=== PATIENT | female | born 1965 | race Caucasian/White ===

== ENCOUNTER 2020-07-12 09:49 | Outpatient (RCR) | payer MEDICARE, MEDICAID, SELFPAY ==
--- NOTE | 2020-07-14 15:01 | MHC.PT.DC ---
[facility] [place] Office [place] Office [place] Office [address] Sadie Peter [address] [phone] F: [phone] F: [phone] F: [phone] F: [phone] Physical Therapy Discharge Report Diagnosis: SIJ dysfunction Date of Surgery: Date of Evaluation: 05/04/20 Date of Discharge: 07/14/20 Treatments to Date: 10 Cancellations to Date: 1 No Shows to Date: 0 Discharge Status: Achieved Goals Improved Function Independent with HEP Discharge Summary: In general patient is doing much better, she no longer has leg symptoms, demos an improvement in gait pattern and decreased low back pain. She will be going for an injection for lingering symptoms but has an HEP to continue at home on own. DC to HEP at this time. Electronically signed by: Heidi Saez Please sign and return to therapist. Thank you for your referral.
== END 2020-07-14 15:02 | disposition home or self-care (01) ==
LOC: HO.PTCHIC 09:49
PROVIDERS: PCP Physician Assistant; Visit Provider Physician Assistant
DX: M53.3 Sacrococcygeal disorders, not elsewhere classified (principal)
CPT/HCPCS: 97014; 97110; 97140

== ENCOUNTER 2020-10-20 08:51 | Outpatient (REF) | payer MEDICARE, MEDICAID, SELFPAY ==
[2020-10-20 11:23] LABS: Hematocrit 41.8 % (37-47); Hemoglobin 13.6 g/dl (12.0-16.0); Mean Corpuscular HGB Conc 32.5 g/dl (31.0-35.0); Mean Corpuscular Hemoglobin 30.1 pg (27.0-33.0); Mean Corpuscular Volume 92.5 fL (80-98); Mean Platelet Volume 10.8 fL (9.4-12.3); Platelet Count 154 X10*3/uL (160-400); Red Blood Count 4.52 X10*6/uL (4.20-5.50); Red Cell Distribution Width 14.6 % (11.0-16.0); White Blood Count 4.2 X10*3/uL (4.8-10.8)
[2020-10-20 11:31] LABS: Estimated Average Glucose 154 mg/dL
[2020-10-20 11:56] LABS: Alanine Aminotransferase 32 U/L (0-31); Albumin Level 4.9 g/dL (3.5-5.0); Alkaline Phosphatase 81 U/L (39-117); Anion Gap 14 (12-20); Aspartate Amino Transferase 27 U/L (5-31); Bilirubin Total 0.5 mg/dL (0.0-1.0); Blood Urea Nitrogen 15 mg/dL (9-16); Carbon Dioxide 25 mmol/L (22-29); Chloride 106 mmol/L (96-108); Cholesterol 165 mg/dL; Estimated Glomerular Filt Rate > 60; Glucose Fasting 159 mg/dL (60-99); HDL Cholesterol 45 mg/dL; LDL Cholesterol Calculated 57 mg/dl; Potassium 4.4 mmol/l (3.3-5.1); Sodium 141 mmol/L (135-145); Total Protein 6.9 g/dL (6.5-8.0); Triglycerides 319 mg/dL
[2020-10-20 12:23] LABS: TSH reflex Free T4 2.96 mIU/mL (0.32-4.0)
[2020-10-20 12:27] LABS: Creatinine Urine 65.11 mg/dL; Microalbumin Urine < 5.0 mg/L
== END 2020-10-20 08:52 | disposition home or self-care (01) ==
LOC: HO.HMGCLDS 08:51
PROVIDERS: PCP Physician Assistant; Visit Provider Physician Assistant
DX: I10 Essential (primary) hypertension (principal); E78.2 Mixed hyperlipidemia; E11.65 Type 2 diabetes mellitus with hyperglycemia
CPT/HCPCS: 36415; 80053; 80061; 82043; 83036; 84443; 85027

== ENCOUNTER 2021-03-21 13:30 | Outpatient (REF) | payer MEDICARE, MEDICAID, SELFPAY ==
[2021-03-21 16:20] LABS: MANUAL DIFF FLAG NO
[2021-03-21 16:24] LABS: Basophils Percent Auto 0.6 % (0-2); Eosinophils Absolute Auto 0.1 X10*3/uL (0.0-0.4); Eosinophils Percent Auto 1.8 % (0-4); Hematocrit 40.2 % (37-47); Hemoglobin 13.2 g/dl (12.0-16.0); Imm Gran Abs Auto 0.01 X10*3/uL (0.00-0.03); Imm Gran Pct Auto 0.2 % (0.0-0.4); Lymphocytes Absolute Auto 1.4 X10*3/uL (1.2-4.9); Lymphocytes Percent Auto 27.2 % (20-40); Mean Corpuscular HGB Conc 32.8 g/dl (31.0-35.0); Mean Corpuscular Hemoglobin 30.2 pg (27.0-33.0); Mean Platelet Volume 12.1 fL (9.4-12.3); Monocytes Absolute Auto 0.4 X10*3/uL (0.1-1.2); Monocytes Percent Auto 7.8 % (2-11); Neutrophils Absolute Auto 3.1 X10*3/uL (2.0-8.3); Neutrophils Percent Auto 62.4 % (45-73); Platelet Count 115 X10*3/uL (160-400); Red Blood Count 4.37 X10*6/uL (4.20-5.50); Red Cell Distribution Width 14.3 % (11.0-16.0)
== END 2021-03-21 13:31 | disposition home or self-care (01) ==
LOC: HO.HMGCLDS 13:30
PROVIDERS: PCP Physician Assistant; Visit Provider Physician Assistant
DX: D69.6 Thrombocytopenia, unspecified (principal)
CPT/HCPCS: 36415; 85025

== ENCOUNTER 2021-05-18 09:26 | Outpatient (REF) | payer MEDICARE, MEDICAID, SELFPAY ==
[2021-05-18 11:25] LABS: MANUAL DIFF FLAG NO
[2021-05-18 11:42] LABS: Basophils Percent Auto 0.5 % (0-2); Eosinophils Absolute Auto 0.1 X10*3/uL (0.0-0.4); Imm Gran Abs Auto 0.02 X10*3/uL (0.00-0.03); Imm Gran Pct Auto 0.5 % (0.0-0.4); Lymphocytes Percent Auto 25.2 % (20-40); Mean Corpuscular HGB Conc 32.5 g/dl (31.0-35.0); Mean Corpuscular Hemoglobin 29.6 pg (27.0-33.0); Mean Corpuscular Volume 91.1 fL (80-98); Mean Platelet Volume 11.4 fL (9.4-12.3); Monocytes Absolute Auto 0.3 X10*3/uL (0.1-1.2); Monocytes Percent Auto 7.1 % (2-11); Neutrophils Absolute Auto 2.7 X10*3/uL (2.0-8.3); Neutrophils Percent Auto 64.7 % (45-73); Platelet Count 134 X10*3/uL (160-400); Red Blood Count 4.39 X10*6/uL (4.20-5.50); Red Cell Distribution Width 14.1 % (11.0-16.0); White Blood Count 4.1 X10*3/uL (4.8-10.8)
[2021-05-18 11:47] LABS: Estimated Average Glucose 163 mg/dL; Hemoglobin A1c % 7.3 %
[2021-05-18 11:57] LABS: Alanine Aminotransferase 59 U/L (0-31); Albumin Level 4.7 g/dL (3.5-5.0); Alkaline Phosphatase 99 U/L (39-117); Anion Gap 15 (12-20); Aspartate Amino Transferase 44 U/L (5-31); Bilirubin Total 0.4 mg/dL (0.0-1.0); Blood Urea Nitrogen 14 mg/dL (9-16); Calcium 9.8 mg/dL (8.4-10.2); Carbon Dioxide 24 mmol/L (22-29); Chloride 104 mmol/L (96-108); Cholesterol 249 mg/dL; Estimated Glomerular Filt Rate > 60; Glucose Fasting 174 mg/dL (60-99); HDL Cholesterol 55 mg/dL; Potassium 4.2 mmol/L (3.3-5.1); Sodium 139 mmol/L (135-145); Total Protein 7.5 g/dL (6.5-8.0); Triglycerides 546 mg/dL
[2021-05-18 12:20] LABS: TSH reflex Free T4 3.87 uIU/mL (0.32-4.0)
== END 2021-05-18 09:27 | disposition home or self-care (01) ==
LOC: HO.HMGCLDS 09:26
PROVIDERS: PCP Physician Assistant; Visit Provider Physician Assistant
DX: D69.6 Thrombocytopenia, unspecified (principal); E78.2 Mixed hyperlipidemia; E11.65 Type 2 diabetes mellitus with hyperglycemia; E03.9 Hypothyroidism, unspecified
CPT/HCPCS: 36415; 80053; 80061; 83036; 84443; 85025

== ENCOUNTER 2021-05-30 12:48 | Outpatient (REF) | payer MEDICARE, MEDICAID, SELFPAY | END 2021-05-30 12:49 | disposition home or self-care (01) | LOC: HO.LNP 12:48 | PROVIDERS: Visit Provider Nurse Practitioner Family | DX: R35.0 Frequency of micturition (principal) | CPT/HCPCS: 87086 ==

== ENCOUNTER 2021-07-10 12:16 | Outpatient (REF) | payer OTHER, SELFPAY ==
[2021-07-10 13:03] LABS: Hematocrit 39.6 % (37-47); Hemoglobin 13.4 g/dl (12.0-16.0); Mean Corpuscular HGB Conc 33.8 g/dl (31.0-35.0); Mean Corpuscular Hemoglobin 30.3 pg (27.0-33.0); Mean Corpuscular Volume 89.6 fL (80-98); Mean Platelet Volume 10.4 fL (9.4-12.3); Platelet Count 132 X10*3/uL (160-400); Red Blood Count 4.42 X10*6/uL (4.20-5.50); Red Cell Distribution Width 13.8 % (11.0-16.0); White Blood Count 4.1 X10*3/uL (4.8-10.8)
[2021-07-10 13:11] LABS: Platelet Count (Citrate) 129 X10*3/uL (150-310)
[2021-07-10 13:19] LABS: Anion Gap 14 (12-20); Blood Urea Nitrogen 12 mg/dL (9-16); Calcium 9.6 mg/dL (8.4-10.2); Carbon Dioxide 24 mmol/L (22-29); Chloride 107 mmol/L (96-108); Estimated Glomerular Filt Rate > 60; Glucose Random 100 mg/dL (60-115); Magnesium 2.1 mg/dL (1.6-2.6); Sodium 141 mmol/L (135-145)
[2021-07-10 13:56] LABS: Folate 16.9 ng/mL (> or = 4.0); Vitamin B12 397 pg/mL (200-900)
[2021-07-13 02:17] LABS: Zinc 95 mcg/dL (60-130)
== END 2021-07-10 12:17 | disposition home or self-care (01) ==
LOC: HO.LAB 12:16
PROVIDERS: PCP Physician Assistant; Visit Provider Physician Assistant
DX: M79.10 Myalgia, unspecified site (principal); D69.6 Thrombocytopenia, unspecified; I10 Essential (primary) hypertension; E78.2 Mixed hyperlipidemia
CPT/HCPCS: 36415; 80048; 82607; 82746; 83735; 84630; 85027

== ENCOUNTER 2021-10-05 10:04 | Outpatient (REF) | payer OTHER, SELFPAY ==
[2021-10-05 11:32] LABS: Hematocrit 39.4 % (37.0-47.0); Hemoglobin 13.4 g/dl (12.0-16.0); Mean Corpuscular Hemoglobin 30.3 pg (27.0-33.0); Mean Corpuscular Volume 89.1 fL (80.0-98.0); Platelet Count 147 X10*3/uL (160-400); Red Blood Count 4.42 X10*6/uL (4.20-5.50); Red Cell Distribution Width 13.5 % (11.0-16.0); White Blood Count 4.7 X10*3/uL (4.8-10.8)
[2021-10-05 12:13] LABS: Platelet Count (Citrate) 101 X10*3/uL (150-310)
[2021-10-05 12:15] LABS: Alanine Aminotransferase 49 U/L (0-31); Albumin Level 4.7 g/dL (3.5-5.0); Alkaline Phosphatase 96 U/L (39-117); Anion Gap 16 (12-20); Aspartate Amino Transferase 45 U/L (5-31); Bilirubin Total 0.4 mg/dL (0.0-1.0); Blood Urea Nitrogen 15 mg/dL (9-16); Carbon Dioxide 22 mmol/L (22-29); Chloride 105 mmol/L (96-108); Cholesterol 267 mg/dL; Estimated Glomerular Filt Rate > 60; Glucose Fasting 177 mg/dL (60-99); HDL Cholesterol 53 mg/dL; Potassium 4.1 mmol/L (3.3-5.1); Sodium 139 mmol/L (135-145); Total Protein 7.8 g/dL (6.5-8.0); Triglycerides 495 mg/dL
[2021-10-05 12:25] LABS: Creatinine Urine 63.35 mg/dL; Microalbum/Creatinine Ratio Ur 14.2 ug/mg cr
== END 2021-10-05 10:05 | disposition home or self-care (01) ==
LOC: HO.HMGCLDS 10:04
PROVIDERS: PCP Physician Assistant; Visit Provider Physician Assistant
DX: E03.9 Hypothyroidism, unspecified (principal); E11.65 Type 2 diabetes mellitus with hyperglycemia; E78.2 Mixed hyperlipidemia; D69.6 Thrombocytopenia, unspecified
CPT/HCPCS: 36415; 80053; 80061; 82043; 84443; 85027

== ENCOUNTER 2021-11-20 11:06 | Outpatient (REF) | payer OTHER, SELFPAY ==
[2021-11-20 14:03] LABS: Hematocrit 42.2 % (37.0-47.0); Hemoglobin 13.9 g/dl (12.0-16.0); Mean Corpuscular HGB Conc 32.9 g/dl (31.0-35.0); Mean Corpuscular Hemoglobin 29.6 pg (27.0-33.0); Mean Platelet Volume 11.3 fL (9.4-12.3); Platelet Count 127 X10*3/uL (160-400); Red Blood Count 4.69 X10*6/uL (4.20-5.50); Red Cell Distribution Width 14.2 % (11.0-16.0); White Blood Count 4.6 X10*3/uL (4.8-10.8)
[2021-11-20 15:10] LABS: Platelet Count (Citrate) 96 X10*3/uL (150-310)
== END 2021-11-20 11:07 | disposition home or self-care (01) ==
LOC: HO.HMGCLDS 11:06
PROVIDERS: Visit Provider Physician Assistant
DX: D69.6 Thrombocytopenia, unspecified (principal)
CPT/HCPCS: 36415; 85027

== ENCOUNTER 2021-12-15 12:17 | Day surgery (SDC) | payer OTHER, SELFPAY ==
--- NOTE | 2021-12-13 14:29 | HO.ANESPROP2 ---
Documented by User: Belen Danielle NP 12/13/21 14:32 HPI - Anesthesia Eval Consult details Narrative: 56yo F for Bone Marrow Biopsy PMFSH Active Problems Active Problems: All Active Problems (Updated 12/11/21 @ 14:27 by Tere Jj, VIVEK) ISAURA (generalized anxiety disorder) (Acute) DMII (diabetes mellitus, type 2) (Acute) HLD (hyperlipidemia) (Acute) Migraines (Acute) Hypothyroidism (Acute) Allergic rhinitis (Acute) Thrombocytopenia (Chronic) Urinary frequency (Acute) Adult general medical exam (Acute) Myalgia (Acute) GERD (gastroesophageal reflux disease) (Acute) Hypertriglyceridemia (Acute) Obese (Acute) HTN (hypertension) (Acute) SI (sacroiliac) joint dysfunction (Acute) Chronic inflammatory demyelinating neuropathy (Acute) Past Medical History Medical History Anxiety Chronic inflammatory demyelinating neuropathy Diabetes GERD (gastroesophageal reflux disease) Herpes simplex HTN (hypertension) Hypothyroid Sciatica Seasonal allergies Family History Family History Father Leukemia Lung cancer PVD (peripheral vascular disease) Mother Diabetes Heart disease Asthma Substance use disorder Brother Thyroid disease Son Kelley's disease Sister Lymphoma Surgical History Surgical History History of ankle surgery History of bladder surgery History of colonoscopy History of elbow surgery History of hand surgery History of hip surgery History of hysterectomy History of inguinal hernia repair History of rectal surgery History of right knee surgery History of shoulder surgery History of surgery History of thumb surgery History of tonsillectomy and adenoidectomy Social History Social History Housing: House Alcohol intake: current Alcohol intake frequency: a few times a month Patient Tobacco Use Status: Former Tobacco user Quit Date: 1991 Tobacco use type: Cigarette e-Cigarette/Vaping Use: Never Used Are you DNR?: No Advance Directives: No Advance Directives Information Provided: Yes Advance Directives on File: No service: No Current occupational status: disabled Meds Allergies Allergy/AdvReac Type Severity Reaction Status Date / Time RACHELLE Inhibitors Allergy Severe Anaphylaxis Verified 12/15/21 12:36 azithromycin Allergy Severe HIVES TO Verified 12/15/21 12:36 ZPACK, anaphylaxis Fffxpaf-OMT-LlV Reductase Allergy Severe Anaphylaxis Verified 12/15/21 12:36 Inhibitor [Nnzodtg-Tdz-Hgx Reductase Inhibitor] IVIG Allergy Unknown told to Uncoded 12/11/21 14:31 avoid Home Medications Medication Instructions Recorded Confirmed Last Taken Type butalbital 50 mg-acetaminophen 300 1 cap PO DAILY PRN 10/13/20 12/11/21 Unknown History mg-caffeine 40 mg-codeine 30 mg cap diclofenac sodium 75 mg 75 mg PO DAILY PRN 10/13/20 12/11/21 Unknown History tablet,delayed release empagliflozin 25 mg tablet 25 mg PO DAILY 10/13/20 12/11/21 Unknown History (Jardiance) glimepiride 2 mg tablet 2 mg PO DAILY 10/13/20 12/11/21 Unknown History levothyroxine 200 mcg tablet 200 mcg PO DAILY 10/13/20 12/11/21 Unknown History liraglutide 0.6 mg/0.1 mL (18 mg/3 1.2 mg SUBCUT DAILY 10/13/20 12/11/21 Unknown History mL) subcutaneous pen injector metformin 500 mg tablet,extended 1,000 mg PO BID 10/13/20 12/11/21 Unknown History release 24 hr pramipexole 0.25 mg tablet 0.25 mg PO BEDTIME PRN 10/13/20 12/11/21 Unknown History sucralfate 1 gram tablet 1 g PO .4 TIMES A DAY PRN tab 10/13/20 12/11/21 Unknown History imiquimod 5 % topical cream packet 0 appl TOPICAL 3XW 05/30/21 12/11/21 Unknown History omeprazole 40 mg capsule,delayed 40 mg PO BID 12/01/21 12/11/21 Unknown History release mercaptopurine 50 mg tablet 1 tab PO DAILY 12/11/21 12/11/21 Unknown History valacyclovir 1 gram tablet 500 mg PO DAILY 12/11/21 12/11/21 Unknown History Fish Oil PO 12/15/21 Unknown History Exam Exam Date and Time: December 13, 2021 1429 Height,Weight and Vital Signs: Height 5 ft 7 in Weight 87.09 kg Pertinent Lab Results Pertinent Lab Results: Laboratory Tests 10/05/21 11/20/21 10:07 11:11 WBC 4.6 L Hgb 13.9 Hct 42.2 Plt Count 127 L Sodium 139 Potassium 4.1 Chloride 105 Carbon Dioxide 22 BUN 15 Creatinine 0.79 Assessment and Plan Assessment Anesthesia Assessment: Chart Reviewed Documented by User: Arlet Alejandra MD 12/15/21 12:49 PMF Past Medical History Medical History Anxiety Chronic inflammatory demyelinating neuropathy Diabetes GERD (gastroesophageal reflux disease) Herpes simplex HTN (hypertension) Hypothyroid Sciatica Seasonal allergies Functional capacity: independent ambulation Patient : No Family History Family History Father Leukemia Lung cancer PVD (peripheral vascular disease) Mother Diabetes Heart disease Asthma Substance use disorder Brother Thyroid disease Son Kelley's disease Sister Lymphoma Family history of problems with anesthesia: No Surgical History Surgical History History of ankle surgery History of bladder surgery History of colonoscopy History of elbow surgery History of hand surgery History of hip surgery History of hysterectomy History of inguinal hernia repair History of rectal surgery History of right knee surgery History of shoulder surgery History of surgery History of thumb surgery History of tonsillectomy and adenoidectomy History of Problems with Anesthesia: No Social History Social History Housing: House Alcohol intake: current Alcohol intake frequency: a few times a month Patient Tobacco Use Status: Former Tobacco user Quit Date: 1991 Tobacco use type: Cigarette e-Cigarette/Vaping Use: Never Used Are you DNR?: No Advance Directives: No Advance Directives Information Provided: Yes Advance Directives on File: No service: No Current occupational status: disabled Meds Allergies Allergy/AdvReac Type Severity Reaction Status Date / Time RACHELLE Inhibitors Allergy Severe Anaphylaxis Verified 12/15/21 12:36 azithromycin Allergy Severe HIVES TO Verified 12/15/21 12:36 ZPACK, anaphylaxis Twniozm-FUS-RlM Reductase Allergy Severe Anaphylaxis Verified 12/15/21 12:36 Inhibitor [Tyqqdhn-Khc-Ohn Reductase Inhibitor] IVIG Allergy Unknown told to Uncoded 12/11/21 14:31 avoid Home Medications Medication Instructions Recorded Confirmed Last Taken Type butalbital 50 mg-acetaminophen 300 1 cap PO DAILY PRN 10/13/20 12/11/21 Unknown History mg-caffeine 40 mg-codeine 30 mg cap diclofenac sodium 75 mg 75 mg PO DAILY PRN 10/13/20 12/11/21 Unknown History tablet,delayed release empagliflozin 25 mg tablet 25 mg PO DAILY 10/13/20 12/11/21 Unknown History (Jardiance) glimepiride 2 mg tablet 2 mg PO DAILY 10/13/20 12/11/21 Unknown History levothyroxine 200 mcg tablet 200 mcg PO DAILY 10/13/20 12/11/21 Unknown History liraglutide 0.6 mg/0.1 mL (18 mg/3 1.2 mg SUBCUT DAILY 10/13/20 12/11/21 Unknown History mL) subcutaneous pen injector metformin 500 mg tablet,extended 1,000 mg PO BID 10/13/20 12/11/21 Unknown History release 24 hr pramipexole 0.25 mg tablet 0.25 mg PO BEDTIME PRN 10/13/20 12/11/21 Unknown History sucralfate 1 gram tablet 1 g PO .4 TIMES A DAY PRN tab 10/13/20 12/11/21 Unknown History imiquimod 5 % topical cream packet 0 appl TOPICAL 3XW 05/30/21 12/11/21 Unknown History omeprazole 40 mg capsule,delayed 40 mg PO BID 12/01/21 12/11/21 Unknown History release mercaptopurine 50 mg tablet 1 tab PO DAILY 12/11/21 12/11/21 Unknown History valacyclovir 1 gram tablet 500 mg PO DAILY 12/11/21 12/11/21 Unknown History Fish Oil PO 12/15/21 Unknown History Exam Airway Mallampati Class: II TM Dist: >3cm Neck ROM: Full Heart: RRR Lungs: CTA Assessment and Plan Final Anesthetic Review Family History of Problems with Anesthesia: No History of Problems with Anesthesia: No ASA Class: III Final Preanesthetic Review: No Changes in Pt Med Stat, Meds/Allgs Chart Reviewed, Consent Obtained/Reviewed and Anes Risks/Benef Reviewed Patient Risk: Low Procedure Risk: Low Anesthetic Plan Anesthetic Plan: MAC: Disposition: Standard PACU
[2021-12-15 12:37] VITALS: BP 119/73; PULSE 86; RESP 16; TEMP 36.9; O2SAT 97
[2021-12-15 12:39] LABS: Glucose, Whole Blood 131 mg/dL (60-115)
[2021-12-15] MEDS: Lactated Ringers 1,000 ML 100 ML IVCONT (12:50)
[2021-12-15 14:24] LABS: Hematocrit 38.6 % (37.0-47.0); Mean Corpuscular HGB Conc 33.7 g/dl (31.0-35.0); Mean Corpuscular Hemoglobin 29.7 pg (27.0-33.0); Mean Corpuscular Volume 88.3 fL (80.0-98.0); Mean Platelet Volume 9.9 fL (9.4-12.3); Platelet Count 133 X10*3/uL (160-400); Red Blood Count 4.37 X10*6/uL (4.20-5.50); Red Cell Distribution Width 14.3 % (11.0-16.0); White Blood Count 4.5 X10*3/uL (4.8-10.8)
--- NOTE | 2021-12-15 14:47 | PM.HEMONCBM ---
Bone Marrow Aspiration - Bone Marrow Aspiration Procedure:: *Service Date: [12/15/21] Pre Op Diagnosis:: Thrombocytopenia, probable ITP Post Op Diagnosis:: Same as above Surgeon:: Lorin Tam MD Anesthesia:: Monitored anesthesia and local anesthesia Consent:: Informed consent obtained from the patient for the procedure. Pros and cons of biopsy explained. The patient was willing to proceed with the procedure under monitored anesthesia. Procedure in Detail:: The patient was positioned in the left lateral decubitus and the right posterior superior iliac spine prepped and draped. Under aseptic precautions, 10 ml of 1% lidocaine used for local anesthesia. With the Jamshidi needle, 8 ml of aspirate and 1 cm core biopsy obtained without any complications. The patient tolerated the procedure well. Bandage was applied and patient was positioned on back for 10 to 15 minutes after the procedure. The patient was advised to call us if she develops any pain or swelling at the surgical site. Follow up in 2 weeks.
[2021-12-15 14:49] VITALS: BP 111/74; PULSE 86; RESP 16; TEMP 36.7; O2SAT 96
[2021-12-15 15:04] VITALS: BP 112/73; PULSE 83; RESP 18; O2SAT 97
[2021-12-15 15:10] LABS: Bone Marrow SEE SEPARATE REPORT
== END 2021-12-15 15:30 | disposition home or self-care (01) ==
PROVIDERS: PCP Physician Assistant; Visit Provider Internal Medicine
PROC: (CPT 38221; principal; 2021-12-15 14:00)
DX: D69.6 Thrombocytopenia, unspecified (principal); G61.81 Chronic inflammatory demyelinating polyneuritis; Z80.6 Family history of leukemia; Z80.7 Family history of other malignant neoplasms of lymphoid, hematopoietic and related tissues; I10 Essential (primary) hypertension; E11.9 Type 2 diabetes mellitus without complications; E06.3 Autoimmune thyroiditis; M06.9 Rheumatoid arthritis, unspecified; K21.9 Gastro-esophageal reflux disease without esophagitis; B00.9 Herpesviral infection, unspecified; Z79.84 Long term (current) use of oral hypoglycemic drugs; Z88.1 Allergy status to other antibiotic agents; Z88.8 Allergy status to other drugs, medicaments and biological substances; Z87.891 Personal history of nicotine dependence; Z79.899 Other long term (current) drug therapy
CPT/HCPCS: 38222; 36415; 82947; 85027; 85097; 88184; 88185; 88237; 88264; 88305; 88311; 88313; 88342; J1642; J2250; J2405; J3010

== ENCOUNTER 2021-12-20 08:16 | Outpatient (REF) | payer OTHER, SELFPAY ==
--- NOTE | ~2021-12-20 | US_ITS ---
EXAMINATION: US ABDOMEN COMPLETE CLINICAL INFORMATION: Thrombocytopenia, unspecified. COMPARISON: None. TECHNIQUE: Real-time imaging of the abdominal viscera. FINDINGS: PANCREAS: The pancreas is obscured by gas. ABDOMINAL AORTA: The proximal, mid, and distal segments are normal in caliber. INFERIOR VENA CAVA: Visualized portions are normal. LIVER: The liver is normal in size. The liver contour is normal. The liver is diffusely echogenic. No focal lesion seen. No focal hepatic lesion. There is no intrahepatic biliary duct dilatation seen. GALLBLADDER: Surgically absent. COMMON BILE DUCT: Normal in caliber measuring 0.8 cm in diameter. RIGHT KIDNEY: There is an anechoic cyst in the midpole measuring 0.70 x 0.70 x 0.82 cm. There is mild fullness. No hydronephrosis or renal calculi. The kidney measures 10.3 cm in maximum dimension. LEFT KIDNEY: Normal. No hydronephrosis. No renal calculi or focal parenchymal lesions. The kidney measures 11.0 cm in maximum dimension. SPLEEN: The spleen is borderline enlarged. The spleen measures 13.4 cm in maximum dimension. FREE FLUID: None. US/US abdomen complete IMPRESSION: Hepatic steatosis without focal lesion. Anechoic cyst midpole right kidney with mild kidney fullness. Borderline splenic enlargement without focal lesion.
== END 2021-12-20 08:17 | disposition home or self-care (01) ==
LOC: HO.HMGCX 08:16
PROVIDERS: Visit Provider Physician Assistant
DX: D69.6 Thrombocytopenia, unspecified (principal)
CPT/HCPCS: 76700

== ENCOUNTER 2021-12-29 08:32 | Outpatient (REF) | payer OTHER, SELFPAY ==
[2021-12-29 13:10] LABS: Monotest Negative (Negative)
[2022-01-02 16:57] LABS: EBV DNA PCR Not Detected (Not Detected); EBV Source Whole Blood
== END 2021-12-29 08:33 | disposition home or self-care (01) ==
LOC: HO.HMGCLDS 08:32
PROVIDERS: PCP Physician Assistant; Visit Provider Physician Assistant
DX: R16.1 Splenomegaly, not elsewhere classified (principal); D69.6 Thrombocytopenia, unspecified
CPT/HCPCS: 36415; 86308; 87798

== ENCOUNTER 2022-02-16 11:21 | Outpatient (REF) | payer OTHER, SELFPAY ==
--- NOTE | ~2022-02-16 | XR_ITS ---
EXAMINATION: XR LUMBOSACRAL SPINE WITH OBLIQUES CLINICAL INFORMATION: M47.816 spondylosis, lumbar region. Recent Upper GI exam 02/12/2022. COMPARISON: Radiographs sacroiliac joints 04/07/2020, CT left hip 04/15/2020 TECHNIQUE: Lumbar spine is imaged in 5 views: FINDINGS: Normal lumbar segmentation with 5 nonrib-bearing lumbar vertebrae of normal height and normal lumbar lordosis. No lumbar vertebral compression, disc narrowing, destructive process, or spondylolisthesis. No spondylolysis. There is mild lumbar vertebral spurring anteriorly L5. No erosive changes. The SI joints and visualized sacrum are unremarkable. Bowel gas is normal. There is scattered barium in colonic diverticula and barium in the appendix from recent upper GI series. There are metallic tacks overlying the upper and mid abdomen likely from prior abdominal wall mesh. Chain urszula are seen overlying pelvis just left of midline. XR/XR lumbar spine 4V min IMPRESSION: -No lumbar vertebral compression, spondylolisthesis, or disc narrowing.
== END 2022-02-16 11:22 | disposition home or self-care (01) ==
LOC: HO.HMGCX 11:21
PROVIDERS: PCP Physician Assistant; Visit Provider Nurse Practitioner Women's Health
DX: M47.816 Spondylosis without myelopathy or radiculopathy, lumbar region (principal)
CPT/HCPCS: 72110

== ENCOUNTER 2022-06-06 10:55 | Outpatient (REF) | payer OTHER, SELFPAY ==
--- NOTE | ~2022-06-06 | XR_ITS ---
EXAMINATION: XR THORACIC SPINE CLINICAL INFORMATION: Pain COMPARISON: None TECHNIQUE: 3 views of the thoracic spine were obtained. FINDINGS: There is no fracture or bone destruction seen and the vertebral alignment is normal. There is no disc space narrowing. There is no abnormality of the paraspinal soft tissues. Partially visualized anterior abdominal wall hernia repair with mesh in place. XR/XR thoracic spine 3V IMPRESSION: Unremarkable dorsal spine exam.
== END 2022-06-06 10:56 | disposition home or self-care (01) ==
LOC: HO.HMGCX 10:55
PROVIDERS: PCP Physician Assistant; Visit Provider Nurse Practitioner Women's Health
DX: M54.6 Pain in thoracic spine (principal)
CPT/HCPCS: 72072

== ENCOUNTER 2022-07-11 10:20 | Outpatient (REF) | payer OTHER, SELFPAY ==
[2022-07-11 11:27] LABS: MANUAL DIFF FLAG NO
[2022-07-11 11:38] LABS: Basophils Percent Auto 0.6 % (0-2); Eosinophils Absolute Auto 0.1 X10*3/uL (0.0-0.4); Eosinophils Percent Auto 1.5 % (0-4); Hemoglobin 13.5 g/dl (12.0-16.0); Imm Gran Abs Auto 0.02 X10*3/uL (0.00-0.03); Imm Gran Pct Auto 0.4 % (0.0-0.4); Lymphocytes Absolute Auto 1.2 X10*3/uL (1.2-4.9); Mean Corpuscular HGB Conc 33.8 g/dl (31.0-35.0); Mean Corpuscular Hemoglobin 29.6 pg (27.0-33.0); Mean Corpuscular Volume 87.7 fL (80.0-98.0); Mean Platelet Volume 10.2 fL (9.4-12.3); Monocytes Absolute Auto 0.4 X10*3/uL (0.1-1.2); Monocytes Percent Auto 6.5 % (2-11); Neutrophils Absolute Auto 3.8 x10*3/uL (2.0-8.3); Platelet Count 167 X10*3/uL (160-400); Red Blood Count 4.56 X10*6/uL (4.20-5.50); Red Cell Distribution Width 14.2 % (11.0-16.0); White Blood Count 5.4 X10*3/uL (4.8-10.8)
[2022-07-11 11:47] LABS: Estimated Average Glucose 154 mg/dL
[2022-07-11 12:42] LABS: Alanine Aminotransferase 60 U/L (0-31); Alkaline Phosphatase 82 U/L (39-117); Anion Gap 19 (12-20); Aspartate Amino Transferase 44 U/L (5-31); Bilirubin Total 0.5 mg/dL (0.0-1.0); Blood Urea Nitrogen 11 mg/dL (9-16); Calcium 10.3 mg/dL (8.4-10.2); Carbon Dioxide 24 mmol/L (22-29); Chloride 101 mmol/L (96-108); Cholesterol 214 mg/dL; Estimated Glomerular Filt Rate > 60; Glucose Fasting 153 mg/dL (60-99); HDL Cholesterol 56 mg/dL; LDL Cholesterol Calculated 101 mg/dl; Potassium 4.1 mmol/L (3.3-5.1); Sodium 140 mmol/L (135-145); Total Protein 7.7 g/dL (6.5-8.0); Triglycerides 286 mg/dL
[2022-07-11 12:48] LABS: Vitamin D 25-OH Total 30.7 ng/mL (>30)
== END 2022-07-11 10:21 | disposition home or self-care (01) ==
LOC: HO.HMGCLDS 10:20
PROVIDERS: PCP Physician Assistant; Visit Provider Physician Assistant
DX: E11.65 Type 2 diabetes mellitus with hyperglycemia (principal); D69.6 Thrombocytopenia, unspecified; I10 Essential (primary) hypertension
CPT/HCPCS: 36415; 80053; 80061; 82306; 83036; 84443; 85025

== ENCOUNTER 2023-04-08 07:55 | Outpatient (REF) | payer OTHER, SELFPAY ==
[2023-04-08 12:08] LABS: Hematocrit 40.8 % (37.0-47.0); Hemoglobin 13.5 g/dl (12.0-16.0); Mean Corpuscular HGB Conc 33.1 g/dl (31.0-35.0); Mean Corpuscular Hemoglobin 29.6 pg (27.0-33.0); Mean Corpuscular Volume 89.5 fL (80.0-98.0); Mean Platelet Volume 11.6 fL (9.4-12.3); Platelet Count 128 X10*3/uL (160-400); Red Blood Count 4.56 X10*6/uL (4.20-5.50); Red Cell Distribution Width 14.3 % (11.0-16.0)
[2023-04-08 12:56] LABS: Alanine Aminotransferase 48 U/L (0-31); Albumin Level 4.7 g/dL (3.5-5.0); Alkaline Phosphatase 81 U/L (39-117); Anion Gap 16 (12-20); Aspartate Amino Transferase 40 U/L (5-31); Bilirubin Total 0.5 mg/dL (0.0-1.0); Blood Urea Nitrogen 14 mg/dL (9-16); Calcium 10.3 mg/dL (8.4-10.2); Carbon Dioxide 24 mmol/L (22-29); Chloride 105 mmol/L (96-108); Cholesterol 211 mg/dL; Estimated Glomerular Filt Rate > 60; Glucose Fasting 167 mg/dL (60-99); HDL Cholesterol 61 mg/dL; LDL Cholesterol Calculated 108 mg/dl; Sodium 141 mmol/L (135-145); Total Protein 7.4 g/dL (6.5-8.0); Triglycerides 212 mg/dL
[2023-04-08 13:37] LABS: Creatinine Urine 51.86 mg/dL; Microalbum/Creatinine Ratio Ur 15.4 ug/mg cr
== END 2023-04-08 07:56 | disposition home or self-care (01) ==
LOC: HO.HMGCLDS 07:55
PROVIDERS: Absent Provider Internal Medicine; PCP Physician Assistant; Visit Provider Physician Assistant
DX: E11.65 Type 2 diabetes mellitus with hyperglycemia (principal); E78.2 Mixed hyperlipidemia; E03.9 Hypothyroidism, unspecified; I10 Essential (primary) hypertension
CPT/HCPCS: 36415; 80053; 80061; 82043; 84443; 85027

== ENCOUNTER 2023-05-07 13:40 | Outpatient (REF) | payer OTHER, SELFPAY ==
--- NOTE | ~2023-05-07 | XR_ITS ---
EXAMINATION: XR HIP, LEFT CLINICAL INFORMATION: Pain COMPARISON: None available. TECHNIQUE: Two views of the left hip. FINDINGS: Visualized portion of proximal left femur demonstrate no fracture. Femoral head is well-seated within the acetabulum. Left femoral acetabular joint space is well-maintained. No significant degenerative changes of the left hip. Surgical clips project over the pubic symphysis. XR/XR hip LT min 2V IMPRESSION: Unremarkable radiographs of the left hip.
== END 2023-05-07 13:41 | disposition home or self-care (01) ==
LOC: HO.HMGCX 13:40
PROVIDERS: Visit Provider Nurse Practitioner Women's Health
DX: M25.552 Pain in left hip (principal)
CPT/HCPCS: 73502

== ENCOUNTER 2023-05-30 11:12 | Outpatient (AMB) | payer OTHER, SELFPAY ==
[2023-05-30 11:20] VITALS: BP 112/70; PULSE 87; O2SAT 97; BMI 29.3
--- NOTE | 2023-05-30 11:20 | MHC.PC.OV ---
Vital Signs 05/30/23 11:20 Height 5 ft 7 in Weight 187 lb 6 oz BMI 29.3 BP 112/70 Blood Pressure Location Lt brachial Position Sitting Pulse 87 Pulse Source Pulse Oximeter Pulse Oximetry (%) 97 Oxygen Delivery Method Room Air Intake Visit Reasons: PE/DM Intake Note: Patient is here today for a physical and DMII. Pound Attendant Required: No Accompanied by: Self / Same As Patient Allergies RACHELLE Inhibitors Allergy (Severe, Verified 05/30/23 11:27) Anaphylaxis azithromycin Allergy (Severe, Verified 05/30/23 11:27) HIVES TO ZPACK, anaphylaxis Skaynvb-RGH-VjI Reductase Inhibitor [Qvcuiry-Zvq-Mdv Reductase Inhibitor] Allergy (Severe, Verified 05/30/23 11:27) Anaphylaxis amitriptyline Adverse Reaction (Intermediate, Verified 05/30/23 11:27) Headache hydrochlorothiazide Adverse Reaction (Intermediate, Verified 05/30/23 11:27) leg cramps IVIG Allergy (Unknown, Uncoded 05/30/23 11:27) told to avoid Tobacco use date assessed: 03/04/23 Dental Screening Dental Screen Date: 05/30/23 Did you have a dental visit in the last 12 months?: Yes Did you have a dental problem in the last 6 months where you did not have access to dental care?: No Was dental information given to patient?: Patient has dentist HPI PE/DM HPI Details Patient is a 58 year female here today for a routine annual physical. Patient has a past medical history type 2 diabetes, hypothyroidism, chronic inflammatory demyelinating polyneuritis. . Concerned--> reports having left hip pain over her lateral aspect of her hip and in her upper buttocks region. Has gotten x-ray without any notable abnormality. Has been working with physical therapy on her SI joint which has been helpful. She has follow-up with orthopedics and will be getting MRI of left hip. She also does report suffering with lot more anxiety as of late. She reports her son will be getting pretty soon which is causing lot her anxiety. ... ? .. ? DMII:? Patient followed by endocrinology, Does check blood sugars at home, report 120- 160s.? She did recently increase her her diabetic medication.? Most recent A1c is 7.0 .. HLD:? Most recent lipid panel much improved triglycerides and total cholesterol.? Patient has been using fish oil which seems to be working well for her.. ? Unable to take statin therapy due to side effect.? Have been locked into start fibrates due to elevations in liver enzymes. .. Thrombocytopenia:? Most recent platelet count at 107.? Has follow-up up with Hematology and has gotten bone pair mildly see which was normal.? Does have a small amount of bruising over her her extremities. Otherwise no epistaxis or bowel or bladder bleeding. .. HTN:? Blood pressures have been much better proved with amlodipine 2.5 mg.? Will continue on his dose of amlodipine. Otherwise denies any chest pain, palpitations, shortness of breath or headaches.? .. ? CIDP: Followed by neurologist at [facility], she does go for plasmapheresis therapies every 5 weeks. Has been having right-sided lower extremity weakness and facial weakness related to her neurological disease. 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 Also did have MRI of brain did show benign appearing cyst at is undergoing surveillance at this time. ?Also having migraines and reports she has gotten botox injection over he scalp which has helped.? Now only taking Fiorinal on a very limited p.r.n. basis.? .. ? Hypothyroidism: Patient continues to take levothyroxine to 100 mcg 6 days a week Colon cancer screening:UTD with Colonoscopy Vaccines: Up-to-date with COVID vaccine FOR[facility]LY [facility] Medical History Splenomegaly HTN (hypertension) Hypothyroid GERD (gastroesophageal reflux disease) Diabetes Anxiety Sciatica Obese Allergic rhinitis Herpes simplex Chronic inflammatory demyelinating neuropathy Surgical History History of colonoscopy History of surgery History of rectal surgery History of bladder surgery History of inguinal hernia repair History of hysterectomy History of tonsillectomy and adenoidectomy History of ankle surgery History of right knee surgery History of elbow surgery History of hand surgery History of thumb surgery History of shoulder surgery History of hip surgery Family History (Updated 05/30/23 @ 11:50 by Adam Cadena PA-C) Father Leukemia Lung cancer PVD (peripheral vascular disease) Mother Diabetes Heart disease Asthma Substance use disorder Brother Thyroid disease CIDP (chronic inflammatory demyelinating polyneuropathy) Son Kelley's disease Sister Lymphoma Social History (Updated 05/30/23 @ 11:50 by Adam Cadena PA-C) Housing: House Alcohol intake: current Alcohol intake frequency: a few times a month Patient Tobacco Use Status: Former Tobacco user Quit Date: 1991 Tobacco use type: Cigarette e-Cigarette/Vaping Use: Never Used Second Hand Smoke Exposure: Yes service: No Current occupational status: disabled Cognitive needs: No Hearing needs: No Vision needs: Yes (GLASSES) Questionnaire Thrive Questionnaire Date Thrive assessed: 03/04/23 ISAURA-7 AMB Questionnaire ISAURA-7 Date ISAURA - 7 assessed: 03/04/23 Source: Developed by Drs. Delfino Schwab, Christine Albrecht, Cesar Anthony and colleagues, with an educational margaret from [employer]. Review of Systems Const Denies body aches, Denies chills, Denies excessive sweating, Denies fatigue, Denies fever(s) and Denies headache(s) Eyes Denies blurry vision ENT Denies dysphagia, Denies vertigo, Denies dizziness, Denies headache(s), Denies hearing loss and Denies tinnitus Card Denies chest pain, Denies chest pain with activity, Denies syncope, Denies irregular heart rhythm and Denies dyspnea Resp Denies chest congestion, Denies cough, Denies hemoptysis, Denies dyspnea and Denies wheezing GI Denies abdominal pain, Denies melena, Denies hematochezia, Denies coffee ground emesis, Denies dysphagia, Denies diarrhea, Denies nausea and Denies vomiting Denies urinary frequency, Denies dysuria, Denies urinary hesitancy and Denies urinary urgency Musc Denies arthralgias, Denies limited range of motion, Denies muscle cramps and Denies muscle weakness Skin/Breast Denies rash and Denies skin ulcer Neuro Denies Abnormal speech present, Denies confusion, Denies vertigo, Denies dizziness, Denies syncope, Denies headache(s), Denies memory loss and Denies seizure-like activity Psych Denies anxiety, Denies confusion, Denies depression, Denies memory loss, Denies panic attacks and Denies paranoia Endo Denies excessive sweating, Denies fatigue, Denies flushing, Denies polydipsia and Denies polyuria Aller/Immun Denies wheezing Physical exam (Primary Care) Vital Signs: Last Vital Signs Pulse 87 05/30/23 11:20 BP 112/70 05/30/23 11:20 Pulse Ox 97 05/30/23 11:20 Oxygen Delivery Method Room Air 05/30/23 11:20 BMI result Body Mass Index 29.3 Tobacco/Smoking Status: Tobacco use Status Tobacco use date assessed 03/04/23 05/30/23 11:27 Patient Tobacco Use Status Former Tobacco user 05/30/23 11:50 Tobacco use type Cigarette 05/30/23 11:50 e-Cigarette/Vaping Use Never Used 05/30/23 11:50 Thrive Assessment: Date of Thrive Assessment Date Thrive assessed 03/04/23 05/30/23 11:27 Const General: cooperative, comfortable, no acute distress, alert and awake; No confusion Orientation/consciousness: oriented to person, oriented to place, patient oriented x3 and No confusion HENMT Head: Yes normocephalic Ears: external ears normal and TM's normal bilaterally Face and sinus: No sinus tenderness Mouth: Normal oral and palatal mucosa present and tongue normal Teeth and gingiva: dentition normal and gingiva normal Throat: Yes posterior oropharynx normal, Yes tonsils normal and Yes uvula midline Eyes Conjunctivae: conjunctivae normal Sclerae: sclerae normal Pupils: Equal, round and reactive pupils present EOM: EOMs intact bilaterally Direct Ophthalmoscopy: No no photophobia Neck Neck: Yes no lymphadenopathy, No tender and Yes no JVD Thyroid: Thyroid normal Carotids: no bruits Chest Chest palpation & inspection: no tenderness Resp Effort & Inspection: normal respiratory effort, no audible wheezes, not labored and no stridor Auscultation: no crackles, no rales, no rhonchi and no wheezes Cardio Jugular venous distension: no JVD Rate: regular rate, not bradycardic and not tachycardic Rhythm: regular rhythm Bruits: no carotid bruits Peripheral pulses: Peripheral pulses 2+ throughout GI Inspection: Yes normal to inspection, No abdominal wall ecchymosis and No visible herniation Palpation (GI): Soft to palpation, nontender, no guarding, not rigid and No hepatosplenomegaly present Auscultation: normoactive bowel sounds General: Yes no CVA tenderness Back/Spine/Pelvis Back: no CVA tenderness and No back tenderness Cervical Spine: cervical ROM normal Thoracic/Lumbar Spine: thoracic and lumbar spine normal to inspection, straight leg raise negative bilaterally, No thoraco-lumbar ROM limited and No lumbar spinal tenderness Skin Lesions: no lesions Rashes: no rashes Wounds: no wounds Neuro General: oriented to person, oriented to place, patient oriented x3, CN's II-XI intact bilaterally and No confusion Cranial nerves: Yes Equal, round and reactive pupils present and Yes Normal accommodation reflex present Cognition (Neuro): normal cognition Speech: No Abnormal speech present Gait exam (Neuro): Normal gait present Motor exam (neuro): 5/5 motor strength present throughout Extrem Right upper extremity: full ROM; no cyanosis Left upper extremity: full ROM; no cyanosis Right lower extremity: no edema Left lower extremity: no edema Psych Appearance: grossly normal Mental Status: mental status grossly normal Affect: normal affect Attitude: cooperative Thought process: Normal thought process present Assessment and Plan Assessment & Plan (1) Adult general medical exam: Code(s): Z00.00 - Encounter for general adult medical examination without abnormal findings (2) ISAURA (generalized anxiety disorder): Code(s): F41.1 - Generalized anxiety disorder Plan: As per HPI patient having more anxiety as of late. Not interested in starting new medication at this time. She does speak with a mental health therapist whom she likes. (3) DMII (diabetes mellitus, type 2): Code(s): E11.9 - Type 2 diabetes mellitus without complications Qualifiers: Diabetes mellitus complication status: with hyperglycemia Diabetes mellitus longterm insulin use: without longterm use Qualified Code(s): E11.65 - Type 2 diabetes mellitus with hyperglycemia Plan: Patient's type 2 diabetes well controlled with current doses of anti-hyperglycemic medication. Goal A1c is to remain below 7.0 (4) HLD (hyperlipidemia): Code(s): E78.5 - Hyperlipidemia, unspecified Qualifiers: Hyperlipidemia type: mixed hyperlipidemia Qualified Code(s): E78.2 - Mixed hyperlipidemia Plan: Patient's most recent lipid panel showing borderline high LDL. Patient has not been able to tolerate statin and has started fish oil which has helped her triglycerides.. Goal LDL to be below 100 (5) Thrombocytopenia: Code(s): D69.6 - Thrombocytopenia, unspecified Plan: Continues to follow hematology. Most recent platelet count at 107. She denies any severe bleeding though does report some bruising on her legs. (6) Left hip pain: Code(s): M25.552 - Pain in left hip Plan: As per HPI patient has been experiencing left hip pain worse with flexing and abducting her hips. Has upcoming MRI to evaluate. Orders: Orders Microalbumin, Random (w Creat) Today E11.65 - Type 2 diabetes mellitus with hyperglycemia TSH reflex Free T4 Today E03.9 - Hypothyroidism, unspecified Lipid Panel Today E78.2 - Mixed hyperlipidemia Hemoglobin A1c Today E11.65 - Type 2 diabetes mellitus with hyperglycemia Comprehensive Thomson. Panel Fast Today E11.65 - Type 2 diabetes mellitus with hyperglycemia Coding Level of Care Code Est Pt Prev Care 40-64y([id number]) Diagnoses Adult general medical exam Z00.00 ISAURA (generalized anxiety disorder) F41.1 Type 2 diabetes mellitus with hyperglycemia, without long-term current use of insulin E11.65 Diabetes mellitus complication status: with hyperglycemia Diabetes mellitus longterm insulin use: without longterm use Mixed hyperlipidemia E78.2 Hyperlipidemia type: mixed hyperlipidemia Thrombocytopenia D69.6 Left hip pain M25.552
== END 2023-05-30 12:05 | disposition home or self-care (01) ==
PROVIDERS: Visit Provider Physician Assistant
DX: Z00.00 Encounter for general adult medical examination without abnormal findings (principal); E11.65 Type 2 diabetes mellitus with hyperglycemia; D69.6 Thrombocytopenia, unspecified; F41.1 Generalized anxiety disorder; E78.2 Mixed hyperlipidemia; M25.552 Pain in left hip
CPT/HCPCS: 99396

== ENCOUNTER 2023-06-25 10:26 | Outpatient (REF) | payer OTHER, SELFPAY ==
--- NOTE | ~2023-06-25 | XR_ITS ---
EXAMINATION: XR FOOT, RIGHT CLINICAL INFORMATION: Right foot pain after injury COMPARISON: None available. TECHNIQUE: AP, lateral, and oblique views of the right foot. FINDINGS: Oblique fracture identified at the base of the third proximal phalanx extending close to the articular surface. Minor calcaneal spurring. XR/XR foot RT min 3V IMPRESSION: Fractured third proximal phalanx, intra-articular extension questioned.
== END 2023-06-25 10:27 | disposition home or self-care (01) ==
LOC: HO.HMGCX 10:26
PROVIDERS: PCP Physician Assistant; Visit Provider Nurse Practitioner Women's Health
DX: S93.514A Sprain of interphalangeal joint of right lesser toe(s), initial encounter (principal); X58.XXXA Exposure to other specified factors, initial encounter; Y93.9 Activity, unspecified; Y92.9 Unspecified place or not applicable; Y99.9 Unspecified external cause status
CPT/HCPCS: 73630

== ENCOUNTER 2023-08-08 14:26 | Outpatient (REF) | payer OTHER, SELFPAY ==
--- NOTE | ~2023-08-08 | XR_ITS ---
EXAMINATION: XR CHEST CLINICAL INFORMATION: Bronchitis COMPARISON: None available. TECHNIQUE: 2 views of the chest were obtained. FINDINGS: Lungs clear. No pleural effusions. Heart and pulmonary vessels are normal. XR/XR chest 2V IMPRESSION: No active disease.
== END 2023-08-08 14:27 | disposition home or self-care (01) ==
LOC: HO.HMGCX 14:26
PROVIDERS: PCP Physician Assistant; Visit Provider Physician Assistant
DX: J40 Bronchitis, not specified as acute or chronic (principal)
CPT/HCPCS: 71046

== ENCOUNTER 2023-09-10 08:23 | Outpatient (REF) | payer OTHER, SELFPAY ==
[2023-09-10 11:39] LABS: Appearance Urine Turbid; Color Urine Yellow; Glucose Urine UA >=1000 mg/dL (Negative); Leukocyte Esterase Urine Moderate (2+) (Negative); Nitrite Urine Positive (Negative); PH 5.5 (5.0-9.0); Specific Gravity - Urine >= 1.030 (1.005-1.025); UMIC TRIGGER UACC YES; Urine Blood Moderate (2+) (Negative); Urine Ketones Negative (Negative); Urine Protein Trace mg/dL (Neg-Trace)
[2023-09-10 11:53] LABS: Bacteria Urine 4+ (None Seen); Hyaline Casts Urine 0-2 /LPF (0-2); Squamous Epithelial Cell Urine 0-2 /HPF (0-2); UACC Culture Trigger YES; WBC Urine >50 /HPF (0-5)
== END 2023-09-10 08:24 | disposition home or self-care (01) ==
LOC: HO.HMGCLDS 08:23
PROVIDERS: PCP Physician Assistant; Visit Provider Nurse Practitioner Women's Health
DX: N39.0 Urinary tract infection, site not specified (principal)
CPT/HCPCS: 81001; 87086; 87088; 87186

== ENCOUNTER 2023-09-25 10:26 | Outpatient (REF) | payer OTHER, SELFPAY | END 2023-09-25 10:27 | disposition home or self-care (01) | LOC: HO.HMGCLDS 10:26 | PROVIDERS: PCP Physician Assistant; Visit Provider Physician Assistant | DX: R30.0 Dysuria (principal); R35.0 Frequency of micturition | CPT/HCPCS: 81001; 87086; 87088; 87186 ==

== ENCOUNTER 2023-10-01 08:01 | Outpatient (REF) | payer OTHER, SELFPAY ==
[2023-10-01 11:14] LABS: Appearance Urine Clear; Color Urine Yellow; Glucose Urine UA >=1000 mg/dL (Negative); Leukocyte Esterase Urine Negative (Negative); Nitrite Urine Negative (Negative); PH 5.5 (5.0-9.0); Specific Gravity - Urine >= 1.030 (1.005-1.025); UMIC TRIGGER UACC YES; Urine Blood Negative (Negative); Urine Ketones Negative (Negative); Urine Protein Negative (Neg-Trace)
[2023-10-01 11:28] LABS: Bacteria Urine None Seen (None Seen); Hyaline Casts Urine 0-2 /LPF (0-2); RBC Urine 0-2 /HPF (0-2); Squamous Epithelial Cell Urine 0-2 /HPF (0-2); WBC Urine 0-5 /HPF (0-5)
[2023-10-01 11:31] LABS: Estimated Average Glucose 154 mg/dL
[2023-10-01 12:15] LABS: Creatinine Urine 50.38 mg/dL; Microalbumin Urine < 5.0 mg/L
[2023-10-01 12:30] LABS: Alanine Aminotransferase 38 U/L (0-31); Albumin Level 4.7 g/dL (3.5-5.0); Alkaline Phosphatase 45 U/L (39-117); Anion Gap 12 (12-20); Aspartate Amino Transferase 21 U/L (5-31); Bilirubin Total 0.4 mg/dL (0.0-1.0); Blood Urea Nitrogen 14 mg/dL (9-16); Calcium 9.2 mg/dL (8.4-10.2); Carbon Dioxide 25 mmol/L (22-29); Chloride 109 mmol/L (96-108); Cholesterol 130 mg/dL (<200); Estimated Glomerular Filt Rate > 60; Glucose Fasting 222 mg/dL (60-99); HDL Cholesterol 33 mg/dL (>40); LDL Cholesterol Calculated 47 mg/dL (<100); Potassium 3.6 mmol/L (3.3-5.1); Sodium 142 mmol/L (135-145); Total Protein 6.6 g/dL (6.5-8.0); Triglycerides 254 mg/dL (<150)
[2023-10-01 12:47] LABS: TSH reflex Free T4 0.66 uIU/mL (0.32-4.0)
== END 2023-10-01 08:02 | disposition home or self-care (01) ==
LOC: HO.HMGCLDS 08:01
PROVIDERS: PCP Physician Assistant; Visit Provider Physician Assistant
DX: E11.65 Type 2 diabetes mellitus with hyperglycemia (principal); E03.9 Hypothyroidism, unspecified; E78.2 Mixed hyperlipidemia
CPT/HCPCS: 36415; 80053; 80061; 81001; 82043; 82570; 83036; 84443

== ENCOUNTER 2023-10-02 10:42 | Outpatient (AMB) | payer OTHER, SELFPAY ==
[2023-10-02 10:44] VITALS: BP 118/68; PULSE 80; O2SAT 97; BMI 29.1
--- NOTE | 2023-10-02 10:44 | MHC.PC.OV ---
Vital Signs 10/02/23 10:44 Height 5 ft 7 in Weight 186 lb BMI 29.1 BP 118/68 Blood Pressure Location Lt brachial Position Sitting Pulse 80 Pulse Source Pulse Oximeter Pulse Oximetry (%) 97 Oxygen Delivery Method Room Air Intake Visit Reasons: f/u DMII/ ISAURA Oven Tender Required: No Allergies RACHELLE Inhibitors Allergy (Severe, Verified 10/02/23 10:52) Anaphylaxis azithromycin Allergy (Severe, Verified 10/02/23 10:52) HIVES TO ZPACK, anaphylaxis Mgsnnkx-BPH-ItP Reductase Inhibitor [Xyawsop-Rtr-Orf Reductase Inhibitor] Allergy (Severe, Verified 10/02/23 10:52) Anaphylaxis amitriptyline Adverse Reaction (Intermediate, Verified 10/02/23 10:52) Headache hydrochlorothiazide Adverse Reaction (Intermediate, Verified 10/02/23 10:52) leg cramps IVIG Allergy (Unknown, Uncoded 10/02/23 10:44) told to avoid Medication List - Last Reconciled 10/02/23 by Adam Cadena PA-C amlodipine 2.5 mg PO DAILY amlzkktkxl-gynbaopgyu-kej-cod [id number] mg 1 cap PO DAILY PRN cetirizine 10 mg PO DAILY PRN 90 days cholecalciferol (vitamin D3) (Vitamin D3) 25 mcg PO DAILY ciprofloxacin HCl 250 mg PO BID 4 days diclofenac sodium 75 mg PO DAILY PRN doxycycline monohydrate 100 mg PO BID 7 days empagliflozin (Jardiance) 25 mg PO DAILY [Fish Oil PO] fluticasone propionate 50 mcg/actuation 2 sprays intranasal DAILY 30 days galcanezumab-gnlm (Emgality Pen) mg subcut glimepiride 2 mg PO DAILY levothyroxine 200 mcg PO DAILY liraglutide 1.2 mg subcut DAILY lorazepam 1 mg PO DAILY PRN 30 days mercaptopurine 1 tab PO DAILY metformin ER 1,000 mg PO BID omeprazole 40 mg PO BID pramipexole 0.25 mg PO BEDTIME PRN prucalopride (Motegrity) 2 mg PO DAILY valacyclovir 1,000 mg PO DAILY Tobacco use date assessed: 10/02/23 HPI f/u DMII/ ISAURA HPI Details Patient is a 58 year female here today for a follow-up visit Patient has a past medical history type 2 diabetes, hypothyroidism, chronic inflammatory demyelinating polyneuritis. Recently had a UTI that need to be treated with antibiotics x 3 rounds. She feels her bladder spasms. . Right hip pain/ tear: has been going see an orthopedic, has recieved injection and plasma injection. Has done PT ISAURA: She is interested in establishing care with a mental health therapist to help further treat her anxiety. Does use lorazepam on an daily/p.r.n. basis. ... ? .. ? DMII:? Patient followed by endocrinology, Does check blood sugars at home, report 120- 160s.? She did recently increase her her diabetic medication.? Most recent A1c is 7.0 .. HLD:? Most recent lipid panel much improved triglycerides and total cholesterol.? Patient has been using fish oil which seems to be working well for her.. ? Unable to take statin therapy due to side effect.? Have been locked into start fibrates due to elevations in liver enzymes. .. Thrombocytopenia:? Most recent platelet count at 144.? Has follow-up up with Hematology and has gotten bone pair mildly see which was normal.? Otherwise no epistaxis or bowel or bladder bleeding. .. HTN:? Blood pressures have been much better proved with amlodipine 2.5 mg.? Will continue on his dose of amlodipine. Otherwise denies any chest pain, palpitations, shortness of breath or headaches.? .. ? CIDP: Followed by neurologist at [facility] [place], she does go for plasmapheresis therapies every 5 weeks. Has been having right-sided lower extremity weakness and facial weakness related to her neurological disease. 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 Also did have MRI of brain did show benign appearing cyst at is undergoing surveillance at this time. ?Also having migraines and reports she has gotten botox injection over he scalp which has helped.? Now only taking Fiorinal on a very limited p.r.n. basis.? .. ? Hypothyroidism: Patient continues to take levothyroxine to 100 mcg 6 days a week Microbiology 09/25/23 Unknown Urine clean catch - Urine ramsay top Urine Culture - Final Escherichia coli Laboratory Tests 03/04/23 04/08/23 04/08/23 11:24 08:00 08:00 Hgb 13.5 Fasting Glucose Hgb A1c (Clinic) 7.0 H Hemoglobin A1c % Triglycerides Cholesterol LDL Cholesterol, C alc 108 Ur Leukocyte Maria Fernanda ase 09/25/23 10/01/23 10/01/23 10:35 08:18 08:18 Hgb Fasting Glucose 222 H Hgb A1c (Clinic) Hemoglobin A1c % 7.0 H Triglycerides 254 H Cholesterol 130 LDL Cholesterol, C alc 47 Ur Leukocyte Maria Fernanda ase Small (1+) H 10/01/23 08:25 Hgb Fasting Glucose Hgb A1c (Clinic) Hemoglobin A1c % Triglycerides Cholesterol LDL Cholesterol, C alc Ur Leukocyte Maria Fernanda ase Negative [facility] Medical History Splenomegaly HTN (hypertension) Hypothyroid GERD (gastroesophageal reflux disease) Diabetes Anxiety Sciatica Obese Allergic rhinitis Herpes simplex Chronic inflammatory demyelinating neuropathy Surgical History History of colonoscopy History of surgery History of rectal surgery History of bladder surgery History of inguinal hernia repair History of hysterectomy History of tonsillectomy and adenoidectomy History of ankle surgery History of right knee surgery History of elbow surgery History of hand surgery History of thumb surgery History of shoulder surgery History of hip surgery Family History Father Leukemia Lung cancer PVD (peripheral vascular disease) Mother Diabetes Heart disease Asthma Substance use disorder Brother Thyroid disease CIDP (chronic inflammatory demyelinating polyneuropathy) Son Kelley's disease Sister Lymphoma Social History Housing: House Alcohol intake: current Alcohol intake frequency: a few times a month Patient Tobacco Use Status: Former Tobacco user Quit Date: 1991 Tobacco use type: Cigarette e-Cigarette/Vaping Use: Never Used Second Hand Smoke Exposure: Yes service: No Current occupational status: disabled Cognitive needs: No Hearing needs: No Vision needs: Yes (GLASSES) Questionnaire PHQ-9 Over the last 2 weeks, how often have you been bothered by any of the following problems? 1. Little interest or pleasure in doing things: not at all 2. Feeling down, depressed, or hopeless: not at all 3. Trouble falling or staying asleep, or sleeping too much: not at all 4. Feeling tired or having little energy: not at all 5. Poor appetite or overeating: not at all 6. Feeling bad about yourself - or that you are a failure or have let yourself or your family down: not at all 7. Trouble concentrating on things, such as reading the newspaper or watching television: not at all 8. Moving or speaking so slowly that other people could have noticed. Or the opposite - being so fidgety or restless that you have been moving around a lot more than usual: not at all 9. Thoughts that you would be better off or of hurting yourself in some way: not at all Total score: 0 Depression Screening Interpretation: Negative Depression Screening Done: Yes 56359 - PHQ-9 Billing: Yes Source: Developed by Drs. Delfino Schwab, Christine Albrecth, Cesar Anthony and colleagues, with an educational margaret from [employer]. Thrive Questionnaire Date Thrive assessed: 10/02/23 I am a: Patient What is your living situation today?: I have a steady place to live Within the past 12 months, did the food you bought not last and you didn't have the money to get more?: Never true Within the past 12 months, did you worry whether your food would run out before you got money to buy more?: Never true Do you have trouble paying for medicines?: No Do you have trouble getting transportation to medical appointments?: No Do you have trouble paying your heating and electricity bill?: No Do you have trouble taking care of your child, family member or friend?: No Do you have trouble with day-to-day activities such as bathing, preparing meals, shopping, managing finances, etc.?: No Are you currently unemployed and looking for a job?: No Are you interested in more education?: No AUDIT C Alcohol Use Questionnaire (AUDIT-C) 1. How often do you have a drink containing alcohol?: Monthly or less 2. How many drinks containing alcohol do you have on a typical day when you are drinking?: 1 or 2 Total Score: 1 ISAURA-7 AMB Questionnaire ISUARA-7 Date ISAURA - 7 assessed: 10/02/23 Feeling nervous, anxious, or on edge: 0 = Not at all Not being able to stop or control worryin = Not at all Worrying too much about different things: 0 = Not at all Trouble relaxin = Not at all Being so restless that it is hard to sit still: 0 = Not at all Becoming easily annoyed or irritable: 0 = Not at all Feeling afraid as if something awful might happen: 0 = Not at all Total ISAURA-7 score (0-4 normal; 5-9 mild; 10-14 moderate; 15-21 severe): 0 Source: Developed by Drs. Delfino Schwab, Christine Albrecht, Cesar Anthony and colleagues, with an educational margaret from [employer]. ISAURA-7 Assessment Billing ISAURA-7 Assessment Tool: ISAURA-7 Assessment 99626 Review of Systems Const Denies headache(s) Eyes Denies loss of vision ENT Denies vertigo, Denies dizziness, Denies headache(s) and Denies sore throat Card Denies chest pain, Denies leg edema and Denies lightheadedness Resp Denies cough, Denies hemoptysis and Denies wheezing GI Denies abdominal pain, Denies melena, Denies constipation, Denies diarrhea and Denies vomiting Denies urinary frequency, Denies dysuria and Denies urinary urgency Musc Denies arthralgias, Denies joint swelling, Denies numbness and Denies tingling Neuro Denies Abnormal speech present, Denies behavioral changes, Denies vertigo, Denies dizziness, Denies headache(s), Denies loss of vision, Denies memory loss, Denies numbness and Denies tingling Psych Denies anxiety, Denies behavioral changes, Denies depression, Denies memory loss and Denies panic attacks Madi/Lymph Denies easy bleeding and Denies easy bruising Aller/Immun Denies wheezing Physical exam (Primary Care) Vital Signs: Last Vital Signs Pulse 80 10/02/23 10:44 BP 118/68 10/02/23 10:44 Pulse Ox 97 10/02/23 10:44 Oxygen Delivery Method Room Air 10/02/23 10:44 BMI result Body Mass Index 29.1 Tobacco/Smoking Status: Tobacco use Status Tobacco use date assessed 10/02/23 10/02/23 10:45 Patient Tobacco Use Status Former Tobacco user 10/02/23 10:45 Tobacco use type Cigarette 10/02/23 10:45 e-Cigarette/Vaping Use Never Used 10/02/23 10:45 PHQ-9: PHQ-9 Score PHQ-9: Total score 0 10/02/23 10:49 Depression Screening Interpretation: Negative Thrive Assessment: Date of Thrive Assessment Date Thrive assessed 10/02/23 10/02/23 10:45 Const General: healthy appearing, no acute distress, alert and awake Nutritional Appearance: well nourished Orientation/consciousness: oriented to person, oriented to place and oriented to time HENMT Ears: TM's normal bilaterally General nose exam: Normal nasal mucous membranes and turbinates present Eyes Conjunctivae: conjunctivae normal Sclerae: sclerae normal Pupils: Equal, round and reactive pupils present Neck Neck: Yes no lymphadenopathy and Yes no JVD Thyroid: Thyroid normal Carotids: no bruits Resp Effort & Inspection: normal respiratory effort and not tachypneic Auscultation: no crackles, no rales, no rhonchi and no wheezes Cardio Rate: regular rate Rhythm: regular rhythm Heart sounds: no murmurs and normal S1 and S2 GI Palpation (GI): Soft to palpation, nontender, no hepatomegaly and no splenomegaly Auscultation: normal bowel sounds Skin General skin exam: no rashes or lesions noted and dry skin Neuro General: oriented to person, oriented to place and oriented to time Cranial nerves: Yes Equal, round and reactive pupils present Speech: No Abnormal speech present Gait exam (Neuro): Normal gait present Motor exam (neuro): no tremor noted Extrem Right upper extremity: full ROM Left upper extremity: full ROM Right lower extremity: full ROM; no edema Left lower extremity: full ROM; no edema Psych Mental Status: mental status grossly normal Speech and movement: Normal speech and movement present Affect: normal affect Attitude: cooperative Thought process: Normal thought process present Assessment and Plan Assessment & Plan (1) DMII (diabetes mellitus, type 2): Code(s): E11.9 - Type 2 diabetes mellitus without complications Qualifiers: Diabetes mellitus counsellors insulin use: without residential use Diabetes mellitus complication status: with hyperglycemia Qualified Code(s): E11.65 - Type 2 diabetes mellitus with hyperglycemia Plan: Patient's type 2 diabetes well controlled with current anti-hyperglycemic medication. Is followed by oyster shucker Dr. Duarte. She is interested in new G LP 1 to help with weight loss and will ask her oyster shucker about this. Goal A1c is to remain below 7.0 (2) HLD (hyperlipidemia): Code(s): E78.5 - Hyperlipidemia, unspecified Qualifiers: Hyperlipidemia type: mixed hyperlipidemia Qualified Code(s): E78.2 - Mixed hyperlipidemia Plan: Most recent lipid panel showing appropriate total cholesterol and LDL. Has not been able to tolerate statin. Continues to use fish oil which has been helpful. Goal LDL to remain below 100. (3) ISAURA (generalized anxiety disorder): Code(s): F41.1 - Generalized anxiety disorder Plan: She is interested in establishing care with another mental health therapist. She is not interested in additional medication at this time. Does use lorazepam (4) Thrombocytopenia: Code(s): D69.6 - Thrombocytopenia, unspecified Plan: Continues to follow hematology. Most recent platelet count at 144 She denies any severe bleeding though does report some bruising on her legs. (5) Left hip pain: Code(s): M25.552 - Pain in left hip Plan: Now followed by Orthopedics. Was found to have a tear and a muscle in her left hip. Has been getting cortisone injections and plasma injections which have been helpful. She will be restarting physical therapy. (6) Chronic inflammatory demyelinating neuropathy: Comment: Dx in 1998 Code(s): G61.81 - Chronic inflammatory demyelinating polyneuritis Plan: Patient is followed by Neurology. Does get electrophoresis quite regularly that helps to reduce her neurological symptoms. Orders: Orders Complete Blood Count no Diff Today D69.6 - Thrombocytopenia, unspecified Lipid Panel Today E78.2 - Mixed hyperlipidemia Comprehensive [place]. Panel Fast Today E11.65 - Type 2 diabetes mellitus with hyperglycemia TSH reflex Free T4 Today E03.9 - Hypothyroidism, unspecified Referrals Counseling Referral F41.1 - Generalized anxiety disorder Medications: Discontinued doxycycline monohydrate Discontinued Reason: Doctor's Order 100 mg PO BID 7 days 14 caps 0RF J40 - Bronchitis, not specified as acute or chronic ciprofloxacin HCl Discontinued Reason: Doctor's Order 250 mg PO BID 4 days 8 tabs 0RF N39.0 - Urinary tract infection, site not specified, R35.0 - Frequency of micturition Coding Level of Care Code Est Pt Level 4 (44689) Diagnoses Type 2 diabetes mellitus with hyperglycemia, without long-term current use of insulin E11.65 Diabetes mellitus residential insulin use: without residential use Diabetes mellitus complication status: with hyperglycemia Mixed hyperlipidemia E78.2 Hyperlipidemia type: mixed hyperlipidemia ISAURA (generalized anxiety disorder) F41.1 Thrombocytopenia D69.6 Left hip pain M25.552 Chronic inflammatory demyelinating neuropathy G61.81 Additional Codes ISAURA-7 Assessment Billing - ISAURA-7 Assessment Tool: ISAURA-7 Assessment [id number] ([id number])
== END 2023-10-02 11:24 | disposition home or self-care (01) ==
PROVIDERS: PCP Physician Assistant; Visit Provider Physician Assistant
DX: E11.65 Type 2 diabetes mellitus with hyperglycemia (principal); D69.6 Thrombocytopenia, unspecified; G61.81 Chronic inflammatory demyelinating polyneuritis; E78.2 Mixed hyperlipidemia; F41.1 Generalized anxiety disorder; M25.552 Pain in left hip
CPT/HCPCS: 99214

== ENCOUNTER 2023-10-04 13:04 | Outpatient (AMB) | payer OTHER, SELFPAY ==
[2023-10-04 14:05] VITALS: BP 112/68; PULSE 88; TEMP 36.3; O2SAT 97; BMI 29.6
--- NOTE | 2023-10-04 14:05 | AM.OFFWIN_ITS ---
Intake Vital Signs 10/04/23 14:05 Height 5 ft 7 in Weight 189 lb BMI 29.6 BP 112/68 Blood Pressure Location Lt brachial Position Sitting Pulse 88 Pulse Source Pulse Oximeter Temp 97.4 F Temp Source Temporal Artery Scan Pulse Oximetry (%) 97 Oxygen Delivery Method Room Air Intake Visit Reasons: EP UTI blood in Urine/finished 3rd round of meds Intake Note: pt is here today for UTI blood in urine finished 3rd round of meds started Patient Tobacco Use Status: Former Tobacco user Quit Date: 1991 Allergies RACHELLE Inhibitors Allergy (Severe, Verified 10/04/23 14:07) Anaphylaxis azithromycin Allergy (Severe, Verified 10/04/23 14:07) HIVES TO ZPACK, anaphylaxis Tvoruxg-ARA-NjI Reductase Inhibitor [Vkggech-Kgv-Mzu Reductase Inhibitor] Allergy (Severe, Verified 10/04/23 14:07) Anaphylaxis amitriptyline Adverse Reaction (Intermediate, Verified 10/04/23 14:07) Headache hydrochlorothiazide Adverse Reaction (Intermediate, Verified 10/04/23 14:07) leg cramps IVIG Allergy (Unknown, Uncoded 10/02/23 10:44) told to avoid Do you need a note to return to daycare/school/sports/work: Yes PFSH Medical History Splenomegaly HTN (hypertension) Hypothyroid GERD (gastroesophageal reflux disease) Diabetes Anxiety Sciatica Obese Allergic rhinitis Herpes simplex Chronic inflammatory demyelinating neuropathy Surgical History History of colonoscopy History of surgery History of rectal surgery History of bladder surgery History of inguinal hernia repair History of hysterectomy History of tonsillectomy and adenoidectomy History of ankle surgery History of right knee surgery History of elbow surgery History of hand surgery History of thumb surgery History of shoulder surgery History of hip surgery Family History Father Leukemia Lung cancer PVD (peripheral vascular disease) Mother Diabetes Heart disease Asthma Substance use disorder Brother Thyroid disease CIDP (chronic inflammatory demyelinating polyneuropathy) Son Kelley's disease Sister Lymphoma Social History Housing: House Alcohol intake: current Alcohol intake frequency: a few times a month Patient Tobacco Use Status: Former Tobacco user Quit Date: 1991 Tobacco use type: Cigarette e-Cigarette/Vaping Use: Never Used Second Hand Smoke Exposure: Yes service: No Current occupational status: disabled Cognitive needs: No Hearing needs: No Vision needs: Yes (GLASSES) Physical Exam Vital Signs: Last Vital Signs Temp 97.4 F 10/04/23 14:05 Pulse 88 10/04/23 14:05 BP 112/68 10/04/23 14:05 Pulse Ox 97 10/04/23 14:05 Oxygen Delivery Method Room Air 10/04/23 14:05 BMI result Body Mass Index 29.6 Results AMB Urinalysis, Automated UA Leukoctes 15 Nona/uL Last Edit by Jean Carlos Christianson CMA on 10/04/23 14:32 UA Nitrite Negative Last Edit by Jean Carlos Christianson CMA on 10/04/23 14:32 UA Urobilinogen 0.2 mg/dL Last Edit by Jean Carlos Christianson CMA on 10/04/23 14 :32 UA Protein 100 mg/dL Last Edit by Jean Carlos Christianson CMA on 10/04/23 14:32 UA pH 6.0 Last Edit by Jean Carlos Christianson CMA on 10/04/23 14:32 UA Blood 200 Blake/uL Last Edit by Jean Carlos Christianson CMA on 10/04/23 14:32 UA Specific [place] 1.020 Last Edit by Jean Carlos Christianson CMA on 10/04/23 14:32 UA Ketone Negative Last Edit by Jean Carlos Christianson CMA on 10/04/23 14:32 UA Bilirubin 0 mg/dL Last Edit by Jean Carlos Christianson CMA on 10/04/23 14:32 UA Glucose 1000 mg/dL Last Edit by Jean Carlos Christianson CMA on 10/04/23 14:32 Results Reviewed Results Reviewed: Laboratory Last Values Urine pH (Auto) 6.0 10/04/23 14:31 Specific [place] (Auto) 1.020 10/04/23 14:31 Urine Protein (Auto) 100 mg/dL 10/04/23 14:31 Glucose (UA)(Auto) 1000 mg/dL 10/04/23 14:31 Urine Ketones (Auto) Negative 10/04/23 14:31 Urine Blood (Auto) 200 Blake/uL 10/04/23 14:31 Urine Nitrite (Auto) Negative 10/04/23 14:31 Urine Bilirubin (Auto) 0 mg/dL 10/04/23 14:31 Urine Urobilinogen (Auto) 0.2 mg/dL 10/04/23 14:31 Leukocyte Esterase (Auto) 15 Nona/uL 10/04/23 14:31 Assessment & Plan Assessment & Plan Orders: Orders AMB Urinalysis Automated Today Z13.9 - Encounter for screening, unspecified Urine Culture Today N39.0 - Urinary tract infection, site not specified Medications: New sulfamethoxazole-trimethoprim 800-160 mg 1 tab PO BID 10 tabs 0RF Coding
--- NOTE | 2023-10-04 14:10 | AM.OFFWIN_ITS ---
Intake Vital Signs 10/04/23 14:05 Height 5 ft 7 in Weight 189 lb BMI 29.6 BP 112/68 Blood Pressure Location Lt brachial Position Sitting Pulse 88 Pulse Source Pulse Oximeter Temp 97.4 F Temp Source Temporal Artery Scan Pulse Oximetry (%) 97 Oxygen Delivery Method Room Air Intake Visit Reasons: EP UTI blood in Urine/finished 3rd round of meds Patient Tobacco Use Status: Former Tobacco user Quit Date: 1991 Allergies RACHELLE Inhibitors Allergy (Severe, Verified 10/04/23 14:07) Anaphylaxis azithromycin Allergy (Severe, Verified 10/04/23 14:07) HIVES TO ZPACK, anaphylaxis Vlcddgb-RCN-RsN Reductase Inhibitor [Apujpjg-Meg-Ntq Reductase Inhibitor] Allergy (Severe, Verified 10/04/23 14:07) Anaphylaxis amitriptyline Adverse Reaction (Intermediate, Verified 10/04/23 14:07) Headache hydrochlorothiazide Adverse Reaction (Intermediate, Verified 10/04/23 14:07) leg cramps IVIG Allergy (Unknown, Uncoded 10/02/23 10:44) told to avoid HPI HPI Comments History of Present Illness Details This is a 58-year-old female presenting to the office complaining of recurrent urinary symptoms including dysuria, increased urinary frequency/urgency, and lower abdominal cramping/spasms. Patient has been treated for urinary tract infection with 3 rounds of antibiotics. She states she was treated with oral nitrofurantoin twice and she was most recently treated with oral ciprofloxacin, which she completed 2 days ago. She states that her symptoms completely resolved with ciprofloxacin. She followed up with her PCP on 10/02/2023 and had a negative urine at that time. She started to develop urinary symptoms again last night. She also reports hematuria, which is new for her. She reports some mild low back cramping but denies any flank pain. She denies any fevers or chills. She denies any nausea or vomiting. [facility] Medical History Splenomegaly HTN (hypertension) Hypothyroid GERD (gastroesophageal reflux disease) Diabetes Anxiety Sciatica Obese Allergic rhinitis Herpes simplex Chronic inflammatory demyelinating neuropathy Surgical History History of colonoscopy History of surgery History of rectal surgery History of bladder surgery History of inguinal hernia repair History of hysterectomy History of tonsillectomy and adenoidectomy History of ankle surgery History of right knee surgery History of elbow surgery History of hand surgery History of thumb surgery History of shoulder surgery History of hip surgery Family History Father Leukemia Lung cancer PVD (peripheral vascular disease) Mother Diabetes Heart disease Asthma Substance use disorder Brother Thyroid disease CIDP (chronic inflammatory demyelinating polyneuropathy) Son Kelley's disease Sister Lymphoma Social History Housing: House Alcohol intake: current Alcohol intake frequency: a few times a month Patient Tobacco Use Status: Former Tobacco user Quit Date: 1991 Tobacco use type: Cigarette e-Cigarette/Vaping Use: Never Used Second Hand Smoke Exposure: Yes service: No Current occupational status: disabled Cognitive needs: No Hearing needs: No Vision needs: Yes (GLASSES) Review of Systems Const All systems reviewed & are unremarkable except as noted in HPI and below Reports no additional complaints Eyes Reports no additional complaints ENT Reports no additional complaints Card Reports no additional complaints Resp Reports no additional complaints GI Reports no additional complaints Reports no additional complaints Musc Reports no additional complaints Skin/Breast Reports system reviewed and no additional complaints, except as documented Neuro Reports no additional complaints Psych Reports no additional complaints Endo Reports no additional complaints Madi/Lymph Reports no additional complaints Aller/Immun Reports no additional complaints Physical Exam Vital Signs: Last Vital Signs Temp 97.4 F 10/04/23 14:05 Pulse 88 10/04/23 14:05 BP 112/68 10/04/23 14:05 Pulse Ox 97 10/04/23 14:05 Oxygen Delivery Method Room Air 10/04/23 14:05 BMI result Body Mass Index 29.6 Const Other: Vital signs reviewed. Constitutional: Non-toxic appearing. No acute distress. Well-developed and well-nourished. HEENT: Normocephalic and atraumatic. Skin: Warm and dry. No rashes or lesions noted. Neck: Full and painless range of motion. No cervical lymphadenopathy. Cardio: Regular rate and rhythm. No murmurs, gallops, or rubs. No lower extremity edema. No JVD. Pulmonary: No respiratory distress. No accessory muscle usage. Gastrointestinal: Soft, nontender, and nondistended in all 4 quadrants. Normoactive bowel sounds in all 4 quadrants. Genitourinary: No CVA tenderness. Musculoskeletal: Normal range of motion in joints throughout the body. No deformity or other signs of injury. Neuro: Alert and oriented x4. Cranial nerves 2-12 grossly intact. No focal deficits appreciated. Psych: Normal mood and affect. Results AMB Urinalysis, Automated UA Leukoctes 15 Nona/uL Last Edit by Jean Carlos Christianson CMA on 10/04/23 14:32 UA Nitrite Negative Last Edit by Jean Carlos Christianson CMA on 10/04/23 14:32 UA Urobilinogen 0.2 mg/dL Last Edit by Jean Carlos Christianson CMA on 10/04/23 14 :32 UA Protein 100 mg/dL Last Edit by Jean Carlos Christianson CMA on 10/04/23 14:32 UA pH 6.0 Last Edit by Jean Carlos Christianson CMA on 10/04/23 14:32 UA Blood 200 Blake/uL Last Edit by Jean Carlos Christianson CMA on 10/04/23 14:32 UA Specific [place] 1.020 Last Edit by Jean Carlos Christianson CMA on 10/04/23 14:32 UA Ketone Negative Last Edit by Jean Carlos Christianson CMA on 10/04/23 14:32 UA Bilirubin 0 mg/dL Last Edit by Jean Carlos Christianson CMA on 10/04/23 14:32 UA Glucose 1000 mg/dL Last Edit by Jean Carlos Christianson CMA on 10/04/23 14:32 Results Reviewed Results Reviewed: Laboratory Last Values Urine pH (Auto) 6.0 10/04/23 14: Specific [place] (Auto) 1.020 10/04/23 14:31 Urine Protein (Auto) 100 mg/dL 10/04/23 14:31 Glucose (UA)(Auto) 1000 mg/dL 10/04/23 14: Urine Ketones (Auto) Negative 10/04/23 14:31 Urine Blood (Auto) 200 Blake/uL 10/04/23 14:31 Urine Nitrite (Auto) Negative 10/04/23 14:31 Urine Bilirubin (Auto) 0 mg/dL 10/04/23 14: Urine Urobilinogen (Auto) 0.2 mg/dL 10/04/23 14:31 Leukocyte Esterase (Auto) 15 Nona/uL 10/04/23 14:31 Assessment & Plan Assessment & Plan (1) Acute cystitis with hematuria: Code(s): N30.01 - Acute cystitis with hematuria Plan: This is a 58-year-old female presenting to the office complaining of recurrent urinary tract infection symptoms including dysuria/hematuria and increased urinary frequency/urgency. Patient was found to have a positive urinalysis with positive leukocyte esterase and blood. Patient has been treated with 2 rounds of nitrofurantoin as well as 1 round of ciprofloxacin. Her most recent urine culture was reviewed and showed E coli resistant to nitrofurantoin and sensitive to ampicillin, ceftriaxone, levofloxacin, and trimethoprim/sulfamethoxazole. I offered to prescribe ciprofloxacin since this antibiotic helped with her symptoms; however, the patient would like to try a different antibiotic as the ciprofloxacin interacted with her diabetes medications. Patient was sent home on p.o. trimethoprim sulfamethoxazole twice daily x5 days for treatment of ur inary tract infection. She was strongly encouraged to follow-up with her primary care physician especially if her hematuria does not resolve for possible urology follow-up given recurrent UTIs. The patient was advised to proceed directly to the emergency room if she were to develop fever/chills, flank/back pain, or nausea/vomiting. At this time, the patient's vital signs are stable, her physical exam is benign, and she is overall nontoxic appearing. She has no CVA tenderness or systemic symptoms to suggest acute pyelonephritis at this time. Orders: Orders AMB Urinalysis Automated Today Z13.9 - Encounter for screening, unspecified Urine Culture Today N39.0 - Urinary tract infection, site not specified Medications: New sulfamethoxazole-trimethoprim 800-160 mg 1 tab PO BID 10 tabs 0RF Coding Level of Care Code Est Pt Level 3 (89049) Diagnoses Acute cystitis with hematuria N30.01
== END 2023-10-04 15:08 | disposition home or self-care (01) ==
PROVIDERS: PCP Physician Assistant; Visit Provider Physician Assistant Medical
DX: R30.0 Dysuria (principal); N30.01 Acute cystitis with hematuria
CPT/HCPCS: 81003; 99213

== ENCOUNTER 2023-10-04 14:34 | Outpatient (REF) | payer OTHER, SELFPAY | END 2023-10-04 14:35 | disposition home or self-care (01) | LOC: HO.LAB 14:34 | PROVIDERS: Visit Provider Physician Assistant Medical | DX: N39.0 Urinary tract infection, site not specified (principal) | CPT/HCPCS: 87086; 87088; 87186 ==

== ENCOUNTER 2023-10-23 15:18 | Outpatient (REF) | payer OTHER, SELFPAY ==
--- NOTE | ~2023-10-23 | US_ITS ---
EXAMINATION: US PELVIS LIMITED (BLADDER) CLINICAL INFORMATION: Recurrent urinary tract infection. COMPARISON: None available. TECHNIQUE: Real-time imaging of the bladder. FINDINGS: BLADDER: Well distended and normal. Bilateral ureteral jets are demonstrated. Prevoid bladder volume is 175 mL. Postvoid bladder volume is 24 mL. US/US bladder IMPRESSION: Normal bladder ultrasound.
== END 2023-10-23 15:19 | disposition home or self-care (01) ==
LOC: HO.HMGCX 15:18
PROVIDERS: PCP Physician Assistant; Visit Provider Physician Assistant
DX: N39.0 Urinary tract infection, site not specified (principal)
CPT/HCPCS: 76857

== ENCOUNTER 2023-11-28 14:42 | Outpatient (AMB) | payer OTHER, SELFPAY ==
--- NOTE | 2023-11-28 14:55 | MHC.OFFVIS ---
Intake Intake Visit Reasons: Recurrent urinary tract infection Intake Note: New Patient presents for initial visit for recurrent uti Urology Medications: nitrofurantoin Blood Thinner: none PVR: 62ml's Aluminizer Required: No Accompanied by: Self / Same As Patient Allergies RACHELLE Inhibitors Allergy (Severe, Verified 11/28/23 16:01) Anaphylaxis azithromycin Allergy (Severe, Verified 11/28/23 16:01) HIVES TO ZPACK, anaphylaxis Jhepows-QKM-XnK Reductase Inhibitor [Ydtfkea-Ymk-Kld Reductase Inhibitor] Allergy (Severe, Verified 11/28/23 16:01) Anaphylaxis amitriptyline Adverse Reaction (Intermediate, Verified 11/28/23 16:01) Headache hydrochlorothiazide Adverse Reaction (Intermediate, Verified 11/28/23 16:01) leg cramps IVIG Allergy (Unknown, Uncoded 11/28/23 16:01) told to avoid Medication List - Last Reconciled 11/28/23 by CARLOS Bojorquez- amlodipine 2.5 mg PO DAILY cetirizine 10 mg PO DAILY PRN 90 days cholecalciferol (vitamin D3) (Vitamin D3) 25 mcg PO DAILY diclofenac sodium 75 mg PO DAILY PRN empagliflozin (Jardiance) 25 mg PO DAILY estradiol 0.01%(0.1mg/gram) (Estrace) 1 g vaginal 3XW [Fish Oil PO] fluticasone propionate 50 mcg/actuation 2 sprays intranasal DAILY 30 days galcanezumab-gnlm (Emgality Pen) mg subcut glimepiride 2 mg PO DAILY levothyroxine 200 mcg PO DAILY liraglutide 1.2 mg subcut DAILY lorazepam 1 mg PO DAILY PRN 30 days mercaptopurine 1 tab PO DAILY metformin ER 1,000 mg PO BID nitrofurantoin macrocrystal 50 mg PO BEDTIME 30 days omeprazole 40 mg PO BID pramipexole 0.25 mg PO BEDTIME PRN prucalopride (Motegrity) 2 mg PO DAILY valacyclovir 1,000 mg PO DAILY HPI HPI Comments History of Present Illness Details Romy is a very pleasant 58-year-old female patient of Dr. Cadena. She has a past medical history of hypertension, hyperthyroidism, GERD, diabetes, anxiety, allergic rhinitis, herpes simplex, chronic inflammatory demyelinating neuropathy, sciatica, and recurrent urinary tract infections. In discussion with the patient today she reports since August she has been treated for 6 urinary tract infections with her PCP, gynecology, as well as Urogynecology. She reports a previous history of bladder suspension with Dr. Trevino in 1998 and a rectocele repair with urogynecology as well as a total hysterectomy many years ago. She reports PCP has put her on low-dose antibiotic therapy of 50 mg of Macrobid daily and believes this to be helping as she has not had a urinary tract infection in approximately 1 month. In review of patient's chart it appears a bladder ultrasound was ordered and these results were reviewed with the patient today. Normal bladder ultrasound. In office urinalysis results reviewed with the patient today. PVR 62 mL. Discussed at length potential causes of recurrent urinary tract infections. Discussed importance of management of diabetes for improvement in lower urinary tract symptoms as well as overall health and well-being. She currently denies urinary urgency, urinary frequency, incontinence, hematuria, dysuria, foul smelling urine, changes to urinary stream, flank pain, fever, and or chills. She is happy with her current voiding parameters. She does report episodes of nocturia up to 3 times per night however does not find this bothersome at this time. PVR 62 mL. When asked he denies any issues with constipation. She otherwise offers no other issues or concerns at this time. [facility], [facility] Medical History Splenomegaly HTN (hypertension) Hypothyroid GERD (gastroesophageal reflux disease) Diabetes Anxiety Sciatica Obese Allergic rhinitis Herpes simplex Chronic inflammatory demyelinating neuropathy Surgical History History of colonoscopy History of surgery History of rectal surgery History of bladder surgery History of inguinal hernia repair History of hysterectomy History of tonsillectomy and adenoidectomy History of ankle surgery History of right knee surgery History of elbow surgery History of hand surgery History of thumb surgery History of shoulder surgery History of hip surgery Family History Father Leukemia Lung cancer PVD (peripheral vascular disease) Mother Diabetes Heart disease Asthma Substance use disorder Brother Thyroid disease CIDP (chronic inflammatory demyelinating polyneuropathy) Son Kelley's disease Sister Lymphoma Social History Housing: House Alcohol intake: current Alcohol intake frequency: a few times a month Patient Tobacco Use Status: Former Tobacco user Quit Date: 1991 Tobacco use type: Cigarette e-Cigarette/Vaping Use: Never Used Second Hand Smoke Exposure: Yes service: No Current occupational status: disabled Cognitive needs: No Hearing needs: No Vision needs: Yes (GLASSES) Review of Systems Const Reports no additional complaints Eyes Reports no additional complaints ENT Reports no additional complaints Card Reports as per HPI Resp Reports no additional complaints GI Reports no additional complaints Reports as per HPI Musc Reports as per HPI Neuro Reports no additional complaints Psych Reports no additional complaints Endo Reports as per HPI Physical Exam Const General: cooperative, healthy appearing, comfortable, no acute distress, well developed, alert and awake Orientation/consciousness: patient oriented x3 Limitations: no limitations HEENT Head: Yes normal to inspection, Yes normocephalic and Yes atraumatic Ears: hearing grossly normal bilaterally Eyes General: appearance normal, both eyes and all related structures Neck Neck: Yes normal visual inspection and Yes trachea midline Chest Chest palpation & inspection: normal inspection of the chest Resp Effort & Inspection: normal respiratory effort and able to speak in complete sentences Cardio Rate: regular rate GI Inspection: Yes normal to inspection General: Yes no CVA tenderness Back/Spine/Pelvis Back: no CVA tenderness Skin General skin exam: no rashes or lesions noted Neuro General: patient oriented x3 Extrem General: Yes normal to inspection Psych Appearance: grossly normal and well kempt Mental Status: mental status grossly normal Speech and movement: Normal speech and movement present and Clear speech present Affect: normal affect Attitude: cooperative Thought process: Normal thought process present Thought content: Normal thought content present Insight: Fair insight present (Psych) Judgement: Fair judgement present (Psych) Office Procedures Post Void Residual Post Residual Void Post Void Residual (PVR): [id number] Void Residual by ultrasound Results AMB Urinalysis, Automated UA Leukoctes 0 Nona/uL Last Edit by Jourdan Trivedi on 11/28/23 15:18 UA Nitrite Negative Last Edit by Jourdan Trivedi on 11/28/23 15:18 UA Urobilinogen 0.2 mg/dL Last Edit by Jourdan Trivedi on 11/28/23 15:18 UA Protein 0 mg/dL Last Edit by Jourdan Trivedi on 11/28/23 15:18 UA pH 5.5 Last Edit by Jourdan Webstereloise on 11/28/23 15:18 UA Blood 0 Blake/uL Last Edit by Sunnynuviazahida Webstereloise on 11/28/23 15:18 UA Specific [place] 1.010 Last Edit by Jourdan Webstereloise on 11/28/23 15:18 UA Ketone Negative Last Edit by Sunnymariluz Eleanoreloise on 11/28/23 15:18 UA Bilirubin 0 mg/dL Last Edit by Markozahida Eleanoreloise on 11/28/23 15:18 UA Glucose 1000 mg/dL Last Edit by Markozahida Eleanoreloise on 11/28/23 15:18 Results Reviewed Results Reviewed: Laboratory Last Values Urine pH (Auto) 5.5 11/28/23 15:00 Specific [place] (Auto) 1.010 11/28/23 15:00 Urine Protein (Auto) 0 mg/dL 11/28/23 15:00 Glucose (UA)(Auto) 1000 mg/dL 11/28/23 15:00 Urine Ketones (Auto) Negative 11/28/23 15:00 Urine Blood (Auto) 0 Blake/uL 11/28/23 15:00 Urine Nitrite (Auto) Negative 11/28/23 15:00 Urine Bilirubin (Auto) 0 mg/dL 11/28/23 15:00 Urine Urobilinogen (Auto) 0.2 mg/dL 11/28/23 15:00 Leukocyte Esterase (Auto) 0 Nona/uL 11/28/23 15:00 Date of Service: 10/23/23 EXAMINATION: US PELVIS LIMITED (BLADDER) FINDINGS: BLADDER: Well distended and normal. Bilateral ureteral jets are demonstrated. Prevoid bladder volume is 175 mL. Postvoid bladder volume is 24 mL. IMPRESSION: Normal bladder ultrasound. Assessment & Plan Assessment & Plan (1) Recurrent UTI: Code(s): N39.0 - Urinary tract infection, site not specified Plan In office urinalysis results reviewed with the patient today; as noted above. PVR 62ml's. Continue low-dose prophylactic antibiotic therapy 50 mg of Macrobid daily as discussed. Start Estrace cream as prescribed by kid club attendant as discussed. Recent bladder ultrasound results reviewed with the patient today; as noted above. Discussed at length potential causes of recurrent urinary tract infections. Discussed UTI prevention with D mannose supplement, vitamin-C, increasing fluid intake, behavioral therapy with timed voiding, perineal hygiene and postcoital voiding, and management of constipation with stool softeners and increased fiber intake. Discussed possible near future in office cystoscopy if symptoms arise Follow-up in 3 months with PVR; or sooner with any issues, concerns, and or questions. Orders: Orders AMB Post Void Residual by ultrasound Today R35.0 - Frequency of micturition AMB Urinalysis Automated Today Z13.9 - Encounter for screening, unspecified Patient Instructions: The patient had an opportunity to ask questions regarding the treatment plan. All questions were answered. Physical exam, labs, and imaging were discussed and reviewed in detail. As well as risks, benefits, and discussion of treatment choices. No major barriers to understanding were identified. The patient expressed understanding and agreement with the above treatment plan. The patient was made aware they should contact our office by phone for worsening of their current condition, the appearance of new symptoms, or with any questions or concerns. Compliance is encouraged with any medications and follow up testing that is ordered. It is a privilege to be allowed the opportunity to participate in? your urological care.? Again, if you have any questions or concerns If you have any questions or concerns please do not hesitate to contact me. The office is [phone]. This note is constructed using voice recognition software. While every effort has been made to ensure accuracy child and family counselor errors may have been included. Yours sincerely, PATTI Bojorquez Coding Level of Care Code New Pt Level 4 (64748) Diagnoses Recurrent UTI N39.0 CPT Codes Post Residual Void - PVR CPT Code: 24455-Bbyj Void Residual by ultrasound ([id number]) Time Spent (min) 35
== END 2023-11-28 16:00 | disposition home or self-care (01) ==
PROVIDERS: PCP Physician Assistant; Visit Provider Nurse Practitioner Family
DX: N39.0 Urinary tract infection, site not specified (principal)
CPT/HCPCS: 99204

== ENCOUNTER → 2023-11-28 14:42 | Outpatient (BNVA) | payer OTHER, SELFPAY | PROVIDERS: PCP Physician Assistant; Visit Provider Nurse Practitioner Family | DX: N39.0 Urinary tract infection, site not specified (principal) | CPT/HCPCS: 51798; 81003; 99202 ==

== ENCOUNTER 2023-12-10 10:16 | Outpatient (AMB) | payer OTHER, SELFPAY ==
[2023-12-10 10:39] VITALS: BP 106/62; PULSE 82; O2SAT 97; BMI 29.0
--- NOTE | 2023-12-10 10:39 | A.OFFPC_ITS ---
Vital Signs 12/10/23 10:39 Height 5 ft 7 in Weight 185 lb BMI 29.0 BP 106/62 Blood Pressure Location Lt brachial Position Sitting Pulse 82 Pulse Source Pulse Oximeter Pulse Oximetry (%) 97 Oxygen Delivery Method Room Air Intake Visit Reasons: Cataract surgery R-eye 42 &left eye on 12/31/23. Intake Note: Patient is here for a Pre-op for Cataract surgery of the right eye on 12/24/23 and the left eye is scheduled on 12/31/[address] Brewster. . 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: No Accompanied by: Self / Same As Patient Allergies RACHELLE Inhibitors Allergy (Severe, Verified 12/10/23 10:49) Anaphylaxis azithromycin Allergy (Severe, Verified 12/10/23 10:49) HIVES TO ZPACK, anaphylaxis Vycvydu-YCG-RxE Reductase Inhibitor [Sslkwno-Ghv-Dxc Reductase Inhibitor] Allergy (Severe, Verified 12/10/23 10:49) Anaphylaxis amitriptyline Adverse Reaction (Intermediate, Verified 12/10/23 10:49) Headache hydrochlorothiazide Adverse Reaction (Intermediate, Verified 12/10/23 10:49) leg cramps IVIG Allergy (Unknown, Uncoded 12/10/23 10:41) told to avoid Tobacco use date assessed: 10/02/23 HPI Cataract surgery R-eye 12/23 &left eye on 12/31/23. HPI Details Patient is a 58 year female here today for preop visit. She is due for cataract removal of both eyes in early December 2023.. Patient has a past medical history type 2 diabetes, hypothyroidism, chronic inflammatory demyelinating polyneuritis. She has no past medical history significant for [place], Congestive heart failure for CVA. Patient is not on any anticoagulation or anti-platelet therapy at this time. . CHRONIC MEDICAL CONDITIONS--> ISAURA: She is interested in establishing care with a mental health therapist to help further treat her anxiety. Does use lorazepam on an daily/p.r.n. basis. ... ? .. ? DMII:? Patient followed by endocrinology, Does check blood sugars at home, report 120- 160s.? Has recently been started on new GLP 1, has noted some weight loss..? Most recent A1c is 7.0 .. HLD:? Most recent lipid panel much improved triglycerides and total cholesterol.? Patient has been using fish oil which seems to be working well for her.. ? Unable to take statin therapy due to side effect.? Have been locked into start fibrates due to elevations in liver enzymes. .. Thrombocytopenia:? Most recent platelet count at 144.? Has follow-up up with Hematology and has gotten bone pair mildly see which was normal.? Otherwise no epistaxis or bowel or bladder bleeding. .. HTN:? Blood pressures have been much better with amlodipine 2.5 mg.? Will continue on his dose of amlodipine. Otherwise denies any chest pain, palpitations, shortness of breath or headaches.? .. ? CIDP: Followed by neurologist at [facility], she does go for plasmapheresis therapies every 5 weeks. Has been having right-sided lower extremity weakness and facial weakness related to her neurological disease. 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 Also did have MRI of brain did show benign appearing cyst at is undergoing surveillance at this time. ?Also having migraines and reports she has gotten botox injection over he scalp which has helped.? Now only taking Fiorinal on a very limited p.r.n. basis.? .. ? Hypothyroidism: Patient continues to take levothyroxine to 100 mcg 6 days a week [facility] Medical History Splenomegaly HTN (hypertension) Hypothyroid GERD (gastroesophageal reflux disease) Diabetes Anxiety Sciatica Obese Allergic rhinitis Herpes simplex Chronic inflammatory demyelinating neuropathy Surgical History History of colonoscopy History of surgery History of rectal surgery History of bladder surgery History of inguinal hernia repair History of hysterectomy History of tonsillectomy and adenoidectomy History of ankle surgery History of right knee surgery History of elbow surgery History of hand surgery History of thumb surgery History of shoulder surgery History of hip surgery Family History Father Leukemia Lung cancer PVD (peripheral vascular disease) Mother Diabetes Heart disease Asthma Substance use disorder Brother Thyroid disease CIDP (chronic inflammatory demyelinating polyneuropathy) Son Kelley's disease Sister Lymphoma Social History Housing: House Alcohol intake: current Alcohol intake frequency: a few times a month Patient Tobacco Use Status: Former Tobacco user Quit Date: 1991 Tobacco use type: Cigarette e-Cigarette/Vaping Use: Never Used Second Hand Smoke Exposure: Yes service: No Current occupational status: disabled Cognitive needs: No Hearing needs: No Vision needs: Yes (GLASSES) Questionnaire Thrive Questionnaire Date Thrive assessed: 10/02/23 ISAURA-7 AMB Questionnaire ISAURA-7 Date ISAURA - 7 assessed: 10/02/23 Source: Developed by Drs. Delfino Schwab, Christine Albrecht, Cesar Anthony and colleagues, with an educational margaret from [employer]. Review of Systems Const Denies headache(s) Eyes Denies loss of vision ENT Denies vertigo, Denies dizziness, Denies headache(s) and Denies sore throat Card Denies chest pain, Denies leg edema and Denies lightheadedness Resp Denies cough, Denies hemoptysis and Denies wheezing GI Denies abdominal pain, Denies melena, Denies constipation, Denies diarrhea and Denies vomiting Denies urinary frequency, Denies dysuria and Denies urinary urgency Musc Denies arthralgias, Denies joint swelling, Denies numbness and Denies tingling Neuro Denies Abnormal speech present, Denies behavioral changes, Denies vertigo, Denies dizziness, Denies headache(s), Denies loss of vision, Denies memory loss, Denies numbness and Denies tingling Psych Denies anxiety, Denies behavioral changes, Denies depression, Denies memory loss and Denies panic attacks Madi/Lymph Denies easy bleeding and Denies easy bruising Aller/Immun Denies wheezing Physical exam (Primary Care) Vital Signs: Last Vital Signs Pulse 82 12/10/23 10:39 BP 106/62 12/10/23 10:39 Pulse Ox 97 12/10/23 10:39 Oxygen Delivery Method Room Air 12/10/23 10:39 BMI result Body Mass Index 29.0 Tobacco/Smoking Status: Tobacco use Status Tobacco use date assessed 10/02/23 12/10/23 10:43 Patient Tobacco Use Status Former Tobacco user 12/10/23 10:43 Tobacco use type Cigarette 12/10/23 10:43 e-Cigarette/Vaping Use Never Used 12/10/23 10:43 Thrive Assessment: Date of Thrive Assessment Date Thrive assessed 10/02/23 12/10/23 10:43 Const General: healthy appearing, no acute distress, alert and awake Nutritional Appearance: well nourished Orientation/consciousness: oriented to person, oriented to place and oriented to time HENMT Ears: TM's normal bilaterally General nose exam: Normal nasal mucous membranes and turbinates present Eyes Conjunctivae: conjunctivae normal Sclerae: sclerae normal Pupils: Equal, round and reactive pupils present Neck Neck: Yes no lymphadenopathy and Yes no JVD Thyroid: Thyroid normal Carotids: no bruits Resp Effort & Inspection: normal respiratory effort and not tachypneic Auscultation: no crackles, no rales, no rhonchi and no wheezes Cardio Rate: regular rate Rhythm: regular rhythm Heart sounds: no murmurs and normal S1 and S2 GI Palpation (GI): Soft to palpation, nontender, no hepatomegaly and no splenomegal y Auscultation: normal bowel sounds Skin General skin exam: no rashes or lesions noted and dry skin Neuro General: oriented to person, oriented to place and oriented to time Cranial nerves: Yes Equal, round and reactive pupils present Speech: No Abnormal speech present Gait exam (Neuro): Normal gait present Motor exam (neuro): no tremor noted Extrem Right upper extremity: full ROM Left upper extremity: full ROM Right lower extremity: full ROM; no edema Left lower extremity: full ROM; no edema Psych Mental Status: mental status grossly normal Speech and movement: Normal speech and movement present Affect: normal affect Attitude: cooperative Thought process: Normal thought process present Assessment and Plan Assessment & Plan (1) Pre-op evaluation: Code(s): Z01.818 - Encounter for other preprocedural examination Plan: Patient's most recent labs and vitals today stable. Patient is medically clear for needed cataract removal (2) DMII (diabetes mellitus, type 2): Code(s): E11.9 - Type 2 diabetes mellitus without complications Qualifiers: Diabetes mellitus remote computer terminal operator insulin use: without remote computer terminal operator use Diabetes mellitus complication status: with hyperglycemia Qualified Code(s): E11.65 - Type 2 diabetes mellitus with hyperglycemia Plan: Patient's type 2 diabetes well controlled with current anti-hyperglycemic medication. Is followed by actuarial science professor Dr. Duarte. Has been started on new GLP 1 and has noted some slight weight loss. Goal A1c is to remain below 7.0 (3) HLD (hyperlipidemia): Code(s): E78.5 - Hyperlipidemia, unspecified Qualifiers: Hyperlipidemia type: mixed hyperlipidemia Qualified Code(s): E78.2 - Mixed hyperlipidemia Plan: Most recent lipid panel showing appropriate total cholesterol and LDL. Has not been able to tolerate statin. Continues to use fish oil which has been helpful. Goal LDL to remain below 100. (4) Thrombocytopenia: Code(s): D69.6 - Thrombocytopenia, unspecified Plan: Continues to follow hematology. Most recent platelet count at 144 She denies any severe bleeding though does report some bruising on her legs. (5) Chronic inflammatory demyelinating neuropathy: Comment: Dx in 1998 Code(s): G61.81 - Chronic inflammatory demyelinating polyneuritis Plan: Patient is followed by Neurology. Does get electrophoresis quite regularly that helps to reduce her neurological symptoms. Orders: Orders Lipase Today R14.0 - Abdominal distension (gaseous) Coding Level of Care Code Est Pt Level 4 (28766) Diagnoses Pre-op evaluation Z01.818 Type 2 diabetes mellitus with hyperglycemia, without long-term current use of insulin E11.65 Diabetes mellitus remote computer terminal operator insulin use: without alf use Diabetes mellitus complication status: with hyperglycemia Mixed hyperlipidemia E78.2 Hyperlipidemia type: mixed hyperlipidemia Thrombocytopenia D69.6 Chronic inflammatory demyelinating neuropathy G61.81
== END 2023-12-10 11:27 | disposition home or self-care (01) ==
PROVIDERS: PCP Physician Assistant; Visit Provider Physician Assistant
DX: E11.65 Type 2 diabetes mellitus with hyperglycemia (principal); D69.6 Thrombocytopenia, unspecified; G61.81 Chronic inflammatory demyelinating polyneuritis; Z01.818 Encounter for other preprocedural examination; E78.2 Mixed hyperlipidemia
CPT/HCPCS: 99214

== ENCOUNTER 2024-02-13 15:06 | Outpatient (AMB) | payer OTHER, SELFPAY ==
[2024-02-13 15:18] VITALS: BP 112/66; PULSE 98; O2SAT 98; BMI 28.7
--- NOTE | 2024-02-13 15:18 | A.OFFPC_ITS ---
Vital Signs 02/13/24 15:18 Height 5 ft 7 in Weight 183 lb BMI 28.7 BP 112/66 Blood Pressure Location Lt brachial Position Sitting Pulse 98 Pulse Source Pulse Oximeter Pulse Oximetry (%) 98 Oxygen Delivery Method Room Air Intake Visit Reasons: [facility]/ pancreas mass/MRI request Regional Recruiter Required: No Accompanied by: Significant Other Allergies RACHELLE Inhibitors Allergy (Severe, Verified 02/13/24 15:39) Anaphylaxis azithromycin Allergy (Severe, Verified 02/13/24 15:39) HIVES TO ZPACK, anaphylaxis Jtxgshh-RRH-QdB Reductase Inhibitor [Cyltvrs-Chg-Dfe Reductase Inhibitor] Allergy (Severe, Verified 02/13/24 15:39) Anaphylaxis amitriptyline Adverse Reaction (Intermediate, Verified 02/13/24 15:39) Headache hydrochlorothiazide Adverse Reaction (Intermediate, Verified 02/13/24 15:39) leg cramps tirzepatide [From [employer]] Adverse Reaction (Intermediate, Verified 02/13/24 16:01) GI upset IVIG Allergy (Unknown, Uncoded 02/13/24 15:39) told to avoid Tobacco use date assessed: 10/02/23 Dental Screening Dental Screen Date: 02/13/24 Did you have a dental visit in the last 12 months?: Yes Did you have a dental problem in the last 6 months where you did not have access to dental care?: No Was dental information given to patient?: Patient has dentist HPI [facility]/ pancreas mass/MRI request HPI Details Patient is a 59-year-old female here today for hospital discharge follow-up. Patient recently seen at [facility] for acute right-sided flank pain and tenderness. Her CT of abdomen and pelvis with IV contrast showed small proximal right ureteral cookie with right hydronephrosis, stone measuring around 4-5 mm, also did have pancreatic duct dilation which was new finding. Recommend a nonemergent MR imaging of the abdomen, Urology was consulted and in placed urinary stent. She will be following up with Urology in getting a lithotripsy and another stent placed and removed at a later date. Currently feeling better and having less pain. She reports she is urinating fine. Still does have some right flank pain to palpation. COUNTS INCLUDE 234 BEDS AT THE [facility] Medical History Splenomegaly HTN (hypertension) Hypothyroid GERD (gastroesophageal reflux disease) Diabetes Anxiety Sciatica Obese Allergic rhinitis Herpes simplex Chronic inflammatory demyelinating neuropathy Surgical History History of colonoscopy History of surgery History of rectal surgery History of bladder surgery History of inguinal hernia repair History of hysterectomy History of tonsillectomy and adenoidectomy History of ankle surgery History of right knee surgery History of elbow surgery History of hand surgery History of thumb surgery History of shoulder surgery History of hip surgery Family History Father Leukemia Lung cancer PVD (peripheral vascular disease) Mother Diabetes Heart disease Asthma Substance use disorder Brother Thyroid disease CIDP (chronic inflammatory demyelinating polyneuropathy) Son Kelley's disease Sister Lymphoma Social History Housing: House Alcohol intake: current Alcohol intake frequency: a few times a month Patient Tobacco Use Status: Former Tobacco user Quit Date: 1991 Tobacco use type: Cigarette e-Cigarette/Vaping Use: Never Used Second Hand Smoke Exposure: Yes service: No Current occupational status: disabled Cognitive needs: No Hearing needs: No Vision needs: Yes (GLASSES) Questionnaire Thrive Questionnaire Date Thrive assessed: 10/02/23 ISAURA-7 AMB Questionnaire ISAURA-7 Date ISAURA - 7 assessed: 10/02/23 Source: Developed by Drs. Delfino Schwab, Christine Albrecht, Cesar Anthony and colleagues, with an educational margaret from [employer]. Review of Systems Const Denies headache(s) Eyes Denies loss of vision ENT Denies vertigo, Denies dizziness, Denies headache(s) and Denies sore throat Card Denies chest pain, Denies leg edema and Denies lightheadedness Resp Denies cough, Denies hemoptysis and Denies wheezing GI Denies abdominal pain, Denies melena, Denies constipation, Denies diarrhea and Denies vomiting Denies urinary frequency, Denies dysuria and Denies urinary urgency Musc Denies arthralgias, Denies joint swelling, Denies numbness and Denies tingling Neuro Denies Abnormal speech present, Denies behavioral changes, Denies vertigo, Denies dizziness, Denies headache(s), Denies loss of vision, Denies memory loss, Denies numbness and Denies tingling Psych Denies anxiety, Denies behavioral changes, Denies depression, Denies memory loss and Denies panic attacks Madi/Lymph Denies easy bleeding and Denies easy bruising Aller/Immun Denies wheezing Physical exam (Primary Care) Vital Signs: Last Vital Signs Pulse 98 02/13/24 15:18 BP 112/66 02/13/24 15:18 Pulse Ox 98 02/13/24 15:18 Oxygen Delivery Method Room Air 02/13/24 15:18 BMI result Body Mass Index 28.7 Tobacco/Smoking Status: Tobacco use Status Tobacco use date assessed 10/02/23 02/13/24 15:18 Patient Tobacco Use Status Former Tobacco user 02/13/24 15:18 Tobacco use type Cigarette 02/13/24 15:18 e-Cigarette/Vaping Use Never Used 02/13/24 15:18 Thrive Assessment: Date of Thrive Assessment Date Thrive assessed 10/02/23 02/13/24 15:18 Const General: healthy appearing, no acute distress, alert and awake Nutritional Appearance: well nourished Orientation/consciousness: oriented to person, oriented to place and oriented to time HENMT Ears: TM's normal bilaterally General nose exam: Normal nasal mucous membranes and turbinates present Eyes Conjunctivae: conjunctivae normal Sclerae: sclerae normal Pupils: Equal, round and reactive pupils present Neck Neck: Yes no lymphadenopathy and Yes no JVD Thyroid: Thyroid normal Carotids: no bruits Resp Effort & Inspection: normal respiratory effort and not tachypneic Auscultation: no crackles, no rales, no rhonchi and no wheezes Cardio Rate: regular rate Rhythm: regular rhythm Heart sounds: no murmurs and normal S1 and S2 GI Palpation (GI): Soft to palpation, nontender, no hepatomegaly and no splenomegaly Auscultation: normal bowel sounds General: Yes CVA tenderness Back/Spine/Pelvis Other: RIGHT-SIDED CVA TENDERNESS NOTED Back: CVA tenderness Skin General skin exam: no rashes or lesions noted and dry skin Neuro General: oriented to person, oriented to place and oriented to time Cranial nerves: Yes Equal, round and reactive pupils present Speech: No Abnormal speech present Gait exam (Neuro): Normal gait present Motor exam (neuro): no tremor noted Extrem Right upper extremity: full ROM Left upper extremity: full ROM Right lower extremity: full ROM; no edema Left lower extremity: full ROM; no edema Psych Mental Status: mental status grossly normal Speech and movement: Normal speech and movement present Affect: normal affect Attitude: cooperative Thought process: Normal thought process present Results AMB Hemoglobin A1c AMB Hemoglobin A1c 7.6 % Last Edit by OSWALDO Lucia on 02/13/24 15:38 Results Reviewed Results Reviewed: Laboratory Last Values Hgb A1c (Clinic) 7.6 % (4.0-6.0) H 02/13/24 15:37 Assessment and Plan Assessment & Plan (1) Hospital discharge follow-up: Code(s): Z09 - Encounter for follow-up examination after completed treatment for conditions other than malignant neoplasm (2) Obstructive uropathy: Code(s): N13.9 - Obstructive and reflux uropathy, unspecified Plan: As per HPI, patient did have obstructive uropathy due to a large stone and pyelonephritis. Has been treated with antibiotics and urinary stent. Will be following up with Urology for lithotripsy. (3) Pancreatic duct dilated: Code(s): K86.89 - Other specified diseases of pancreas Plan: As per HPI found to have a pancreatic duct dilation. MRCP advised as outpatient. She would like this done at [facility] as she does have a gastro and other specialists there. Also does have recent CT abdomen pelvis done there as well. (4) UTI (urinary tract infection): Code(s): N39.0 - Urinary tract infection, site not specified Qualifiers: Urinary tract infection type: acute pyelonephritis Qualified Code(s): N10 - Acute pyelonephritis Plan: As per HPI Had acute pyelonephritis and hydronephrosis. Required a ureteral stent placed, will be followed up with Neurology for lithotripsy and stent removal. Orders: Orders AMB Hemoglobin A1c Today E11.65 - Type 2 diabetes mellitus with hyperglycemia MR MRCP Today K86.89 - Other specified diseases of pancreas Coding Level of Care Code Est Pt Level 4 (08831) Diagnoses Hospital discharge follow-up Z09 Obstructive uropathy N13.9 Pancreatic duct dilated K86.89 Acute pyelonephritis N10 Urinary tract infection type: acute pyelonephritis
== END 2024-02-13 16:08 | disposition home or self-care (01) ==
PROVIDERS: PCP Physician Assistant; Visit Provider Physician Assistant
DX: Z09 Encounter for follow-up examination after completed treatment for conditions other than malignant neoplasm (principal); N13.9 Obstructive and reflux uropathy, unspecified; K86.89 Other specified diseases of pancreas; N10 Acute pyelonephritis; E11.65 Type 2 diabetes mellitus with hyperglycemia
CPT/HCPCS: 83036; 99214

== ENCOUNTER 2024-07-16 08:36 | Outpatient (REF) | payer OTHER, SELFPAY ==
[2024-07-16 10:17] LABS: Hematocrit 35.2 % (37.0-47.0); Hemoglobin 12.1 g/dl (12.0-16.0); Mean Corpuscular HGB Conc 34.4 g/dl (31.0-35.0); Mean Corpuscular Hemoglobin 30.9 pg (27.0-33.0); Mean Corpuscular Volume 89.8 fL (80.0-98.0); Mean Platelet Volume 10.5 fL (9.4-12.3); Platelet Count 122 X10*3/uL (160-400); Red Blood Count 3.92 X10*6/uL (4.20-5.50); Red Cell Distribution Width 13.9 % (11.0-16.0); White Blood Count 3.2 X10*3/uL (4.8-10.8)
[2024-07-16 10:52] LABS: Appearance Urine Clear; Color Urine Yellow; Glucose Urine UA Negative (Negative); Leukocyte Esterase Urine Moderate (2+) (Negative); Nitrite Urine Negative (Negative); UMIC TRIGGER UACC YES; Urine Blood Negative (Negative); Urine Ketones Negative (Negative); Urine Protein Negative (Neg-Trace)
[2024-07-16 10:55] LABS: Alanine Aminotransferase 52 U/L (0-31); Albumin Level 4.3 g/dL (3.5-5.0); Alkaline Phosphatase 65 U/L (39-117); Anion Gap 11 (12-20); Aspartate Amino Transferase 32 U/L (5-31); Bilirubin Total 0.4 mg/dL (0.0-1.0); Blood Urea Nitrogen 10 mg/dL (9-16); Calcium 9.3 mg/dL (8.4-10.2); Carbon Dioxide 27 mmol/L (22-29); Chloride 106 mmol/L (96-108); Cholesterol 162 mg/dL (<200); Estimated Glomerular Filt Rate > 60; Glucose Fasting 155 mg/dL (60-99); HDL Cholesterol 51 mg/dL (>40); LDL Cholesterol Calculated 64 mg/dL (<100); Lipase 57 U/L (8-78); Potassium 4.1 mmol/L (3.3-5.1); Sodium 140 mmol/L (135-145); Total Protein 6.6 g/dL (6.5-8.0); Triglycerides 236 mg/dL (<150)
[2024-07-16 10:59] LABS: TSH reflex Free T4 0.08 uIU/mL (0.32-4.0)
[2024-07-16 11:13] LABS: Bacteria Urine None Seen (None Seen); Hyaline Casts Urine 0-2 /LPF (0-2); RBC Urine 0-2 /HPF (0-2); Squamous Epithelial Cell Urine 0-2 /HPF (0-2); WBC Urine 0-5 /HPF (0-5)
[2024-07-16 12:00] LABS: Free T4 (Free Thyroxine) 1.36 ng/dL (0.71-1.85)
== END 2024-07-16 08:37 | disposition home or self-care (01) ==
LOC: HO.HMGCLDS 08:36
PROVIDERS: PCP Physician Assistant; Visit Provider Physician Assistant
DX: E11.65 Type 2 diabetes mellitus with hyperglycemia (principal); D69.6 Thrombocytopenia, unspecified; E78.2 Mixed hyperlipidemia; R14.0 Abdominal distension (gaseous); E03.9 Hypothyroidism, unspecified; R30.0 Dysuria; R35.0 Frequency of micturition
CPT/HCPCS: 36415; 80053; 80061; 81001; 83690; 84439; 84443; 85027; 87086; 87147

== ENCOUNTER 2024-08-05 15:29 | Outpatient (AMB) | payer OTHER, SELFPAY ==
[2024-08-05 15:47] VITALS: BP 118/76; PULSE 75; O2SAT 97; BMI 29.8
--- NOTE | 2024-08-05 15:47 | MHC.PC.OV ---
Vital Signs 08/05/24 15:47 Height 5 ft 7 in Weight 190 lb 6 oz BMI 29.8 BP 118/76 Blood Pressure Location Lt brachial Position Sitting Pulse 75 Pulse Source Pulse Oximeter Pulse Oximetry (%) 97 Oxygen Delivery Method Room Air Intake Visit Reasons: 3 month Follow Up Component Technician Required: No Accompanied by: Self / Same As Patient Allergies RACHELLE Inhibitors Allergy (Severe, Verified 08/05/24 15:57) Anaphylaxis azithromycin Allergy (Severe, Verified 08/05/24 15:57) HIVES TO ZPACK, anaphylaxis Ivsldzv-LCO-VwB Reductase Inhibitor [Atlvvya-Chc-Cjr Reductase Inhibitor] Allergy (Severe, Verified 08/05/24 15:57) Anaphylaxis amitriptyline Adverse Reaction (Intermediate, Verified 08/05/24 15:57) Headache hydrochlorothiazide Adverse Reaction (Intermediate, Verified 08/05/24 15:57) leg cramps tirzepatide [From Mounjaro] Adverse Reaction (Intermediate, Verified 08/05/24 15:57) GI upset IVIG Allergy (Unknown, Uncoded 08/05/24 15:57) told to avoid Medication List - Last Reconciled 08/05/24 by Adam Cadena PA-C amlodipine 2.5 mg PO DAILY cefpodoxime 200 mg PO Q12H cetirizine 10 mg PO DAILY PRN 90 days cholecalciferol (vitamin D3) (Vitamin D3) 50 mcg PO DAILY diclofenac sodium 75 mg PO DAILY PRN empagliflozin (Jardiance) 25 mg PO DAILY estradiol 0.01%(0.1mg/gram) (Estrace) 1 g vaginal 3XW [Fish Oil PO] fluticasone propionate 50 mcg/actuation 2 sprays intranasal DAILY 30 days insulin degludec (Tresiba FlexTouch U-100 insulin) units subcut insulin degludec (Tresiba FlexTouch U-100 insulin) 26 units subcut DAILY levothyroxine 200 mcg PO DAILY liraglutide 1.2 mg subcut DAILY lorazepam 1 mg PO DAILY PRN 30 days mercaptopurine 1 tab PO DAILY metformin ER 1,000 mg PO BID omeprazole 40 mg PO BID oxybutynin chloride 5 mg PO BID-TID PRN oxycodone 5 mg PO Q6H PRN phenazopyridine 100 mg PO ONCE prucalopride (Motegrity) 2 mg PO DAILY tirzepatide (Mounjaro) 7.5 mg subcut QWEEK valacyclovir 1,000 mg PO DAILY Tobacco use date assessed: 10/02/23 Dental Screening Dental Screen Date: 02/13/24 HPI 3 month Follow Up HPI Details Patient is a 59 year female here today for follow-up visit. She is due for cataract removal of both eyes in early December 2023.. Patient has a past medical history type 2 diabetes, hypothyroidism, chronic inflammatory demyelinating polyneuritis. Patient recently had left knee injury resulting in a tibial plateau fracture. She is now followed by Orthopedics in his nonweightbearing on her left lower extremity for 4 months. She also was recently found to hepatosplenomegaly from unclear etiology. Her diabetic medications have been adjusted. . CHRONIC MEDICAL CONDITIONS--> ISAURA: She is interested in establishing care with a mental health therapist to help further treat her anxiety. Does use lorazepam on an daily/p.r.n. basis. ... ? .. ? DMII:? Patient followed by endocrinology, Does check blood sugars at home, report 120- 160s.? Recently had adjustment to her diabetic medication. Today's A1c of 5.8. She is very happy about this .. HLD:? Most recent lipid panel much improved triglycerides and total cholesterol.? Patient has been using fish oil which seems to be working well for her.. ? Unable to take statin therapy due to side effect.? Have been locked into start fibrates due to elevations in liver enzymes. .. Thrombocytopenia:? Most recent platelet count at 144.? Has follow-up up with Hematology and has gotten bone pair mildly see which was normal.? Otherwise no epistaxis or bowel or bladder bleeding. .. HTN:? Blood pressures have been much better with amlodipine 2.5 mg.? Will continue on his dose of amlodipine. Otherwise denies any chest pain, palpitations, shortness of breath or headaches.? .. ? 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 Has been having right-sided lower extremity weakness and facial weakness related to her neurological disease. 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 Also did have MRI of brain did show benign appearing cyst at is undergoing surveillance at this time. ?Also having migraines and reports she has gotten botox injection over he scalp which has helped.? Now only taking Fiorinal on a very limited p.r.n. basis.? .. ? Hypothyroidism: Patient continues to take levothyroxine to 100 mcg 6 days a week [facility] Medical History Splenomegaly HTN (hypertension) Hypothyroid GERD (gastroesophageal reflux disease) Diabetes Anxiety Sciatica Obese Allergic rhinitis Herpes simplex Chronic inflammatory demyelinating neuropathy Surgical History History of colonoscopy History of surgery History of rectal surgery History of bladder surgery History of inguinal hernia repair History of hysterectomy History of tonsillectomy and adenoidectomy History of ankle surgery History of right knee surgery History of elbow surgery History of hand surgery History of thumb surgery History of shoulder surgery History of hip surgery Family History Father Leukemia Lung cancer PVD (peripheral vascular disease) Mother Diabetes Heart disease Asthma Substance use disorder Brother Thyroid disease CIDP (chronic inflammatory demyelinating polyneuropathy) Son Kelley's disease Sister Lymphoma Social History Housing: House Alcohol intake: current Alcohol intake frequency: a few times a month Patient Tobacco Use Status: Former Tobacco user Tobacco use type: Cigarette e-Cigarette/Vaping Use: Never Used Second Hand Smoke Exposure: Yes service: No Current occupational status: disabled Cognitive needs: No Hearing needs: No Vision needs: Yes (GLASSES) Questionnaire Thrive Questionnaire Date Thrive assessed: 10/02/23 ISAURA-7 AMB Questionnaire ISAURA-7 Date ISAURA - 7 assessed: 10/02/23 Source: Developed by Drs. Delfino Schwab, Christine Albrecht, Cesar Anthony and colleagues, with an educational margaret from [employer]. Review of Systems Const Denies headache(s) Eyes Denies loss of vision ENT Denies vertigo, Denies dizziness, Denies headache(s) and Denies sore throat Card Denies chest pain, Denies leg edema and Denies lightheadedness Resp Denies cough, Denies hemoptysis and Denies wheezing GI Denies abdominal pain, Denies melena, Denies constipation, Denies diarrhea and Denies vomiting Denies urinary frequency, Denies dysuria and Denies urinary urgency Musc Denies arthralgias, Denies joint swelling, Denies numbness and Denies tingling Neuro Denies Abnormal speech present, Denies behavioral changes, Denies vertigo, Denies dizziness, Denies headache(s), Denies loss of vision, Denies memory loss, Denies numbness and Denies tingling Psych Denies anxiety, Denies behavioral changes, Denies depression, Denies memory loss and Denies panic attacks Madi/Lymph Denies easy bleeding and Denies easy bruising Aller/Immun Denies wheezing Physical exam (Primary Care) Vital Signs: Last Vital Signs Pulse 75 08/05/24 15:47 BP 118/76 08/05/24 15:47 Pulse Ox 97 08/05/24 15:47 Oxygen Delivery Method Room Air 08/05/24 15:47 BMI result Body Mass Index 29.8 Tobacco/Smoking Status: Tobacco use Status Tobacco use date assessed 10/02/23 08/05/24 15:49 Patient Tobacco Use Status Former Tobacco user 08/05/24 15:49 Tobacco use type Cigarette 08/05/24 15:49 e-Cigarette/Vaping Use Never Used 08/05/24 15:49 Thrive Assessment: Date of Thrive Assessment Date Thrive assessed 10/02/23 08/05/24 15:49 Const General: healthy appearing, no acute distress, alert and awake Nutritional Appearance: well nourished Orientation/consciousness: oriented to person, oriented to place and oriented to time HENMN Ears: TM's normal bilaterally General nose exam: Normal nasal mucous membranes and turbinates present Eyes Conjunctivae: conjunctivae normal Sclerae: sclerae normal Pupils: Equal, round and reactive pupils present Neck Neck: Yes no lymphadenopathy and Yes no JVD Thyroid: Thyroid normal Carotids: no bruits Resp Effort & Inspection: normal respiratory effort and not tachypneic Auscultation: no crackles, no rales, no rhonchi and no wheezes Cardio Rate: regular rate Rhythm: regular rhythm Heart sounds: no murmurs and normal S1 and S2 GI Palpation (GI): Soft to palpation, nontender, no hepatomegaly and no splenomegaly Auscultation: normal bowel sounds Skin General skin exam: no rashes or lesions noted and dry skin Neuro General: oriented to person, oriented to place and oriented to time Cranial nerves: Yes Equal, round and reactive pupils present Speech: No Abnormal speech present Gait exam (Neuro): Normal gait present Motor exam (neuro): no tremor noted Extrem Right upper extremity: full ROM Left upper extremity: full ROM Right lower extremity: full ROM; no edema Left lower extremity: full ROM; no edema Psych Mental Status: mental status grossly normal Speech and movement: Normal speech and movement present Affect: normal affect Attitude: cooperative Thought process: Normal thought process present Office Procedures Flu Questionnaire Does the patient have a severe egg allergy?: No Results AMB Hemoglobin A1c AMB Hemoglobin A1c 5.8 % Last Edit by OSWALDO Lucia on 08/05/24 16:05 Immunizations Fluarix Triv [id number] (PF) 45 mcg (15 mcg x 3)/0.5 mL IM syringe Performing Provider: Adam Cadena PA-C [facility] Documented (not given) by: OSWALDO Lucia on 08/05/24 15:50 Reason Not Given: Patient Refused Results Reviewed Results Reviewed: Laboratory Last Values Hgb A1c (Clinic) 5.8 % (4.0-6.0) 08/05/24 15:51 Coding Level of Care Code Est Pt Level 4 (16386) Diagnoses Type 2 diabetes mellitus with hyperglycemia, without long-term current use of insulin E11.65 Diabetes mellitus complication status: with hyperglycemia Diabetes mellitus custodial insulin use: without termite helper use Mixed hyperlipidemia E78.2 Hyperlipidemia type: mixed hyperlipidemia ISAURA (generalized anxiety disorder) F41.1 Hypothyroidism, unspecified type E03.9 Hypothyroidism type: unspecified Left sided sciatica M54.32 [facility] (current) use of systemic steroids Z79.52 Assessment & Plan Assessment & Plan (1) DMII (diabetes mellitus, type 2): Code(s): E11.9 - Type 2 diabetes mellitus without complications Category: Medical Qualifiers: Diabetes mellitus complication status: with hyperglycemia Diabetes mellitus custodial insulin use: without termite helper use Qualified Code(s): E11.65 - Type 2 diabetes mellitus with hyperglycemia Plan: Patient's type 2 diabetes now well controlled with current medication regime. Goal A1c is to remain below 7.0 (2) HLD (hyperlipidemia): Code(s): E78.5 - Hyperlipidemia, unspecified Category: Medical Qualifiers: Hyperlipidemia type: mixed hyperlipidemia Qualified Code(s): E78.2 - Mixed hyperlipidemia Plan: Patient's most recent lipid panel showing slightly elevated total cholesterol, triglycerides and LDL. Has not been able to tolerate statin therapy. She will continue on lifestyle and dietary modifications. Goal LDL is to be below 100 (3) ISAURA (generalized anxiety disorder): Code(s): F41.1 - Generalized anxiety disorder Category: Medical Plan: Patient continues with p.r.n. use of lorazepam for anxiety. She has a lot of medical issues that cause her a lot of anxiety. (4) Hypothyroidism: Code(s): E03.9 - Hypothyroidism, unspecified Category: Medical Qualifiers: Hypothyroidism type: unspecified Qualified Code(s): E03.9 - Hypothyroidism, unspecified Plan: Patient continues to follow Endocrinology [facility]. She does use levothyroxine 6 days a week. (5) Left sided sciatica: Code(s): M54.32 - Sciatica, left side Category: Medical Plan: Patient reports having left-sided lower pelvic pain that radiates to the lateral aspect of her left thigh. She is interested in seeing pain management for pain reduction modality (6) medical terminologist (current) use of systemic steroids: Code(s): Z79.52 - [facility] (current) use of systemic steroids Category: Medical Plan: Due to patient's long-term systemic steroid use will try for bone density to evaluate for osteoporosis. Did have a bone density at [facility] in 2021 showing no willing density Orders: Orders AMB Hemoglobin A1c 08/05/24 E11.65 - Type 2 diabetes mellitus with hyperglycemia XR DEXA axial skeleton 08/05/24 Z78.0 - Asymptomatic menopausal state, Z79.52 - [facility] (current) use of systemic steroids TSH reflex Free T4 08/05/24 E03.9 - Hypothyroidism, unspecified Complete Blood Count no Diff 08/05/24.65 - Type 2 diabetes mellitus with hyperglycemia Influenza [id number] Immunization 08/05/24 Z23 - Encounter for immunization Microalbumin, Random (w Creat) 08/05/24 I10 - Essential (primary) hypertension Lipid Panel 08/05/24 E78.1 - Pure hyperglyceridemia Comprehensive [place]. Panel Fast 08/05/24 E11.65 - Type 2 diabetes mellitus with hyperglycemia Referrals Pain Management Referral M54.32 - Sciatica, left side Medications: Changed From cholecalciferol (vitamin D3) (Vitamin D3) 25 mcg PO DAILY 90 tabs 2RF To cholecalciferol (vitamin D3) (Vitamin D3) 50 mcg PO DAILY Refilled lorazepam 1 mg PO DAILY PRN 30 tabs 3RF anxiety 30 days F41.1 - Generalized anxiety disorder
== END 2024-08-05 16:21 | disposition home or self-care (01) ==
PROVIDERS: PCP Physician Assistant; Visit Provider Physician Assistant
DX: E11.65 Type 2 diabetes mellitus with hyperglycemia (principal); E78.2 Mixed hyperlipidemia; F41.1 Generalized anxiety disorder; E03.9 Hypothyroidism, unspecified; M54.32 Sciatica, left side; Z79.52 Long term (current) use of systemic steroids

== ENCOUNTER → 2024-08-05 15:29 | Outpatient (BNVA) | payer OTHER, SELFPAY | PROVIDERS: PCP Physician Assistant; Visit Provider Physician Assistant | DX: E11.65 Type 2 diabetes mellitus with hyperglycemia (principal); E78.2 Mixed hyperlipidemia; F41.1 Generalized anxiety disorder; E03.9 Hypothyroidism, unspecified; M54.32 Sciatica, left side; Z79.52 Long term (current) use of systemic steroids | CPT/HCPCS: 83036; 90471; 99212 ==

== ENCOUNTER 2024-09-09 09:29 | Outpatient (AMB) | payer OTHER, SELFPAY ==
--- OUTSIDE RECORDS SUMMARY | 2024-09-09 09:32 | XMS_ITS ---
Author Organization [facility] jennifer [facility] Address [address] [facility] [place] [address] Care Team Providers Care Internet Cafe Manager Name Role Phone Adam Cadena Primary Care Provider Unavailab Adrienne Banks Unavailable [phone] Allergies Allergen (clinical drug ingredient) Drug/Non Drug Allergy documented on EMR Reaction Allergy Type Onset Date Status azithromycin Azithromycin extreme hives Drug Allergy Active Flu Virus Vaccine Unknown Drug Allergy Active Medications Medication SIG (Take, Route, Frequency, Duration) Notes Start Date End Date Status Estradiol 0.025 MG/24HR 1 patch to skin Transdermal Two times a Week for 30 day(s) Not-Taking Ammonium Lactate 12 % APPLY TWICE A DAY FOR 30 DAYS for 30 Active Antibiotic For tooth Not-Takin g Reglan Not-Taking Keflex 500 MG 1 capsule Orally every 12 hrs for 10 day(s) 05/19/2020 Not-Taking Jardiance 25 MG 1 tablet Orally Once a day for 30 day(s) Active Victoza 1.2ml Active Night Splint AFO - L1930 1 wear when at rest for 30 days Active zzzCompression Stockings 20-30mm Hg . . . for . Active Extra Depth Orthopedic Shoes (1 Pair) with [...] Active Encounters Encounter Location Date Provider Diagnosis [facility] [place] [address] [place] [address] 07/20/2024 Adrienne Post Plan Of Treatment No Information Progress Notes * Romy TOPETEDOB: 4 (59 yo F)Acc No.[id number]:07/20/2024 Progress Notes Patient:?Romy TOPETE Provider:?Adrienne Post DPM :1965???Age:59 Y???Sex:Female D ate:07/20/2024 Address:[address] [place] [id number] Pcp:Adam Cadena Subjective: * Chief Complaints: * ??? * Medical History:?Transfusion s, Chicken pox, Broken bones, Warts(flat), Thyroid disorder, Reflux(gerd), Neuropathy(numbnes), nerve disease(RSD/CRPS), Lupus, Headaches/migraines, Glaucoma, Gall bladder problems, Diverticulitis, Diabetic, Crohns disease, Cholesterol(CAD), Back, hip, knee pain, Arthritis, Rheumatoid arthritis, Thrombocytopenia. * Medications:?Taking Insulin , Taking Imiquimod 5 % Cream 1 application at bedtime, leave on for 8 hours then wash off Externally Three times a Week , Taking Zinc , Taking Extra-Depth Diabetic Shoes with 3 Pair Custom [...] Antibiotic , Notes to Pharmacist: For tooth, Not-Taking/PRN Keflex 500 MG Capsule 1 capsule Orally every 12 hrs , Not-Taking/PRN Reglan , Not-Taking/PRN Estradiol 0.025 MG/24HR Patch Biweekly 1 patch to skin Transdermal Two times a Week * Allergies:?Flu Virus Vaccine , Azithromycin: extreme hives. Objective: * Vitals:? Assessment: Plan: * Treatment: * Images: * The named appointment provid er may or may not be the originator of this progress note, and it is not deemed complete until electronically signed by the appointment provider. Sign off status: Pending * Provider:?Adrienne Post DPM Date:?2023 Generated for Felisha heck/Syl/Nate on:?09/09/2024 09:31 AM EST
--- OUTSIDE RECORDS SUMMARY | 2024-09-09 09:32 | XMS_ITS ---
Author Organization [facility] Address [address] [facility] [place] [address] Care Team Providers Care Retail Support Manager Name Role Phone Adam Cadena Primary Care Provider Unavailab mark Post, Adrienne Unavailable [phone] REASON FOR VISIT SD Reschedule/Cancel Encounters Encounter Location Date Provider Diagnosis [facility] [address] [place] [address] 07/20/2024 Adrienne Black Plan Of Treatment No Information Progress Notes * Romy CISNEROSDOB: 4 (59 yo F)Acc No.[id number]:07/20/2024 Patient:?Romy Cisneros :1965???Age:59 Y???Sex:Female Address:[address] [place] [address] [place], [address] * true * Date:? Generated for Printi umang/Fateresag/eTransmitting on:?09/09/2024 09:31 AM EST
--- OUTSIDE RECORDS SUMMARY | 2024-09-09 09:32 | XMS_ITS ---
Author Organization [facility] jennifer Prim Address [address] [place] [address] Care Team Providers Care Cloth Doffer Name Role Phone Adam Cadena Primary Care Provider Unavailab Adrienne Banks [phone] Encounters Encounter Location Date Provider Diagnosis [facility] [address] [facility] [place] [address] 06/01/2024 Adrienne Post Plan Of Treatment No Information Progress Notes * Romy TOPETEDOB: 4 (59 yo F)Acc No.[id number]:06/01/2024 Progress Note Patient:Romy OWENS Provider:?Adrienne Post DPM :1965???Age:59 Y???Sex:Female D ate:06/01/2024 Address:[address] [place] [address] [id number] Pcp:Adam Cadena Subjective: * Chief Complaints: * ??? * Medical History:? Objective: * Vitals:? Assessment: Plan: * Treatment: * Images: * The named appointment provid er may or may not be the originator of this progress note, and it is not deemed complete until electronically signed by the appointment provider. Sign off status: Pending * Provider:Ji Post DPM Date:?2023 Generated for Ehsani umang/Syl/eTransmitting on:?09/09/2024 09:32 AM EST
--- OUTSIDE RECORDS SUMMARY | 2024-09-09 09:32 | XMS_ITS | Patient Health Record ---
Author Organization [facility] [place] Address [address] [address] Care Team Providers Care Education Rn Name Role Phone Adam Cadena Primary Care Provider Unavailab mark PostAdrienne Unavailable [phone] Allergies Allergen (clinical drug ingredient) Drug/Non Drug Allergy documented on EMR Reaction Allergy Type Onset Date Status azithromycin Azithromycin extreme hives Drug Allergy Active Flu Virus Vaccine Unknown Drug Allergy Active Results Component Value Reference Range Notes HEMOGLOBIN A1C (GLYCOHEMOGLO BIN) Reviewed date:10/24/2023 07:54:32 AM Interpretation: Performing Lab: Notes/Report: HEMOGLOBIN A1C % (HH) 7.0 HEMOGLOBIN A1C (GLYCOHEMOGLO BIN) Reviewed date:04/09/2024 11:25:40 AM Interpretation: Performing Lab: Notes/Report: HEMOGLOBIN A1C % (HH) 7.6 X ray : Foot, right 3V Reviewed date:10/24/2023 12:36:03 PM Interpretation:See Examination above Performing Lab: Notes/Report: See Examination above HEMOGLOBIN A1C (GLYCOHEMOGLO BIN) Reviewed date:01/23/2024 12:07:22 PM Interpretation: Performing Lab: Notes/Report: HEMOGLOBIN A1C % (HH) 7.0 Reason For Referral No Information Medications Medication SIG (Take, Route, Frequency, Duration) Notes Start Date End Date Status Jardiance 25 MG 1 tablet Orally Once a day for 30 day(s) Active Victoza 1.2ml Active Glimepiride Active Valtrex Active Estradiol 0.025 MG/24HR 1 patch to skin Transdermal Two times a Week for 30 day(s) Not-Taking Ammonium Lactate 12 % APPLY TWICE A DAY FOR 30 DAYS for 30 Active Night Splint AFO - L1930 1 wear when at rest for 30 days Active zzzCompression Stockings 20-30mm Hg . . . for . Active Extra Depth Orthopedic Shoes (1 Pair) with Customized Heat Molded Multidensity Innersoles (3 Pair) as directed Dx: NIDDM/Polyneuropathy (E11.42), Hammertoe Foot Deformity (M20.41,M20.42), Preulcerative Skin Lesion(s) (L85.1 11/08/2020 Active Fiorinal/Codeine #3 Active Extra-Depth Diabetic Shoes with 3 Pair Custom heat-molded multi-density innersoles Active Zinc Active Imiquimod 5 % 1 application at bedtime, leave on for 8 hours then wash off Externally Three times a Week Active Synthroid Active Reglan Not-Taking Purinethol Active Keflex 500 MG 1 capsule Orally every 12 hrs for 10 day(s) 05/19/2020 Not-Taking Metformin & Diet Manage Prod Active LORazepam Active Insulin Active Antibiotic For tooth Not-Takin g Immunizations Vaccine Route Administration Date Status Comme nts COVID-19 Pfizer BioNTech Vaccine Unknown 07/23/2021 Administered First Dose: 10/23/2020 Second Dose: 12/21/2020 Influenza Unknown 11/19/2016 Refused Influenza Unknown 08/21/2018 Refused Influenza Unknown 02/12/2019 Refused Influenza Unknown 05/18/2024 Refused Social History Tobacco Use: Social History Observation Description Date Details (start date - stop date) Former Smoker NA - NA Tobacco Use/Smoking Question Answer Notes Are you a: former smoker Additional Findings: Tobacco Non-User Current no n-smoker Alcohol Screen Question Answer Notes Did you have a drink contain ing alcohol in the past year? Yes How often did you have a dri nk containing alcohol in the past year? Monthly or less (1 point) Points 1 Interpretation Negative Tobacco use other than smoking: Question Answer Notes Are you an other tobacco user? No Problems Problem Type SNOMED Code ICD Code Onset Dates Problem Status W/U Status Risk Notes Problem Acquired hammer toe of right foot (2037040516813658) Other hammer toe(s) (acquired), right foot (M20.41) Active confirmed Problem Acquired hammer toe of left foot (2144842640545497) Other hammer toe(s) (acquired), left foot (M20.42) Active confirmed Problem Plantar wart (43144122) Plantar wart (B07.0) Active confirmed Problem Acquired hammer toe of right foot (8006161286680762) Other hammer toe(s) (acquired), right foot (M20.41) Active confirmed Problem Polyneuropathy due to type 2 diabetes mellitus (736800423) Type 2 diabetes mellitus with diabetic polyneuropathy (E11.42) Active confirmed Problem 975676879954565 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 (M19.071) Active confirmed Problem 05150964 Osteoarthritis o f left ankle and foot (M19.072) Active confirmed Problem 330749441 Skin ulcer of left ankle, limited to breakdown of skin (L97.321) Active confirmed Problem 552708111 Rheumatoid arthritis flare (M06.9) Active confirmed Problem 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) Active confirmed Vital Signs Blood pressure diastolic 78 mm Hg 05/18/2024 Height 5ft6in in 05/18/2024 Blood pressure systolic 128 mm Hg 05/18/2024 Weight 188 lbs 05/18/2024 BMI 30.34 kg/m2 05/18/2024 Procedures Procedure Date Ordered Date Performed Result Body Sit e 78691-Fcpt Destruction, 10-0601/23/2024 N/A 23211,A5744-RTZ TENDON SHEATH/LIGAMENT 01/23/2024 N/A 73821-Assl Destruction, 10-0604/09/2024 N/A 98755, A1776-FSCHJ/INJECT, JOINT/BURSA 04/09/2024 N/A 63586,Q8013-YNN TENDON SHEATH/LIGAMENT 05/18/2024 N/A Encounters Encounter Location Date Provider Diagnosis [facility] [place] [address] [place] [address] 10/24/2023 Adrienne Black Fracture of proximal phalanx of toe of right foot S92.911A ; Achilles tendinitis of right lower extremity M76.61 ; Pain in right toe(s) M79.674 ; Other hammer toe(s) (acquired), right foot M20.41 ; Right foot pain M79.671 ; Pain of right heel M79.671 ; Short Achilles tendon (acquired), right ankle M67.01 and Xerosis of skin L85.[address] [address] 01/23/2024 Adrienne Black Right foot pain M79.671 ; Achilles tendinitis of right lower extremity M76.61 ; Pain of right heel M79.671 ; Short Achilles tendon (acquired), right ankle M67.01 ; Xerosis of skin L85.3 ; Type 2 diabetes mellitus with diabetic polyneuropathy E11.42 ; Peroneal tendinitis, right M76.71 and Verruca B07.[address] [address] 04/09/2024 Adrienne Black Right foot pain M79.671 ; Pain of right heel M79.671 ; Type 2 diabetes mellitus with diabetic polyneuropathy E11.42 ; Peroneal tendinitis, right M76.71 ; Verruca B07.9 and Arthralgia of right foot M25.[address] [address] 05/18/2024 Adrienne Black Right foot pain M79.671 ; Pain of right heel M79.671 ; Type 2 diabetes mellitus with diabetic polyneuropathy E11.42 and Plantar fasciitis M72.[address] [address] 04/07/[address] [address] 05/11/[address] [address] 05/15/[address] [address] 07/20/2024 Adrienne Black Assessments Encounter Date Diagnosis (ICD Code) Assessment Notes Treatment Notes Treatment Clinical Notes Section Notes 10/24/2023 Achilles tendinitis of right lower extremity (ICD-10 - M76.61) Patient Educated with: HEEL CORD STRETCHES.pdf (HEEL CORD STRETCHES.pdf ) Patient Educated with: RICE THERAPY.pdf (RICE THERAPY.pdf) 10/24/2023 Fracture of proximal phalanx of toe of right foot (ICD-10 - S92.911A) Response to treatment - Improvement 01/23/2024 Right foot pain (ICD-10 - M79.671) 04/09/2024 Pain of right heel (ICD-10 - M79.671) 04/09/2024 Right foot pain (ICD-10 - M79.671) 05/18/2024 Pain of right heel (ICD-10 - M79.671) 05/18/2024 Right foot pain (ICD-10 - M79.671) 05/18/2024 Type 2 diabetes mellitus with diabetic polyneuropathy (ICD-10 - E11.42) 04/09/2024 Type 2 diabetes mellitus with diabetic polyneuropathy (ICD-10 - E11.42) 01/23/2024 Pain of right heel (ICD-10 - M79.671) 01/23/2024 Achilles tendinitis of right lower extremity (ICD-10 - M76.61) 10/24/2023 Pain in right toe(s) (ICD-10 - M79.674) 10/24/2023 Other hammer toe(s) (acquired), right foot (ICD-10 - M20.41) 01/23/2024 Short Achilles tendon (acquired), right ankle (ICD-10 - M67.01) 04/09/2024 Peroneal tendinitis, right (ICD-10 - M76.71) 05/18/2024 Plantar fasciitis (ICD-10 - M72.2) 04/09/2024 Verruca (ICD-10 - B07.9) 01/23/2024 Xerosis of skin (ICD-10 - L85.3) Response to treatment - Improvement 10/24/2023 Right foot pain (ICD-10 - M79.671) 10/24/2023 Pain of right heel (ICD-10 - M79.671) 01/23/2024 Type 2 diabetes mellitus with diabetic polyneuropathy (ICD-10 - E11.42) 04/09/2024 Arthralgia of right foot (ICD-10 - M25.571) 01/23/2024 Peroneal tendinitis, right (ICD-10 - M76.71) Patient Educated with: TIFFANY ARIAS.pdf (INJECTIONTHE SOFIA.pdf) 10/24/2023 Short Achilles tendon (acquired), right ankle (ICD-10 - M67.01) 01/23/2024 Verruca (ICD-10 - B07.9) 10/24/2023 Xerosis of skin (ICD-10 - L85.3) Plan Of Treatment Pending Test Test Name Order Date MRI : Ankle, right 02/22/2021 MRI : Foot, right 02/22/2021 X ray : Ankle, left 3V 10/18/2021 X ray : Foot, left 2V 05/01/2012 X ray : Foot, left 3V 02/12/2019 X ray : Foot, left 3V 11/08/2020 X ray : Foot, right 3V 02/22/2021 X ray : Foot, right 3V 02/12/2019 X ray : Foot, right 3V 10/02/2022 19919-TEJZAVF NAIL, 6 OR MORE 05/23/2016 08662-PRGOLAJ NAIL, 6 OR MORE 11/19/2016 93909-TWDWVMI NAIL, 1-5 02/12/2019 58658-Kkkv Destruction, 1-14 02/12/2019 59736-Fghc Destruction, 1-14 08/21/2018 12725-Omfn Destruction, 1-14 01/13/2018 19809-Rhpz Destruction, 1-14 11/19/2016 64714-Rdfk Destruction, 1-14 05/30/2017 31027-Ytfd Destruction, 1-14 01/23/2024 75128-Esel Destruction, 1-14 04/09/2024 06548-Vgic Destruction, 1-14 10/08/2019 54381-Tkss Destruction, -14 06/16/2020 36106-Laef Destruction, -14 02/11/2020 89000- Debride <25 sq cm 05/15/2012 72527-GWBKEGS SKIN/TISSUE 05/23/2016 90214-JJTBRVY SKIN/TISSUE 11/19/2016 78255-WPXC SKIN LESIONS, OVER 4 11/19/19 17 27227-AAAN SKIN LESIONS, OVER 4 05/30/20 17 28905-DFLV SKIN LESIONS, OVER 4 01/14/20 18 23371-SOBR SKIN LESIONS, OVER 4 08/21/20 18 04814-SKBE SKIN LESIONS, OVER 4 05/23/20 16 63445-BYMZ SKIN LESIONS, OVER 4 04/04/20 15 31448-BDSF SKIN LESIONS, OVER 4 10/03/19 16 58640-HSGS SKIN LESIONS, OVER 4 03/19/20 13 72150-AFRY SKIN LESIONS, OVER 4 09/28/19 14 46112-UULQ SKIN LESIONS, OVER 4 03/29/20 14 44475-CZMX SKIN LESIONS, OVER 4 09/29/19 15 60979-UUOX SKIN LESIONS, OVER 4 10/29/19 13 78759-QTWJ SKIN LESIONS, OVER 4 04/21/20 12 68048-ZOYN SKIN LESIONS, OVER 4 02/11/20 20 42546-QSLG SKIN LESIONS, OVER 4 10/08/19 20 77703-GXPL SKIN LESIONS, OVER 4 02/13/20 19 48763-RNSH SKIN LESIONS, OVER 4 06/16/20 20 35450-SAYA SKIN LESIONS, OVER 4 08/05/20 23 89685, T0082-QFSVR/INJECT, JOINT/BURSA 0 04/09/2024 30385, T2138-HWIIY/INJECT, JOINT/BURSA 0 02/12/2019 69479-ZRLE NAIL(S) 10/08/2019 92650-NPIP NAIL(S) 02/11/2020 77958-SOVT NAIL(S) 06/16/2020 47929-QFLB NAIL(S) 09/28/2013 11511-BOIW NAIL(S) 01/13/2018 72229-SHOB NAIL(S) 08/21/2018 09778-GOTV NAIL(S) 02/12/2019 86207-FZME NAIL(S) 05/30/2017 G4839-ZZKWUUKW DYSTROPHIC NAILS ANY # L9539-SHSPWWOM DYSTROPHIC NAILS ANY # O5460-HWSFHYCZ DYSTROPHIC NAILS ANY # 26754- Removal of Foreign Body, Subcut 0 05/15/2012 85134- Removal of Foreign Body, Subcut 0 05/01/201273673,F3047-DTH TENDON SHEATH/LIGAMENT 0 06/11/201153151,N7149-XQG TENDON SHEATH/LIGAMENT 0 01/23/2024 07315,V9390-TUR TENDON SHEATH/LIGAMENT 0 05/18/2024 40678 - Shave Biopsy of Skin Lesion 04/24 74485 - Shave Biopsy of Skin Lesion 05/24 Insurance Providers Payer Name Payer Address Payer Phone Subscriber Number Group Number Insured Name Patient Relationship to Insured Coverage Start Date Coverage End Date [facility] [employer] Claims [address] [place] [phone] [facility] [id number] Jeronimo morrellRomy Self - patient is the insured Medical (General) History Medical History History ICD Code transfusions chicken pox broken bones warts(flat) thyroid disorder reflux(gerd) neuropathy(numbnes) nerve disease(RSD/CRPS) lupus headaches/migraines glaucoma gall bladder problems diverticulitis diabetic crohns disease Cholesterol(CAD) back, hip, knee pain Arthritis rheumatoid arthritis Thrombocytopenia Surgical History Surgery Date(Month/Year) ankle surgery cholecystectomy 1982 hand/wrist 2000 hernia hysterectomy 1998 knee surgery, right right hip 03/2013 surgery right thumb 05/2014 wrist surgery 06/28/2015 hernia repair 06/2017 left shoulder 08/2017 Tooth extraction 10/11/2021
--- NOTE | 2024-09-09 09:44 | MHC.OFFVIS ---
Vital Signs 09/09/24 09:58 Height 5 ft 7 in Weight 183 lb BMI 28.7 BP 127/67 Blood Pressure Location Lt brachial Position Sitting Respiration 15 Pulse 93 Pulse Source Pulse Oximeter Pulse Oximetry (%) 97 Oxygen Delivery Method Room Air Intake Visit Reasons: Sciatica, left side Allergies RACHELLE Inhibitors Allergy (Severe, Verified 09/09/24 09:59) Anaphylaxis azithromycin Allergy (Severe, Verified 09/09/24 09:59) HIVES TO ZPACK, anaphylaxis Cizvqos-AJJ-SaQ Reductase Inhibitor [Jeoasnf-Len-Duo Reductase Inhibitor] Allergy (Severe, Verified 09/09/24 09:59) Anaphylaxis amitriptyline Adverse Reaction (Intermediate, Verified 09/09/24 09:59) Headache hydrochlorothiazide Adverse Reaction (Intermediate, Verified 09/09/24 09:59) leg cramps IVIG Allergy (Unknown, Uncoded 09/09/24 09:59) told to avoid Medication List - Last Reconciled 09/09/24 by Ursula Talamantes LPN amlodipine 2.5 mg PO DAILY carvedilol 3.125 mg PO BID cholecalciferol (vitamin D3) 50 mcg PO DAILY 90 days estradiol 0.01%(0.1mg/gram) (Estrace) 1 g vaginal 3XW insulin degludec (Tresiba FlexTouch U-100 insulin) units subcut levothyroxine 200 mcg PO DAILY lorazepam 1 mg PO DAILY PRN 30 days mercaptopurine 1 tab PO DAILY metformin ER 1,000 mg PO BID omeprazole 40 mg PO BID prucalopride (Motegrity) 2 mg PO DAILY tirzepatide (Mounjaro) 7.5 mg subcut QWEEK HPI HPI Sciatica, left side: Details: 59-year-old female who presents to the office today for evaluation of left-sided sciatica. This is a 59-year-old female presenting with several year history of left sided hip pain that starts in the lower back and radiates towards her left buttock and into her thigh. It is described as an aching sensation associated with burning. At times it is worse with walking when it is rated as 8/10. Intensity is less intense when she is sitting and movements make it worse. The pain is worse during the day and the afternoon when she is active and it is relatively better at night, when she is not as active. She has been out of work since 1998. She is unable to do her daily activities and has been on permanent disability. She had a left hip bursa removal surgery in 2011. She has been previously evaluated by an ortho for chronic left hip pain. She had an MRI last year, which was notable for a tear of the gluteus medius minimus tendon and mild osteoarthritis of the hip but no fracture of osteonecrosis. She had received injections with [facility] and reports she is still getting relief following the injections. She has had back injections in the past with minimal improvement. She reports pain in the back while walking. She is not on any NSAIDs or steroids. She reports having some knee pain for which she is going to start PT for the knee in 2 weeks. She has a history of rheumatoid arthritis, and was diagnosed 20 years ago by a neurologist. She reports she I get plasmapheresis every 5 weeks. She states she is paralyzed in the leg area. She has weakness and numbness in the feet which radiates all the way up to the side of the face. She has hearing issue in one ear and her eyelid gets stuck. REPLACED BY [facility] Medical History Splenomegaly HTN (hypertension) Hypothyroid GERD (gastroesophageal reflux disease) Diabetes Anxiety Sciatica Obese Allergic rhinitis Herpes simplex Chronic inflammatory demyelinating neuropathy Surgical History History of colonoscopy History of surgery History of rectal surgery History of bladder surgery History of inguinal hernia repair History of hysterectomy History of tonsillectomy and adenoidectomy History of ankle surgery History of right knee surgery History of elbow surgery History of hand surgery History of thumb surgery History of shoulder surgery History of hip surgery Family History Father Leukemia Lung cancer PVD (peripheral vascular disease) Mother Diabetes Heart disease Asthma Substance use disorder Brother Thyroid disease CIDP (chronic inflammatory demyelinating polyneuropathy) Son Kelley's disease Sister Lymphoma Social History Housing: House Alcohol intake: current Alcohol intake frequency: a few times a month Patient Tobacco Use Status: Former Tobacco user Tobacco use type: Cigarette e-Cigarette/Vaping Use: Never Used Second Hand Smoke Exposure: Yes service: No Current occupational status: disabled Cognitive needs: No Hearing needs: No Vision needs: Yes (GLASSES) Review of Systems Const All systems reviewed & are unremarkable except as noted in HPI and below Physical Exam Vital Signs: Last Vital Signs Pulse 93 09/09/24 09:58 Resp 15 09/09/24 09:58 BP 127/67 09/09/24 09:58 Pulse Ox 97 09/09/24 09:58 Oxygen Delivery Method Room Air 09/09/24 09:58 BMI result Body Mass Index 28.7 General: Appears afebrile. Alert and oriented. Mood and affect appropriate. Follows and participates in conversation appropriately. Respiratory effort is unlabored. Able to transition from sit to stand unassisted. Ambulates with bilaterally normal heel strike and toe off. Results Reviewed Results Reviewed: Reviewed lumbar MRI results that was done last year, which showed no nerve compression. Exam: MR Hip Unilat (C-) CPT 66916 - Left Room Description: [facility] Esp[facility] 1.5 CLINICAL HISTORY: Left hip pain with flexion and abduction and internal rotation on exam, in the setting of prior bursal excision and changes to the iliotibial band from surgery in 2012. The patient reports mild daily left hip pain for 2 years with worsening symptoms in the last 3 months. TECHNIQUE: MR of the left hip was performed without intravenous contrast. COMPARISON: There are no prior studies available for comparison. FINDINGS: Bone: Foci susceptibility artifact are seen in the superior symphyseal region of both pubic bones. There is no evidence of osteonecrosis or fracture. Acetabular labrum: There is no displaced labral tear. Articular cartilage: Mild chondral thinning is seen of the anterosuperior aspect of the acetabulum. No discrete chondral defects. No significant hip joint effusion. Muscle and tendons: There is tendinopathy of the proximal hamstrings. There is peritendinous edema around the gluteus minimus, which demonstrates mild contour irregularity near its distal attachment, compatible with partial tear. The gluteus medius tendon appears intact. The iliopsoas tendon is intact. Intrapelvic structures appear unremarkable for the technique. IMPRESSION: 1. No evidence of fracture or osteonecrosis. 2. Partial tearing of the gluteus medius minimus tendon with surrounding peritendinous edema. 3. Proximal hamstrings tendinopathy. 4. Mild degenerative change in the left hip. 05/07/23: XR HIP, LEFT FINDINGS: Visualized portion of proximal left femur demonstrate no fracture. Femoral head is well-seated within the acetabulum. Left femoral acetabular joint space is well-maintained. No significant degenerative changes of the left hip. Surgical clips project over the pubic symphysis. IMPRESSION: Unremarkable radiographs of the left hip. Assessment & Plan Assessment & Plan (1) Greater trochanteric pain syndrome: Code(s): M25.559 - Pain in unspecified hip Category: Medical Plan Reviewed MRI results with the patient in detail. Her lumbar spine MRI has no evidence of any neural compression. Her left greater trochanteric pain is likely secondary to postoperative scarring following the bursectomy. There is also evidence of fraying of the distal gluteus minimus tendon that might be contributing to her symptoms. Discussed PRP injection as a possible treatment option. Discussed the risks and benefits of the procedure with the patient in detail. All questions were answered. The patient is on board with the plan. We will proceed with a PRP injection of the distal gluteus minimus tendon and left greater trochanter under ultrasound guidance. If the PRP injection is not helpful, we can consider either peripheral nerve stimulation or corticosteroid injections. Patient expressed understanding and is in agreement. Scribed for Dr. Rodriguez by [facility] specialist, on 09/09/2024. I, Dr. Rodriguez, have personally reviewed and agree with the information entered by the scribe. Coding Level of Care Code New Pt Level 4 (69742) Diagnoses Greater trochanteric pain syndrome M25.559
[2024-09-09 09:58] VITALS: BP 127/67; PULSE 93; RESP 15; O2SAT 97; BMI 28.7
== END 2024-09-09 10:38 | disposition home or self-care (01) ==
PROVIDERS: PCP Physician Assistant; Visit Provider Internal Medicine
DX: M25.559 Pain in unspecified hip (principal)
CPT/HCPCS: 99204

== ENCOUNTER → 2024-09-09 09:29 | Outpatient (BNVA) | payer OTHER, SELFPAY | PROVIDERS: PCP Physician Assistant; Visit Provider Internal Medicine | DX: M54.32 Sciatica, left side (principal); M25.552 Pain in left hip; Z73.6 Limitation of activities due to disability | CPT/HCPCS: 99202 ==

== ENCOUNTER 2024-09-17 06:28 | Outpatient (REF) | payer OTHER, SELFPAY | END 2024-09-17 06:29 | disposition home or self-care (01) | LOC: CF 06:28 | PROVIDERS: Visit Provider Internal Medicine | DX: Z13.89 Encounter for screening for other disorder (principal) ==

== ENCOUNTER 2024-09-17 09:39 | Outpatient (AMB) | payer SELFPAY ==
--- OUTSIDE RECORDS SUMMARY | 2024-09-17 09:43 | XMS_ITS ---
Author Organization [facility] Address [address] [place] [address] Care Team Providers Care Scleroscope Tester Name Role Phone Adam Cadena Primary Care Provider Unavailab mark Post Adrienne Browne [phone] Encounters Encounter Location Date Provider Diagnosis [facility] [address] [place] [address] 06/01/2024 Adrienne Post Plan Of Treatment Next Appt Details Provider Name:Adrienne Post , 10/29/2024 09:00:00 AM, [address] [place], [address], Progress Notes * Romy TOPETEDOB: 4 (59 yo F)Acc No.[id number]:06/01/2024 Progress Note Patient:?Romy TOPETE Provider:?Adrienne Post DPM :1965???Age:59 Y???Sex:Female D ate:06/01/2024 Address:[address] [place] [address] [id number] Pcp:Adam Cadena Subjective: * Chief Complaints: * ??? * Medical History:? Objective: * Vitals:? Assessment: Plan: * Treatment: * Images: * The named appointment provid er may or may not be the originator of this progress note, and it is not deemed complete until electronically signed by the appointment provider. Sign off status: Pending * Provider:?Adrienne Post DPM Date:?2023 Generated for Felisha heck/Syl/Nate on:?09/17/2024 09:43 AM EST
--- OUTSIDE RECORDS SUMMARY | 2024-09-17 09:43 | XMS_ITS ---
Author Organization [facility] jennifer [place] Address [address] [facility] [place] [address] Care Team Providers Care Art Historian Name Role Phone Adam Cadena Primary Care Provider Unavailab Adrienne Banks Unavailable [phone] Allergies Allergen (clinical drug ingredient) Drug/Non Drug [...] Active Encounters Encounter Location Date Provider Diagnosis [facility] [address] [address] 07/20/2024 Adrienne Post Plan Of Treatment Next Appt Details Provider Name:Adrienne Post , 10/29/2024 09:00:00 AM, [address] [place], [address], Progress Notes * Romy TOPETEDOB: 4 (59 yo F)Acc No.[id number]:07/20/2024 Progress Notes Patient:?Romy TOPETE Provider:?Adrienne Post DPM :1965???Age:59 Y???Sex:Female D ate:07/20/2024 Address:[address] [place] [id number] Pcp:Adam Cadena Subjective: * Chief Complaints: * [...]
--- OUTSIDE RECORDS SUMMARY | 2024-09-17 09:43 | XMS_ITS | Patient Health Record ---
Author Organization [facility] jennifer AugustineDuquesne Address [address] [facility] [place] [address] Care Team Providers Care Radiation Protection Engineer Name Role Phone Adam Cadena Primary Care Provider Unavailab mark Adrienne Post Unavailable [phone] Allergies Allergen (clinical drug ingredient) Drug/Non Drug Allergy documented on EMR Reaction Allergy Type Onset Date Status azithromycin Azithromycin extreme hives Drug Allergy Active Flu Virus Vaccine Unknown Drug Allergy Active Results Component Value Reference Range Notes X ray : Foot, right 3V Reviewed date:10/24/2023 12:36:03 PM Interpretation:See Examination above Performing Lab: Notes/Report: See Examination above HEMOGLOBIN A1C (GLYCOHEMOGLO BIN) Reviewed date:10/24/2023 07:54:32 AM Interpretation: Performing Lab: Notes/Report: HEMOGLOBIN A1C % (HH) 7.0 HEMOGLOBIN A1C (GLYCOHEMOGLO BIN) Reviewed date:04/09/2024 11:25:40 AM Interpretation: Performing Lab: Notes/Report: HEMOGLOBIN A1C % (HH) 7.6 HEMOGLOBIN A1C (GLYCOHEMOGLO BIN) Reviewed date:01/23/2024 12:07:22 [...] Problem Acquired hammer toe of right foot (8688311690484767) Other hammer toe(s) (acquired), right foot (M20.41) Active confirmed Problem Acquired hammer toe of left foot (3988844103778172) Other hammer toe(s) (acquired), left foot (M20.42) Active confirmed Problem Plantar wart (09782539) Plantar wart (B07.0) Active confirmed Problem Acquired hammer toe of right foot (7366881362889380) Other hammer toe(s) (acquired), right foot (M20.41) Active confirmed Problem Polyneuropathy due to type 2 diabetes mellitus (640586058) Type 2 diabetes mellitus with diabetic polyneuropathy (E11.42) Active confirmed Problem 062995832402141 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 (M19.071) Active confirmed Problem 05799045 Osteoarthritis o f left ankle and foot (M19.072) Active confirmed Problem 991653739 Skin ulcer of left ankle, limited to breakdown of skin (L97.321) Active confirmed Problem 470736801 Rheumatoid arthritis flare (M06.9) Active confirmed Problem Juvenile osteochondrosis of the foot (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) Active confirmed Vital Signs Blood pressure diastolic 78 mm Hg 05/18/2024 Height 5ft6in in 05/18/2024 Blood pressure systolic 128 mm Hg 05/18/2024 Weight 188 lbs 05/18/2024 BMI 30.34 kg/m2 05/18/2024 Procedures Procedure Date Ordered Date Performed Result Body Sit e 40315-Byfb Destruction, 10-0601/23/2024 N/A 45683,M8323-PEE TENDON SHEATH/LIGAMENT 01/23/2024 N/A 85591-Jxet Destruction, 10-0604/09/2024 N/A 58299, F0678-RVKZB/INJECT, JOINT/BURSA 04/09/2024 N/A 18381,F3228-QOK TENDON SHEATH/LIGAMENT 05/18/2024 N/A Encounters Encounter Location Date Provider Diagnosis [facility] [address] [place] [address] 10/24/2023 Adrienne Black Fracture of proximal phalanx of toe of right foot S92.911A ; Achilles tendinitis of right lower extremity M76.61 ; Pain in right toe(s) M79.674 ; Other hammer toe(s) (acquired), right foot M20.41 ; Right foot pain M79.671 ; Pain of right heel M79.671 ; Short Achilles tendon (acquired), right ankle M67.01 and Xerosis of skin L85.[address] [address] 01/23/2024 Adrienne Black Right foot pain M79.671 ; Achilles tendinitis of right lower extremity M76.61 ; Pain of right heel M79.671 ; Short Achilles tendon (acquired), right ankle M67.01 ; Xerosis of skin L85.3 ; Type 2 diabetes mellitus with diabetic polyneuropathy E11.42 ; Peroneal tendinitis, right M76.71 and Verruca B07.[address] [address] 04/09/2024 Adrienne Black Right foot pain M79.671 ; Pain of right heel M79.671 ; Type 2 diabetes mellitus with diabetic polyneuropathy E11.42 ; Peroneal tendinitis, right M76.71 ; Verruca B07.9 and Arthralgia of right foot M25.[address] [address] 05/18/2024 Adrienne Black Right foot pain M79.671 ; Pain of right heel M79.671 ; Type 2 diabetes mellitus with diabetic polyneuropathy E11.42 and Plantar fasciitis M72.[address] [address] 04/07/[address] [address] 05/11/[address] [address] 05/15/[address] [address] 07/20/2024 Adrienne Black Assessments Encounter Date Diagnosis [...] X ray : Foot, right 3V 10/02/2022 96542-WUGKRLU NAIL, 6 OR MORE 05/23/2016 73732-MFHNXPQ NAIL, 6 OR MORE 11/19/2016 26619-OLQTACU NAIL, 1-5 02/12/2019 80538-Rnjm Destruction, 1-14 02/12/2019 78848-Ietv Destruction, 1-14 08/21/2018 86204-Vtbo Destruction, 1-14 01/13/2018 37984-Aylr Destruction, 1-14 11/19/2016 17765-Jcih Destruction, 1-14 05/30/2017 26481-Kyfl Destruction, 1-14 01/23/2024 50041-Tseu Destruction, 1-14 04/09/2024 13629-Tnuv Destruction, 1-14 10/08/2019 33897-Bvpk Destruction, -14 06/16/2020 88243-Iifp Destruction, -14 02/11/2020 75200- Debride <25 sq cm 05/15/2012 14687-TPKRZZL SKIN/TISSUE 05/23/2016 88907-RSVQRXY SKIN/TISSUE 11/19/2016 68546-RKUZ SKIN LESIONS, OVER 4 11/19/19 17 58511-STYE SKIN LESIONS, OVER 4 05/30/20 17 24622-FORS SKIN LESIONS, OVER 4 01/14/20 18 14536-GAPS SKIN LESIONS, OVER 4 08/21/20 18 96673-IOMA SKIN LESIONS, OVER 4 05/23/20 16 19662-TAJB SKIN LESIONS, OVER 4 04/04/20 15 34129-VYVF SKIN LESIONS, OVER 4 10/03/19 16 18630-VJUD SKIN LESIONS, OVER 4 03/19/20 13 14096-MGGV SKIN LESIONS, OVER 4 09/28/19 14 67348-FGQF SKIN LESIONS, OVER 4 03/29/20 14 37465-BLZX SKIN LESIONS, OVER 4 09/29/19 15 73312-QWPV SKIN LESIONS, OVER 4 10/29/19 13 47447-YGAF SKIN LESIONS, OVER 4 04/21/20 12 65683-IWPO SKIN LESIONS, OVER 4 02/11/20 20 93606-OVXA SKIN LESIONS, OVER 4 10/08/19 20 73355-TCWJ SKIN LESIONS, OVER 4 02/13/20 19 26399-ADCL SKIN LESIONS, OVER 4 06/16/20 20 17619-DDKE SKIN LESIONS, OVER 4 08/05/20 23 63968, Z1261-VUGZS/INJECT, JOINT/BURSA 0 04/09/2024 17105, S4253-BSCCT/INJECT, JOINT/BURSA 0 02/12/2019 52083-VZNB NAIL(S) 10/08/2019 67519-YXVA NAIL(S) 02/11/2020 05946-VDWJ NAIL(S) 06/16/2020 58513-BJLF NAIL(S) 09/28/2013 79985-HEFW NAIL(S) 01/13/2018 59538-GHLG NAIL(S) 08/21/2018 29431-LFOM NAIL(S) 02/12/2019 41583-QLLF NAIL(S) 05/30/2017 J2244-LZMIKFDZ DYSTROPHIC NAILS ANY # Q7625-VDMJBBAE DYSTROPHIC NAILS ANY # G4063-COCFOPSM DYSTROPHIC NAILS ANY # 38854- Removal of Foreign Body, Subcut 0 05/15/2012 61508- Removal of Foreign Body, Subcut 0 05/01/201214257,K0749-IDQ TENDON SHEATH/LIGAMENT 0 06/11/201165959,H6802-ZBV TENDON SHEATH/LIGAMENT 0 01/23/2024 20451,F4786-ZXO TENDON SHEATH/LIGAMENT 0 05/18/2024 10874 - Shave Biopsy of Skin Lesion 04/24 70273 - Shave Biopsy of Skin Lesion 05/24 Next Appt Details Provider Name:Adrienne Post , 10/29/2024 09:00:00 AM, [address] [place], [address], Insurance Providers Payer Name Payer Address Payer Phone Subscriber Number Group Number Insured Name Patient Relationship to Insured Coverage Start Date Coverage End Date [facility] CCA SCO Claims [address] [place] [address] [phone] [id number] Romy Decker i Self - patient is the insured Medical [...]
--- OUTSIDE RECORDS SUMMARY | 2024-09-17 09:43 | XMS_ITS ---
Author Organization [facility] Address [address] [facility] [address] Care Team Providers Care Tone Cabinet Assembler Name Role Phone Adam Cadena Primary Care Provider Unavailab mark Adrienne Post Unavailable [phone] REASON FOR VISIT SD Reschedule/Cancel Encounters Encounter Location Date Provider Diagnosis [address] [address] 07/20/2024 Adrienen Post Plan Of Treatment Next Appt Details Provider Name:Adrienne Post , 10/29/2024 09:00:00 AM, [address] [place], [address], Progress Notes * Romy TOPETEDOB: 4 (59 yo F)Acc No.[id number]:07/20/2024 Patient:?Romy Topete :1965???Age:59 Y???Sex:Female Address:[address] [place] [address] [place], [address] * true * Date:? Generated for Printi umang/Fateresag/eTransmitting on:?09/17/2024 09:43 AM EST
[2024-09-17 09:45] VITALS: BP 106/60; PULSE 82; O2SAT 99
--- NOTE | 2024-09-17 09:45 | A.OFFVIS_ITS ---
Vital Signs 09/17/24 09:45 09/17/24 10:36 BP 106/60 110/60 Blood Pressure Location Lt brachial Lt brachial Position Sitting Sitting Pulse 82 89 Pulse Source Pulse Oximeter Pulse Oximeter Pulse Oximetry (%) 99 98 Oxygen Delivery Method Room Air Room Air Intake Visit Reasons: Left GT PRP Allergies RACHELLE Inhibitors Allergy (Severe, Verified 09/09/24 09:59) Anaphylaxis azithromycin Allergy (Severe, Verified 09/09/24 09:59) HIVES TO ZPACK, anaphylaxis Ldzhtjo-MTS-RrT Reductase Inhibitor [Uzryauy-Ych-Rsm Reductase Inhibitor] Allergy (Severe, Verified 09/09/24 09:59) Anaphylaxis amitriptyline Adverse Reaction (Intermediate, Verified 09/09/24 09:59) Headache hydrochlorothiazide Adverse Reaction (Intermediate, Verified 09/09/24 09:59) leg cramps IVIG Allergy (Unknown, Uncoded 09/09/24 09:59) told to avoid HPI HPI Left GT PRP: Details: Patient presents for scheduled procedure. Denies any recent cough, cold, infection, fever or other significant changes in medical history since last office visit. [facility] Medical History Splenomegaly HTN (hypertension) Hypothyroid GERD (gastroesophageal reflux disease) Diabetes Anxiety Sciatica Obese Allergic rhinitis Herpes simplex Chronic inflammatory demyelinating neuropathy Surgical History History of colonoscopy History of surgery History of rectal surgery History of bladder surgery History of inguinal hernia repair History of hysterectomy History of tonsillectomy and adenoidectomy History of ankle surgery History of right knee surgery History of elbow surgery History of hand surgery History of thumb surgery History of shoulder surgery History of hip surgery Family History Father Leukemia Lung cancer PVD (peripheral vascular disease) Mother Diabetes Heart disease Asthma Substance use disorder Brother Thyroid disease CIDP (chronic inflammatory demyelinating polyneuropathy) Son Kelley's disease Sister Lymphoma Social History Housing: House Alcohol intake: current Alcohol intake frequency: a few times a month Patient Tobacco Use Status: Former Tobacco user Tobacco use type: Cigarette e-Cigarette/Vaping Use: Never Used Second Hand Smoke Exposure: Yes service: No Current occupational status: disabled Cognitive needs: No Hearing needs: No Vision needs: Yes (GLASSES) Physical Exam Vital Signs: Last Vital Signs Pulse 89 09/17/24 10:36 BP 110/60 09/17/24 10:36 Pulse Ox 98 09/17/24 10:36 Oxygen Delivery Method Room Air 09/17/24 10:36 Office Procedures Platelet Rich Plasma Injection PRP Joint Injection After informed written consent was obtained, pre-procedure oxygen saturation, heart rate, and blood pressure were recorded. An 18 gauge butterfly needle was used to obtain 50 mL of whole blood from the right antecubital fossa into a syringe prefilled with with 9 mL anticoagulant citrate dextrose solution. The 60 mL mixture was counter balanced to within 1 g and spun at 3500 rpm for 11 minutes. Platelet poor plasma was then drawn using a bench top press model. 6 mL of slightly leukocyte rich PRP was isolated in a 10 cc syringe. Primary Site: other (Vastus lateralis proximal tendon, left, 4 mL PRP) Secondary Site: other ( gluteus medius distal tendon, left, 2 mL PRP) Prep: site was prepped using sterile technique Approach Used: other (lateral ultrasound-guided) Procedure: The patient tolerated the procedure well XCELL Platelet Plasma - 0232T 60 mL All charges added?: Procedure code (CPT) selection complete Assessment & Plan Assessment & Plan (1) Greater trochanteric pain syndrome: Code(s): M25.559 - Pain in unspecified hip Category: Medical Plan Patient is status post left vastus lateralis and gluteus medius tendon injection with PRP. Patient tolerated procedure well and was discharged home in stable condition with discharge instructions. All questions were answered. We will follow-up via telephone or in clinic to assess response to therapy. A follow-up appointment was made during today's visit. Orders: Orders US guide needle placement Today M54.32 - Sciatica, left side AMB Platelet Rich Plasma (PRP) Injection Today M54.32 - Sciatica, left side Coding Level of Care Code Procedure Only Diagnoses Greater trochanteric pain syndrome M25.559 CPT Codes XCELL Kit 60mL ([id number])
[2024-09-17 10:36] VITALS: BP 110/60; PULSE 89; O2SAT 98
== END 2024-09-17 10:44 | disposition home or self-care (01) ==
PROVIDERS: PCP Physician Assistant; Visit Provider Internal Medicine
DX: M25.559 Pain in unspecified hip (principal)
CPT/HCPCS: 0232T

== ENCOUNTER 2024-09-24 14:01 | Outpatient (REF) | payer OTHER, SELFPAY ==
--- NOTE | ~2024-09-24 | MM_ITS ---
EXAMINATION: Dual-Energy X-ray Absorptiometry - Bone Density Study HISTORY: Estrogen deficiency TECHNIQUE: Gde[employer]on Dual energy absorptiometry (DEXA) of the lumbar spine, total left hip, and femoral neck was performed. COMPARISON: There are no prior studies for comparison. FINDINGS: The bone mineral density of the lumbar spine is 1.148 with a T-score of -0.3, and a Z-score of 0.3. The bone mineral density of the left total hip is 0.959 with a T-score of -0.4, and a Z-score of 0.1. The bone mineral density of the left femoral neck is 0.862 with a T-score of -1.3, and a Z-score of -0.4. FRACTURE RISK: The FRAX index suggests a risk of major osteoporotic fracture of 16.2%, and of hip fracture 1.3%. MM/XR DEXA axial skeleton IMPRESSION: Based on bone mineral density, the diagnosis is consistent with osteopenia. All bone density values are in grams per centimeter squared. At this facility, the least significant change in BMD with 95% confidence is 0.022 at the lumbar spine, 0.027 at the hip, and 0.023 at the distal 1/3 radius. Electronically signed by: Delfino Elaine MD 09/29/2024 10:14 [facility]
--- OUTSIDE RECORDS SUMMARY | 2024-09-24 15:28 | XMS_ITS ---
Author Organization [facility] jennifer Mccall Address [address] [facility] [place] [address] Care Team Providers Care Supervisor Lead Burning Name Role Phone Adam Cadena Primary Care Provider Unavailab Adrienne Banks Unavailable [phone] Allergies Allergen (clinical drug ingredient) Drug/Non Drug [...] Active Encounters Encounter Location Date Provider Diagnosis [facility] [address] [address] 07/20/2024 Adrienne Post Plan Of Treatment Next Appt Details Provider Name:Adrienne Post , 10/29/2024 09:00:00 AM, [address] [place], [address], Progress Notes * Romy TOPETEDOB: 4 (59 yo F)Acc No.[id number]:07/20/2024 Progress Notes Patient:?Romy TOPETE Provider:?Adrienne Post DPM :1965???Age:59 Y???Sex:Female D ate:07/20/2024 Address:[address] [place] [id number] Pcp:Adam Cadena Subjective: * Chief Complaints: * [...] Post DPM Date:?2023 Generated for Felisha heck/Syl/Nate on:?09/24/2024 03:28 PM EST
--- OUTSIDE RECORDS SUMMARY | 2024-09-24 15:29 | XMS_ITS | Patient Health Record ---
Author Organization [facility] jennifer AugustineFitzgerald Address [address] [facility] [place] [address] Care Team Providers Care Career Development Coordinator/Teacher Name Role Phone Adam Cadena Primary Care Provider Unavailab mark Adrienne Post Unavailable [phone] Allergies Allergen (clinical drug ingredient) Drug/Non Drug [...] Lab: Notes/Report: HEMOGLOBIN A1C % (HH) 7.6 Reason For Referral No Information Medications Medication [...] Problem Acquired hammer toe of right foot (4633349543749281) Other hammer toe(s) (acquired), right foot (M20.41) Active confirmed Problem Acquired hammer toe of left foot (4945141215233000) Other hammer toe(s) (acquired), left foot (M20.42) Active confirmed Problem Plantar wart (90097193) Plantar wart (B07.0) Active confirmed Problem Acquired hammer toe of right foot (7809758126550321) Other hammer toe(s) (acquired), right foot (M20.41) Active confirmed Problem Polyneuropathy due to type 2 diabetes mellitus (323770838) Type 2 diabetes mellitus with diabetic polyneuropathy (E11.42) Active confirmed Problem 391595864115498 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 (M19.071) Active confirmed Problem 23578425 Osteoarthritis o f left ankle and foot (M19.072) Active confirmed Problem 304731846 Skin ulcer of left ankle, limited to breakdown of skin (L97.321) Active confirmed Problem 477216919 Rheumatoid arthritis flare (M06.9) Active confirmed Problem Juvenile osteochondrosis of the foot (779531706) 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) Active confirmed Vital Signs Blood pressure diastolic 78 mm Hg 05/18/2024 Height 5ft6in in 05/18/2024 Blood pressure systolic 128 mm Hg 05/18/2024 Weight 188 lbs 05/18/2024 BMI 30.34 kg/m2 05/18/2024 Procedures Procedure Date Ordered Date Performed Result Body Sit e 13230-Reby Destruction, 10-0601/23/2024 N/A 71930,A4194-HMU TENDON SHEATH/LIGAMENT 01/23/2024 N/A 69978-Iigz Destruction, 10-0604/09/2024 N/A 90094, W6577-BYKQX/INJECT, JOINT/BURSA 04/09/2024 N/A 27746,U0080-ANB TENDON SHEATH/LIGAMENT 05/18/2024 N/A Encounters Encounter Location Date [facility] [address] [place] [address] 10/24/2023 Adrienne Black Fracture of proximal phalanx of toe of right foot S92.911A ; Achilles tendinitis of right lower extremity M76.61 ; Pain in right toe(s) M79.674 ; Other hammer toe(s) (acquired), right foot M20.41 ; Right foot pain M79.671 ; Pain of right heel M79.671 ; Short Achilles tendon (acquired), right ankle M67.01 and Xerosis of skin L85.3 [facility] [address] [address] 01/23/2024 Adrienne Black Right foot pain M79.671 ; Achilles tendinitis of right lower extremity M76.61 ; Pain of right heel M79.671 ; Short Achilles tendon (acquired), right ankle M67.01 ; Xerosis of skin L85.3 ; Type 2 diabetes mellitus with diabetic polyneuropathy E11.42 ; Peroneal tendinitis, right M76.71 and Verruca B07.[address] [address] 04/09/2024 Adrienne Black Right foot pain M79.671 ; Pain of right heel M79.671 ; Type 2 diabetes mellitus with diabetic polyneuropathy E11.42 ; Peroneal tendinitis, right M76.71 ; Verruca B07.9 and Arthralgia of right foot M25.[address] [address] 05/18/2024 Adrienne Black Right foot pain M79.671 ; Pain of right heel M79.671 ; Type 2 diabetes mellitus with diabetic polyneuropathy E11.42 and Plantar fasciitis M72.[address] [address] 04/07/[address] [address] 05/11/[address] [address] 05/15/[address] [address] 07/20/2024 Adrienne Black Assessments Encounter Date Diagnosis [...] right (ICD-10 - M76.71) Patient Educated with: INJECTIONTHER HUGO.pdf (INJECTIONTHE RAPY.pdf) 10/24/2023 Short Achilles tendon (acquired), right ankle [...] X ray : Foot, right 3V 10/02/2022 42210-PLUZTUY NAIL, 6 OR MORE 05/23/2016 26895-BEIZHPR NAIL, 6 OR MORE 11/19/2016 23851-OIRLPMO NAIL, 1-5 02/12/2019 89124-Qhdz Destruction, 1-14 02/12/2019 86548-Kcfk Destruction, 1-14 08/21/2018 24446-Mtlz Destruction, 1-14 01/13/2018 17609-Qmzx Destruction, 1-14 11/19/2016 06756-Ixal Destruction, 1-14 05/30/2017 08614-Qyjk Destruction, 1-14 01/23/2024 72299-Dvcw Destruction, 1-14 04/09/2024 57448-Kvrn Destruction, 1-14 10/08/2019 18220-Xdnx Destruction, 1-14 06/16/2020 54506-Iceu Destruction, 1-14 02/11/2020 14524- Debride <25 sq cm 05/15/2012 32853-FEBHSID SKIN/TISSUE 05/23/2016 78229-HKFKJLY SKIN/TISSUE 11/19/2016 42555-OZHB SKIN LESIONS, OVER 4 11/19/19 17 44171-HMWJ SKIN LESIONS, OVER 4 05/30/20 17 86420-EXOJ SKIN LESIONS, OVER 4 01/14/20 18 06147-ACAX SKIN LESIONS, OVER 4 08/21/20 18 89104-GAPI SKIN LESIONS, OVER 4 05/23/20 16 03181-RMTW SKIN LESIONS, OVER 4 04/04/20 15 63804-NAPR SKIN LESIONS, OVER 4 10/03/19 16 15144-JHGH SKIN LESIONS, OVER 4 03/19/20 13 41533-ALPT SKIN LESIONS, OVER 4 09/28/19 14 90416-PJPM SKIN LESIONS, OVER 4 03/29/20 14 12192-TTVA SKIN LESIONS, OVER 4 09/29/19 15 74382-FSKH SKIN LESIONS, OVER 4 10/29/19 13 90913-GHGQ SKIN LESIONS, OVER 4 04/21/20 12 83045-MCHT SKIN LESIONS, OVER 4 02/11/20 20 32831-EHGM SKIN LESIONS, OVER 4 10/08/19 20 43220-GNWK SKIN LESIONS, OVER 4 02/13/20 19 78056-MRPO SKIN LESIONS, OVER 4 06/16/20 20 01537-KPGB SKIN LESIONS, OVER 4 08/05/20 23 30589, E2325-AZUWY/INJECT, JOINT/BURSA 0 04/09/2024 86916, R9043-KUTZW/INJECT, JOINT/BURSA 0 02/12/2019 91661-HCFC NAIL(S) 10/08/2019 53298-PEBG NAIL(S) 02/11/2020 42508-GMBS NAIL(S) 06/16/2020 14147-LIXX NAIL(S) 09/28/2013 20089-JSFQ NAIL(S) 01/13/2018 08012-FNZX NAIL(S) 08/21/2018 18488-HSEV NAIL(S) 02/12/2019 43895-OPTU NAIL(S) 05/30/2017 B7603-VGIQRBEO DYSTROPHIC NAILS ANY # H2889-SINTJBXX DYSTROPHIC NAILS ANY # V7848-MLTWPCWO DYSTROPHIC NAILS ANY # 09904- Removal of Foreign Body, Subcut 0 05/15/2012 55902- Removal of Foreign Body, Subcut 0 05/01/2012 28360,Z8240-FXV TENDON SHEATH/LIGAMENT 0 06/11/2011 73637,B6398-RBZ TENDON SHEATH/LIGAMENT 0 01/23/2024 52625,G4147-BMO TENDON SHEATH/LIGAMENT 0 05/18/2024 30074 - Shave Biopsy of Skin Lesion 04/24 96558 - Shave Biopsy of Skin Lesion 09/1 Next Appt Details Provider Name:Adrienne Post , 10/29/2024 09:00:00 AM, [address] [place], [address], Insurance Providers Payer Name Payer Address Payer Phone Subscriber Number Group Number Insured Name Patient Relationship to Insured Coverage Start Date Coverage End Date [facility] CCA SCO Claims [address] [place] [address] [phone] [facility] [id number] Romy Decker i Self - patient is [...]
--- OUTSIDE RECORDS SUMMARY | 2024-09-24 15:29 | XMS_ITS ---
Author Organization [facility] Address [address] [place] [address] Care Team Providers Care Family Day Care Provider Name Role Phone Adam Cadena Primary Care Provider Unavailab mark Adrienne Post Unavailable [phone] REASON FOR VISIT SD Reschedule/Cancel Encounters Encounter Location Date Provider Diagnosis [address] [address] 07/20/2024 Adrienne Post Plan Of Treatment Next Appt Details Provider Name:Adrienne Jos Sincere , 10/29/2024 09:00:00 AM, [address] [place], [address], Progress Notes * Romy TOPETEDOB: 4 (59 yo F)Acc No.[id number]:07/20/2024 Patient:?Romy Topete :1965???Age:59 Y???Sex:Female Address:[address] [place] [address] [place], [address] * true * Date:? Generated for Ehsani umang/Syl/eTransmitting on:?09/24/2024 03:28 PM EST
--- OUTSIDE RECORDS SUMMARY | 2024-09-24 15:29 | XMS_ITS ---
Author Organization [facility] Address [address] [place] [address] Care Team Providers Care Flower Cheniller Name Role Phone Adam Cadena Primary Care Provider Unavailab mark Post Adrienne Browne [phone] Encounters Encounter Location Date Provider Diagnosis [facility] [address] [place] [address] 06/01/2024 Adrienne Post Plan Of Treatment Next Appt Details Provider Name:Adrienne Post , 10/29/2024 09:00:00 AM, [address] [place], [address], Progress Notes * Romy TOPETEDOB: 4 (59 yo F)Acc No.[id number]:06/01/2024 Progress Note Patient:?Romy TOPETE Provider:?Adrienne Post DPM :1965???Age:59 Y???Sex:Female D ate:06/01/2024 Address:[address] [place] [address] [id number] Pcp:Adam Cadena Subjective: * Chief Complaints: * [...]
== END 2024-09-24 14:02 | disposition home or self-care (01) ==
LOC: HO.MAMMO 14:01
PROVIDERS: PCP Physician Assistant; Visit Provider Physician Assistant
DX: Z78.0 Asymptomatic menopausal state (principal); Z79.52 Long term (current) use of systemic steroids
CPT/HCPCS: 77080

== ENCOUNTER → 2024-09-24 14:30 | Outpatient (BNV) | payer OTHER, SELFPAY | PROVIDERS: PCP Physician Assistant; Visit Provider Radiology Diagnostic Radiology | DX: Z78.0 Asymptomatic menopausal state (principal); Z79.52 Long term (current) use of systemic steroids | CPT/HCPCS: 77080 ==

== ENCOUNTER 2024-11-13 12:15 | Outpatient (AMB) | payer OTHER, SELFPAY ==
--- NOTE | 2024-11-13 12:20 | A.OFFVIS_ITS ---
Vital Signs 11/13/24 12:21 BP 122/65 Blood Pressure Location Lt brachial Position Sitting Respiration 16 Pulse 72 Pulse Source Pulse Oximeter Pulse Oximetry (%) 98 Oxygen Delivery Method Room Air Intake Visit Reasons: s/p GT PRP Dental Instrument Maker Required: No Allergies RACHELLE Inhibitors Allergy (Severe, Verified 11/13/24 12:21) Anaphylaxis azithromycin Allergy (Severe, Verified 11/13/24 12:21) HIVES TO ZPACK, anaphylaxis Pzdmslt-QBM-JwU Reductase Inhibitor [Xtfyqlg-Zcb-Lzt Reductase Inhibitor] Allergy (Severe, Verified 11/13/24 12:21) Anaphylaxis amitriptyline Adverse Reaction (Intermediate, Verified 11/13/24 12:21) Headache hydrochlorothiazide Adverse Reaction (Intermediate, Verified 11/13/24 12:21) leg cramps IVIG Allergy (Unknown, Uncoded 11/13/24 12:21) told to avoid Medication List - Last Reconciled 11/13/24 by Ursula Talamantes LPN amlodipine 2.5 mg PO DAILY carvedilol 3.125 mg PO BID cholecalciferol (vitamin D3) 50 mcg PO DAILY 90 days estradiol 0.01%(0.1mg/gram) (Estrace) 1 g vaginal 3XW insulin degludec (Tresiba FlexTouch U-100 insulin) units subcut levothyroxine 200 mcg PO DAILY lorazepam 1 mg PO DAILY PRN 30 days mercaptopurine 1 tab PO DAILY metformin ER 1,000 mg PO BID omeprazole 40 mg PO BID prucalopride (Motegrity) 2 mg PO DAILY tirzepatide (Mounjaro) 7.5 mg subcut QWEEK HPI HPI s/p GT PRP: Details: History of Present Illness The patient is a 59-year-old female presenting for a follow-up after a Platelet- Rich Plasma (PRP) injection in the left hip region. Six weeks ago, she received this intervention targeting the vastus lateralis and the gluteus medius tendons to address her trochanteric pain syndrome, which led to an approximate 75% improvement in her symptoms. Despite this relief, she continues to experience discomfort attributed to Iliotibial Band Syndrome, characterized by localized pain not extending to the knee. Further complicating her condition is a history of surgical intervention involving IT band incision. She has significant comorbidity with Rheumatoid Arthritis, contributing to persistent sacroiliac joint pain, for which previous PRP therapy targeting a gluteus minimus tear proved effective. Her current therapeutic challenge lies in managing the residual pain post-PRP therapy while optimizing her pain management strategy, avoiding additional corticosteroid injections, a component of her RA management, to enhance the efficacy of regenerative treatments. Pain Description - Onset: Chronic - Quality: Surface-level pain, localized, not radiating - Primary Location: Left hip and IT band area - Aggravating Factors: Extended walking; perceived movement of tissue - Alleviating Factors: Cortisone shots, temporary relief noted - Impact: Compromised walking due to localized, persistent pain Physical Exam Results - Past MRI indicating gluteus minimus tear Pain Management - Affect: Pain impacts patient's mobility and possibly mood due to ongoing discomfort - Analgesia: Previous corticosteroid shots provided temporary relief; current pain management focuses post-PRP - Adverse Effects: No adverse effects reported from cortisone shots specifically; ongoing monitoring required due to RA - Activities of Daily Living: Difficulty with walking, especially over long distances, affecting mobility - Aberrant Drug Related Behaviors: No aberrant behaviors reported; appropriate use of prescribed treatments PFSH Medical History Splenomegaly HTN (hypertension) Hypothyroid GERD (gastroesophageal reflux disease) Diabetes Anxiety Sciatica Obese Allergic rhinitis Herpes simplex Chronic inflammatory demyelinating neuropathy Surgical History History of colonoscopy History of surgery History of rectal surgery History of bladder surgery History of inguinal hernia repair History of hysterectomy History of tonsillectomy and adenoidectomy History of ankle surgery History of right knee surgery History of elbow surgery History of hand surgery History of thumb surgery History of shoulder surgery History of hip surgery Family History Father Leukemia Lung cancer PVD (peripheral vascular disease) Mother Diabetes Heart disease Asthma Substance use disorder Brother Thyroid disease CIDP (chronic inflammatory demyelinating polyneuropathy) Son Kelley's disease Sister Lymphoma Social History Housing: House Alcohol intake: current Alcohol intake frequency: a few times a month Patient Tobacco Use Status: Former Tobacco user Tobacco use type: Cigarette e-Cigarette/Vaping Use: Never Used Second Hand Smoke Exposure: Yes service: No Current occupational status: disabled Cognitive needs: No Hearing needs: No Vision needs: Yes (GLASSES) Physical Exam Vital Signs: Last Vital Signs Pulse 72 11/13/24 12:21 Resp 16 11/13/24 12:21 BP 122/65 11/13/24 12:21 Pulse Ox 98 11/13/24 12:21 Oxygen Delivery Method Room Air 11/13/24 12:21 Assessment & Plan Assessment & Plan (1) Greater trochanteric pain syndrome: Code(s): M25.559 - Pain in unspecified hip Category: Medical (2) IT band syndrome: Code(s): M76.30 - Iliotibial band syndrome, unspecified leg Category: Medical Plan Plan Patient was informed and verbally consented to the use of an ambient scribe for clinic note documentation during this visit. 1. Sacroiliac Joint Dysfunction Continued management of SI joint pain within the scope of RA treatment. Rou holden assess effectiveness of current strategies, and consult as needed. 2. Iliotibial Band Syndrome Existing IT band pain to be addressed through alternative non-steroidal interventions such as shockwave therapy. Referral to chiro for further management. 3. Rheumatoid Arthritis Continue monitoring and managing RA with joint-specific interventions, avoiding further corticosteroid injections immediately after PRP therapy unless absolutely necessary. 4. Trochanteric Pain Syndrome Further non-invasive treatments to be considered after PRP therapy has shown significant improvement. Regular follow-up for symptom management is required. Discussion Notes During the consultation, I discussed with the patient the progression and impact of her current symptoms, focusing on pain management post-PRP injection. We addressed the possibility of shockwave therapy as an alternative to further corticosteroid injections, discussing the variable efficacy and psj-ux-xcflli expense considerations. I informed the patient of the strategies to optimize her treatment regimen, aiming to reduce dependency on corticosteroid injections given their transient relief and potential cumulative drawbacks. The patient was advised to consider alternative therapeutic routes, and we reviewed the limitations and expectations of regenerative treatment, scheduling a follow-up to assess her response and potentially repeat PRP injection if necessary. Patient Instructions - Follow the plan for scheduled follow-ups to monitor symptom progression. - Consider shockwave therapy and consult the provided referral for further details. - Monitor any changes in pain patterns or new symptoms, reporting significant changes. - Avoid unnecessary strain on the affected leg and prioritize gentle cardio vascular activities. - Contact the clinic directly for any concerns about symptom exacerbation or query regarding prescribed therapies. Orders: Referrals Chiropractic Referral M76.30 - Iliotibial band syndrome, unspecified leg Coding Level of Care Code Est Pt Level 4 (18978) Diagnoses Greater trochanteric pain syndrome M25.559 IT band syndrome M76.30
[2024-11-13 12:21] VITALS: BP 122/65; PULSE 72; RESP 16; O2SAT 98
--- OUTSIDE RECORDS SUMMARY | 2024-11-13 12:59 | XMS_ITS | Encounter Summary ---
Author Organization [facility] Address [address] [place] [address] Care Team Providers Care Raymond Mill Operator Name Role Phone Adam Cadena Primary Care Provider [phone] Reason for Referral * Imaging (Routine) - Closed Specialty Diagnoses / Procedures Referred By Contac t Referred To Contact Radiology Diagnoses Other cirrhosis of liver (CMS/HCC) Procedures US Abdomen Limited Libra Finney MD [address] [address] Phone: tel: fax: [facility] Referral ID Status Reason Start Date Expiration Date Visits Re quested Visits Authorized [id number] Closed 10/16/2024 10/16/2025 1 1 Reason for Visit * Imaging (Routine) - Closed Specialty Diagnoses / Procedures Referred By Contac t Referred To Contact Radiology Diagnoses Other cirrhosis of liver (CMS/HCC) Procedures US Abdomen Limited Libra Finney MD [address] [address] Phone: tel: fax: [facility] Referral ID Status Reason Start Date Expiration Date Visits Re quested Visits Authorized [id number] Closed 10/16/2024 10/16/2025 1 1 Encounter Details Date Type Department Care Team (Latest Contact Info) Description 11/04/2024 9:10 AM EST - 11/04/2024 11:59 PM EST Hospital Encounter [facility] Ultrasound [address] [place] [id number] Other cirrhosis of liver (CMS/HCC) Discharge Disposition: Home or Self Care Social History Tobacco Use Types Packs/Day Years Used Date Smoking Tobacco: Former Cigarettes Q uit: 09/23/1990 Smokeless Tobacco: Never Alcohol Use Standard Drinks/Week Comments Not Currently 0 (1 standard drink = 0.6 oz pur e alcohol) rare Interpersonal Safety Answer Date Record ed Physical Abuse 08/13/2024 Verbal Abuse 08/13/2024 Comments No Sex and Gender Information Value Date Recorded Sex Assigned at Female 10/23/2024 10:58 AM EST Legal Sex Female 10:45 AM EST Gender Identity Female 10/23/2024 10:58 AM EST Sexual Orientation Straight 10/23/2024 10 :58 AM EST documented as of this encounter Medications at Time of Discharge acetaminophen (TYLENOL) 500 mg tablet Take 1 tablet (500 mg total) by mouth every 6 hours as needed. amLODIPine (NORVASC) 2.5 mg tablet Take 1 tablet (2.5 mg total) by mouth 1 (one) time each day. ammonium lactate (LAC-HYDRIN FIVE TOP) Apply 1 Application topically 1 (one) time each day. 05/07/2024 butalbital-acetami onnnul-nronaztf-tq deine (Fioricet with Codeine) [id number] mg capsule Take 1 capsule by mouth if needed. 02/07/2012 carvediloL (COREG) 3.125 mg tabletIndications: Portal hypertension (CMS/HCC) Take 1 tablet (3.125 mg total) by mouth 2 (two) times a day with meals. 180 each 3 10/16/2024 cholecalciferol (VITAMIN D-3) 50 mcg (2,000 unit) capsule Take 50 mcg by mouth 1 (one) time each day. 06/23/2024 cycloSPORINE 0.05 % drops Administer 1 drop into both eyes 1 (one) time each day. 05/07/2024 diclofenac (VOLTAREN) 75 mg EC tablet Take 1 tablet (75 mg total) by mouth 2 (two) times a day if needed. with meals docosahexaenoic acid-epa 120-180 mg capsule Take 1 tablet by mouth 1 (one) time each day. docusate sodium (COLACE) 50 mg capsule Take 1 capsule (50 mg total) by mouth 2 (two) times a day. estradioL (ESTRACE) 0.01 % (0.1 mg/gram) vaginal cream INSERT 1 G PER VAGINA NIGHTLY FOR 2 WEEKS THEN 2 TIMES PER WEEK THEREAFTER 10/17/2023 fluconazole (DIFLUCAN) 150 mg tablet Take 1 tablet (150 mg total) by mouth. 10/17/2023 fluticasone propionate (FLONASE) 50 mcg/actuation nasal spray SPRAY 2 SPRAYS INTO EACH NOSTRIL DAILY FOR 30 DAYS HumaLOG KwikPen Insulin 100 unit/mL injection pen PLEASE SEE ATTACHED FOR DETAILED DIRECTIONS insulin aspart, niacinamide, (Fiasp FlexTouch U-100 Insulin) 100 unit/mL (3 mL) injection pen 2-4 units, subcutaneously, up to tid AC, or as directed, plus 2 units to prime pen with each dose. 04/13/2024 insulin degludec (TRESIBA) 100 unit/mL injection Inject 30 Units under the skin 1 (one) time each day. 04/02/2024 ketorolac (ACULAR) 0.5 % ophthalmic solution Administer 1 drop into both eyes. 05/07/2024 LORazepam (ATIVAN) 1 mg tablet Take 0.5 tablets (0.5 mg total) by mouth. 08/05/2024 mercaptopurine (PURINETHOL) 50 mg tablet Take 1 tablet (50 mg total) by mouth 1 (one) time each day metFORMIN (GLUCOPHAGE) 500 mg tablet Take 4 tablets (2,000 mg total) by mouth 1 (one) time each day. 05/28/2013 Motegrity 2 mg tabletIndications: Constipation, unspecified constipation type Take 1 tablet by mouth 1 (one) time each day. 90 tablet 1 10/30/2024 5 Mounjaro 7.5 mg/0.5 mL injection Inject 0.5 mL (7.5 mg total) under the skin every 7 (seven) days. Synthroid 200 mcg tablet Take 1 tablet (200 mcg total) by mouth 1 (one) time each day in the morning. 05/06/2024 valACYclovir (VALTREX) 500 mg tablet Take 1 tablet (500 mg total) by mouth daily. 01/10/2012 ZINC ORAL Take 50 mg by mouth at bedtime. 01/25/2022 omeprazole (PriLOSEC) [address] capsule Take 1 capsule (40 mg total) by mouth 2 (two) times a day. documented as of this encounter Discharge Disposition Disposition Code Departure Means Destination Home or Self Care documented in this encounter Progress Notes * Libra Finney MD - 11/04/2024 9:30 AM EST Let patient know that ultrasound stable. No liver lesions. No fluid in the abdomen. Will repeat in 6 months. documented in this encounter Plan of Treatment Not on file documented as of this encounter Procedures Procedure Name Priority Date/Time Associated Diagnosis Comments US ABDOMEN LIMITED Routine 11/04/2024 9: 49 AM EST Other cirrhosis of liver (CMS/HCC) documented in this encounter Results * US Abdomen Limited (11/04/2024 9:49 AM EST) Anatomical Region Laterality Modality Body Ultrasound 11/06/2024 10:2 5 AM EST Impressions 11/06/2024 10:29 AM EST Coarsened hepatic echotexture consistent with fatty infiltration and/or hepatocellular disease, limiting hepatic penetration. No hepatic mass is seen and there is no biliary dilatation. The patient has undergone previous cholecystectomy. Moderate splenomegaly. The pancreas is incompletely evaluated on this study. Code 09999 G9551. -------- FINAL REPORT -------- Dictated By: Kirt Moore Dictated Date: 11/06/2024 10:25 ET Assigned Physician: Kirt Moore Reviewed and Electronically Signed By: Kirt Moore Signed Date: 11/06/2024 10:29 ET Workstation ID: [id number] Transcribed By: Self Edit Transcribed Date: 11/06/2024 10:25 ET Narrative 11/06/2024 10:29 AM EST HISTORY: The patient is a 59-year-old female with hepatic cirrhosis. The patient underwent cholecystectomy in 1981. FINDINGS: Real-time ultrasonography of the abdominal right upper quadrant is performed. The body of the pancreas is of normal appearance; the head and tail are poorly visualized. The liver is normal in size with a span of 15.3 cm. There is diffuse coarsening of the hepatic echotexture consistent with fatty infiltration and/or hepatocellular disease, limiting hepatic penetration. No hepatic mass is seen. The portal vein is patent with hepatopetal flow. There is no intra- or extra- hepatic biliary dilatation. The gallbladder is surgically absent. The right kidney is normal in size and appearance, measuring 10.3 cm in length. There is normal cortical thickness and no mass, calculus, or hydronephrosis is seen. The spleen is moderately enlarged, measuring 13.2 x 4.3 x 4.5 cm. No ascites is visualized. Procedure Note Kirt Moore MD - 11/06/2024 HISTORY: The patient is a 59-year-old female with hepatic cirrhosis. Thepatient underwent cholecystectomy in 1981. FINDINGS: Real-time ultrasonography of the abdominal right upper quadrantis performed. The body of the pancreas is of normal appearance; the headand tail are poorly visualized. The liver is normal in size with a span of15.3 cm. There is diffuse coarsening of the hepatic echotexture consistentwith fatty infiltration and/or hepatocellular disease, limiting hepaticpenetration. No hepatic mass is seen. The portal vein is patent withhepatopetal flow. There is no intra- or extra- hepatic biliary dilatation.The gallbladder is surgically absent. The right kidney is normal in sizeand appearance, measuring 10.3 cm in length. There is normal corticalthickness and no mass, calculus, or hydronephrosis is seen. The spleen ismoderately enlarged, measuring 13.2 x 4.3 x 4.5 cm. No ascites isvisualized. IMPRESSION: Coarsened hepatic echotexture consistent with fatty infiltration and/orhepatocellular disease, limiting hepatic penetration. No hepatic mass isseen and there is no biliary dilatation. The patient has undergoneprevious cholecystectomy. Moderate splenomegaly. The pancreas isincompletely evaluated on this study. Code 20127 G9551. -------- FINAL REPORT -------- Dictated By: Kirt Moore Dictated Date: 11/06/2024 10:25 ET Assigned Physician: Kirt Moore Reviewed and Electronically Signed By: Kirt Moore Signed Date: 11/06/2024 10:29 ET Workstation ID: [id number] Transcribed By: Self Edit Transcribed Date: 11/06/2024 10:25 ET us Libra Finney MD [facility] PROCEDURES Final Result documented in this encounter Visit Diagnoses Diagnosis Other cirrhosis of liver (CMS/HCC) documented in this encounter Care Teams Raymond Mill Operator Relationship Specialty Start Date End Date Adam Cadena PA PCP - General Physician Wildlife Biology Technician 08/13/24 documented as of this encounter
--- OUTSIDE RECORDS SUMMARY | 2024-11-13 12:59 | XMS_ITS | Encounter Summary ---
Author Organization [facility] [place] [address] Care Team Providers Care Journal Entry Audit Clerk Name Role Phone Adam Cadena Primary Care Provider [phone]- [phone] Encounter Details Date Type Department Care Team (Late st Contact Info) Description 11/06/2024 Telephone Gastroenterology - [address] [place] [address] Mariza Simpson MA Social History Tobacco Use Types Packs/Day Years [...] AM EST documented as of this encounter Progress Notes * Rosette Conn MA - 11/09/2024 1:35 PM EST Spoke to pt, u/s results below given. * Estelita Payne - 11/09/2024 1:21 PM EST PT RETURNING CALL * Mariza Simpson MA - 11/06/2024 2:54 PM EST LMOM TO CALL BACK REGARDING RESULTS * Mariza Simpson MA - 11/06/2024 2:53 PM EST ----- Message from Tanya Finney MD sent at 11/06/2024 2:51 PM EST ----- Let patient know that ultrasound stable. No liver lesions. No fluid in the abdomen. Will repeat in 6 months. documented in this encounter Plan of Treatment Not on file documented as of this encounter Visit Diagnoses Not on filedocumented in this encounter Care Teams Journal Entry Audit Clerk Relationship Specialty Start Date End Date Adam Cadena PA PCP - General Physician Manager Garage 08/13/24 documented as of this encounter
--- OUTSIDE RECORDS SUMMARY | 2024-11-13 12:59 | XMS_ITS ---
Author Organization [facility] Address [address] [place] [address] Care Team Providers Care Drafter Civil Engineering Name Role Phone Adam Cadena Primary Care Provider Unavailab mark Adrienne Post Unavailable [phone] REASON FOR VISIT [place] Reschedule/Cancel Encounters Encounter Location Date Provider Diagnosis [address] [address] 07/20/2024 Adrienne Post Plan Of Treatment Next Appt Details Provider Name:Adrienne A Sincere , 04/26/2025 10:15:00 AM, [address] [place], [address], Progress Notes * Romy TOPETEDOB: 4 (59 yo F)Acc No.[id number]:07/20/2024 Patient:?Romy Topete :1965???Age:59 Y???Sex:Female Address:[address] [place] [address] [place], [address] * true * Date:? Generated for Ehsani umang/Syl/eTransmitting on:?11/13/2024 12:59 PM EST
--- OUTSIDE RECORDS SUMMARY | 2024-11-13 12:59 | XMS_ITS ---
Author Organization [facility] jennifer [place] Address [address] [facility] [place] [address] Care Team Providers Care Billing Control Clerk Name Role Phone Adam Cadena Primary Care Provider Unavailab mark Adrienne Post Unavailable [phone] Allergies Allergen (clinical drug ingredient) Drug/Non Drug Allergy documented on EMR Reaction Allergy Type Onset Date Status azithromycin Azithromycin extreme hives Drug Allergy Active Flu Virus Vaccine Unknown Drug Allergy Active REASON FOR VISIT At Risk Footcare, FOOT PAIN, Skin problem(s), Toe Irritation Medications Medication SIG (Take, Route, Frequency, Duration) Notes Start Date End Date Status Ammonium Lactate 12 % 1 application Externally to affected areas of dry skin to feet except for between the toes Twice a day for 30 days Active Insulin Active Extra Depth Orthopedic Shoes (1 Pair) with Customized Heat Molded Multidensity Innersoles (3 Pair) as directed Dx: NIDDM/Polyneuropathy (E11.42), Hammertoe Foot Deformity (M20.41,M20.42), Preulcerative Skin Lesion(s) (L85.1 10/29/2024 Active Estradiol 0.025 MG/24HR 1 patch to skin Transdermal Two times a Week for 30 day(s) Not-Taking Imiquimod 5 % 1 application at bedtime, leave on for 8 hours then wash off Externally Three times a Week Active Keflex 500 MG 1 capsule Orally every 12 hrs for 10 day(s) 05/19/2020 Not-Taking Reglan Not-Taking Ammonium Lactate 12 % APPLY TWICE A DAY FOR 30 DAYS for 30 Active Antibiotic For tooth Not-Takin g Night Splint AFO - L1930 1 wear when at rest for 30 days Active Glimepiride Active zzzCompression Stockings 20-30mm Hg . . . for . Active Jardiance 25 MG 1 tablet Orally Once a day for 30 day(s) Active Extra Depth Orthopedic Shoes (1 Pair) with Customized Heat Molded Multidensity Innersoles (3 Pair) as directed Dx: NIDDM/Polyneuropathy (E11.42), Hammertoe Foot Deformity (M20.41,M20.42), Preulcerative Skin Lesion(s) (L85.1 11/08/2020 Active Victoza 1.2ml Active Valtrex Active Purinethol Active Synthroid Active LORazepam Active Metformin & Diet Manage Prod Active Extra-Depth Diabetic Shoes with 3 Pair Custom heat-molded multi-density innersoles Active Fiorinal/Codeine #3 Active Zinc Active Social History Tobacco Use: Social History Observation Description Date Details (start date - stop date) Never Smoker NA - NA Tobacco use other than smoking: Question Answer Notes Are you an other tobacco user? No Tobacco Control (Standard) Question Answer Notes Tobacco use: Nonsmoker Problems Problem Type SNOMED Code ICD Code Onset Dates Problem Status W/U Status Risk Notes Problem Plantar fasciitis (607469885) Plantar fasciitis (M72.2) Active confirmed Vital Signs Height 5ft6in in 10/29/2024 Weight 185 lbs 10/29/2024 BMI 29.86 kg/m2 10/29/2024 Blood pressure systolic 118 mm Hg 10/29/19 25 Blood pressure diastolic 70 mm Hg 025 Procedures Procedure Date Ordered Date Performed Result Body Sit e 15047-WNFZ SKIN LESIONS, 2 TO 4 10/29/2024 N/A O0502-[id number] DYSTROPHIC NAILS ANY # 10/29/2024 N/A Encounters Encounter Location Date Provider Diagnosis [facility] [place] [address] [place] [address] 10/29/2024 Adrienne Black Right foot pain M79.671 ; Pain of right heel M79.671 ; Type 2 diabetes mellitus with diabetic polyneuropathy E11.42 ; Plantar fasciitis M72.2 ; Xerosis of skin L85.3 ; Other hammer toe(s) (acquired), right foot M20.41 and Other hammer toe(s) (acquired), left foot M20.42 Assessments Encounter Date Diagnosis (ICD Code) Assessment Notes Treatment Notes Treatment Clinical Notes Section Notes 10/29/2024 Right foot pain (ICD-10 - M79.671) 10/29/2024 Pain of right heel (ICD-10 - M79.671) 10/29/2024 Type 2 diabetes mellitus with diabetic polyneuropathy (ICD-10 - E11.42) 10/29/2024 Plantar fasciitis (ICD-10 - M72.2) 10/29/2024 Xerosis of skin (ICD-10 - L85.3) 10/29/2024 Other hammer toe(s) (acquired), right foot (ICD-10 - M20.41) Patient Educated with: DIABETIC FOOT CARE INSTRUCTIONS. pdf (DIABETIC FOOT CARE INSTRUCTIONS. pdf) 10/29/2024 Other hammer toe(s) (acquired), left foot (ICD-10 - M20.42) Plan Of Treatment Medication Medication Name Sig Start Date Stop Date Notes Ammonium Lactate 12 % 1 application Exte rnally to affected areas of dry skin to feet except for between the toes Twice a day for 30 days Extra Depth Orthopedic Shoes (1 Pair) with Customized Heat Molded Multidensity Innersoles (3 Pair) as directed Dx: NIDDM/Polyneuropathy (E11.42), Hammertoe Foot Deformity (M20.41,M20.42), Preulcerative Skin Lesion(s) (L85.1 10/29/2024 Treatment Notes Assessment Notes Other hammer toe(s) (acquired), right fo ot Patient Educated with: DIABETIC FOOT CARE INSTRUCTIONS.pdf (DIABETIC FOOT CARE INSTRUCTIONS.pdf) Pending Test Test Name Order Date 29781-QFGT SKIN LESIONS, 2 TO 4 10/29/19 25 P3154-QNBEABQG DYSTROPHIC NAILS ANY # Next Appt Details Follow Up: 2 Months, Reason: Provider Name:Adrienne Post , 04/26/2025 10:15:00 AM, [address] [place], [address], Procedure Notes * Category Sub-Category Detail Notes Keratoma Treatment Parring or Cutting o f Benign Hyperkeratotic Lesion(s) (-56) 2-4 Lesions - Due to the at risk nature of the patients medical condition as documented in the exam findings, performance of this keratoderma treatment is medically necessary as its management by an unskilled/untrained nonprofessional would put this patients foot and overall health at risk. Therefore, the benign hyperkeratotic lesions, ( 2__ ) in total, locations as stated and described in the exam ( plantar medial heels b/l), were pared, and/or cut utilizing a sterile 15 blade, tissue nippers, and/or power dremel instrumentation by the physician of record - 95439 Nail Reduction Nail Reduction (-27) Trimming o f all dystrophic nails - Due to the at risk nature of the patients medical condition as documented in the exam findings, performance of this nail treatment is medically necessary as its management by an unskilled/untrained nonprofessional would put this patients foot and overall health at risk. Therefore, the dystrophic nails, in locations as stated and described in the exam ( TA, T1, T2, T3, T4, T5, T6, T7, T8, T9, ), were debrided by the phisician of record to reduce/remove overall nail length and girth, by manual and electrical means with use of a nail nipper and/or dremel, to more viable healthy nail plate or bed tissue - G0127 Progress Notes * Romy TOPETEDOB: 4 (59 yo F)Acc No.[id number]:10/29/2024 Progress Note Patient:?Romy TOPETE Provider:?Adrienne Post DPM :1965???Age:59 Y???Sex:Female D ate:10/29/2024 Address:[address] [place] [id number] Pcp:Adam Cadena Subjective: * Chief Complaints: * ???At Risk FootcareFOOT PAIN Skin problem(s)Toe Irritation * HPI: ???At Risk footcare:?Pt States Last PCP Visit:?Date?08/20/2024 ???Foot Pain:?Nature:?aching , sharp , shooting.?Location:?Outside , Rearfoot , Midfoot , RIGHT.?Duration:?several months.?Onset:?denies trauma.?Course:?worse since broken leg leg.?Aggravated:?standing , walking , increased pain in am or after rest.?Treatments:?cortisone injection (2), meloxicam(given for wrist helped? with the foot).?Severity/Quality:?moderate.?Skin problems:?Nature:?dryness , scaling.?Location:?B/L .?Duration:?several days.?Course:?worse.?Toe pain:?Location:?B/L feet.?Duration:?several years.?Course:?worse.?Aggravated by:?shoes, any pressure.?Treatments:?change in shoes.? * ROS:?General/Constitutional:?Nausea?denies.?Vomiting?denies.?Hunger Thirst?denies.?Loss appetite?denies.?Chills?denies.?Fatigue?denies.?Fever?denies.?Night Sweats?denies.?Unexplained weight loss?denies.?Unexplained weight gain?denies.?HEENTM:?Dentures?denies.?Dizziness?denies.?Glasses/contacts?denies.?Retinopathy?den ies.?Blurred/double vision?denies.?TMJ?denies.?Discharge/drainage?denies.?Implants?denies.?Sore throat?denies.?Dental implants?denies.?Hard of hearing ?denies.?Difficulty chewing/swallowing/speaking?denies.?Nose bleeds?denies.?Sore mouth?denies.?Respiratory:?On O xygen?denies.?Pneumonia/pleurisy?denies.?Bronchitis?denies.?Emphysema?denies.?Co ughing?denies.?Cough blood?denies.?Shortness of breath?denies.?Wheezing?denies.?Cardiovascular:?Pacemaker?denies.?MVP?denies.?WPW?denies.?CHF?denies.?Heart attack?denies.?Septal defect?denies.?Rapid beat?denies.?Chest pain ?denies.?Atrial Fib.?denies.?Murmur/Palpitations?denies.?Gastrointestinal:?Hemorrhoids?denies.?Stomach/Abdominal pain?denies.?Dark blood stool?denies.?Irritable bowel ?denies.?Constipation?denies.?Diarrhea?denies.?Hematology:?Swelling?denies.?Clots?denies.?Varicose Veins?denies.?Bruising?denies.?Bleeding problem?denies.?Genitourinary:?Blood urine?denies.?Frequent/Painfu/urination/bladder control?denies.?Kidney stones?denies.?Infection (UTI)?denies.?Nephropathy?denies.?sex trans dis (STD)?denies.?Prostate?denies.?Musculoskeletal:?Hammertoes?, admits.?Bunions?denies.?Back Pain?denies.?Muscle Cramps/ Resting?denies.?Muscle cramps / walking?denies.?Generalized aches and pains?denies.?Weakness?denies.?Integ.:?Holm?denies.?Scars?denies.?Corns/calluses?, admits.?Ingrown nails?denies.?Painful nails?denies.?Open Sores?denies.?Rashes?denies.?Neurologic:?Difficulty sleeping?denies.?Brain disorder?denies.?Numbness?denies.?Balance t rouble?denies.?Confusion?denies.?Fainting/blackouts?denies.?Tingling?denies.?Julito mors?denies.? * Medical History:? * Surgical History:?ankle surg franco cholecystectomy 1983hand/wrist 2001hernia hysterectomy 1999knee surgery, right right hip 03/2013surgery right thumb 05/2014wrist surgery 06/28/2015hernia repair 06/2017left shoulder 08/2017Tooth extraction 10/11/2021 * Hospitalization/Major Diagno stic Procedure:?Denies Past Hospitalization * Family History:?Mother: dece ased, diagnosed with Diabetic - NIDDM, Unspecified essential hypertension, Unspecified heart disease, Family history of arthritis.?Father: , foot problems, pressure, poor circulation, diagnosed with Other malignant neoplasm of unspecified site, Unspecified essential hypertension.?Paternal Grand Mother: cancer, diabetes, heart attack, stroke.?Paternal aunt: cancer.?Siblings: cancer, diabetes.?Paternal Grand Father: diagnosed with Unspecified heart disease.? father(). * Social History:?Tobacco Use:?Tobacco use other than smoking?Are you an other tobacco user??No ?Tobacco Control (Standard)?Tobacco use:?Nonsmoker ???Miscellaneous:?Caffeine: yes, frequency:, 1-2 cups per day. ?Children: yes, 1. ?Exercise: yes, exercise/yoga. ?Marital status: . ?Occupation: disabled. * Medications:?TakingInsulin I miquimod 5 % Cream 1 application at bedtime, leave on for 8 hours then wash off Externally Three times a Week Zinc Extra-Depth Diabetic Shoes with 3 Pair Custom heat-molded multi-density innersoles Fiorinal/Codeine #3 LORazepam Metformin & Diet Manage Prod Purinethol Synthroid Valtrex Glimepiride Victoza 1.2ml Jardiance 25 MG Tablet 1 tablet Orally Once a day Extra Depth Orthopedic Shoes (1 Pair) with Customized Heat Molded Multidensity Innersoles (3 Pair) as directed Dx: NIDDM/Polyneuropathy (E11.42), Hammertoe Foot Deformity (M20.41,M20.42), Preulcerative Skin Lesion(s) (L85.1 zzzCompression Stockings 20-30mm Hg 1 pair closed toe- knee high . . . Night Splint AFO - L1930 1 wear when at rest Ammonium Lactate 12 % Cream APPLY TWICE A DAY FOR 30 DAYS Taking Insulin Taking Imiquimod 5 % Cream 1 application at bedtime, leave on for 8 hours then wash off Externally Three times a Week Taking Zinc Taking Extra-Depth Diabetic Shoes with 3 Pair Custom heat- molded multi-density innersoles Taking Fiorinal/Codeine #3 Taking LORazepam Taking Metformin & Diet Manage Prod Taking Purinethol Taking Synthroid Taking Valtrex Taking Glimepiride Taking Victoza 1.2ml Taking Jardiance 25 MG Tablet 1 tablet Orally Once a day Taking Extra Depth Orthopedic Shoes (1 Pair) with Customized Heat Molded Multidensity Innersoles (3 Pair) as directed Dx: NIDDM/Polyneuropathy (E11.42), Hammertoe Foot Deformity (M20.41,M20.42), Preulcerative Skin Lesion(s) (L85.1 Taking zzzCompression Stockings 20-30mm Hg 1 pair closed toe- knee high . . . Taking Night Splint AFO - L1930 1 wear when at rest Taking Ammonium Lactate 12 % Cream APPLY TWICE A DAY FOR 30 DAYS Not-Taking/PRNAntibiotic , Notes to Pharmacist: For toothKeflex 500 MG Capsule 1 capsule Orally every 12 hrs Reglan Estradiol 0.025 MG/24HR Patch Biweekly 1 patch to skin Transdermal Two times a Week Medication List reviewed and reconciled with the patientNot-Taking/PRN Antibiotic , Notes to Pharmacist: For toothNot-Taking/PRN Keflex 500 MG Capsule 1 capsule Orally every 12 hrs Not-Taking/PRN Reglan Not-Taking/PRN Estradiol 0.025 MG/24HR Patch Biweekly 1 patch to skin Transdermal Two times a Week Medication List reviewed and reconciled with the patient * Allergies:?Flu Virus Vaccine Azithromycin: extreme hivesyes[Allergies Verified] Objective: * Vitals:?Ht: 5ft6in, Wt:185, BMI:29.86, Shoe size: 9.5, BP:118/70mm Hg, BS: not taken, Ht-cm: 167.64 cm, Wt-k.92 kg. * ???Past Orders: ???Lab:HEMOGLOBIN A1C (GLYCO HEMOGLOBIN) (Order Date - 07/24/2024) (Collection Date & Time - 07/24/2024 09:09 AM) ? Value Reference Range ?HEMOGLOBIN A1C % (HH) 5.8 * Examination: ???Ophthalmology Referral: ?DIABETES EYE EXAM?General Examination: ?GENERAL APPEARANCE:?Reveals a pleasant, alert, well nourished, well- developed, well hydrated individual, who demonstrates proper attention to hygiene/body habitus, and is in no acute distress, Pt serves as own historian for office visit today.?ORIENTED:?person, place, and time.?FOOT EXAM:?Footwear Evaluation?Orthopedic: ?GAIT ABNORMALITY:?antalgic.?FOOT MORPHOLOGY:? Decreased Ankle joint dorsiflexion ROM, knee extended.?DIGITAL DEFORMITIES:?Digital contracture, PIPJ, 2-5 B/L, incompl-reducible to push-up test, no over, nor underlapping,?there is?evidence of shoe producing skin irritation.?TENDONITIS:?NO Pain on palpation, inflammation, and fusiform swelling to , Peroneal Complex , RIGHT.?FOOTWEAR:?worn, non-supportive , worn, non-supportive, shoe gear properties exacerbate patient's foot/toe deformity.?Neurological: ?SENSORY:?Neurological exam demonstrates, reduced light touch sensation, reduced sharp/dull discrimination , reduced vibration sensation, in a stocking fashion, B/L, 5.07 monofilament test performed at plantar aspects of 5 varied sites per foot shows sensation, reduced, B/L.?Heel Pain: ?INSPECTION REVEALS:?Increased Pain on palpation to Lateral band of Plantar Fascia and Lateral Calcaneal Tubercle , RIGHT foot.?Dermatologic: ?SKIN FINDINGS:?Skin shows sign(s) of, dryness, scaling, in a stocking fashion, no fissure(s) present, B/L, Skin exam reveals Keratotic lesion(s) located at, Plantar Heel(s), B/L.?Nails: ?NAILS are:?Elongated, overgrown, dystrophic, TA, T1, T2, T3, T4, T5, T6, T7, T8, T9.? Assessment: * Assessment: 1.?Right foot pain - M79.671 ???2.?Pain of right heel - M79.671???3.?Type 2 diabetes mellitus with diabetic polyneuropathy - E11.42???4.?Plantar fasciitis - M72.2???5.?Xerosis of skin - L85.3???Specify :Acute problem, Uncomplicated (3),Rx Management (4)???6.?Other hammer toe(s) (acquired), right foot - M20.41 (Primary)???Specify :Chronic problem, Worse (4),Rx Management (4)???7.?Other hammer toe(s) (acquired), left foot - M20.42???Specify :Chronic problem, Worse (4),Rx Management (4)??? Plan: * Treatment: 2.?Type 2 diabetes mellitus with diabetic polyneuropathy?Procedure: 55168-FAGM SKIN LESIONS, 2 TO 4 ?Procedure: T2420-DBLFSKRH DYSTROPHIC NAILS ANY # 3.?Xerosis of skin? Start Ammonium Lactate Cream, 12 %, 1 application, Externally to affected areas of dry skin to feet except for between the toes, Twice a day, 30 days, 280, Refills 3.?? * Procedures:?Keratoma Treatment:?Parring or Cutting of Benign Hyperkeratotic Lesion(s)?(-56) 2-4 Lesions - Due to the at risk nature of the patients medical condition as documented in the exam findings, performance of this keratoderma treatment is medically necessary as its management by an unskilled/untrained nonprofessional would put this patients foot and overall health at risk. Therefore, the benign hyperkeratotic lesions, ( 2__ ) in total, locations as stated and described in the exam ( plantar medial heels b/l), were pared, and/or cut utilizing a sterile 15 blade, tissue nippers, and/or power dremel instrumentation by the physician of record - [id number].?Nail Reduction:?Nail Reduction?(-27) Trimming of all dystrophic nails - Due to the at risk nature of the patients medical condition as documented in the exam findings, performance of this nail treatment is medically necessary as its management by an unskilled/untrained nonprofessional would put this patients foot and overall health at risk. Therefore, the dystrophic nails, in locations as stated and described in the exam ( TA, T1, T2, T3, T4, T5, T6, T7, T8, T9,? ), were debrided by the phisician of record to reduce/remove overall nail length and girth, by manual and electrical means with use of a nail nipper and/or dremel, to more viable healthy nail plate or bed tissue - G0127.? * Procedure Codes:?G0127 GIULIANA ING DYSTROPHIC NAILS ANY #, Modifiers: XS 94041 TRIM SKIN LESIONS, 2 TO 4, Modifiers: XS * Preventive Medicine:? ??Counseling:?Discussion:?-14: Office or other outpatient visit for the evaluation and management of an established patient, which required a medically appropriate history and/or examination and MODERATE level of DECISION MAKING for: 1 OR MORE CHRONIC PROBLEM(S) THATS WORSENING, 2 STABLE CHRONIC PROBLEMS, A NEWLY DIAGNOSED PROBLEM WITH UNCERTAIN PROGNOSIS, AN ACUTE COMPLICATED INJURY WITH MULTIPLE TREATMENT OPTIONS, OR AN ACUTE PROBLEM WITH ACCOMPANYING SYSTEMIC SYMPTOMS, THAT POSE(S) A MODERATE RISK OF MORBIDITY. THIS CONDITION MAY ALSO INCLUDE RX DRUG MANAGEMENT, OR A DECISON FOR MINOR SURGERY. The visit on the day of the encounter encompassed interpreting the data and educating the patient as to the nature of their condition, treatment options available according to their individual PMH, meds, allergies, and overall health/living conditions, as well as any potential risks or complications that may occur from a failure to adhere to, and participate in, the recommended course of therapy. The discussion included a complete verbal, and/or written explanation of the examination results, any x-rays taken, the proposed diagnosis, and outline of the treatment plan. A schedule for future care needs was also explained. The patient verbalized an understanding of the instructions at this time and agreed to be an active participant in their treatment. If the patient should think of any questions or concerns after the visit, I have encouraged the patient to call the office.?Digital Surgery:?We elected to try conservative treatment at the present time, due to the medical history.?Digital Treatment:?HT- I explained to the patient the possible etiologies of Hammertoes, including genetics/foot type/shoegear/activity level/exercise routine and the risks/benefits of all the different treatment options for their pain including: No treatment at all, Rest, Ice, New/supportive/wider/deeper Shoe gear, Digital Padding/Strapping/Taping/Bracing/Gel protective sleeves, Foot/Ankle AFO Bracing, Stretching exercises, Deep Tissue Massage, Arch support/shoe inserts with splay metatarsal padding, and Custom orthoses. I insisted that any digital devices be removed daily and not worn overnight for safety. The patient is to carefully examine the toes daily for any skin irritation while using any splinting or padding device. The advantages and disadvantages of each option were discussed and the patients questions re: shoe gear, padding, custom vs prefabricated inserts, activity level, and consistency in home treatment regimens for optimal success were answered to their verbally confirmed satisfaction, Recomm, rest, ice, proper shoegear, padding, orthotics, anti-inflammatories or tylenol as tolerated, topical analgesics, cortisone injections.?Heel pain:?Discussed other tx options for the patients condition, Given recent successful results to treatment, the patient wishes to continue with the present plan for their condition.?Shoe Gear Counseling:?SHOE Rx - The patient was counseled in great detail on their muscoloskeletal foot and toe deformities which coincided with the dermatological presentations visualized on exam. We discussed how their deformities put the integrity of their feet at risk for potential pedal complications which makes the accomidative diabetic shoes and cutomizable inserts medically necessary. We discussed the different shoe and insert treatment types and options, as well as the important advantages for adhering to regularly wearing these accomidative devices daily. The patient was made aware of the fact that a failure to abide by these recommedations may be deleterious to their foot health as they are able to prevent many pedal complications such as skin irritation, skin ulceration, infection, and even loss of toe/foot/leg/or life. Time was also spent with the patient dispensing and discussing proper diabetic footcare techniques including daily skin moisturization, daily foot inspection for any interruption in skin integrity including open lesions, or sign of infection such as redness/malodor/drainage/swelling. Also discussed and recommended were procedures regarding daily shoe inspection for the presence of internal foreign bodies as well as any visualized irregular shoe or insert wear. Patient questions re: shoes, inserts, and self foot inspections were answered to their satisfaction as the patient verbally confirmed a full understanding of the above information. A Rx for Extra Depth Orthopedic Shoes with 3 pair of custom heat-molded inserts was dispensed.?Xerosis:?The patient was counseled on the diagnosis, potential etiologies, and treatment options for their skin condition. We discussed the risks and benefits of each option from performing no treatment, to utilizing OTC topical skin creams/ointments, to utilizing prescription topical creams/ointments, to utilizing customized compounded topical medications and use of nocturnal occlusion with any/all previously detailed therapies. We discussed the advantages and disadvantages of each possible treatment and importance for adherence to all the recommended therapies for optimum success and avoid potential complications such as open sore/infection/possible hospitalization. We discussed the potential effectiveness of each topical preparation as well as each ones possible side effects and/or patient medication interactions. Patient questions re: use, dosage, successful outcomes, and application consistency were reviewed and the patient verbalized that all answers were clearly understood. The patient has decided to apply Rx skin creams to their feet save the interspaces while paying special attention to the heels. Such was sent to their pharmacy at the time of visit.? ??Screening/Special Tests:?Fall Risk?Screening:?No falls in the past year ?FALLS: Screening for Future Fall Risk?Have you had any falls with injury in the past year??No ???0127. * Follow Up:?2 Months * Images: * Sign off status: Completed true * Provider:?Adrienne Post DPM Date:?2024 Generated for Felisha heck/Syl/Jesseniaitting on:?11/13/2024 12:59 PM EST History and Physical Notes * HPI (History of Present Illness) Category Sub-Category Detail Notes Category Not es Toe pain Location: B/L feet Duration: several years Course: worse Aggravated by: shoes, any pressure Treatments: change in shoes Skin problems Nature: dryness , scaling Location: B/L Duration: several days Course: worse At Risk footcare Pt States Last PCP Visit: Date: 4 Foot Pain Nature: aching , sharp , shooting Location: Outside , Rearfoot , Midfoot , RIGHT Duration: several months Onset: denies trauma Course: worse since broken l eg leg Aggravated: standing , walking , increased pain in am or after rest Treatments: cortisone injection (2), meloxicam(given for wrist helped with the foot) Severity/Quality: moderate Examination Category Sub-Category Detail Notes Category Not es Heel Pain INSPECTION REVEALS: Increased Pa in on palpation to Lateral band of Plantar Fascia and Lateral Calcaneal Tubercle , RIGHT foot Neurological SENSORY: Neurological exa m demonstrates, reduced light touch sensation, reduced sharp/dull discrimination , reduced vibration sensation, in a stocking fashion, B/L, 5.07 monofilament test performed at plantar aspects of 5 varied sites per foot shows sensation, reduced, B/L DEEP TENDON REFLEXES: Dermatologic SKIN FINDINGS: Skin shows sign( s) of, dryness, scaling, in a stocking fashion, no fissure(s) present, B/L, Skin exam reveals Keratotic lesion(s) located at, Plantar Heel(s), B/L Orthopedic GAIT ABNORMALITY: antalgic FOOT MORPHOLOGY: Decreased Ankle join t dorsiflexion ROM, knee extended FOOTWEAR: worn, non-supportive , worn, non-supportive, shoe gear properties exacerbate patient's foot/toe deformity DIGITAL DEFORMITIES: Digital contracture , PIPJ, 2-5 B/L, incompl-reducible to push-up test, no over, nor underlapping, there is evidence of shoe producing skin irritation TENDONITIS: NO Pain on palpation , inflammation, and fusiform swelling to , Peroneal Complex , RIGHT General Examination GENERAL APPEARANCE: Reveals a pleasant, alert, well nourished, well-developed, well hydrated individual, who demonstrates proper attention to hygiene/body habitus, and is in no acute distress, 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
--- OUTSIDE RECORDS SUMMARY | 2024-11-13 13:00 | XMS_ITS ---
Author Organization [facility] [place] Address [address] [place] [address] Care Team Providers Care Creative Writing English Professor Name Role Phone Adam Cadena Primary Care Provider Unavailab Adrienne Banks Unavailable [phone] Allergies Allergen (clinical drug ingredient) Drug/Non Drug [...] Active Encounters Encounter Location Date Provider Diagnosis [facility] [address] [address] 07/20/2024 Adrienne Post Plan Of Treatment Next Appt Details Provider Name:Adrienne Post , 04/26/2025 10:15:00 AM, [address] [place], [address], Progress Notes * Romy TOPETEDOB: 4 (59 yo F)Acc No.[id number]:07/20/2024 Progress Notes Patient:?Romy TOPETE Provider:?Adrienne Post DPM :1965???Age:59 Y???Sex:Female D ate:07/20/2024 Address:[address] [place] [id number] Pcp:Adam Cadena Subjective: * Chief Complaints: * [...] Post DPM Date:?2023 Generated for Felisha heck/Syl/Nate on:?11/13/2024 12:59 PM EST
--- OUTSIDE RECORDS SUMMARY | 2024-11-13 13:00 | XMS_ITS | Clinical Summary ---
Author Organization [facility] Address [address] [place] [address] Phone Care Team Providers Care Aerial Sprayer Name Role Phone Adam Cadena Primary Care Provider [phone] Allergies Active Allergy Reactions Criticality Noted Date Comments Ralph Inhibitors Other 08/13/2024 Cannot take with plasmaforesis Azithromycin Hives 08/13/2024 Flu Virus Vaccine Tv 2014- (18 Yr And Up),Recomb Unknown 10/24/2023 Immune Globulin,Gamma (Igg) Human Other 04/03/2023 Other Reaction(s): affects kidneys- told to avoid Affects kidney Idghsko-Yci-Akk Reductase Inhibitors Unknown Medium 01/30/2019 Other Reaction(s): elev lfts Affect Liver Medications cycloSPORINE 0.05 % drops Administer 1 drop into both eyes 1 (one) time each day. 05/07/20 24 Active docosahexaenoic acid-epa 120-180 mg capsule Take 1 tablet by mouth 1 (one) time each day. Active butalbital-acet aminophen-caffe ine-codeine (Fioricet with Codeine) 93-314-20-30 mg capsule Take 1 capsule by mouth if needed. 02/07/20 12 Active metFORMIN (GLUCOPHAGE) 500 mg tablet Take 4 tablets (2,000 mg total) by mouth 1 (one) time each day. 05/28/20 13 Active ZINC ORAL Take 50 mg by mouth at bedtime. 01/26/20 22 Active cholecalciferol (VITAMIN D-3) 50 mcg (2,000 unit) capsule Take 50 mcg by mouth 1 (one) time each day. 06/23/20 24 Active acetaminophen (TYLENOL) 500 mg tablet Take 1 tablet (500 mg total) by mouth every 6 hours as needed. Active amLODIPine (NORVASC) 2.5 mg tablet Take 1 tablet (2.5 mg total) by mouth 1 (one) time each day. Active ammonium lactate (LAC-HYDRIN FIVE TOP) Apply 1 Application topically 1 (one) time each day. 05/07/20 24 Active diclofenac (VOLTAREN) 75 mg EC tablet Take 1 tablet (75 mg total) by mouth 2 (two) times a day if needed. with meals Active insulin degludec (TRESIBA) 100 unit/mL injection Inject 30 Units under the skin 1 (one) time each day. 04/02/20 24 Active estradioL (ESTRACE) 0.01 % (0.1 mg/gram) vaginal cream INSERT 1 G PER VAGINA NIGHTLY FOR 2 WEEKS THEN 2 TIMES PER WEEK THEREAFTER 10/17/19 24 Active Mounjaro 7.5 mg/0.5 mL injection Inject 0.5 mL (7.5 mg total) under the skin every 7 (seven) days. Active HumaLOG KwikPen Insulin 100 unit/mL injection pen PLEASE SEE ATTACHED FOR DETAILED DIRECTIONS Active Synthroid 200 mcg tablet Take 1 tablet (200 mcg total) by mouth 1 (one) time each day in the morning. 05/06/20 24 Active ketorolac (ACULAR) 0.5 % ophthalmic solution Administer 1 drop into both eyes. 05/07/20 24 Active LORazepam (ATIVAN) 1 mg tablet Take 0.5 tablets (0.5 mg total) by mouth. 08/05/20 24 Active mercaptopurine (PURINETHOL) 50 mg tablet Take 1 tablet (50 mg total) by mouth 1 (one) time each day Active valACYclovir (VALTREX) 500 mg tablet Take 1 tablet (500 mg total) by mouth daily. 01/10/20 12 Active insulin aspart, niacinamide, (Fiasp FlexTouch U-100 Insulin) 100 unit/mL (3 mL) injection pen 2-4 units, subcutaneously , up to tid AC, or as directed, plus 2 units to prime pen with each dose. 04/13/20 24 Active fluticasone propionate (FLONASE) 50 mcg/actuation nasal spray SPRAY 2 SPRAYS INTO EACH NOSTRIL DAILY FOR 30 DAYS Active fluconazole (DIFLUCAN) 150 mg tablet Take 1 tablet (150 mg total) by mouth. 10/17/19 Active docusate sodium (COLACE) 50 mg capsule Take 1 capsule (50 mg total) by mouth 2 (two) times a day. Active carvediloL (COREG) 3.125 mg tabletIndicatio ns:Portal hypertension (CMS/HCC) Take 1 tablet (3.125 mg total) by mouth 2 (two) times a day with meals. 180 each 3 10/16/19 25 2025 Active Motegrity 2 mg tabletIndicatio ns:Constipation , unspecified constipation type Take 1 tablet by mouth 1 (one) time each day. 90 tablet 1 10/30/19 25 2024 Active omeprazole (PriLOSEC) [address] capsuleIndicati ons:Gastroesoph ageal reflux disease without esophagitis TAKE 1 CAPSULE BY MOUTH TWICE A DAY 180 capsule 4 11/10/19 Active omeprazole (PriLOSEC) [address] capsule Take 1 capsule (40 mg total) by mouth 2 (two) times a day. 2024 Discontinued Motegrity 2 mg tablet Take 1 tablet by mouth 1 (one) time each day. 2024 Discontinued(R eorder) carvediloL (COREG) 3.125 mg tabletIndicatio ns:Portal hypertension (CMS/HCC) TAKE 1 TABLET BY MOUTH TWICE A DAY WITH MEALS 180 tablet 1 09/07/20 24 2024 Discontinued(R eorder) Active Problems Problem Noted Date Diagnosed Date Anxiety 01/30/2019 Chronic headache 01/30/2019 Chronic inflammatory demyelinating polyneuritis 01/30/2019 Overview (08/28/2024): Plasmapheresis q 4wks; Dr. Fisher GERD (gastroesophageal reflux disease) 9 Hyperlipidemia 01/30/2019 Hypothyroidism 01/30/2019 Restless leg syndrome 01/30/2019 Rheumatoid arthritis, adult 01/30/2019 Type 2 diabetes mellitus without complication Cough 01/26/2019 Dyspnea on exertion 01/26/2019 Encounters Date Type Department Care Team Description 11/06/2024 Telephone Gastroenterology - [address] [place] [phone] Mariza Simpson [place] 11/04/2024 9:10 AM EST - 11/04/2024 11:59 PM EST Hospital Encounter [facility] Ultrasound [address] [place] [address] Other cirrhosis of liver (CMS/HCC) Discharge Disposition: Home or Self Care 10/16/2024 8:50 AM EST Lab Draw Station - [address] [address] Other cirrhosis of liver (CMS/HCC) 10/16/2024 8:30 AM EST Office Visit Gastroenterology - [address] [address] Libra Finney MD Other cirrhosis of liver (CMS/HCC) (Primary Dx) 08/27/2024 Telephone Gastroenterology - [address] [address] Libra Finney MD 08/14/2024 Telephone Gastroenterology - [address] [address] Libra Finney MD 08/13/2024 11:02 AM EST Anesthesia Event [facility] Endoscopy [address] [place] [address] Ramakrishna Dacosta DO 08/13/2024 9:21 AM EST - 08/13/2024 11:59 PM EST Hospital Encounter [facility] Endoscopy [address] [place] [address] Libra Finney MD 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) Discharge Disposition: Home or Self Care from Last 3 Months Surgical History Surgery Date Site/Laterality Comments HAND SURGERY 09/2014 Right PROCEDURE: HISTORICAL HAND SURGERY; COMMENT: thumb; several hand surgeries ELBOW SURGERY Left PROCEDURE: HISTORICAL ELBOW SURGERY OTHER SURGICAL HISTORY Left PROCEDURE: HISTORY OTHER; COMMENT: hip, [facility] Right PROCEDURE: HISTORICAL KNEE SURGERY ANKLE SURGERY Bilateral PROCEDURE: HISTORICAL ANKLE SURGERY TONSILLECTOMY PROCEDURE: HISTORICAL TONSILLECTOMY; COMMENT: & adenoidectomy BOWEL RESECTION 09/23/2011 - 09/22/2012 PROCEDURE: HISTORICAL BOWEL RESECTION HYSTERECTOMY PROCEDURE: HISTORICAL HYSTERECTOMY HERNIA REPAIR PROCEDURE: HISTORICAL HERNIA REPAIR/ING BLADDER SUSPENSION PROCEDURE: HISTORICAL BLADDER SUSPENSION OTHER SURGICAL HISTORY PROCEDURE: HISTORY OTHER; COMMENT: several rectal surgeries SHOULDER SURGERY 08/2017 Left PROCEDURE: HISTORICAL SHOULDER SURGERY; COMMENT: bone spur & RTC; Luber ESOPHAGOGASTRODUODENOSCOPY 08/28/2024 grade 1 gastric varices ESOPHAGOGASTRODUODENOSCOPY 04/08/2012 retained food, otherwise nl COLONOSCOPY 11/11/2015 surgical changes, tics, hemorrhoids- 10 yr recall COLONOSCOPY 06/23/2009 tics, hemorrhoids, ESOPHAGOGASTRODUODENOSCOPY 06/09/2019 all nl bx Medical History Medical History Date Comments Hypothyroidism 01/30/2019 DX:Hypothyroidis m Rheumatoid arthritis, adult ([facility]/HCC) 01/30/2019 DX:Rheumatoid arthritis, adult ([facility]) Anxiety 01/30/2019 DX:Anxiety GERD (gastroesophageal reflux disease) 01/30/2019 DX:GERD (gastroesophageal reflux disease) Hyperlipidemia 01/30/2019 DX:Hyperlipidemi a Restless leg syndrome 01/30/2019 DX:Restles s leg syndrome Chronic headache 01/30/2019 DX:Chronic head ache History of diverticulitis of colon 01/30/2019 DX:History of diverticulitis of colon; COMMENT: 2011 s/p resection Type 2 diabetes mellitus wit hout complication ([facility]) 01/30/2019 DX:Type 2 diabetes mellitus without complication ([facility]) Chronic inflammatory demyeli nating polyneuritis ([facility]) 01/30/2019 DX:Chronic inflammatory demy elinating polyneuritis ([facility]); COMMENT: Plasmapheresis q 4wks; Dr. Fisher IBS (irritable bowel syndrome) Gastroparesis Metabolic dysfunction-associ ated steatotic liver disease ([facility]AS[facility]) Family History Medical History Relation Name Comments Lung cancer Father Leukemia; PVD Diabetes Mother CHF, CAD, Asthm a, Graves disease Relation Name Status Comments Father Mother Social History Tobacco Use Types Packs/Day Years [...] Orientation Straight 10/23/2024 10 :58 AM EST Obstetrics History Last Filed Vital Signs Vital Sign Reading Time Taken Comments Blood Pressure 125/70 08/13/2024 11:31 AM EST Pulse 82 08/13/2024 11:31 AM EST Temperature 36.8 ??C (98.2 ??F) 08/13/2024 11:[address] Respiratory Rate 18 08/13/2024 11:31 AM EST Oxygen Saturation 98% 08/13/2024 11:31 AM EST Inhaled Oxygen Concentration - - Weight 84.4 kg (186 lb) 10/16/2024 8:18 AM EST Height 170.2 cm (5' 7 ) 10/16/2024 8:18 AM EST Body Mass Index 29.13 10/16/2024 8:18 AM EST Plan of Treatment Health Maintenance Due Date Last Done Comments Breast Cancer Screening 1965 Diabetes: Annual Foot Exam 02/03/1974 Diabetes: Annual Retina Eye Exam 02/03/1974 DTaP,Tdap,and Td Vaccines (1 - Tdap) 02/03/1983 Hepatitis A Vaccines (1 of 2 - Risk 2-dose series) 02/03/1983 Pneumococcal Vaccine: 50+ Years (1 of 2 - PCV) 02/03/1983 Pneumococcal Vaccine: Pediatrics (0 to 5 Years) and At-Risk Patients (6 to 64 Years) (1 of 2 - PCV) 02/03/1983 Cervical Cancer Screening: Pap Smear 02/03/1985 Zoster Vaccines (1 of 2) 02/03/2014 Cholesterol Screening (Lipid Panel) 08/27/2022 Depression Screening 08/27/2022 HIV Screening 08/27/2022 Hepatitis C Screening 08/27/2022 Medicare Annual Wellness Visit 08/27/2022 Social Influencers of Health Screening 08/27/2022 Diabetes: Annual Urine Albumin-Creatinine Ratio (uACR) 08/30/2022 Diabetes: Blood Sugar Control Test (HGBA1C) 08/30/2022 Hepatitis B Vaccines (1 of 3 - Risk 3-dose series) 2024 RSV Immunization Patients 60+ Years Old (1 - Risk 60-74 years 1-dose series) 2024 COVID-19 Vaccine ( season) 2024 08/24/2021, 08/02/2021, 10/23/2020, Additional history exists Influenza Vaccine (#1) 2024 Diabetes: Annual GFR (Glomerular Filtration Rate) 10/16/2025 10/16/2024, 11/19/2023, 07/11/2023 Colorectal Cancer Screening: Colonoscopy 10/16/2034 10/16/2024, 08/28/2024 HIB Vaccines Aged Out No longer eligi ble based on patient's age to complete this topic HPV Vaccines Aged Out No longer eligi ble based on patient's age to complete this topic IPV Vaccines Aged Out No longer eligi ble based on patient's age to complete this topic MMR Vaccines Aged Out No longer eligi ble based on patient's age to complete this topic Meningococcal ACWY Vaccine Aged Out N o longer eligible based on patient's age to complete this topic Meningococcal B Vacine Aged Out No lo nger eligible based on patient's age to complete this topic RSV Immunization Patients Under 20 months Aged Out No longer eligible based on patient's age to complete this topic Varicella Vaccines Aged Out No longer eligible based on patient's age to complete this topic Procedures Procedure Name Priority Date/Time Associated Diagnosis Comments US ABDOMEN LIMITED Routine 11/04/2024 9: 49 AM EST Other cirrhosis of liver (CMS/HCC) COLONOSCOPY Routine 10/16/2024 9:55 AM EST EXTERNAL ENDOSCOPY REPORT Routine 10/16/2024 9:53 AM EST CBC WITH AUTO DIFFERENTIAL Routine 10/16/2024 8:52 AM EST Other cirrhosis of liver (CMS/HCC) PROTHROMBIN TIME WITH INR Routine 10/16/2024 8:52 AM EST Other cirrhosis of liver (CMS/HCC) COMPREHENSIVE METABOLIC PANEL Routine 10/16/2024 8:52 AM EST Other cirrhosis of liver (CMS/HCC) CBC AND DIFFERENTIAL Routine 10/16/2024 8:52 AM EST Other cirrhosis of liver (CMS/HCC) ALPHA FETOPROTEIN TUMOR MARKER Routine 10/16/2024 8:52 AM EST Other cirrhosis of liver (CMS/HCC) COLONOSCOPY Routine 08/28/2024 2:52 PM EST EGD Routine 08/13/2024 11:10 AM EST 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 Code 11965 G9551. -------- FINAL REPORT -------- Dictated By: Kirt Moore Dictated Date: 11/06/2024 10:25 ET Assigned Physician: Kirt Moore Reviewed and Electronically Signed By: Kirt Moore Signed Date: 11/06/2024 10:29 ET Workstation ID: [id number] Transcribed By: Self Edit Transcribed Date: 11/06/2024 [...] pancreas isincompletely evaluated on this study. Code 37617 G9551. -------- FINAL REPORT -------- Dictated By: Kirt Moore Dictated Date: 11/06/2024 10:25 ET Assigned Physician: Kirt Moore Reviewed and Electronically Signed By: Kirt Moore Signed Date: 11/06/2024 10:29 ET Workstation ID: [id number] Transcribed By: Self Edit Transcribed Date: 11/06/2024 10:25 ET us Libra Finney [place] [facility] [place] Final Result * COLONOSCOPY (10/16/2024 9:55 AM EST) Only the most recent of2 resultswithin the time period is included. Anatomical Region Laterality Modality Endoscopy us Historical Provider GI~PROCEDURE ORDERABLES F inal Result * External Endoscopy (10/16/2024 9:53 AM EST) Anatomical Region Laterality Modality Endoscopy us Historical Provider GI~PROCEDURE ORDERABLES F inal Result * (ABNORMAL) CBC auto differential (10/16/2024 8:52 AM EST) WBC 3.2(L) 4.8 - 10.8 K/mcL LAB HEMETOLOGY METHOD 10/16/2024 9:11 AM [facility] RBC 4.00 3.80 - 4.80 M/mcL LAB HEMETOLOGY METHOD 10/16/2024 9:11 AM [facility] Hemoglobin 11.8 11.5 - 16.0 g/dL LAB HEMETOLOGY METHOD 10/16/2024 9:11 AM [facility] Hematocrit 35.0 35.0 - 47.0 % LAB HEMETOLOGY METHOD 10/16/2024 9:11 AM [facility] MCV 88.2 79.0 - 98.0 FL LAB HEMETOLOGY METHOD 10/16/2024 9:11 AM [facility] MCH 29.7 27.0 - 32.0 pcg LAB HEMETOLOGY METHOD 10/16/2024 9:11 AM [facility] MCHC 33.7 32.0 - 37.0 g/dL LAB HEMETOLOGY METHOD 10/16/2024 9:11 AM [facility] RDW 13.8 11.0 - 15.0 % LAB HEMETOLOGY METHOD 10/16/2024 9:11 AM [facility] Platelets 122(L) 130 - 400 K/mcL LAB HEMETOLOGY METHOD 10/16/2024 9:11 AM [facility] MPV 10.1 7.0 - 11.0 FL LAB HEMETOLOGY METHOD 10/16/2024 9:11 AM [facility] NRBC 0.0 <1.0 % LAB HEMETOLOGY METHOD 10/16/2024 9:11 AM [facility] NRBC Absolute 0.00 <0.10 K/mcL LAB HEMETOLOGY METHOD 10/16/2024 9:11 AM [facility] Neutrophils Relative 59.3 % LAB HEMETOLOGY METHOD 10/16/2024 9:11 AM [facility] Lymphocytes Relative 31.3 % LAB HEMETOLOGY METHOD 10/16/2024 9:11 AM [facility] Monocytes Relative 6.6 % LAB HEMETOLOGY METHOD 10/16/2024 9:11 AM [facility] Eosinophils Relative 1.6 % LAB HEMETOLOGY METHOD 10/16/2024 9:11 AM [facility] Basophils Relative 0.6 % LAB HEMETOLOGY METHOD 10/16/2024 9:11 AM [facility] Immature Granulocytes Relative 0.6 % LAB HEMETOLOGY METHOD 10/16/2024 9:11 AM [facility] Neutrophils Absolute 1.89 1.50 - 7.00 K/mcL LAB HEMETOLOGY METHOD 10/16/2024 9:11 AM [facility] Lymphocytes Absolute 1.00 1.00 - 5.00 K/mcL LAB HEMETOLOGY METHOD 10/16/2024 9:11 AM [facility] Monocytes Absolute 0.21 0.20 - 1.00 K/mcL LAB HEMETOLOGY METHOD 10/16/2024 9:11 AM [facility] Eosinophils Absolute 0.05 0.00 - 0.50 K/mcL LAB HEMETOLOGY METHOD 10/16/2024 9:11 AM [facility] Basophils Absolute 0.02 0.00 - 0.20 K/mcL LAB HEMETOLOGY METHOD 10/16/2024 9:11 AM EST [facility] Immature Granulocytes Absolute 0.02 0.00 - 0.03 K/[facility] LAB HEMETOLOGY METHOD 10/16/2024 9:11 AM EST [facility] Blood Venous blood specimen / Unknown Venipuncture / Unknown 10/16/2024 8:52 AM EST 10/16/2024 8:59 AM EST Libra Finney MD LAB BLOOD ORDERABLES Final Res ult [facility] [address] [place] [address], * Alpha fetoprotein tumor marker (10/16/2024 8:52 AM EST) AFP <2.5 0.0 - 8.0 ng/mL LAB CHEMISTRY METHOD 10/16/2024 9:46 AM EST [facility] Blood Venous blood specimen / Unknown Venipuncture / Unknown 10/16/2024 8:52 AM EST 10/16/2024 8:58 AM EST Narrative [facility] - 10/16/2024 9:46 AM EST The Siemens Advia Centaur Chemiluminescent Immunoassay is used. Results obtained with different assay methods or kits cannot be used interchangeably. Results cannot be interpreted as absolute evidence of the presence or absence of malignant disease. Libra Finney MD LAB BLOOD ORDERABLES Final Res ult [facility] [address] [place] [address], * Prothrombin time with INR (10/16/2024 8:52 AM EST) Protime 12.1 10.6 - 13.9 sec LAB COAGULATION METHOD 10/16/2024 9:09 AM EST [facility] INR 1.0 LAB COAGULATION METHOD 10/16/2024 9:09 AM [facility] Blood Venous blood specimen / Unknown Venipuncture / Unknown 10/16/2024 8:52 AM EST 10/16/2024 8:58 AM EST us Libra Finney MD LAB BLOOD ORDERABLES Final Res ult [facility] [address] [place] [address], [place] [phone] * (ABNORMAL) Comprehensive metabolic panel (10/16/2024 8:52 AM EST) Sodium 140 133 - 145 mmol/L LAB CHEMISTRY METHOD 10/16/2024 9:53 AM [facility] Potassium 3.9 3.5 - 5.5 mmol/L LAB CHEMISTRY METHOD 10/16/2024 9:53 AM [facility] Chloride 112(H) 96 - 110 mmol/L LAB CHEMISTRY METHOD 10/16/2024 9:53 AM [facility] CO2 27 21 - 32 mmol/L LAB CHEMISTRY METHOD 10/16/2024 9:53 AM [facility] Anion Gap 1(L) 3 - 11 LAB CHEMISTRY METHOD 10/16/2024 9:53 AM [facility] Glucose 171(H) 70 - 100 mg/dL LAB CHEMISTRY METHOD 10/16/2024 9:53 AM [facility] BUN 10 5 - 25 mg/dL LAB CHEMISTRY METHOD 10/16/2024 9:53 AM [facility] Creatinine 0.68 0.50 - 1.10 mg/dL LAB CHEMISTRY METHOD 10/16/2024 9:53 AM [facility] eGFR 100 >=60 mL/min/1. 73m2 LAB CHEMISTRY METHOD 10/16/2024 9:53 AM [facility] Comment:Calculation based on the??Chronic Kidney Disease Epidemiology Collaboration (CKD-EPI) equation refit??without adjustment for race. BUN/Creatinine Ratio 14.7 LAB CHEMISTRY METHOD 10/16/2024 9:53 AM [facility] Calcium 9.1 8.5 - 10.5 mg/dL LAB CHEMISTRY METHOD 10/16/2024 9:53 AM [facility] AST (SGOT) 18 10 - 42 unit/L LAB CHEMISTRY METHOD 10/16/2024 9:53 AM [facility] ALT (SGPT) 24 10 - 60 unit/L LAB CHEMISTRY METHOD 10/16/2024 9:53 AM [facility] Alkaline Phosphatase 61 42 - 121 unit/L LAB CHEMISTRY METHOD 10/16/2024 9:53 AM [facility] Total Protein 6.3 6.0 - 8.0 g/dL LAB CHEMISTRY METHOD 10/16/2024 9:53 AM [facility] Albumin 4.1 3.2 - 5.0 g/dL LAB CHEMISTRY METHOD 10/16/2024 9:53 AM [facility] Total Bilirubin 0.3 0.0 - 1.4 mg/dL LAB CHEMISTRY METHOD 10/16/2024 9:53 AM [facility] Blood Venous blood specimen / Unknown Venipuncture / Unknown 10/16/2024 8:52 AM EST 10/16/2024 8:58 AM EST us Libra Finney MD LAB BLOOD ORDERABLES Final Res ult [facility] [address] [place] [address], * EGD Anesthesia - MAC; [facility] ENDOSCOPY (08/13/2024 11:10 AM EST) Anatomical Region Laterality Modality Endoscopy 08/13/2024 10:5 1 AM EST Impressions 08/13/2024 11:18 AM EST - Normal esophagus. ? - Type 1 isolated gastric varices (IGV1, varices ? located in the fundus), without bleeding. ? - Normal examined duodenum. ? - No specimens collected. Recommendation: ?- Return to GI office at appointment to be scheduled. ? - Will discuss with patient starting nadolol or ? carvedilol for primary prophylaxis to prevent variceal ? bleeding. Narrative 08/13/2024 11:18 AM EST [facility] GI Patient Name: Romy Topete Procedure Date: 08/13/2024 10:51 AM Date of : 1965 Age: 59 Gender: Female Note Status: Finalized Attending MD: Libra Finney MD, Procedure Date No Time: 08/13/2024 Procedure: ? Upper GI endoscopy Indications: ? Cirrhosis rule out esophageal varices Providers: ? Libra Finney MD Referring MD: ?TUSHAR Jacobo Medicines: ? Propofol per Anesthesia Complications: ? No immediate complications. Estimated Blood Loss: ? Estimated blood loss: none. Procedure: ? Pre-Anesthesia Assessment: ? - ASA Grade Assessment: III - A patient with severe ? systemic disease. ? After obtaining informed consent, the endoscope was ? passed under direct vision. Throughout the procedure, ? the patient's blood pressure, pulse, and oxygen ? saturations were monitored continuously.The Endoscope ? was introduced through the mouth, and advanced to the ? second part of duodenum. The upper GI endoscopy was ? accomplished without difficulty. The patient tolerated ? the procedure well. Findings: ?The examined esophagus was normal. ? There is no endoscopic evidence of varices in the ? entire esophagus. ? Type 1 isolated gastric varices (IGV1, varices located ? in the fundus) with no bleeding were found in the ? gastric fundus. ? The exam of the stomach was otherwise normal. ? The examined duodenum was normal. Procedure Code(s): ? --- Professional --- ? 04736, Esophagogastroduodenoscopy, flexible, ? transoral; diagnostic, including collection of ? specimen(s) by brushing or washing, when performed ? (separate procedure) Diagnosis Code(s): ? --- Professional --- ? I86.4, Gastric varices ? K74.60, Unspecified cirrhosis of liver CPT copyright 2020 [employer]. All rights reserved. The codes documented in this report are preliminary and upon umbrella tipper machine review may be revised to meet current compliance requirements. Libra Finney MD 08/13/2024 11:17:54 AM This report has been signed electronically.Libra Finney MD Number of Addenda: 0 Note Initiated On: 08/13/2024 10:51 AM Scope In: Scope Out: ? Endoscopy Department at [facility] - [address] [place] [address], ? [place] [address] Procedure Note Libra Finney MD - 08/13/2024 [facility] GI Patient Name: Romy Topete Procedure Date: 08/13/2024 10:51 AM Date of : 1965 Age: 59 Gender: Female Note Status: Finalized Attending MD: Libra Finney MD, Procedure Date No Time: 08/13/2024 Procedure: Upper GI endoscopy Indications: Cirrhosis rule out esophageal varices Providers: Libra Finney MD Referring MD: TUSHAR Jacobo Medicines: Propofol per Anesthesia Complications: No immediate complications. Estimated Blood Loss: Estimated blood loss: none. Procedure: Pre-Anesthesia Assessment: - ASA Grade Assessment: III - A patient with severe systemic disease. After obtaining informed consent, the endoscope was passed under direct vision. Throughout theprocedure, the patient's blood pressure, pulse, and oxygen saturations were monitored continuously.TheEndoscope was introduced through the mouth, and advanced tothe second part of duodenum. The upper GI endoscopy was accomplished without difficulty. The patienttolerated the procedure well. Findings: The examined esophagus was normal. There is no endoscopic evidence of varices in the entire esophagus. Type 1 isolated gastric varices (IGV1, variceslocated in the fundus) with no bleeding were found in the gastric fundus. The exam of the stomach was otherwise normal. The examined duodenum was normal. Procedure Code(s): --- Professional --- 56015, Esophagogastroduodenoscopy, flexible, transoral; diagnostic, including collection of specimen(s) by brushing or washing, when performed (separate procedure) Diagnosis Code(s): --- Professional --- I86.4, Gastric varices K74.60, Unspecified cirrhosis of liver CPT copyright 2020 [employer]. All rights reserved. The codes documented in this report are preliminary and upon umbrella tipper machine reviewmay be revised to meet current compliance requirements. Libra Finney MD 08/13/2024 11:17:54 AM This report has been signed electronically.Libra Finney MD Number of Addenda: 0 Note Initiated On: 08/13/2024 10:51 AM Scope In: Scope Out: [facility] [facility] - [address] [place] [id number] IMPRESSION: - Normal esophagus. - Type 1 isolated gastric varices (IGV1, varices located in the fundus), without bleeding. - Normal examined duodenum. - No specimens collected. Recommendation: - Return to GI office at appointment to bescheduled. - Will discuss with patient starting nadolol or carvedilol for primary prophylaxis to preventvariceal bleeding. us Libra Finney MD GI~PROCEDURE ORDERABLES Final Result from Last 3 Months Insurance [employer] Member Subscriber Plan / Payer (Ef fective 2021-Present) Name:Romy Topete Relation to Subscriber:Self Name:Romy Topete Payer ID:[id number] Group ID:[id number] Type:Not on file Address: [facility] [address] [id number] Care Teams Aerial Sprayer Relationship Specialty Start Date End Date Adam Cadena PA PCP - General Physician Boxing Instructor 08/13/24
--- OUTSIDE RECORDS SUMMARY | 2024-11-13 13:00 | XMS_ITS | Encounter Summary ---
Author Organization [facility] Address [address] [place] [address] Care Team Providers Care Communication Consultant Name Role Phone Adam Cadena Primary Care Provider [phone] Reason for Referral * Imaging (Routine) - Closed Specialty Diagnoses / Procedures Referred By Contac t Referred To Contact Radiology Diagnoses Other cirrhosis of liver (CMS/HCC) Procedures US Abdomen Limited Libra Finney MD [address] [facility] [address] [place] [address] [place] [address] Phone: tel: fax: [facility] Referral ID Status Reason Start Date Expiration Date Visits Re quested Visits Authorized [id number] Closed 10/16/2024 10/16/2025 1 1 Reason for Visit * Reason Comments Cirrhosis Encounter Details Date Type Department Care Team (Late st Contact Info) Description 10/16/2024 8:30 AM EST Office Visit Gastroenterology - [address] [facility] [address] [place] [id number] Libra Finney MD [address] [facility] [address] [place] [address] [place] [id number] Other cirrhosis of liver (CMS/HCC) (Primary Dx) Social History Tobacco Use Types Packs/Day Years [...] AM EST documented as of this encounter Last Filed Vital Signs Vital Sign Reading Time Taken Comments Blood Pressure - - Pulse - - Temperature - - Respiratory Rate - - Oxygen Saturation - - Inhaled Oxygen Concentration - - Weight 84.4 kg (186 lb) 10/16/2024 8:18 AM EST Height 170.2 cm (5' 7 ) 10/16/2024 8:18 AM EST Body Mass Index 29.13 10/16/2024 8:18 AM EST documented in this encounter Progress Notes * Libra Finney MD - 10/16/2024 8:30 AM EST CHIEF COMPLAINT: Cirrhosis History of Present Illness Romy Topete is a 59-year-old woman who was originally referred by TUSHRA Gardiner, now presenting to the gastroenterology department for a follow-up of cirrhosis. She was last seen in the office on 02/27/2024, at which time a CT scan revealed a dilated pancreatic duct with findings suggestive of portal hypertension and cirrhosis. A subsequent MRI on 03/01/2024 showed mild dilation of themain pancreatic duct up to 4 mm, with no stone or mass noted. The MRI also indicated mild cirrhoticmorphology of the liver with background moderate hepatic steatosis, mild splenomegaly, and upper abdominal varices. No suspicious liver lesions were seen. She underwent an upper endoscopy on 08/13/2024, which revealed grade 1 varices located in the fundus with no bleeding. She was started on carvedilol for primary prophylaxis of variceal bleeding. She returns to the office today for routine follow-up. She reports no presence of blood in her stool or black tarry stools. She experiences some nausea but has not had any episodes of vomiting. There are no signs of jaundice or confusion. She also reports no swelling in her ankles or abdomen. She has a history of fatty liver disease and elevated liver function tests throughout her life. Her platelet count has been decreasing, with a recent count of 50,000, but it has since increased to 98,000 last month and 130,000 this month. She recently underwent plasmapheresis at [facility]. She has been advised to discontinue diclofenac and several diabetes medications, and she has been started on insulin. She occasionally consumes alcohol, such as an espresso martini every few months during dinner with her or a frozen drink while on vacation. She has lost a few pounds and feels well overall. She has been taking Mounjaro for the past 6 months buthas not noticed any significant weight loss. She lost about 20 pounds prior to starting Mounjaro and has since lost an additional 6 or 7 pounds. She believes Tresiba may be contributing to her weight gain. ROS: GENERAL: No malaise, significant weight loss or fever HEENT: No changes in hearing or vision, nose bleeds or swallowing problems NECK: No lumps, goiter, pain or significant neck swelling RESPIRATORY: No cough, wheezing or shortness of breath CARDIOVASCULAR: No chest pain, leg swelling or palpitations GI: as per HPI MUSCULOSKELETAL: No joint pain or swelling, back pain, or muscle pain. SKIN: No lesions, rash or itching The remainder of the review of systems is reviewed and negative. PAST MEDICAL HISTORY: Past Medical History: Diagnosis Date Anxiety 01/30/2019 DX:Anxiety Chronic headache 01/30/2019 DX:Chronic headache Chronic inflammatory demyelinating polyneuritis (CMS/HCC) 01/30/2019 DX:Chronic inflammatory demyelinating polyneuritis (HCC); COMMENT: Plasmapheresis q 4wks; Dr. Fisher Gastroparesis GERD (gastroesophageal reflux disease) 01/30/2019 DX:GERD (gastroesophageal reflux disease) History of diverticulitis of colon 01/30/2019 DX:History of diverticulitis of colon; COMMENT: 2012 s/p resection Hyperlipidemia 01/30/2019 DX:Hyperlipidemia Hypothyroidism 01/30/2019 DX:Hypothyroidism IBS (irritable bowel syndrome) Metabolic dysfunction-associated steatotic liver disease (MASLD) Restless leg syndrome 01/30/2019 DX:Restless leg syndrome Rheumatoid arthritis, adult (CMS/HCC) 01/30/2019 DX:Rheumatoid arthritis, adult (HCC) Type 2 diabetes mellitus without complication (CMS/HCC) 01/30/2019 DX:Type 2 diabetes mellitus without complication (HCC) PAST SURGICAL HISTORY: Past Surgical History: Procedure Laterality Date ANKLE SURGERY Bilateral PROCEDURE: HISTORICAL ANKLE SURGERY BLADDER SUSPENSION PROCEDURE: HISTORICAL BLADDER SUSPENSION BOWEL RESECTION 2011 PROCEDURE: HISTORICAL BOWEL RESECTION COLONOSCOPY 11/11/2015 surgical changes, tics, hemorrhoids- 10 yr recall COLONOSCOPY 06/23/2009 tics, hemorrhoids, ELBOW SURGERY Left PROCEDURE: HISTORICAL ELBOW SURGERY ESOPHAGOGASTRODUODENOSCOPY 08/28/2024 grade 1 gastric varices ESOPHAGOGASTRODUODENOSCOPY 04/08/2012 retained food, otherwise nl ESOPHAGOGASTRODUODENOSCOPY 06/09/2019 all nl bx HAND SURGERY Right 09/2014 PROCEDURE: HISTORICAL HAND SURGERY; COMMENT: thumb; several hand surgeries HERNIA REPAIR PROCEDURE: HISTORICAL HERNIA REPAIR/ING HYSTERECTOMY PROCEDURE: HISTORICAL HYSTERECTOMY KNEE SURGERY Right PROCEDURE: HISTORICAL KNEE SURGERY OTHER SURGICAL HISTORY Left PROCEDURE: HISTORY OTHER; COMMENT: hip, IT band cut ; [facility] OTHER SURGICAL HISTORY PROCEDURE: HISTORY OTHER; COMMENT: several rectal surgeries SHOULDER SURGERY Left 08/2017 PROCEDURE: HISTORICAL SHOULDER SURGERY; COMMENT: bone spur & RTC; Luber TONSILLECTOMY PROCEDURE: HISTORICAL TONSILLECTOMY; COMMENT: & adenoidectomy SOCIAL HISTORY: Social History Tobacco Use Smoking status: Former Current packs/day: 0.00 Types: Cigarettes Quit date: 09/23/1990 Years since quittin.0 Smokeless tobacco: Never Substance Use Topics Alcohol use: Not Currently Comment: rare FAMILY HISTORY: Family History Problem Relation Name Age of Onset Diabetes Mother CHF, CAD, Asthma, Graves disease Lung cancer Father Leukemia; PVD ACTIVE MEDICATIONS: Current Outpatient Medications Medication Sig Dispense Refill amLODIPine (NORVASC) 2.5 mg tablet Take 1 tablet (2.5 mg total) by mouth 1 (one) time each day. ammonium lactate (LAC-HYDRIN FIVE TOP) Apply 1 Application topically 1 (one) time each day. zbmljartfa-azapnozqravql-tcqsipyf-codeine (Fioricet with Codeine) 08-016-78-30 mg capsule Take 1 capsule by mouth if needed. carvediloL (COREG) 3.125 mg tablet TAKE 1 TABLET BY MOUTH TWICE A DAY WITH MEALS 180 tablet 1 cholecalciferol (VITAMIN D-3) 50 mcg (2,000 unit) capsule Take 50 mcg by mouth 1 (one) time each day. cycloSPORINE 0.05 % drops Administer 1 drop into both eyes 1 (one) time each day. docusate sodium (COLACE) 50 mg capsule Take 1 capsule (50 mg total) by mouth 2 (two) times a day. estradioL (ESTRACE) 0.01 % (0.1 mg/gram) vaginal cream INSERT 1 G PER VAGINA NIGHTLY FOR 2 WEEKS THEN 2 TIMES PER WEEK THEREAFTER fluticasone propionate (FLONASE) 50 mcg/actuation nasal spray SPRAY 2 SPRAYS INTO EACH NOSTRIL DAILY FOR 30 DAYS insulin degludec (TRESIBA) 100 unit/mL injection Inject 30 Units under the skin 1 (one) time each day. ketorolac (ACULAR) 0.5 % ophthalmic solution Administer 1 drop into both eyes. LORazepam (ATIVAN) 1 mg tablet Take 0.5 tablets (0.5 mg total) by mouth. mercaptopurine (PURINETHOL) 50 mg tablet Take 1 tablet (50 mg total) by mouth 1 (one) time each day metFORMIN (GLUCOPHAGE) 500 mg tablet Take 4 tablets (2,000 mg total) by mouth 1 (one) time each day. Motegrity 2 mg tablet Take 1 tablet by mouth 1 (one) time each day. Mounjaro 7.5 mg/0.5 mL injection Inject 0.5 mL (7.5 mg total) under the skin every 7 (seven) days. omeprazole (PriLOSEC) [address] capsule Take 1 capsule (40 mg total) by mouth 2 (two) times a day. Synthroid 200 mcg tablet Take 1 tablet (200 mcg total) by mouth 1 (one) time each day in the morning. valACYclovir (VALTREX) 500 mg tablet Take 1 tablet (500 mg total) by mouth daily. ZINC ORAL Take 50 mg by mouth at bedtime. acetaminophen (TYLENOL) 500 mg tablet Take 1 tablet (500 mg total) by mouth every 6 hours as needed. diclofenac (VOLTAREN) 75 mg EC tablet Take 1 tablet (75 mg total) by mouth 2 (two) times a day if needed. with meals (Patient not taking: Reported on 10/16/2024) docosahexaenoic acid-epa 120-180 mg capsule Take 1 tablet by mouth 1 (one) time each day. (Patient not taking: Reported on 10/16/2024) fluconazole (DIFLUCAN) 150 mg tablet Take 1 tablet (150 mg total) by mouth. (Patient not taking: Reported on 10/16/2024) HumaLOG KwikPen Insulin 100 unit/mL injection pen PLEASE SEE ATTACHED FOR DETAILED DIRECTIONS (Patient not taking: Reported on 10/16/2024) insulin aspart, niacinamide, (Fiasp FlexTouch U-100 Insulin) 100 unit/mL (3 mL) injection pen 2-4 units, subcutaneously, up to tid AC, or as directed, plus 2 units to prime pen with each dose. (Patient not taking: Reported on 10/16/2024) No current facility-administered medications for this visit. ALLERGIES: Allergies Allergen Reactions Oaciztp-Kac-Qhh Reductase Inhibitors Unknown Other Reaction(s): elev lfts Affect Liver Ralph Inhibitors Other Cannot take with plasmaforesis Azithromycin Hives Flu Virus Vaccine Tv 2015- (18 Yr And Up),Recomb Unknown Immune Globulin,Gamma (Igg) Human Other Other Reaction(s): affects kidneys- told to avoid Affects kidney PHYSICAL EXAM: Visit Vitals Ht 1.702 m (67 ) Wt 84.4 kg (186 lb) BMI 29.13 kg/m?? OB Status Postmenopausal Smoking Status Former BSA 1.96 m?? APPEARANCE: Alert and in no acute distress EYES: PERRLA, conjunctiva and sclera normal. MOUTH/THROAT: no erythema or exudates NECK: Neck supple, no adenopathy HEART: RRR with normal S1 and S2, no murmurs appreciated LUNG: clear to auscultation LYMPH NODES: grossly normal ABDOMEN: soft non tender, no ascites, guarding, or rebound, no organomegaly. RECTAL: Exam deferred. EXTREMITIES: Extremities warm and well perfused SKIN: Skin color, texture, turgor normal. NEURO: Awake, alert and oriented x 3 LABS: 05/06/2024 -B12 333 sodium 141 potassium 4.0 chloride 102 bicarb 23 BUN of 13 creatinine of 0.6 calcium of 10.2 ALT of 62 AST of 52 TSH 0.39 hemoglobin A1c 7.6 CRP less than 3 ESR 16. Patient has had more recent blood work at [facility] I do not have access to that today. In March laboratory data revealed normal iron studies B surface antibody positive consistent with immunity. Hep C negative and have a negative. FibroSure data revealed a fibrosis score of 0.69 consistent with bridging fibrosis F3. Steatosis score was 0.96 consistent with marked or severe steatosis. Remainder of her laboratory data including autoimmune markers were unremarkable. Lab Results Component Value Date WBC 3.2 (L) 10/16/2024 HGB 11.8 10/16/2024 HCT 35.0 10/16/2024 MCV 88.2 10/16/2024 PLT 122 (L) 10/16/2024 IMAGING: MRI 03/01/24 -mild dilation of the main pancreatic duct in the pancreatic head up to 4 mm possibly within the spectrum of normal. No obstructing stone or mass. Small adjacent juxtapapillary duodenal diverticulum. Mildly cirrhotic morphology of the liver with a background moderate hepatic steatosis. Mild splenomegaly and upper abdominal varices suggest portal hypertension.No suspicious lesions or asc ites. Assessment & Plan 1. Cirrhosis. Her condition remains stable, with no signs of decompensation. She is currently on carvedilol for primary prophylaxis of variceal bleeding. The pathophysiology of fatty liver disease and its progression to cirrhosis was discussed. The potential for developing liver cancer was also addressed. She was informed that her slightly low platelet count is not a cause for concern unless it becomes significantly low. She was reassured that most medications can be safely taken with underlying liver disease, although monitoring of liver enzymes or dosage adjustments may be necessary. She was advised to abstain from alcohol, maintain optimal control of her diabetes, blood pressure, and cholesterol levels, and strive for an ideal weight. She was also informed that she can consume grapefruit juice and take Tylenol, provided the dosage does not exceed the recommended amount. However, she was cautioned against excessive use of Advil, Aleve, and Naprosyn. A repeat endoscopy will be scheduled in 1 to 2 years. An ultrasound of her liver will be ordered, and she will be contacted by the radiology department to arrange a convenient time. Laboratory tests will be conducted today, and she will be notified of the results and score by Saturday. Follow-up The patient is scheduled for a follow-up visit in 6 months. Assessment & Plan Other cirrhosis of liver (CMS/HCC) Orders: Alpha fetoprotein tumor marker; Future CBC and differential; Future Comprehensive metabolic panel; Future Prothrombin time with INR; Future US Abdomen Limited; Future Follow up in about 6 months (around 04/15/2025) for Next scheduled follow-up. Board Certified, Gastroenterology Gastroenterology and Hepatology Practice [email or web address] [phone] [place] [address]. [address] [place] [id number] [email or web address] Libra Finney MD documented in this encounter Plan of Treatment Not on file documented as of this encounter Results * US Abdomen Limited [...] is incompletely evaluated on this study. Code 65147 G9551. -------- FINAL REPORT -------- Dictated By: Kirt Moore Dictated Date: 11/06/2024 10:25 ET Assigned Physician: Kirt Moore Reviewed and Electronically Signed By: Kirt Moore Signed Date: 11/06/2024 10:29 ET Workstation ID: [id number] Transcribed By: Self Edit Transcribed Date: 11/06/2024 [...] pancreas isincompletely evaluated on this study. Code 04852 G9551. -------- FINAL REPORT -------- Dictated By: Kirt Moore Dictated Date: 11/06/2024 10:25 ET Assigned Physician: Kirt Moore Reviewed and Electronically Signed By: Kirt Moore Signed Date: 11/06/2024 10:29 ET Workstation ID: [id number] Transcribed By: Self Edit Transcribed Date: 11/06/2024 10:25 ET us Libra Finney MD [facility] [place] US PROCEDURES Final Result * Prothrombin time with INR (10/16/2024 8:52 AM EST) Protime 12.1 10.6 - 13.9 sec LAB COAGULATION METHOD 10/16/2024 9:09 AM EST [facility] INR 1.0 LAB COAGULATION METHOD 10/16/2024 9:09 AM [facility] Blood Venous blood specimen / Unknown Venipuncture / Unknown 10/16/2024 8:52 AM EST 10/16/2024 8:58 AM EST us Libra Finney MD LAB BLOOD ORDERABLES Final Res ult [facility] [address] [place] [address], [place] [phone] * (ABNORMAL) Comprehensive metabolic panel (10/16/2024 8:52 AM EST) Sodium 140 133 - 145 mmol/L LAB CHEMISTRY METHOD 10/16/2024 9:53 AM [facility] Potassium 3.9 3.5 - 5.5 mmol/L LAB CHEMISTRY METHOD 10/16/2024 9:53 AM [facility] Chloride 112(H) 96 - 110 mmol/L LAB CHEMISTRY METHOD 10/16/2024 9:53 AM [facility] CO2 27 21 - 32 mmol/L LAB CHEMISTRY METHOD 10/16/2024 9:53 AM [facility] Anion Gap 1(L) 3 - 11 LAB CHEMISTRY METHOD 10/16/2024 9:53 AM [facility] Glucose 171(H) 70 - 100 mg/dL LAB CHEMISTRY METHOD 10/16/2024 9:53 AM [facility] BUN 10 5 - 25 mg/dL LAB CHEMISTRY METHOD 10/16/2024 9:53 AM [facility] Creatinine 0.68 0.50 - 1.10 mg/dL LAB CHEMISTRY METHOD 10/16/2024 9:53 AM [facility] eGFR 100 >=60 mL/min/1. 73m2 LAB CHEMISTRY METHOD 10/16/2024 9:53 AM [facility] Comment:Calculation based on the??Chronic Kidney Disease Epidemiology Collaboration (CKD-EPI) equation refit??without adjustment for race. BUN/Creatinine Ratio 14.7 LAB CHEMISTRY METHOD 10/16/2024 9:53 AM [facility] Calcium 9.1 8.5 - 10.5 mg/dL LAB CHEMISTRY METHOD 10/16/2024 9:53 AM [facility] AST (SGOT) 18 10 - 42 unit/L LAB CHEMISTRY METHOD 10/16/2024 9:53 AM [facility] ALT (SGPT) 24 10 - 60 unit/L LAB CHEMISTRY METHOD 10/16/2024 9:53 AM [facility] Alkaline Phosphatase 61 42 - 121 unit/L LAB CHEMISTRY METHOD 10/16/2024 9:53 AM [facility] Total Protein 6.3 6.0 - 8.0 g/dL LAB CHEMISTRY METHOD 10/16/2024 9:53 AM [facility] Albumin 4.1 3.2 - 5.0 g/dL LAB CHEMISTRY METHOD 10/16/2024 9:53 AM [facility] Total Bilirubin 0.3 0.0 - 1.4 mg/dL LAB CHEMISTRY METHOD 10/16/2024 9:53 AM [facility] Blood Venous blood specimen / Unknown Venipuncture / Unknown 10/16/2024 8:52 AM EST 10/16/2024 8:58 AM EST us Libra Finney MD LAB BLOOD ORDERABLES Final Res ult [facility] [address] [place] [address], * Alpha fetoprotein tumor marker (10/16/2024 8:52 AM EST) AFP <2.5 0.0 - 8.0 ng/mL LAB CHEMISTRY METHOD 10/16/2024 9:46 AM EST [facility] Blood Venous blood specimen / Unknown Venipuncture / Unknown 10/16/2024 8:52 AM EST 10/16/2024 8:58 AM EST Narrative [facility] - 10/16/2024 9:46 AM EST The Siemens Advia Centaur Chemiluminescent Immunoassay is used. Results obtained with different assay methods or kits cannot be used interchangeably. Results cannot be interpreted as absolute evidence of the presence or absence of malignant disease. us Libra Finney MD LAB BLOOD ORDERABLES Final Res ult [facility] [address] [place] [address], documented in this encounter Visit Diagnoses Diagnosis Other cirrhosis of liver (CMS/HCC)- Primary Other cirrhosis of liver (CMS/HCC) documented in this encounter Historical Medications * This list may reflect changes made after this encounter. docusate sodium (COLACE) 50 mg capsule Take 1 capsule (50 mg total) by mouth 2 (two) times a day. added in this encounter Care Teams Communication Consultant Relationship Specialty Start Date End Date Adam Cadena PA PCP - General Physician Shipper And Receiving 08/13/24 documented as of this encounter
--- OUTSIDE RECORDS SUMMARY | 2024-11-13 13:00 | XMS_ITS | Encounter Summary ---
Author Organization [facility] [place] [address] Care Team Providers Care Fresco Artist Name Role Phone Adam Cadena Primary Care Provider [phone]- [phone] Encounter Details Date Type Department Care Team ([facility] st Contact Info) Description 10/16/2024 8:50 AM EST Lab Draw Station - [address] [facility] [address] [facility] [place] [address] Other cirrhosis of liver (CMS/HCC) Social History Tobacco Use Types Packs/Day Years [...] as of this encounter Progress Notes * Libra Finney MD - 10/16/2024 8:50 AM EST Labs were reviewed and look good! (Platelets up to 122). MELD score is 6. This as low as the score can be! Good news. Very stable. Repeat labs in 6 months. documented in this encounter Plan of Treatment Not on file documented as of this encounter Procedures Procedure Name Priority Date/Time Associated Diagnosis Comments CBC WITH AUTO DIFFERENTIAL Routine 10/16/2024 8:52 [...] (CMS/HCC) documented in this encounter Results * (ABNORMAL) CBC auto differential (10/16/2024 8:52 AM EST) WBC 3.2(L) 4.8 - 10.8 K/mcL LAB HEMETOLOGY METHOD 10/16/2024 9:11 AM [facility] RBC 4.00 3.80 - 4.80 M/mcL LAB HEMETOLOGY METHOD 10/16/2024 9:11 AM [facility] Hemoglobin 11.8 11.5 - 16.0 g/dL LAB HEMETOLOGY METHOD 10/16/2024 9:11 AM [facility] Hematocrit 35.0 35.0 - 47.0 % LAB HEMETOLOGY METHOD 10/16/2024 9:11 AM [facility] MCV 88.2 79.0 - 98.0 FL LAB HEMETOLOGY METHOD 10/16/2024 9:11 AM [facility] MCH 29.7 27.0 - 32.0 pcg LAB HEMETOLOGY METHOD 10/16/2024 9:11 AM [facility] MCHC 33.7 32.0 - 37.0 g/dL LAB HEMETOLOGY METHOD 10/16/2024 9:11 AM [facility] RDW 13.8 11.0 - 15.0 % LAB HEMETOLOGY METHOD 10/16/2024 9:11 AM [facility] Platelets 122(L) 130 - 400 K/mcL LAB HEMETOLOGY METHOD 10/16/2024 9:11 AM [facility] MPV 10.1 7.0 - 11.0 FL LAB HEMETOLOGY METHOD 10/16/2024 9:11 AM [facility] NRBC 0.0 <1.0 % LAB HEMETOLOGY METHOD 10/16/2024 9:11 AM [facility] NRBC Absolute 0.00 <0.10 K/mcL LAB HEMETOLOGY METHOD 10/16/2024 9:11 AM [facility] Neutrophils Relative 59.3 % LAB HEMETOLOGY METHOD 10/16/2024 9:11 AM [facility] Lymphocytes Relative 31.3 % LAB HEMETOLOGY METHOD 10/16/2024 9:11 AM [facility] Monocytes Relative 6.6 % LAB HEMETOLOGY METHOD 10/16/2024 9:11 AM [facility] Eosinophils Relative 1.6 % LAB HEMETOLOGY METHOD 10/16/2024 9:11 AM [facility] Basophils Relative 0.6 % LAB HEMETOLOGY METHOD 10/16/2024 9:11 AM [facility] Immature Granulocytes Relative 0.6 % LAB HEMETOLOGY METHOD 10/16/2024 9:11 AM [facility] Neutrophils Absolute 1.89 1.50 - 7.00 K/mcL LAB HEMETOLOGY METHOD 10/16/2024 9:11 AM [facility] Lymphocytes Absolute 1.00 1.00 - 5.00 K/mcL LAB HEMETOLOGY METHOD 10/16/2024 9:11 AM EST [facility] Monocytes Absolute 0.21 0.20 - 1.00 K/[facility] LAB HEMETOLOGY METHOD 10/16/2024 9:11 AM EST [facility] Eosinophils Absolute 0.05 0.00 - 0.50 K/[facility] LAB HEMETOLOGY METHOD 10/16/2024 9:11 AM [facility] Basophils Absolute 0.02 0.00 - 0.20 K/[facility] LAB HEMETOLOGY METHOD 10/16/2024 9:11 AM [facility] Immature Granulocytes Absolute 0.02 0.00 - 0.03 K/[facility] LAB HEMETOLOGY METHOD 10/16/2024 9:11 AM [facility] Blood Venous blood specimen / Unknown Venipuncture / Unknown 10/16/2024 8:52 AM EST 10/16/2024 8:59 AM EST Libra Finney MD LAB BLOOD ORDERABLES Final Res ult [facility] [address] [place] [address], [place] [phone] * Prothrombin time with INR (10/16/2024 8:52 AM EST) Protime 12.1 10.6 - 13.9 sec LAB COAGULATION METHOD 10/16/2024 9:09 AM EST [facility] INR 1.0 LAB COAGULATION METHOD 10/16/2024 9:09 AM EST [facility] Blood Venous blood specimen / Unknown Venipuncture / Unknown 10/16/2024 8:52 AM EST 10/16/2024 8:58 AM EST us Libra Finney MD LAB BLOOD ORDERABLES Final Res ult [facility] [address] [place] [address], [place] [phone] * (ABNORMAL) Comprehensive metabolic panel (10/16/2024 8:52 AM EST) Sodium 140 133 - 145 mmol/L LAB CHEMISTRY METHOD 10/16/2024 9:53 AM [facility] Potassium 3.9 3.5 - 5.5 mmol/L LAB CHEMISTRY METHOD 10/16/2024 9:53 AM [facility] Chloride 112(H) 96 - 110 mmol/L LAB CHEMISTRY METHOD 10/16/2024 9:53 AM [facility] CO2 27 21 - 32 mmol/L LAB CHEMISTRY METHOD 10/16/2024 9:53 AM [facility] Anion Gap 1(L) 3 - 11 LAB CHEMISTRY METHOD 10/16/2024 9:53 AM [facility] Glucose 171(H) 70 - 100 mg/dL LAB CHEMISTRY METHOD 10/16/2024 9:53 AM [facility] BUN 10 5 - 25 mg/dL LAB CHEMISTRY METHOD 10/16/2024 9:53 AM [facility] Creatinine 0.68 0.50 - 1.10 mg/dL LAB CHEMISTRY METHOD 10/16/2024 9:53 AM [facility] eGFR 100 >=60 mL/min/1. 73m2 LAB CHEMISTRY METHOD 10/16/2024 9:53 AM [facility] Comment:Calculation based on the??Chronic Kidney Disease Epidemiology Collaboration (CKD-EPI) equation refit??without adjustment for race. BUN/Creatinine Ratio 14.7 LAB CHEMISTRY METHOD 10/16/2024 9:53 AM [facility] Calcium 9.1 8.5 - 10.5 mg/dL LAB CHEMISTRY METHOD 10/16/2024 9:53 AM [facility] AST (SGOT) 18 10 - 42 unit/L LAB CHEMISTRY METHOD 10/16/2024 9:53 AM EST [facility] ALT (SGPT) 24 10 - 60 unit/L LAB CHEMISTRY METHOD 10/16/2024 9:53 AM [facility] Alkaline Phosphatase 61 42 - 121 unit/L LAB CHEMISTRY METHOD 10/16/2024 9:53 AM [facility] Total Protein 6.3 6.0 - 8.0 g/dL LAB CHEMISTRY METHOD 10/16/2024 9:53 AM [facility] Albumin 4.1 3.2 - 5.0 g/dL LAB CHEMISTRY METHOD 10/16/2024 9:53 AM [facility] Total Bilirubin 0.3 0.0 - 1.4 mg/dL LAB CHEMISTRY METHOD 10/16/2024 9:53 AM [facility] Blood Venous blood specimen / Unknown Venipuncture / Unknown 10/16/2024 8:52 AM EST 10/16/2024 8:58 AM EST Libra Finney MD LAB BLOOD ORDERABLES Final Res ult [facility] [address] [place] [address], * Alpha fetoprotein tumor marker (10/16/2024 8:52 AM EST) AFP <2.5 0.0 - 8.0 ng/mL LAB CHEMISTRY METHOD 10/16/2024 9:46 AM EST [facility] Blood Venous blood specimen / Unknown Venipuncture / Unknown 10/16/2024 8:52 AM EST 10/16/2024 8:58 AM EST Narrative [facility] - 10/16/2024 9:46 AM EST The Siemens Advia Centaur Chemiluminescent Immunoassay is used. Results obtained with different assay methods or kits cannot be used interchangeably. Results cannot be interpreted as absolute evidence of the presence or absence of malignant disease. us Libra Finney MD LAB BLOOD ORDERABLES Final Res ult [facility] [address] [place] [address], documented in this encounter Visit Diagnoses Diagnosis Other cirrhosis of liver (CMS/HCC) documented in this encounter Care Teams Fresco Artist Relationship Specialty Start Date End Date Adam Cadena PA PCP - General Physician Dock Or Pier Laborer 08/13/24 documented as of this encounter
== END 2024-11-13 12:44 | disposition home or self-care (01) ==
PROVIDERS: PCP Physician Assistant; Visit Provider Internal Medicine
DX: M25.552 Pain in left hip (principal); M76.30 Iliotibial band syndrome, unspecified leg
CPT/HCPCS: 99214

== ENCOUNTER → 2024-11-13 12:15 | Outpatient (BNVA) | payer OTHER, SELFPAY | PROVIDERS: PCP Physician Assistant; Visit Provider Internal Medicine | DX: M76.32 Iliotibial band syndrome, left leg (principal); M25.552 Pain in left hip | CPT/HCPCS: 99212 ==

== ENCOUNTER 2024-12-04 09:19 | Outpatient (REF) | payer OTHER, SELFPAY ==
[2024-12-04 10:07] LABS: Hematocrit 35.9 % (37.0-47.0); Hemoglobin 12.2 g/dl (12.0-16.0); Mean Corpuscular Volume 88.2 fL (80.0-98.0); Mean Platelet Volume 10.3 fL (9.4-12.3); Platelet Count 112 X10*3/uL (160-400); Red Blood Count 4.07 X10*6/uL (4.20-5.50); Red Cell Distribution Width 14.5 % (11.0-16.0); White Blood Count 3.2 X10*3/uL (4.8-10.8)
--- OUTSIDE RECORDS SUMMARY | 2024-12-04 10:09 | XMS_ITS ---
Author Organization [facility] jennifer [place] Address [address] [facility] [place] [address] Care Team Providers Care Order Worker Name Role Phone Adam Cadena Primary Care Provider Unavailab mark Adrienne Post Unavailable [phone] Allergies Allergen (clinical drug ingredient) Drug/Non Drug [...] W/U Status Risk Notes Problem Plantar fasciitis (626339333) Plantar fasciitis (M72.2) Active confirmed Vital Signs Height 5ft6in in 10/29/2024 Weight 185 lbs 10/29/2024 BMI 29.86 kg/m2 10/29/2024 Blood pressure systolic 118 mm Hg 10/29/19 25 Blood pressure diastolic 70 mm Hg 025 Procedures Procedure Date Ordered Date Performed Result Body Sit e 92451-RGOT SKIN LESIONS, 2 TO 4 10/29/2024 N/A J5713-WKUPFJZT DYSTROPHIC NAILS ANY # 10/29/2024 N/A Encounters Encounter Location Date Provider Diagnosis [facility] [place] [address] [place] [address] 10/29/2024 Adrienne Black Right foot pain M79.671 [...] INSTRUCTIONS.pdf) Pending Test Test Name Order Date 74427-JXFT SKIN LESIONS, 2 TO 4 10/29/19 25 Q1803-NJPTAXEC DYSTROPHIC NAILS ANY # Next Appt Details Follow Up: 2 Months, Reason: Provider Name:Adrienne Post , 04/26/2025 10:15:00 AM, [address] [place], [address], Procedure Notes * Category Sub-Category Detail Notes [...] instrumentation by the physician of record - 11330 Nail Reduction Nail Reduction (-27) Trimming o [...] * Romy TOPETEDOB: 4 (59 yo F)Acc No.[id number]:10/29/2024 Progress Note Patient:?Romy TOPETE Provider:?Adrienne Post DPM :1965???Age:59 Y???Sex:Female D ate:10/29/2024 Address:[address] [place] [id number] Pcp:Adam Cadena Subjective: * Chief Complaints: * [...] 5.8 * Examination: ???Ophthalmology Referral: ?DIABETES EYE EXAM?Procedure Performed:?Yes ?Date of Exam Performed?09/23/2024 ?Findings of Diabetic Eye Exam:?no retinopathy?General Examination: ?GENERAL APPEARANCE:?Reveals a pleasant, alert, well nourished, well- developed, well hydrated individual, who demonstrates proper attention to hygiene/body habitus, and is in no acute distress, Pt serves as own historian for office visit today.?ORIENTED:?person, place, and time.?FOOT EXAM:?Lower Extremity Neurological Exam performed:?Yes ?Visual exam of foot performed:?Yes ?Date?10/29/2024 ?Sensory testing performed:?sensations diminished ?Sensory and motor testing performed:?sensations diminished ?Pedal pulse taking performed:?2+ ?Footwear Evaluation?Footwear Evaluation performed:?Yes?Orthopedic: ?GAIT ABNORMALITY:?antalgic.?FOOT MORPHOLOGY:? Decreased Ankle joint dorsiflexion [...] 2.?Type 2 diabetes mellitus with diabetic polyneuropathy?Procedure: 57528-VFXB SKIN LESIONS, 2 TO 4 ?Procedure: A5748-JVQAOQCJ DYSTROPHIC NAILS ANY # 3.?Xerosis of skin? [...] instrumentation by the physician of record - 66611.?Nail Reduction:?Nail Reduction?(-27) Trimming of all dystrophic nails [...] ING DYSTROPHIC NAILS ANY #, Modifiers: XS 03178 TRIM SKIN LESIONS, 2 TO 4, Modifiers: [...] Provider:?Adrienne Post DPM Date:?2024 Generated for Felisha heck/Syl/Nate on:?12/04/2024 10:09 AM EDT History and Physical Notes * HPI (History [...]
--- OUTSIDE RECORDS SUMMARY | 2024-12-04 10:09 | XMS_ITS | Encounter Summary ---
Author Organization [facility] Address [address] [place] [address] Care Team Providers Care Flight Operation Coordinator Name Role Phone Adam Cadena Primary Care Provider [phone]- [phone] Reason for Referral * Imaging (Routine) - Closed Specialty Diagnoses / Procedures Referred By Contac t Referred To Contact Radiology Diagnoses Other cirrhosis of liver (CMS/HCC) Procedures US Abdomen Limited Libra Finney MD [address] [address] Phone: tel: fax: [facility] Referral ID Status Reason Start Date Expiration Date Visits Re quested Visits Authorized [id number] Closed 10/16/2024 10/16/2025 1 1 Reason for Visit * Imaging (Routine) - Closed Specialty Diagnoses / Procedures Referred By Contac t Referred To Contact Radiology Diagnoses Other cirrhosis of liver (CMS/HCC) Procedures US Abdomen Limited Lbira Finney MD [address] [address] Phone: tel: fax: [facility] Referral ID Status Reason Start Date Expiration Date Visits Re quested Visits Authorized [id number] Closed 10/16/2024 10/16/2025 1 1 Encounter Details Date Type Department Care Team (Latest Contact Info) Description 11/04/2024 9:10 AM EST - 11/04/2024 11:59 PM EST Hospital Encounter [facility] Ultrasound [address] [place] [id number] Other cirrhosis of liver (CMS/HCC) Discharge Disposition: [...] 1 (one) time each day. 05/07/2024 butalbital-acetami oqorrj-yykwmmqq-xc deine (Fioricet with Codeine) [id number] mg capsule Take 1 capsule by mouth [...] is incompletely evaluated on this study. Code 48919 G9551. -------- FINAL REPORT -------- Dictated By: Kirt Moore Dictated Date: 11/06/2024 10:25 ET Assigned Physician: Kirt Moore Reviewed and Electronically Signed By: Kirt Moore Signed Date: 11/06/2024 10:29 ET Workstation ID: [id number] Transcribed By: Self Edit Transcribed Date: 11/06/2024 [...] pancreas isincompletely evaluated on this study. Code 31370 G9551. -------- FINAL REPORT -------- Dictated By: Kirt Moore Dictated Date: 11/06/2024 10:25 ET Assigned Physician: Kirt Moore Reviewed and Electronically Signed By: Kirt Moore Signed Date: 11/06/2024 10:29 ET Workstation ID: [id number] Transcribed By: Self Edit Transcribed Date: 11/06/2024 10:25 ET us Libra Finney MD [facility] PROCEDURES Final Result documented in this encounter Visit Diagnoses Diagnosis Other cirrhosis of liver (CMS/HCC) documented in this encounter Care Teams Flight Operation Coordinator Relationship Specialty Start Date End Date Adam Cadena PA PCP - General Physician Bag Valver 08/13/24 documented as of this encounter
--- OUTSIDE RECORDS SUMMARY | 2024-12-04 10:09 | XMS_ITS ---
Author Organization [facility] Address [address] [place] [address] Care Team Providers Care Occup Ther Name Role Phone Adam Cadena Primary Care Provider Unavailab mark Adrienne Post Unavailable [phone] REASON FOR VISIT SD Reschedule/Cancel Encounters Encounter Location Date Provider Diagnosis [address] [address] 07/20/2024 Adrienne Post Plan Of Treatment Next Appt Details Provider Name:Adrienne A Sincere , 04/26/2025 10:15:00 AM, [address] [place], [address], Progress Notes * Romy TOPETEDOB: 4 (59 yo F)Acc No.[id number]:07/20/2024 Patient:?Romy Topete :1965???Age:59 Y???Sex:Female Address:[address] [place] [address] [place], [address] * true * Date:? Generated for Printi ng/Fateresag/eTransmitting on:?12/04/2024 10:09 AM EDT
--- OUTSIDE RECORDS SUMMARY | 2024-12-04 10:09 | XMS_ITS | Encounter Summary ---
Author Organization [facility] [place] [address] Care Team Providers Care Cage Manager Name Role Phone Adam Cadena Primary Care Provider Encounter Details Date Type Department Care Team (Late st Contact Info) Description 11/06/2024 Telephone Gastroenterology - [address] [place] [address] Mariza Simpson [place] Social History [...] on filedocumented in this encounter Care Teams Cage Manager Relationship Specialty Start Date End Date Adam Cadena PA PCP - General Physician Rv Mechanic 08/13/24 documented as of this encounter
--- OUTSIDE RECORDS SUMMARY | 2024-12-04 10:09 | XMS_ITS | Continuity of Care Document ---
Author Organization [facility] Address [address] [place] [address]- Support Name Relationship Address Phone KRISTIN CISNEROS Personal Relationship Unknown Renetta vailable ZEBROWSKI, FELICITY Personal Relationship Unknown U navailable ZEBROWSKI, FELICITY Personal Relationship Unknown U navailable ZEBROWSKI, FELICITY Personal Relationship Unknown U navailable ZEBROWSKI, FELICITY Personal Relationship Unknown U navailable ZEBROWSKI, FELICITY Personal Relationship Unknown U navailable ZEBRSTEPHANIE, KRISTIN Personal Relationship Unknown Renetta vailable ZEBRSTEPHANIE, KRISTIN Personal Relationship Unknown Renetta vailable ZEBROWSKI, FELICITY Personal Relationship Unknown U navailable ZEBROWSKI, FELICITY Personal Relationship Unknown U navailable ZEBRSTEPHANIE, KRISTIN Personal Relationship Unknown Renetta vailable ZEBRSTEPHANIE, KRISTIN Personal Relationship Unknown Renetta vailable ZEBROWSKI, FELICITY A Personal Relationship Unknown Unavailable ZEBROWSKI, FELICITY A Personal Relationship Unknown Unavailable ZEBROWSKI, FELICITY Personal Relationship Unknown U navailable ZEBROWSKI, FELICITY Personal Relationship Unknown U navailable ZEBROWSKI, FELICITY A Personal Relationship Unknown Unavailable ZEBROWSKI, FELICITY Personal Relationship Unknown U navailable ZEBROWSKI, FELICITY spouse Unknown Unavailabl e ZEBROWSKI, FELICITY Personal Relationship Unknown U navailable Care Team Providers Care Story Writer Name Role Phone Adam Anna Primary Care Physician [phone] Encounter 11/13/24 - 11/20/24 [facility] [address], [address] [place] [address]- Attending Physician: Carlita Lester NP Admitting Physician: Carlita Lester NP Referring Physician: Carlita Lester NP Encounter Type: OutPatient One Time Allergies, Adverse Reactions, Alerts Substance Criticality Severity Reaction Reaction Severity Status azithromycin HIVES Active simvastatin elev lfts Active RACHELLE inhibitors Anaphylaxis Act melani Other Environmental Allergy mold-hayfever Active Immune Globulin, Intravenous affects kidneys- told to avoid Active Immunizations Given and Recorded Vaccine Date Status Refusal Reason SARS-CoV-2 (COVID-19) mRNA BNT-162b2 vac 08/02/21 Recorded Medications amLODIPine 2.5 mg oral tablet 2.5 mg, 1, tablet, By Mouth, Daily, # 30 tablet, Refills 0, Maintenance, 05/07/24 9:47:00 AM EDT, Partial fill upon patient request if the prescription is for a schedule II opioid drug. Start Date: 05/07/24 Status: Ordered Quantity: 30.0 Unit: tablet Repeat number: 1 Ammonium Lactate 12% Topical 1 application, Topically, 2 times a day, 0 Refills, Maintenance, Cream Start Date: 05/07/24 Status: Ordered Repeat number: 1 cyclosporine ophthalmic 0.05% ophthalmic emulsion 1 drops, Every 12 hours, 0 Refills, Maintenance, 05/07/24 9:48:00 AM EDT, Partial fill upon patient request if the prescription is for a schedule II opioid drug. Start Date: 05/07/24 Status: Ordered Repeat number: 1 diclofenac sodium 75 mg oral delayed release tablet 1 tablet = 75 mg, By Mouth, Daily in AM, 0 Refills, Maintenance, 01/25/22 9:30:00 AM EDT, Partial fill upon patient request if the prescription is for a schedule II opioid drug. Start Date: 01/25/22 Status: Ordered Repeat number: 1 Fioricet with Codeine 325 mg-50 mg-40 mg-30 mg oral capsule 1 capsule, By Mouth, 2 times a day, PRN Headache, 0 Refills, Maintenance, 02/07/12 9:43:18 AM EDT Start Date: 02/07/12 Status: Ordered Repeat number: 1 FREESTYLE ESTEFANY 3 SENSOR FREESTYLE ESTEFANY 3 SENSOR, USE DIRECTED TO MONITOR GLUCOSE, CHANGE EVERY 14 DAYS Start Date: 06/23/24 Status: Ordered Repeat number: 1 glimepiride 2 mg oral tablet 1 tablet = 2 mg, By Mouth, Daily, # 30 tablet, 0 Refills, Maintenance, 05/07/24 9:53:00 AM EDT, Tablet, Partial fill upon patient request if the prescription is for a schedule II opioid drug. Start Date: 05/07/24 Status: Ordered Quantity: 30.0 Unit: tablet Repeat number: 1 Humalog Kwik Pen 100 units/mL subcutaneous injection = 4 units, Subcutaneous Injection, 3 times a day before meals, # 15 mL, 0 Refills, Maintenance, 06/23/24 3:24:00 PM EDT, Solution, Partial fill upon patient request if the prescription is for a schedule II opioid drug. Start Date: 06/23/24 Status: Ordered Quantity: 15.0 Unit: mL Repeat number: 1 insulin degludec 100 units/mL subcutaneous solution = 30 units, Subcutaneous Infusion, Daily, PRN Blood Glucose, 0 Refills, Maintenance, 04/02/24 1:14:00 PM EDT, Partial fill upon patient request if the prescription is for a schedule II opioid drug. Start Date: 04/02/24 Status: Ordered Repeat number: 1 ketorolac 0.5% ophthalmic solution 1 drops, Eyes, Both, 4 times a day, PRN for itching, # 3 mL, 0 Refills, Maintenance, 05/07/24 9:50:00 AM EDT, Solution, Partial fill upon patient request if the prescription is for a schedule II opioid drug. Start Date: 05/07/24 Status: Ordered Quantity: 3.0 Unit: mL Repeat number: 1 lorazepam 0.5 mg oral tablet 1 tablet = 0.5 mg, By Mouth, Daily, PRN as needed for anxiety, 0 Refills, Maintenance, 02/15/12 2:53:04 PM EDT Start Date: 02/15/12 Status: Ordered Repeat number: 1 mercaptopurine 50 mg oral tablet 1 tablet = 50 mg, By Mouth, Daily in AM, 0 Refills, Maintenance, 01/10/12 12:42:56 PM EDT Start Date: 01/10/12 Status: Ordered Repeat number: 1 Metformin = 2,000 mg, By Mouth, Daily in AM, 0 Refills, Maintenance, 05/28/13 9:23:50 AM EDT Start Date: 05/28/13 Status: Ordered Repeat number: 1 Mirapex 0.25 mg oral tablet 1 tablet = 0.25 mg, By Mouth, Daily at bedtime, PRN Other, for restless legs, # 270 tablet, 0 Refills, Maintenance, 09/13/17 11:11:00 AM EST, Tablet Start Date: 09/13/17 Status: Ordered Quantity: 270.0 Unit: tablet Repeat number: 1 Mobic 15 mg oral tablet 1 tablet = 15 mg, By Mouth, Daily, # 30 tablet, 0 Refills, Maintenance, 10/14/24 9:21:00 AM EST, Tablet, Partial fill upon patient request if the prescription is for a schedule II opioid drug. Start Date: 10/14/24 Status: Ordered Quantity: 30.0 Unit: tablet Repeat number: 1 Motegrity 2 mg oral tablet 1 tablet = 2 mg, By Mouth, Daily at bedtime, # 30 tablet, 0 Refills, Maintenance, 01/04/22 8:56:00 AM EDT, Tablet, Partial fill upon patient request if the prescription is for a schedule II opioid drug. Start Date: 01/04/22 Status: Ordered Quantity: 30.0 Unit: tablet Repeat number: 1 Mounjaro 5 mg/0.5 mL subcutaneous solution = 5 mg, INJECT 0.5 ML (5 MG TOTAL) UNDER THE SKIN EVERY 7 DAYS Start Date: 06/23/24 Status: Ordered Repeat number: 1 omeprazole 40 mg oral enteric coated capsule 1 capsule = 40 mg, By Mouth, Daily in AM, # 30 capsule, 0 Refills, Maintenance, 01/25/22 9:31:00 AM EDT, EC Capsule, Partial fill upon patient request if the prescription is for a schedule II opioid drug. Start Date: 01/25/22 Status: Ordered Quantity: 30.0 Unit: capsule Repeat number: 1 Synthroid 0.2 mg oral tablet TAKE 1 TABLET BY MOUTH EVERY MORNING Start Date: 06/23/24 Status: Ordered Repeat number: 1 valacyclovir 500 mg oral tablet See Instructions, 1 tablet By Mouth 4 days a week in AM on Saturday, Saturday, and Saturday., 0 Refills, Maintenance, 01/10/12 12:45:46 PM EDT, Tablet Start Date: 01/10/12 Status: Ordered Repeat number: 1 Vitamin D3 2000 intl units oral capsule 1 capsule = 50 mcg, By Mouth, Daily, # 60 capsule, 0 Refills, Maintenance, 06/23/24 3:21:00 PM EDT, Capsule, Partial fill upon patient request if the prescription is for a schedule II opioid drug. Start Date: 06/23/24 Status: Ordered Quantity: 60.0 Unit: capsule Repeat number: 1 Zinc = 50 mg, By Mouth, Daily at bedtime, 0 Refills, Maintenance, 01/25/22 9:37:00 AM EDT, Partial fill upon patient request if the prescription is for a schedule II opioid drug. Start Date: 01/25/22 Status: Ordered Repeat number: 1 Problem List Condition Confirmation Course Effective Dates Status H ealth Status Informant Arthritis Confirmed Active Chronic inflammatory demyelinating polyneuropathy Confirmed Active Diverticulitis of colon Confirmed Active Endometriosis Confirmed Active Gastroparesis Confirmed Active GERD - Gastro-esophageal reflux disease Confirmed Active Glaucoma Confirmed Active Graves disease Confirmed Active Herpes simplex Confirmed Active Hypothyroidism Confirmed Active Urinary incontinence, mixed Confirmed Active Thrombocytopenia Confirmed Active Rheumatoid arthritis Confirmed Active Toxic diffuse goiter Confirmed Active Type 2 diabetes mellitus Confirmed Active Vitamin D deficiency Confirmed Active Results Radiology Reports * Exam Date Time Procedure Performing Provider Status 11/13/24 11:18 AM MM Digital Mammo Screening Janeen Kirk MA; Auth (Verified) Notes: (MM Digital Mammo Screening) Reason For Exam: Z12.31 SCREENING RESULT: MM Digital Mammo Screening PROCEDURE: MM Digital Mammo Screening INDICATION: Screening. No known palpable abnormalities. COMPARISON: Dating back to 10/02/2021 TECHNIQUE: Full-field digital CC and MLO 3D tomosynthesis images of both breasts were acquired. Computer-aided detection (CAD) was utilized in the interpretation of this study. DENSITY: The breast tissue is almost entirely fatty. FINDINGS: No suspicious masses, suspicious microcalcifications, or areas of architectural distortion are seen in either breast to suggest malignancy. IMPRESSION: No mammographic evidence of malignancy. RECOMMENDATION: Annual mammographic screening BI-RADS: 1 (Negative) Lay letter mailed to patient WSN: [id number] Ordering Physician: Carlita Lester Dictated By: Milo Marin MD Dictated Date/Time: 11/13/24 3:56 pm Reviewed By: Milo Marin MD Signed By: Milo Marin MD Signed Date/Time: 11/13/24 3:56 pm Transcribed By: SWEETIE Axle Bearing Polisher Date/Time: 11/13/24 3:56 pm Birads: Social History Social History Type Response Smoking Status Former smoker entered on: 11/03/15 Sex Sex Representation Female (finding) Patient Care team information Care Team Personnel Name: Kyle Villegas MD Position: [facility] Physician (General Medicine) Member Role: Lifetime Consulting Physician Address: [address] [place] [address] [place] [address]- [place] Telecom: Name: Adam Anna Position: Reference Physician Member Role: PCP Address: [address] [place] [address]- Telecom: Name: Daniella Sue RN Position: [facility] RN Member Role: Primary Care Nurse Name: Mili Ochoa Position: [facility] Painter Structural Steel Member Role: Lifetime Consulting Physician Name: Vikram Alvarado RN Position: [facility] RN Member Role: Primary Care Nurse Name: Shelley Layton LPN Position: [facility] RN Member Role: Primary Care Nurse Name: Ashlee Freed RN Position: [facility] Onco RN Member Role: Primary Care Nurse Care Team Related Persons Name: DEBRAFELICITY BROWN Insurance Providers Guarantor name: KRISTIN CISNEROS Health Plan Information #: 1 Payer: [employer] Member Number: [id number] Policy Number: NA Group Number: [facility] Health Plan Information #: 2 Payer: [employer] Member Number: [id number] Policy Number: NA Group Number: [id number]
--- OUTSIDE RECORDS SUMMARY | 2024-12-04 10:10 | XMS_ITS | Clinical Summary ---
Author Organization [facility] Address [address] [place] [address] Phone Care Team Providers Care Editor Name Role Phone Adam Cadena Primary Care Provider Allergies Active Allergy Reactions Criticality Noted Date Comments Ralph Inhibitors Other 08/13/2024 Cannot take with plasmaforesis Azithromycin Hives 08/13/2024 Flu Virus Vaccine Tv 2014- (18 Yr And Up),Recomb Unknown 10/24/2023 Immune Globulin,Gamma (Igg) Human Other 04/03/2023 Other Reaction(s): affects kidneys- told to avoid Affects kidney Zzkshbv-Yro-Cgh Reductase Inhibitors Unknown Medium 01/30/2019 Other Reaction(s): elev lfts Affect Liver Medications cycloSPORINE 0.05 % drops Administer 1 drop into both eyes 1 (one) time each day. 05/07/20 24 Active docosahexaenoic acid-epa 120-180 mg capsule Take 1 tablet by mouth 1 (one) time each day. Active butalbital-acet aminophen-caffe ine-codeine (Fioricet with Codeine) 89-571-55-30 mg capsule Take 1 capsule by mouth [...] tablet (150 mg total) by mouth. 10/17/19 24 Active docusate sodium (COLACE) 50 mg capsule Take 1 capsule (50 mg total) by mouth 2 (two) times a day. Active carvediloL (COREG) 3.125 mg tabletIndicatio ns:Portal hypertension (CMS/HCC) Take 1 tablet (3.125 mg total) by mouth 2 (two) times a day with meals. 180 each 3 10/16/19 25 026 Active Motegrity 2 mg tabletIndicatio ns:Constipation , unspecified constipation type Take 1 tablet by mouth 1 (one) time each day. 90 tablet 1 10/30/19 25 025 Active omeprazole (PriLOSEC) [address] capsuleIndicati ons:Gastroesoph ageal reflux disease without esophagitis TAKE 1 CAPSULE BY MOUTH TWICE A DAY 180 capsule 4 11/10/19 25 Active omeprazole (PriLOSEC) [address] capsule Take 1 capsule (40 mg total) by mouth 2 (two) times a day. 025 Discontinued Active Problems Problem Noted Date Diagnosed Date [...] 11/06/2024 Telephone Gastroenterology - [address] [facility] [address] [place] [address] Mariza Simpson MA 11/04/2024 9:10 AM EST - 11/04/2024 11:59 PM EST Hospital Encounter [facility] Ultrasound [address] [place] [address] Other cirrhosis of liver (CMS/HCC) Discharge Disposition: Home or Self Care 10/16/2024 8:50 AM EST Lab Draw Station - [address] [facility] [address] [facility] [place] [id number] Other cirrhosis of liver (CMS/HCC) 10/16/2024 8:30 AM EST Office Visit Gastroenterology - [address] [place] [id number] Libra Finney MD Other cirrhosis of liver (CMS/HCC) (Primary Dx) from Last 3 Months Surgical History Surgery Date Site/Laterality Comments HAND SURGERY 09/2014 Right PROCEDURE: HISTORICAL HAND SURGERY; COMMENT: thumb; several hand surgeries ELBOW SURGERY Left PROCEDURE: HISTORICAL ELBOW SURGERY OTHER SURGICAL HISTORY Left PROCEDURE: HISTORY OTHER; COMMENT: hip, IT band cut ; [facility] KNEE SURGERY Right PROCEDURE: HISTORICAL KNEE [...] Hypothyroidism 01/30/2019 DX:Hypothyroidis m Rheumatoid arthritis, adult (CMS/HCC) 01/30/2019 DX:Rheumatoid arthritis, adult (HCC) Anxiety 01/30/2019 DX:Anxiety GERD (gastroesophageal reflux disease) 01/30/2019 DX:GERD (gastroesophageal reflux disease) Hyperlipidemia 01/30/2019 DX:Hyperlipidemi a Restless leg syndrome 01/30/2019 DX:Restles s leg syndrome Chronic headache 01/30/2019 DX:Chronic head ache History of diverticulitis of colon 01/30/2019 DX:History of diverticulitis of colon; COMMENT: 2011 s/p resection Type 2 diabetes mellitus wit hout complication (CMS/HCC) 01/30/2019 DX:Type 2 diabetes mellitus without complication (HCC) Chronic inflammatory demyeli nating polyneuritis (CMS/HCC) 01/30/2019 DX:Chronic inflammatory demy elinating polyneuritis (HCC); COMMENT: Plasmapheresis q 4wks; Dr. Fisher IBS [...] AM EST Other cirrhosis of liver (CMS/HCC) from Last 3 Months Results * [...] is incompletely evaluated on this study. Code 45605 G9551. -------- FINAL REPORT -------- Dictated By: Kirt Moore Dictated Date: 11/06/2024 10:25 ET Assigned Physician: Kirt Moore Reviewed and Electronically Signed By: Kirt Moore Signed Date: 11/06/2024 10:29 ET Workstation ID: [id number] Transcribed By: Self Edit Transcribed Date: 11/06/2024 [...] pancreas isincompletely evaluated on this study. Code 58826 G9551. -------- FINAL REPORT -------- Dictated By: Kirt Moore Dictated Date: 11/06/2024 10:25 ET Assigned Physician: Kirt Moore Reviewed and Electronically Signed By: Kirt Moore Signed Date: 11/06/2024 10:29 ET Workstation ID: [id number] Transcribed By: Self Edit Transcribed Date: 11/06/2024 10:25 ET Libra Finney MD [facility] [place] PROCEDURES Final Result * COLONOSCOPY (10/16/2024 9:55 AM EST) Anatomical Region Laterality Modality Endoscopy Historical Provider GI~PROCEDURE ORDERABLES F inal Result * External Endoscopy (10/16/2024 9:53 AM EST) Anatomical Region Laterality Modality Endoscopy Historical Provider GI~PROCEDURE ORDERABLES F inal Result * (ABNORMAL) CBC auto differential (10/16/2024 8:52 AM EST) WBC 3.2(L) 4.8 - 10.8 K/[facility] LAB HEMETOLOGY METHOD 10/16/2024 9:[address] [facility] RBC 4.00 3.80 - 4.80 M/[facility] LAB HEMETOLOGY METHOD 10/16/2024 9:[address] [facility] Hemoglobin 11.8 11.5 - 16.0 g/dL LAB HEMETOLOGY METHOD 10/16/2024 9:[address] [facility] Hematocrit 35.0 35.0 - 47.0 % LAB HEMETOLOGY METHOD 10/16/2024 9:[address] [facility] MCV 88.2 79.0 - 98.0 FL LAB HEMETOLOGY METHOD 10/16/2024 9:[address] [facility] MCH 29.7 27.0 - 32.0 pcg LAB HEMETOLOGY METHOD 10/16/2024 9:[address] [facility] MCHC 33.7 32.0 - 37.0 g/dL LAB HEMETOLOGY METHOD 10/16/2024 9:[address] [facility] RDW 13.8 11.0 - 15.0 % LAB HEMETOLOGY METHOD 10/16/2024 9:[address] [facility] Platelets 122(L) 130 - 400 K/mcL LAB HEMETOLOGY METHOD 10/16/2024 9:[address] [facility] MPV 10.1 7.0 - 11.0 FL LAB HEMETOLOGY METHOD 10/16/2024 9:[address] [facility] NRBC 0.0 <1.0 % LAB HEMETOLOGY METHOD 10/16/2024 9:[address] [facility] NRBC Absolute 0.00 <0.10 K/mcL LAB HEMETOLOGY METHOD 10/16/2024 9:[address] [facility] Neutrophils Relative 59.3 % LAB HEMETOLOGY METHOD 10/16/2024 9:[address] [facility] Lymphocytes Relative 31.3 % LAB HEMETOLOGY METHOD 10/16/2024 9:[address] [facility] Monocytes Relative 6.6 % LAB HEMETOLOGY METHOD 10/16/2024 9:[address] [facility] Eosinophils Relative 1.6 % LAB HEMETOLOGY METHOD 10/16/2024 9:[address] [facility] Basophils Relative 0.6 % LAB HEMETOLOGY METHOD 10/16/2024 9:[address] [facility] Immature Granulocytes Relative 0.6 % LAB HEMETOLOGY METHOD 10/16/2024 9:[address] [facility] Neutrophils Absolute 1.89 1.50 - 7.00 K/mcL LAB HEMETOLOGY METHOD 10/16/2024 9:[address] [facility] Lymphocytes Absolute 1.00 1.00 - 5.00 K/[facility] LAB HEMETOLOGY METHOD 10/16/2024 9:11 AM EST [facility] Monocytes Absolute 0.21 0.20 - 1.00 K/[facility] LAB HEMETOLOGY METHOD 10/16/2024 9:11 AM EST [facility] Eosinophils Absolute 0.05 0.00 - 0.50 K/[facility] LAB HEMETOLOGY METHOD 10/16/2024 9:11 AM EST [facility] Basophils Absolute 0.02 0.00 - 0.20 K/[facility] LAB HEMETOLOGY METHOD 10/16/2024 9:11 AM EST [facility] Immature Granulocytes Absolute 0.02 0.00 - 0.03 K/[facility] LAB HEMETOLOGY METHOD 10/16/2024 9:11 AM EST [facility] Blood Venous blood specimen / Unknown Venipuncture / Unknown 10/16/2024 8:52 AM EST 10/16/2024 8:59 AM EST us Libra Finney MD LAB BLOOD ORDERABLES Final Res ult [facility] [address] [place] [address], * Alpha fetoprotein tumor marker (10/16/2024 8:52 AM EST) AFP <2.5 0.0 - 8.0 ng/mL LAB CHEMISTRY METHOD 10/16/2024 9:46 AM EST [facility] Blood Venous blood specimen / Unknown Venipuncture / Unknown 10/16/2024 8:52 AM EST 10/16/2024 8:58 AM EST Narrative [facility] - 10/16/2024 9:46 AM EST The Siemens Advia Centaur Chemiluminescent Immunoassay is used. Results obtained with different assay methods or kits cannot be used interchangeably. Results cannot be interpreted as absolute evidence of the presence or absence of malignant disease. us Libra Finney MD LAB BLOOD ORDERABLES Final Res ult [facility] [address] [place] [address], [place] [phone] * Prothrombin time with INR (10/16/2024 8:52 AM EST) [facility] Protime 12.1 10.6 - 13.9 sec LAB COAGULATION METHOD 10/16/2024 9:09 AM EST [facility] INR 1.0 LAB COAGULATION METHOD 10/16/2024 9:[address] [facility] Blood Venous blood specimen / Unknown Venipuncture / Unknown 10/16/2024 8:52 AM EST 10/16/2024 8:58 AM EST us Libra Finney MD LAB BLOOD ORDERABLES Final Res ult Performing Organization Address [facility]/ZIP Co de Phone Number [facility] [address] [place] [address], [place] [phone] * (ABNORMAL) Comprehensive metabolic panel (10/16/2024 8:52 AM EST) [facility] Sodium 140 133 - 145 mmol/L LAB CHEMISTRY METHOD 10/16/2024 9:[address] [facility] Potassium 3.9 3.5 - 5.5 mmol/L LAB CHEMISTRY METHOD 10/16/2024 9:[address] [facility] Chloride 112(H) 96 - 110 mmol/L LAB CHEMISTRY METHOD 10/16/2024 9:[address] [facility] CO2 27 21 - 32 mmol/L LAB CHEMISTRY METHOD 10/16/2024 9:[address] [facility] Anion Gap 1(L) 3 - 11 LAB CHEMISTRY METHOD 10/16/2024 9:[address] [facility] Glucose 171(H) 70 - 100 mg/dL LAB CHEMISTRY METHOD 10/16/2024 9:[address] [facility] BUN 10 5 - 25 mg/dL LAB CHEMISTRY METHOD 10/16/2024 9:[address] [facility] Creatinine 0.68 0.50 - 1.10 mg/dL LAB CHEMISTRY METHOD 10/16/2024 9:[address] [facility] eGFR 100 >=60 mL/min/1. 73m2 LAB CHEMISTRY METHOD 10/16/2024 9:[address] [facility] Comment:Calculation based on the??Chronic Kidney Disease Epidemiology Collaboration (CKD-EPI) equation refit??without adjustment for race. BUN/Creatinine Ratio 14.7 LAB CHEMISTRY METHOD 10/16/2024 9:[address] [facility] Calcium 9.1 8.5 - 10.5 mg/dL LAB CHEMISTRY METHOD 10/16/2024 9:[address] [facility] AST (SGOT) 18 10 - 42 unit/L LAB CHEMISTRY METHOD 10/16/2024 9:[address] [facility] ALT (SGPT) 24 10 - 60 unit/L LAB CHEMISTRY METHOD 10/16/2024 9:[address] [facility] Alkaline Phosphatase 61 42 - 121 unit/L LAB CHEMISTRY METHOD 10/16/2024 9:[address] [facility] Total Protein 6.3 6.0 - 8.0 g/dL LAB CHEMISTRY METHOD 10/16/2024 9:[address] [facility] Albumin 4.1 3.2 - 5.0 g/dL LAB CHEMISTRY METHOD 10/16/2024 9:[address] [facility] Total Bilirubin 0.3 0.0 - 1.4 mg/dL LAB CHEMISTRY METHOD 10/16/2024 9:[address] [facility] Blood Venous blood specimen / Unknown Venipuncture / Unknown 10/16/2024 8:52 AM EST 10/16/2024 8:58 AM EST us Libra Finney MD LAB BLOOD ORDERABLES Final Res ult [facility] [place] [facility] [address] [place] [address], [place] [phone] from Last 3 Months Insurance [facility] MEDICARE Member Subscriber Plan / Payer (Ef fective 2021-Present) Name:Romy Topete Relation to Subscriber:Self Name:Romy Topete Jos Payer ID:[id number] Group ID:[id number] Type:Not on file Address: [place] [address] [address] [address] Care Teams Editor Relationship Specialty Start Date End Date Adam Cadena PA PCP - General Physician Dinkey Locomotive Engineer 08/13/24
--- OUTSIDE RECORDS SUMMARY | 2024-12-04 10:10 | XMS_ITS | Patient Health Record ---
[facility] [place] Address [address] [place] [address] Care Team Providers Care Barrel Bander Name Role Phone Adam Cadena Primary Care Provider Unavailab mark Adrienne Post Unavailable [phone] Allergies Allergen (clinical drug ingredient) Drug/Non Drug Allergy documented on EMR Reaction Allergy Type Onset Date Status azithromycin Azithromycin extreme hives Drug Allergy Active Flu Virus Vaccine Unknown Drug Allergy Active Results Component Value Reference Range Notes HEMOGLOBIN A1C (GLYCOHEMOGLO BIN) Reviewed date:01/23/2024 12:07:22 PM Interpretation: Performing Lab: Notes/Report: HEMOGLOBIN A1C % (HH) 7.0 HEMOGLOBIN A1C (GLYCOHEMOGLO BIN) Reviewed date:10/29/2024 09:09:42 AM Interpretation: Performing Lab: Notes/Report: HEMOGLOBIN A1C % (HH) 5.8 HEMOGLOBIN A1C (GLYCOHEMOGLO BIN) Reviewed date:04/09/2024 11:25:40 AM Interpretation: Performing Lab: Notes/Report: HEMOGLOBIN A1C % (HH) 7.6 Reason For Referral No Information Medications Medication SIG (Take, Route, Frequency, Duration) Notes Start Date End Date Status Insulin Active Valtrex Active Estradiol 0.025 MG/24HR 1 patch to skin Transdermal Two times a Week for 30 day(s) Not-Taking Glimepiride Active Purinethol Active Keflex 500 MG 1 capsule Orally every 12 hrs for 10 day(s) 05/19/2020 Not-Taking Synthroid Active Reglan Not-Taking LORazepam Active Ammonium Lactate 12 % APPLY TWICE A DAY FOR 30 DAYS for 30 Active Metformin & Diet Manage Prod Active Antibiotic For tooth Not-Takin g Ammonium Lactate 12 % 1 application Externally to affected areas of dry skin to feet except for between the toes Twice a day for 30 days Active Extra Depth Orthopedic Shoes (1 Pair) with Customized Heat Molded Multidensity Innersoles (3 Pair) as directed Dx: NIDDM/Polyneuropathy (E11.42), Hammertoe Foot Deformity (M20.41,M20.42), Preulcerative Skin Lesion(s) (L85.1 10/29/2024 Active Extra-Depth Diabetic Shoes with 3 Pair Custom heat-molded multi-density innersoles Active zzzCompression Stockings 20-30mm Hg . . . for . Active Fiorinal/Codeine #3 Active Night Splint AFO - L1930 1 wear when at rest for 30 days Active Imiquimod 5 % 1 application at bedtime, leave on for 8 hours then wash off Externally Three times a Week Active Jardiance 25 MG 1 tablet Orally Once a day for 30 day(s) Active Zinc Active Extra Depth Orthopedic Shoes (1 Pair) with Customized Heat Molded Multidensity Innersoles (3 Pair) as directed Dx: NIDDM/Polyneuropathy (E11.42), Hammertoe Foot Deformity (M20.41,M20.42), Preulcerative Skin Lesion(s) (L85.1 11/08/2020 Active Victoza 1.2ml Active Immunizations Vaccine Route Administration Date Status Comme nts COVID-19 Pfizer BioNTech Vaccine Unknown 07/23/2021 Administered First Dose: 10/23/2020 Second Dose: 12/21/2020 Influenza Unknown 11/19/2016 Refused Influenza Unknown 08/21/2018 Refused Influenza Unknown 02/12/2019 Refused Influenza Unknown 05/18/2024 Refused Social History Tobacco Use: Social History Observation Description Date Details (start date - stop date) Never Smoker NA - NA Alcohol Screen Question Answer Notes Did you [...] Problem Acquired hammer toe of right foot (8836313827187580) Other hammer toe(s) (acquired), right foot (M20.41) Active confirmed Problem Acquired hammer toe of left foot (8491531207015806) Other hammer toe(s) (acquired), left foot (M20.42) Active confirmed Problem Plantar wart (67926282) Plantar wart (B07.0) Active confirmed Problem Acquired hammer toe of right foot (5062850715084636) Other hammer toe(s) (acquired), right foot (M20.41) Active confirmed Problem Polyneuropathy due to type 2 diabetes mellitus (600537640) Type 2 diabetes mellitus with diabetic polyneuropathy (E11.42) Active confirmed Problem Plantar fasciitis (701066903) Plantar fasciitis (M72.2) Active confirmed Problem Bilateral osteoarthritis of ankles (810945227861332) Osteoarthritis of right ankle and foot (M19.071) Active confirmed Problem Bilateral osteoarthritis of ankles (570558227155801) Osteoarthritis of left ankle and foot (M19.072) Active confirmed Problem Acute rheumatic arthritis (53974685) Rheumatoid arthritis flare (M06.9) Active confirmed Problem 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) Active confirmed Vital Signs Blood pressure diastolic 70 mm Hg 10/29/2024 Height 5ft6in in 10/29/2024 Blood pressure systolic 118 mm Hg 10/29/2024 Weight 185 lbs 10/29/2024 BMI 29.86 kg/m2 10/29/2024 Procedures Procedure Date Ordered Date Performed Result Body Sit e 10990-Iunj Destruction, -01/23/2024 N/A ,U1201-YNC TENDON SHEATH/LIGAMENT 01/23/2024 N/A 77850-Fhwn Destruction, -04/09/2024 N/A , V9309-IBJBS/INJECT, JOINT/BURSA 04/09/2024 N/A ,X9515-PFI TENDON SHEATH/LIGAMENT 05/18/2024 N/A 67128-VGVE SKIN LESIONS, 2 TO 4 10/29/2024 N/A W7356-BTRSMNKS DYSTROPHIC NAILS ANY # 10/29/2024 N/A Encounters Encounter Location Date Provider Diagnosis [address] [address] 01/23/2024 Adrienne Black Right foot pain M79.671 ; Achilles tendinitis of right lower extremity M76.61 ; Pain of right heel M79.671 ; Short Achilles tendon (acquired), right ankle M67.01 ; Xerosis of skin L85.3 ; Type 2 diabetes mellitus with diabetic polyneuropathy E11.42 ; Peroneal tendinitis, right M76.71 and Verruca B07.[address] [address] 04/09/2024 Adrienne Black Right foot pain M79.671 ; Pain of right heel M79.671 ; Type 2 diabetes mellitus with diabetic polyneuropathy E11.42 ; Peroneal tendinitis, right M76.71 ; Verruca B07.9 and Arthralgia of right foot M25.[address] [address] 05/18/2024 Adrienne Black Right foot pain M79.671 ; Pain of right heel M79.671 ; Type 2 diabetes mellitus with diabetic polyneuropathy E11.42 and Plantar fasciitis M72.[address] [address] 10/29/2024 Adrienne Black Right foot pain M79.671 ; Pain of right heel M79.671 ; Type 2 diabetes mellitus with diabetic polyneuropathy E11.42 ; Plantar fasciitis M72.2 ; Xerosis of skin L85.3 ; Other hammer toe(s) (acquired), right foot M20.41 and Other hammer toe(s) (acquired), left foot M20.[address] [address] 04/07/[address] [address] 05/11/2024 Adriennezahida Post [address] [address] 05/15/2024 Adriennezahida Post [facility] [place] [address] [place] [address] 07/20/2024 Adriennezahida Post [facility] Encounter Date Diagnosis (ICD Code) Assessment Notes Treatment Notes Treatment Clinical Notes Section Notes 01/23/2024 Right foot pain (ICD-10 - M79.671) 04/09/2024 Pain of right heel (ICD-10 - M79.671) 04/09/2024 Right foot pain (ICD-10 - M79.671) 05/18/2024 Pain of right heel (ICD-10 - M79.671) 05/18/2024 Right foot pain (ICD-10 - M79.671) 10/29/2024 Right foot pain (ICD-10 - M79.671) 05/18/2024 Type 2 diabetes mellitus with diabetic polyneuropathy (ICD-10 - E11.42) 10/29/2024 Pain of right heel (ICD-10 - M79.671) 04/09/2024 Type 2 diabetes mellitus with diabetic polyneuropathy (ICD-10 - E11.42) 01/23/2024 Pain of right heel (ICD-10 - M79.671) 01/23/2024 Achilles tendinitis of right lower extremity (ICD-10 - M76.61) 01/23/2024 Short Achilles tendon (acquired), right ankle (ICD-10 - M67.01) 04/09/2024 Peroneal tendinitis, right (ICD-10 - M76.71) 10/29/2024 Type 2 diabetes mellitus with diabetic polyneuropathy (ICD-10 - E11.42) 05/18/2024 Plantar fasciitis (ICD-10 - M72.2) 10/29/2024 Plantar fasciitis (ICD-10 - M72.2) 04/09/2024 Verruca (ICD-10 - B07.9) 01/23/2024 Xerosis of skin (ICD-10 - L85.3) Response to treatment - Improvement 01/23/2024 Type 2 diabetes mellitus with diabetic polyneuropathy (ICD-10 - E11.42) 04/09/2024 Arthralgia of right foot (ICD-10 - M25.571) 10/29/2024 Xerosis of skin (ICD-10 - L85.3) 10/29/2024 Other hammer toe(s) (acquired), right foot (ICD-10 - M20.41) Patient Educated with: DIABETIC FOOT CARE INSTRUCTIONS. pdf (DIABETIC FOOT CARE INSTRUCTIONS. pdf) 01/23/2024 Peroneal tendinitis, right (ICD-10 - M76.71) Patient Educated with: INJECTIONTHER APY.pdf (INJECTIONTHE RAPY.pdf) 01/23/2024 Verruca (ICD-10 - B07.9) 10/29/2024 Other hammer toe(s) (acquired), left foot (ICD-10 - M20.42) Plan Of Treatment Pending Test Test Name [...] X ray : Foot, right 3V 10/02/2022 59719-AOOGOAT NAIL, 6 OR MORE 05/23/2016 75631-BPYCDLX NAIL, 6 OR MORE 11/19/2016 82695-CBUYLVG NAIL, 1-5 02/12/2019 92189-Qclf Destruction, 1-14 02/12/2019 17467-Pzgg Destruction, 1-14 08/21/2018 83991-Vbud Destruction, -14 01/13/2018 07926-Wytt Destruction, -14 11/19/2016 97521-Bvyt Destruction, -14 05/30/2017 84037-Gbyc Destruction, -14 01/23/2024 89394-Wuzj Destruction, -14 04/09/2024 98993-Xnla Destruction, -14 10/08/2019 05766-Sdqe Destruction, -14 06/16/2020 97656-Asow Destruction, -14 02/11/2020 94443- Debride <25 sq cm 05/15/2012 30474-GNCUAQF SKIN/TISSUE 05/23/2016 41580-WIZPHPB SKIN/TISSUE 11/19/2016 33570-TWYK SKIN LESIONS, OVER 4 11/19/19 17 73376-NORA SKIN LESIONS, OVER 4 05/30/20 17 55746-FUGA SKIN LESIONS, OVER 4 01/14/20 18 61271-XCNB SKIN LESIONS, OVER 4 08/21/20 18 08549-ZJGF SKIN LESIONS, OVER 4 05/23/20 16 97080-PZRH SKIN LESIONS, OVER 4 04/04/20 15 59447-OLUX SKIN LESIONS, OVER 4 10/03/19 16 92648-MHUW SKIN LESIONS, OVER 4 03/19/20 13 18993-RPHF SKIN LESIONS, OVER 4 09/28/19 14 49202-UBTB SKIN LESIONS, OVER 4 03/29/20 14 86407-HZRK SKIN LESIONS, OVER 4 09/29/19 15 34074-XEBV SKIN LESIONS, OVER 4 10/29/19 13 85092-UOEV SKIN LESIONS, OVER 4 04/21/20 12 14376-NRHS SKIN LESIONS, OVER 4 02/11/20 20 39072-DKQI SKIN LESIONS, OVER 4 10/08/19 20 28926-UXDG SKIN LESIONS, OVER 4 02/13/20 19 97531-JMCA SKIN LESIONS, OVER 4 06/16/20 20 08628-KRRQ SKIN LESIONS, OVER 4 08/05/20 23 59167-AXUO SKIN LESIONS, 2 TO 4 10/29/19 25 80755, S2440-IACQF/INJECT, JOINT/BURSA 0 04/09/2024 74547, A3899-JVMLY/INJECT, JOINT/BURSA 0 02/12/2019 58099-ALHA NAIL(S) 10/08/2019 44164-EKUV NAIL(S) 02/11/2020 22471-LIXL NAIL(S) 06/16/2020 98302-LKWO NAIL(S) 09/28/2013 79618-DYRT NAIL(S) 01/13/2018 25037-CYFW NAIL(S) 08/21/2018 14895-TMKU NAIL(S) 02/12/2019 76788-GQZE NAIL(S) 05/30/2017 H5481-WEZQBUND DYSTROPHIC NAILS ANY # H0939-RVXGCXEU DYSTROPHIC NAILS ANY # M8617-XOPWXSJK DYSTROPHIC NAILS ANY # T8642-JPSKXFKF DYSTROPHIC NAILS ANY # 78754- Removal of Foreign Body, Subcut 0 05/15/2012 21446- Removal of Foreign Body, Subcut 0 05/01/2012 12730,R4845-FOO TENDON SHEATH/LIGAMENT 0 06/11/2011 43768,P9847-ERM TENDON SHEATH/LIGAMENT 0 05/18/2024 07978,E7071-AJE TENDON SHEATH/LIGAMENT 0 01/23/2024 10030 - Shave Biopsy of Skin Lesion 04/24 19902 - Shave Biopsy of Skin Lesion 05/24 Next Appt Details Provider Name:Adrienne Post , 04/26/2025 10:15:00 AM, [address] [place] [address], [place], [address], Insurance Providers Payer Name Payer Address Payer Phone Subscriber Number Group Number Insured Name Patient Relationship to Insured Coverage Start Date Coverage End Date [facility] [employer] Claims [address] [facility] [facility] [facility] [phone] [id number] Romy Decker i Self - patient is [...]
--- OUTSIDE RECORDS SUMMARY | 2024-12-04 10:10 | XMS_ITS ---
Author Organization [facility] jennifer [place] Address [address] [facility] [place] [address] Care Team Providers Care Slaughterer Religious Ritual Name Role Phone Adam Cadena Primary Care Provider Unavailab Adrienne Banks Unavailable [phone] Allergies Allergen (clinical drug ingredient) Drug/Non Drug [...] Active Encounters Encounter Location Date Provider Diagnosis [facility] [address] [address] 07/20/2024 Adrienne Post Plan Of Treatment Next Appt Details Provider Name:Adrienne Post , 04/26/2025 10:15:00 AM, [address] [place], [address], Progress Notes * Romy TOPETEDOB: [birth year] (59 yo F)Acc No.[id number]:07/20/2024 Progress Notes Patient:?Romy TOPETE Provider:?Adrienne Post DPM :1965???Age:59 Y???Sex:Female D ate:07/20/2024 Address:[address] [place] [id number] Pcp:Adam Cadena Subjective: * Chief Complaints: * [...] Post DPM Date:?2023 Generated for Felisha heck/Syl/Nate on:?12/04/2024 10:09 AM EDT
[2024-12-04 11:02] LABS: Alanine Aminotransferase 33 U/L (0-31); Albumin Level 4.2 g/dL (3.5-5.0); Alkaline Phosphatase 83 U/L (39-117); Anion Gap 11 (12-20); Aspartate Amino Transferase 29 U/L (5-31); Bilirubin Total 0.3 mg/dL (0.0-1.0); Blood Urea Nitrogen 14 mg/dL (9-16); Calcium 9.4 mg/dL (8.4-10.2); Carbon Dioxide 26 mmol/L (22-29); Chloride 110 mmol/L (96-108); Cholesterol 174 mg/dL (<200); Estimated Glomerular Filt Rate > 60; Glucose Fasting 139 mg/dL (60-99); HDL Cholesterol 56 mg/dL (>40); LDL Cholesterol Calculated 80 mg/dL (<100); Potassium 4.1 mmol/L (3.3-5.1); Sodium 143 mmol/L (135-145); TSH reflex Free T4 0.09 uIU/mL (0.32-4.0); Total Protein 7.4 g/dL (6.5-8.0); Triglycerides 192 mg/dL (<150)
[2024-12-04 12:16] LABS: Free T4 (Free Thyroxine) 1.46 ng/dL (0.71-1.85)
[2024-12-04 14:40] LABS: Creatinine Urine 87.97 mg/dL; Microalbumin Urine < 5.0 mg/L
== END 2024-12-04 09:20 | disposition home or self-care (01) ==
LOC: HO.HMGCLDS 09:19
PROVIDERS: PCP Physician Assistant; Visit Provider Physician Assistant
DX: E03.9 Hypothyroidism, unspecified (principal); E11.65 Type 2 diabetes mellitus with hyperglycemia; I10 Essential (primary) hypertension; E78.1 Pure hyperglyceridemia
CPT/HCPCS: 36415; 80053; 80061; 82043; 82570; 84439; 84443; 85027

== ENCOUNTER 2024-12-07 09:53 | Outpatient (AMB) | payer OTHER, SELFPAY ==
--- NOTE | 2024-12-07 10:00 | A.OFFPC_ITS ---
Vital Signs 12/07/24 10:02 Height 5 ft 7 in Weight 181 lb 4 oz BMI 28.4 BP 110/66 Blood Pressure Location Lt brachial Position Sitting Pulse 85 Pulse Source Pulse Oximeter Temp 97.5 F Temp Source Temporal Artery Scan Pulse Oximetry (%) 97 Oxygen Delivery Method Room Air Intake Visit Reasons: f/u DMII / HLD Toolmaker Required: No Accompanied by: Self / Same As Patient Allergies RACHELLE Inhibitors Allergy (Severe, Verified 12/07/24 10:09) Anaphylaxis azithromycin Allergy (Severe, Verified 12/07/24 10:09) HIVES TO ZPACK, anaphylaxis Hyobbwu-LNV-ImF Reductase Inhibitor [Jdcmxfo-Omo-Lju Reductase Inhibitor] Allergy (Severe, Verified 12/07/24 10:09) Anaphylaxis amitriptyline Adverse Reaction (Intermediate, Verified 12/07/24 10:09) Headache hydrochlorothiazide Adverse Reaction (Intermediate, Verified 12/07/24 10:09) leg cramps IVIG Allergy (Unknown, Uncoded 12/07/24 10:09) told to avoid Medication List - Last Reconciled 12/07/24 by Adam Cadena PA-C amlodipine 2.5 mg PO DAILY carvedilol 3.125 mg PO BID cholecalciferol (vitamin D3) 50 mcg PO DAILY 90 days efmonye-uckadmmdld-FQA-caff 69-50-272-40 mg 1 cap PO Q6H PRN 7 days estradiol 0.01%(0.1mg/gram) (Estrace) 1 g vaginal 3XW insulin degludec (Tresiba FlexTouch U-100 insulin) units subcut levothyroxine 200 mcg PO DAILY lorazepam 1 mg PO DAILY PRN 30 days mercaptopurine 1 tab PO DAILY metformin ER 1,000 mg PO BID omeprazole 40 mg PO BID prucalopride (Motegrity) 2 mg PO DAILY tirzepatide (Mounjaro) 7.5 mg subcut QWEEK Tobacco use date assessed: 12/07/24 Dental Screening Dental Screen Date: 12/07/24 Did you have a dental visit in the last 12 months?: Yes Did you have a dental problem in the last 6 months where you did not have access to dental care?: No Was dental information given to patient?: Patient has dentist HPI f/u DMII / HLD HPI Details Patient is a 59 year female here today for follow-up visit. She is due for cataract removal of both eyes in early December 2023.. Patient has a past medical history type 2 diabetes, hypothyroidism, chronic inflammatory demyelinating polyneuritis. . CHRONIC MEDICAL CONDITIONS--> ISAURA: Has care with a mental health therapist to help further treat her anxiety. Does use lorazepam on an daily/p.r.n. basis. ... ? .. ? DMII:? Patient followed by endocrinology, Does check blood sugars at home, report 120- 160s.? Recently had adjustment to her diabetic medication. Now on insulin therapy (22U tresiba) . Most recent A1c of 5.8. She is very happy about this .. HLD:? Most recent lipid panel much improved triglycerides and total cholesterol.? Patient has been using fish oil which seems to be working well for her.. ? Unable to take statin therapy due to side effect.? Have been locked into start fibrates due to elevations in liver enzymes. .. Liver cirrhosis: Has been noted to have liver cirrhosis recently due to a combination of things. She has been started on carvedilol to help reduce portal pressures. She reports she will be followed every 3 months with imaging at [facility] .. Thrombocytopenia:? Most recent platelet count at 144.? Has follow-up up with Hematology and has gotten bone pair mildly see which was normal.? Otherwise no epistaxis or bowel or bladder bleeding. .. HTN:? Blood pressures have been much better with amlodipine 2.5 mg.? Will continue on his dose of amlodipine. Otherwise denies any chest pain, palpitations, shortness of breath or headaches.? .. ? CIDP: Followed by neurologist at [facility], she does go for plasmapheresis therapies every 5 weeks. Has been having right-sided lower extremity weakness and facial weakness related to her neurological disease. 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 Also did have MRI of brain did show benign appearing cyst at is undergoing surveillance at this time. ?Also having migraines and reports she has gotten botox injection over he scalp which has helped.? Now only taking Fiorinal on a very limited p.r.n. basis.? .. ? Hypothyroidism: Patient continues to take levothyroxine to 100 mcg 6 days a week, her most recent TSH low at 0.09. She will talk to her customer assistance representative about reducing weekly dose of levothyroxine Laboratory Tests 04/08/23 10/01/23 07/16/24 08:00 08:18 08:41 WBC 3.2 L RBC 3.92 L Plt Count 128 L 122 L Creatinine Fasting Glucose 155 H Hemoglobin A1c % 7.0 H AST 32 H ALT 52 H Cholesterol 130 162 Triglycerides LDL Cholesterol, C alc 47 TSH 0.66 0.08 L Urine Microalbumin 12/04/24 12/04/24 09:22 11:38 WBC RBC Plt Count 112 L Creatinine 0.75 Fasting Glucose 139 H Hemoglobin A1c % AST ALT Cholesterol Triglycerides 192 H LDL Cholesterol, C alc TSH 0.09 L Urine Microalbumin < 5.0 [facility] History Splenomegaly HTN (hypertension) Hypothyroid GERD (gastroesophageal reflux disease) Diabetes Anxiety Sciatica Obese Allergic rhinitis Herpes simplex Chronic inflammatory demyelinating neuropathy Surgical History History of colonoscopy History of surgery History of rectal surgery History of bladder surgery History of inguinal hernia repair History of hysterectomy History of tonsillectomy and adenoidectomy History of ankle surgery History of right knee surgery History of elbow surgery History of hand surgery History of thumb surgery History of shoulder surgery History of hip surgery Family History Father Leukemia Lung cancer PVD (peripheral vascular disease) Mother Diabetes Heart disease Asthma Substance use disorder Brother Thyroid disease CIDP (chronic inflammatory demyelinating polyneuropathy) Son Kelley's disease Sister Lymphoma Social History Housing: House Alcohol intake: current Alcohol intake frequency: a few times a month Patient Tobacco Use Status: Former Tobacco user Tobacco use type: Cigarette e-Cigarette/Vaping Use: Never Used Second Hand Smoke Exposure: Yes service: No Current occupational status: disabled Cognitive needs: No Hearing needs: No Vision needs: Yes (GLASSES) Questionnaire PHQ-9 Over the last 2 weeks, how often have you been bothered by any of the following problems? 1. Little interest or pleasure in doing things: not at all 2. Feeling down, depressed, or hopeless: not at all 3. Trouble falling or staying asleep, or sleeping too much: not at all 4. Feeling tired or having little energy: not at all 5. Poor appetite or overeating: not at all 6. Feeling bad about yourself - or that you are a failure or have let yourself or your family down: not at all 7. Trouble concentrating on things, such as reading the newspaper or watching television: not at all 8. Moving or speaking so slowly that other people could have noticed. Or the opposite - being so fidgety or restless that you have been moving around a lot more than usual: not at all 9. Thoughts that you would be better off or of hurting yourself in some way: not at all Total score: 0 Depression Screening Interpretation: Negative Depression Screening Done: Yes 94050 - PHQ-9 Billing: Yes Source: Developed by Drs. Delfino Schwab, Christine Albrecht, Cesar Anthony and colleagues, with an educational margaret from [employer]. Thrive Questionnaire Date Thrive assessed: 12/07/24 I am a: Patient What is your living situation today?: I have a steady place to live Within the past 12 months, did the food you bought not last and you didn't have the money to get more?: Never true Within the past 12 months, did you worry whether your food would run out before you got money to buy more?: Never true Do you have trouble paying for medicines?: No Do you have trouble getting transportation to medical appointments?: No Do you have trouble paying your heating and electricity bill?: No Do you have trouble taking care of your child, family member or friend?: No Do you have trouble with day-to-day activities such as bathing, preparing meals, shopping, managing finances, etc.?: No Are you currently unemployed and looking for a job?: No Are you interested in more education?: No Please select the resources that you would like help with: None Currently or been in a relationship where the following occur: No concerns reported THRIVE Score: 0 AUDIT C Alcohol Use Questionnaire (AUDIT-C) 1. How often do you have a drink containing alcohol?: Monthly or less 2. How many drinks containing alcohol do you have on a typical day when you are drinking?: 1 or 2 3. How often do you have six or more drinks on one occasion?: Never Total Score: 1 ISAURA-7 AMB Questionnaire ISAURA-7 Date ISAURA - 7 assessed: 12/07/24 Feeling nervous, anxious, or on edge: 0 = Not at all Not being able to stop or control worryin = Not at all Worrying too much about different things: 0 = Not at all Trouble relaxin = Not at all Being so restless that it is hard to sit still: 0 = Not at all Becoming easily annoyed or irritable: 0 = Not at all Feeling afraid as if something awful might happen: 0 = Not at all Total ISAURA-7 score (0-4 normal; 5-9 mild; 10-14 moderate; 15-21 severe): 0 Source: Developed by Drs. Delfino Schwab, Christine Albrecht, Cesar Anthony and colleagues, with an educational margaret from [employer]. ISAURA-7 Assessment Billing ISAURA-7 Assessment Tool: ISAURA-7 Assessment 26853 Review of Systems Const Denies headache(s) Eyes Denies loss of vision ENT Denies vertigo, Denies dizziness, Denies headache(s) and Denies sore throat Card Denies chest pain, Denies leg edema and Denies lightheadedness Resp Denies cough, Denies hemoptysis and Denies wheezing GI Denies abdominal pain, Denies melena, Denies constipation, Denies diarrhea and Denies vomiting Denies urinary frequency, Denies dysuria and Denies urinary urgency Musc Denies arthralgias, Denies joint swelling, Denies numbness and Denies tingling Neuro Denies Abnormal speech present, Denies behavioral changes, Denies vertigo, Denies dizziness, Denies headache(s), Denies loss of vision, Denies memory loss, Denies numbness and Denies tingling Psych Denies anxiety, Denies behavioral changes, Denies depression, Denies memory loss and Denies panic attacks Madi/Lymph Denies easy bleeding and Denies easy bruising Aller/Immun Denies wheezing Physical exam (Primary Care) Vital Signs: Last Vital Signs Temp 97.5 F 12/07/24 10:02 Pulse 85 12/07/24 10:02 BP 110/66 12/07/24 10:02 Pulse Ox 97 12/07/24 10:02 Oxygen Delivery Method Room Air 12/07/24 10:02 BMI result Body Mass Index 28.4 Tobacco/Smoking Status: Tobacco use Status Tobacco use date assessed 12/07/24 12/07/24 10:08 Patient Tobacco Use Status Former Tobacco user 12/07/24 10:00 Tobacco use type Cigarette 12/07/24 10:00 e-Cigarette/Vaping Use Never Used 12/07/24 10:00 PHQ-9: PHQ-9 Score PHQ-9: Total score 0 12/07/24 10:08 Depression Screening Interpretation: Negative Thrive Assessment: Date of Thrive Assessment Date Thrive assessed 12/07/24 12/07/24 10:08 Currently or been in a relationship where the following occur: No concerns reported Const General: healthy appearing, no acute distress, alert and awake Nutritional Appearance: well nourished Orientation/consciousness: oriented to person, oriented to place and oriented to time HENMT Ears: TM's normal bilaterally General nose exam: Normal nasal mucous membranes and turbinates present Eyes Conjunctivae: conjunctivae normal Sclerae: sclerae normal Pupils: Equal, round and reactive pupils present Neck Neck: Yes no lymphadenopathy and Yes no JVD Thyroid: Thyroid normal Carotids: no bruits Resp Effort & Inspection: normal respiratory effort and not tachypneic Auscultation: no crackles, no rales, no rhonchi and no wheezes Cardio Rate: regular rate Rhythm: regular rhythm Heart sounds: no murmurs and normal S1 and S2 GI Palpation (GI): Soft to palpation, nontender, no hepatomegaly and no splenomegaly Auscultation: normal bowel sounds Skin General skin exam: no rashes or lesions noted and dry skin Neuro General: oriented to person, oriented to place and oriented to time Cranial nerves: Yes Equal, round and reactive pupils present Speech: No Abnormal speech present Gait exam (Neuro): Normal gait present Motor exam (neuro): no tremor noted Extrem Right upper extremity: full ROM Left upper extremity: full ROM Right lower extremity: full ROM; no edema Left lower extremity: full ROM; no edema Psych Mental Status: mental status grossly normal Speech and movement: Normal speech and movement present Affect: normal affect Attitude: cooperative Thought process: Normal thought process present Coding Level of Care Code Est Pt Level 4 (57224) Diagnoses Type 2 diabetes mellitus with hyperglycemia, without long-term current use of insulin E11.65 Diabetes mellitus truck terminal manager insulin use: without care home use Diabetes mellitus complication status: with hyperglycemia Mixed hyperlipidemia E78.2 Hyperlipidemia type: mixed hyperlipidemia ISAURA (generalized anxiety disorder) F41.1 Hypothyroidism, unspecified type E03.9 Hypothyroidism type: unspecified Cirrhosis of liver without ascites, unspecified hepatic cirrhosis type K74.60 Hepatic cirrhosis type: unspecified hepatic cirrhosis Ascites presence: without ascites Chronic inflammatory demyelinating neuropathy G61.81 Thrombocytopenia D69.6 Additional Codes ISAURA-7 Assessment Billing - ISAURA-7 Assessment Tool: ISAURA-7 Assessment 01879 ([id number]) PHQ-9 - 29707 - PHQ-9 Billing: Yes ([id number]) Assessment & Plan Assessment & Plan (1) DMII (diabetes mellitus, type 2): Code(s): E11.9 - Type 2 diabetes mellitus without complications Category: Medical Qualifiers: Diabetes mellitus truck terminal manager insulin use: without care home use Diabetes mellitus complication status: with hyperglycemia Qualified Code(s): E11.65 - Type 2 diabetes mellitus with hyperglycemia Plan: Patient's type 2 diabetes now well controlled with current medication regime. Most recent A1c of 5.8. She continues on GLP 1, Tresiba 22 units and metformin. Goal A1c is to remain below 7.0 (2) HLD (hyperlipidemia): Code(s): E78.5 - Hyperlipidemia, unspecified Category: Medical Qualifiers: Hyperlipidemia type: mixed hyperlipidemia Qualified Code(s): E78.2 - Mixed hyperlipidemia Plan: Patient's most recent lipid panel showing improved total cholesterol, t riglycerides and LDL. Has not been able to tolerate statin therapy. She has been taking fish oil which has been helpful. She will continue on lifestyle and dietary modifications. Goal LDL is to be below 100 (3) ISAURA (generalized anxiety disorder): Code(s): F41.1 - Generalized anxiety disorder Category: Medical Plan: Patient continues with p.r.n. use of lorazepam for anxiety. She has a lot of medical issues that cause her a lot of anxiety. (4) Hypothyroidism: Code(s): E03.9 - Hypothyroidism, unspecified Category: Medical Qualifiers: Hypothyroidism type: unspecified Qualified Code(s): E03.9 - Hypothyroidism, unspecified Plan: Patient continues to follow Endocrinology [facility]. She does use levothyroxine 6 days a week. Her most recent TSH low talk to her customer assistance representative about reducing dose of levothyroxine. (5) Liver cirrhosis: Code(s): K74.60 - Unspecified cirrhosis of liver Category: Medical Qualifiers: Hepatic cirrhosis type: unspecified hepatic cirrhosis Ascites presence: without ascites Qualified Code(s): K74.60 - Unspecified cirrhosis of liver Plan: Emphasize alternating ultrasound and MRI every three months to monitor liver status and adjust lifestyle to hinder progression. (6) Chronic inflammatory demyelinating neuropathy: Comment: Dx in 1998 Code(s): G61.81 - Chronic inflammatory demyelinating polyneuritis Category: Medical Plan: Continues to get plasmapheresis regularly. Most recent EMG of extremities did not show neuropathic disease. (7) Thrombocytopenia: Code(s): D69.6 - Thrombocytopenia, unspecified Category: Medical Plan: Patient's most recent platelet count at 112. She denies any overt signs of bleeding, bruising. Continues to follow Hematology at [facility] Orders: Orders Complete Blood Count no Diff Today D69.6 - Thrombocytopenia, unspecified Comprehensive [place]. Panel Fast Today E11.65 - Type 2 diabetes mellitus with hyperglycemia TSH reflex Free T4 Today E03.9 - Hypothyroidism, unspecified Lipid Panel Today E78.1 - Pure hyperglyceridemia Medications: New dibzrtw-jlgwuoxttp-BIN-caff 96-68-748-40 mg 1 cap PO Q6H 7 days PRN 28 caps 0RF headache G43.019 - Migraine without aura, intractable, without status migrainosus Refilled lorazepam 1 mg PO DAILY 30 days PRN 30 tabs 3RF anxiety F41.1 - Generalized anxiety disorder Patient Instructions: Goal: A1c to remain below 7.0, blood pressure to remain below 140/90 Barriers: Adherence to physical activity and healthy eating habits
[2024-12-07 10:02] VITALS: BP 110/66; PULSE 85; TEMP 36.4; O2SAT 97; BMI 28.4
--- OUTSIDE RECORDS SUMMARY | 2024-12-07 10:53 | XMS_ITS ---
Author Organization [facility] [place] Address [address] [place] [address] Care Team Providers Care Bracelet Former Name Role Phone Adam Cadena Primary Care Provider Unavailab Adrienne Banks Unavailable [phone] Allergies Allergen (clinical drug ingredient) Drug/Non Drug [...] Active Encounters Encounter Location Date Provider Diagnosis [facility] [address] [address] 07/20/2024 Adrienne Post Plan Of Treatment Next Appt Details Provider Name:Adrienne Post , 04/26/2025 10:15:00 AM, [address] [place], [address], Progress Notes * Romy TOPETEDOB: 4 (59 yo F)Acc No.[id number]:07/20/2024 Progress Notes Patient:?Romy TOPETE Provider:?Adrienne Post DPM :1965???Age:59 Y???Sex:Female D ate:07/20/2024 Address:[address] [place] [id number] Pcp:Adam Cadena Subjective: * Chief Complaints: * [...] Post DPM Date:?2023 Generated for Felisha heck/Syl/Nate on:?12/07/2024 10:53 AM EDT
--- OUTSIDE RECORDS SUMMARY | 2024-12-07 10:53 | XMS_ITS ---
Author Organization [facility] Address [address] [facility] [place] [address] Care Team Providers Care Gate Person Name Role Phone Adam Cadena Primary Care Provider Unavailab mark Adrienne Post Unavailable [phone] Allergies Allergen (clinical drug ingredient) Drug/Non Drug [...] W/U Status Risk Notes Problem Plantar fasciitis ([id number]) Plantar fasciitis (M72.2) Active confirmed Vital Signs Height 5ft6in in 10/29/2024 Weight 185 lbs 10/29/2024 BMI 29.86 kg/m2 10/29/2024 Blood pressure systolic 118 mm Hg 10/29/19 25 Blood pressure diastolic 70 mm Hg 025 Procedures Procedure Date Ordered Date Performed Result Body Sit e 82144-YZRE SKIN LESIONS, 2 TO 4 10/29/2024 N/A Z5290-UHNUXTWF DYSTROPHIC NAILS ANY # 10/29/2024 N/A Encounters Encounter Location Date Provider Diagnosis [facility] [place] [address] [place] [address] 10/29/2024 Adrienne Black Right foot pain M79.671 [...] INSTRUCTIONS.pdf) Pending Test Test Name Order Date 03615-DZSP SKIN LESIONS, 2 TO 4 10/29/19 25 H7544-YZNPGEQW DYSTROPHIC NAILS ANY # Next Appt Details Follow Up: 2 Months, Reason: Provider Name:Adrienne Post , 04/26/2025 10:15:00 AM, [address] [place], [address], Procedure Notes * Category Sub-Category Detail Notes [...] instrumentation by the physician of record - 27041 Nail Reduction Nail Reduction (-27) Trimming o [...] * Romy TOPETEDOB: 4 (59 yo F)Acc No.[id number]:10/29/2024 Progress Note Patient:?Romy TOPETE Provider:?Adrienne Post DPM :1965???Age:59 Y???Sex:Female D ate:10/29/2024 Address:[address] [place] [id number] Pcp:Adam Cadena Subjective: * Chief Complaints: * [...] 2.?Type 2 diabetes mellitus with diabetic polyneuropathy?Procedure: 49043-SZGA SKIN LESIONS, 2 TO 4 ?Procedure: I9830-SEJIUOMF DYSTROPHIC NAILS ANY # 3.?Xerosis of skin? [...] instrumentation by the physician of record - 88016.?Nail Reduction:?Nail Reduction?(-27) Trimming of all dystrophic nails [...] ING DYSTROPHIC NAILS ANY #, Modifiers: XS 14399 TRIM SKIN LESIONS, 2 TO 4, Modifiers: [...] Post DPM Date:?2024 Generated for Felisha heck/Syl/Nate on:?12/07/2024 10:53 AM EDT History and Physical Notes * [...]
--- OUTSIDE RECORDS SUMMARY | 2024-12-07 10:53 | XMS_ITS | Clinical Summary ---
Author Organization [facility] Address [address] [place] [address] Phone Care Team Providers Care Product Managent Intern Name Role Phone Adam Cadena Primary Care Provider Allergies Active Allergy Reactions Criticality Noted Date Comments Ralph Inhibitors Other 08/13/2024 Cannot take with plasmaforesis Azithromycin Hives 08/13/2024 Flu Virus Vaccine Tv 2014- (18 Yr And Up),Recomb Unknown 10/24/2023 Immune Globulin,Gamma (Igg) Human Other 04/03/2023 Other Reaction(s): affects kidneys- told to avoid Affects kidney Zabssva-Lwl-Ybe Reductase Inhibitors Unknown Medium 01/30/2019 Other Reaction(s): elev lfts Affect Liver Medications cycloSPORINE 0.05 % drops Administer 1 drop into both eyes 1 (one) time each day. 05/07/20 24 Active docosahexaenoic acid-epa 120-180 mg capsule Take 1 tablet by mouth 1 (one) time each day. Active butalbital-acet aminophen-caffe ine-codeine (Fioricet with Codeine) 60-782-19-30 mg capsule Take 1 capsule by mouth [...] 11/06/2024 Telephone Gastroenterology - [address] [facility] [address] [place] [address] Mariza Simpson [place] 11/04/2024 9:10 AM EST - 11/04/2024 11:59 PM EST Hospital Encounter [facility] Ultrasound [address] [place] [address] Other cirrhosis of liver (CMS/HCC) Discharge Disposition: Home or Self Care 10/16/2024 8:50 AM EST Lab Draw Station - [address] [facility] [address] [facility] [place] [phone] Other cirrhosis of liver (CMS/HCC) 10/16/2024 8:30 AM EST Office Visit Gastroenterology - [address] [place] [phone] Libra Finney MD Other cirrhosis of liver (CMS/HCC) (Primary Dx) from Last 3 Months Surgical History Surgery Date Site/Laterality Comments HAND SURGERY 09/2014 Right PROCEDURE: HISTORICAL HAND SURGERY; COMMENT: thumb; several hand surgeries ELBOW SURGERY Left PROCEDURE: HISTORICAL ELBOW SURGERY OTHER SURGICAL HISTORY Left PROCEDURE: HISTORY OTHER; COMMENT: hip, IT band cut ; [facility] KNEE SURGERY Right PROCEDURE: HISTORICAL KNEE [...] is incompletely evaluated on this study. Code 35586 G9551. -------- FINAL REPORT -------- Dictated By: Kirt Moore Dictated Date: 11/06/2024 10:25 ET Assigned Physician: Kirt Moore Reviewed and Electronically Signed By: Kirt Moore Signed Date: 11/06/2024 10:29 ET Workstation ID: [id number] Transcribed By: Self Edit Transcribed Date: 11/06/2024 [...] pancreas isincompletely evaluated on this study. Code 40656 G9551. -------- FINAL REPORT -------- Dictated By: Kirt Moore Dictated Date: 11/06/2024 10:25 ET Assigned Physician: Kirt oMore Reviewed and Electronically Signed By: Kirt Moore Signed Date: 11/06/2024 10:29 ET Workstation ID: [id number] Transcribed By: Self Edit Transcribed Date: 11/06/2024 10:25 ET Libra Finney MD [facility] [place] PROCEDURES Final Result * COLONOSCOPY (10/16/2024 9:55 AM EST) Anatomical Region Laterality Modality Endoscopy Historical Provider GI~PROCEDURE ORDERABLES F inal Result * External Endoscopy (10/16/2024 9:53 AM EST) Anatomical Region Laterality Modality Endoscopy Historical Provider GI~PROCEDURE ORDERABLES F inal Result * (ABNORMAL) CBC auto differential (10/16/2024 8:52 AM EST) WBC 3.2(L) 4.8 - 10.8 K/[facility] LAB HEMETOLOGY METHOD 10/16/2024 9:11 AM [facility] LAB RBC 4.00 3.80 - 4.80 M/[facility] LAB HEMETOLOGY METHOD 10/16/2024 9:11 AM [facility] LAB Hemoglobin 11.8 11.5 - 16.0 g/dL LAB HEMETOLOGY METHOD 10/16/2024 9:11 AM [facility] LAB Hematocrit 35.0 35.0 - 47.0 % LAB HEMETOLOGY METHOD 10/16/2024 9:11 AM [facility] LAB MCV 88.2 79.0 - 98.0 FL LAB HEMETOLOGY METHOD 10/16/2024 9:11 AM [facility] LAB MCH 29.7 27.0 - 32.0 pcg LAB HEMETOLOGY METHOD 10/16/2024 9:11 AM [facility] LAB MCHC 33.7 32.0 - 37.0 g/dL LAB HEMETOLOGY METHOD 10/16/2024 9:11 AM [facility] LAB RDW 13.8 11.0 - 15.0 % LAB HEMETOLOGY METHOD 10/16/2024 9:11 AM [facility] LAB Platelets 122(L) 130 - 400 K/mcL LAB HEMETOLOGY METHOD 10/16/2024 9:11 AM [facility] LAB MPV 10.1 7.0 - 11.0 FL LAB HEMETOLOGY METHOD 10/16/2024 9:11 AM [facility] LAB NRBC 0.0 <1.0 % LAB HEMETOLOGY METHOD 10/16/2024 9:11 AM [facility] LAB NRBC Absolute 0.00 <0.10 K/mcL LAB HEMETOLOGY METHOD 10/16/2024 9:11 AM [facility] LAB Neutrophils Relative 59.3 % LAB HEMETOLOGY METHOD 10/16/2024 9:11 AM [facility] LAB Lymphocytes Relative 31.3 % LAB HEMETOLOGY METHOD 10/16/2024 9:11 AM [facility] Monocytes Relative 6.6 % LAB HEMETOLOGY METHOD 10/16/2024 9:11 AM [facility] Eosinophils Relative 1.6 % LAB HEMETOLOGY METHOD 10/16/2024 9:11 AM [facility] Basophils Relative 0.6 % LAB HEMETOLOGY METHOD 10/16/2024 9:11 AM [facility] Immature Granulocytes Relative 0.6 % LAB HEMETOLOGY METHOD 10/16/2024 9:11 AM [facility] LAB Neutrophils Absolute 1.89 1.50 - 7.00 K/mcL LAB HEMETOLOGY METHOD 10/16/2024 9:11 AM [facility] LAB Lymphocytes Absolute 1.00 1.00 - 5.00 K/[facility] LAB HEMETOLOGY METHOD 10/16/2024 9:11 AM EST [facility] Monocytes Absolute 0.21 0.20 - 1.00 K/[facility] LAB HEMETOLOGY METHOD 10/16/2024 9:11 AM EST [facility] Eosinophils Absolute 0.05 0.00 - 0.50 K/[facility] LAB HEMETOLOGY METHOD 10/16/2024 9:11 AM EST [facility] Basophils Absolute 0.02 0.00 - 0.20 K/[facility] LAB HEMETOLOGY METHOD 10/16/2024 9:11 AM EST [facility] Immature Granulocytes Absolute 0.02 0.00 - 0.03 K/[facility] LAB HEMETOLOGY METHOD 10/16/2024 9:11 AM EST [facility] Blood Venous blood specimen / Unknown Venipuncture / Unknown 10/16/2024 8:52 AM EST 10/16/2024 8:59 AM EST us Libra Finney MD LAB BLOOD ORDERABLES Final Res ult [facility] [address] [place] [address], * Alpha fetoprotein tumor marker (10/16/2024 8:52 AM EST) AFP <2.5 0.0 - 8.0 ng/mL LAB CHEMISTRY METHOD 10/16/2024 9:46 AM EST [facility] Blood Venous blood specimen / Unknown Venipuncture / Unknown 10/16/2024 8:52 AM EST 10/16/2024 8:58 AM EST Narrative [facility] - 10/16/2024 9:46 AM EST The Siemens Advia Centaur Chemiluminescent Immunoassay is used. Results obtained with different assay methods or kits cannot be used interchangeably. Results cannot be interpreted as absolute evidence of the presence or absence of malignant disease. us Libra Finney MD LAB BLOOD ORDERABLES Final Res ult [facility] [address] [place] [address], [place] [phone] * Prothrombin time with INR (10/16/2024 8:52 AM EST) [facility] Protime 12.1 10.6 - 13.9 sec LAB COAGULATION METHOD 10/16/2024 9:09 AM EST [facility] INR 1.0 LAB COAGULATION METHOD 10/16/2024 9:09 AM [facility] Blood Venous blood specimen / Unknown Venipuncture / Unknown 10/16/2024 8:52 AM EST 10/16/2024 8:58 AM EST us Libra Finney MD LAB BLOOD ORDERABLES Final Res ult Performing Organization Address [facility]/ZIP Co de Phone Number [facility] [address] [place] [address], [place] [phone] * (ABNORMAL) Comprehensive metabolic panel (10/16/2024 8:52 AM EST) [facility] Sodium 140 133 - 145 mmol/L LAB CHEMISTRY METHOD 10/16/2024 9:53 AM [facility] Potassium 3.9 3.5 - 5.5 mmol/L LAB CHEMISTRY METHOD 10/16/2024 9:53 AM [facility] Chloride 112(H) 96 - 110 mmol/L LAB CHEMISTRY METHOD 10/16/2024 9:53 AM [facility] CO2 27 21 - 32 mmol/L LAB CHEMISTRY METHOD 10/16/2024 9:53 AM [facility] Anion Gap 1(L) 3 - 11 LAB CHEMISTRY METHOD 10/16/2024 9:53 AM [facility] Glucose 171(H) 70 - 100 mg/dL LAB CHEMISTRY METHOD 10/16/2024 9:53 AM [facility] BUN 10 5 - 25 mg/dL LAB CHEMISTRY METHOD 10/16/2024 9:53 AM [facility] Creatinine 0.68 0.50 - 1.10 mg/dL LAB CHEMISTRY METHOD 10/16/2024 9:53 AM [facility] eGFR 100 >=60 mL/min/1. 73m2 LAB CHEMISTRY METHOD 10/16/2024 9:53 AM [facility] Comment:Calculation based on the??Chronic Kidney Disease Epidemiology Collaboration (CKD-EPI) equation refit??without adjustment for race. BUN/Creatinine Ratio 14.7 LAB CHEMISTRY METHOD 10/16/2024 9:53 AM [facility] Calcium 9.1 8.5 - 10.5 mg/dL LAB CHEMISTRY METHOD 10/16/2024 9:53 AM [facility] AST (SGOT) 18 10 - 42 unit/L LAB CHEMISTRY METHOD 10/16/2024 9:53 AM [facility] ALT (SGPT) 24 10 - 60 unit/L LAB CHEMISTRY METHOD 10/16/2024 9:53 AM [facility] Alkaline Phosphatase 61 42 - 121 unit/L LAB CHEMISTRY METHOD 10/16/2024 9:53 AM [facility] Total Protein 6.3 6.0 - 8.0 g/dL LAB CHEMISTRY METHOD 10/16/2024 9:53 AM [facility] Albumin 4.1 3.2 - 5.0 g/dL LAB CHEMISTRY METHOD 10/16/2024 9:53 AM [facility] Total Bilirubin 0.3 0.0 - 1.4 mg/dL LAB CHEMISTRY METHOD 10/16/2024 9:53 AM [facility] Blood Venous blood specimen / Unknown Venipuncture / Unknown 10/16/2024 8:52 AM EST 10/16/2024 8:58 AM EST us Libra Finney MD LAB BLOOD ORDERABLES Final Res ult [facility] [place] [facility] [address] [place] [address], [place] [phone] from Last 3 Months Insurance [facility] Member Subscriber Plan / Payer (Ef fective 2021-Present) Name:Romy Topete Relation to Subscriber:Self Name:Romy Topete Jos Payer ID:[id number] Group ID:[id number] Type:Not on file Address: [place] [address] [place] [place] [address] Care Teams Product Managent Intern Relationship Specialty Start Date End Date Adam Cadena PA PCP - General Physician Corporation Lawyer 08/13/24
--- OUTSIDE RECORDS SUMMARY | 2024-12-07 10:53 | XMS_ITS ---
Author Organization [facility] Address [address] [facility] [place] [address] Care Team Providers Care Machine Candle Molder Name Role Phone Adam Cadena Primary Care Provider Unavailab mark Adrienne Post Unavailable [phone] REASON FOR VISIT SD Reschedule/Cancel Encounters Encounter Location Date Provider Diagnosis [address] [address] 07/20/2024 Adrienne Post Plan Of Treatment Next Appt Details Provider Name:Adrienne A Sincere , 04/26/2025 10:15:00 AM, [address] [place], [address], Progress Notes * Romy TOPETEDOB: 4 (59 yo F)Acc No.[id number]:07/20/2024 Patient:?Romy Topete :1965???Age:59 Y???Sex:Female Address:[address] [place] [address] [place], [address] * true * Date:? Generated for Printi ng/Fateresag/eTransmitting on:?12/07/2024 10:53 AM EDT
--- OUTSIDE RECORDS SUMMARY | 2024-12-07 10:53 | XMS_ITS | Encounter Summary ---
Author Organization [facility] [place] [address] Care Team Providers Care News Camera Operator Name Role Phone Adam Cadena Primary Care Provider [phone] Encounter Details Date Type Department Care Team (Late st Contact Info) Description 11/06/2024 Telephone Gastroenterology - [address] [place] [address] Mariza Simpson MA Social History [...] on filedocumented in this encounter Care Teams News Camera Operator Relationship Specialty Start Date End Date Adam Cadena PA PCP - General Physician Dental Mechanic 08/13/24 documented as of this encounter
--- OUTSIDE RECORDS SUMMARY | 2024-12-07 10:54 | XMS_ITS | Patient Health Record ---
[facility] Address [address] [facility] [place] [address] Care Team Providers Care Aircraft Seat Upholsterer Name Role Phone Adam Cadena Primary Care Provider Unavailab mark Adrienne Post Unavailable [phone] Allergies Allergen (clinical drug ingredient) Drug/Non Drug [...] (HH) 7.6 HEMOGLOBIN A1C (GLYCOHEMOGLO BIN) Reviewed date:10/29/2024 09:09:42 AM Interpretation: Performing Lab: Notes/Report: HEMOGLOBIN A1C % (HH) 5.8 Reason For Referral No Information Medications Medication [...] Problem Acquired hammer toe of right foot (6069347865909973) Other hammer toe(s) (acquired), right foot (M20.41) Active confirmed Problem Acquired hammer toe of left foot (3711414930845335) Other hammer toe(s) (acquired), left foot (M20.42) Active confirmed Problem Plantar wart (32065651) Plantar wart (B07.0) Active confirmed Problem Acquired hammer toe of right foot (6032566858614246) Other hammer toe(s) (acquired), right foot (M20.41) Active confirmed Problem Polyneuropathy due to type 2 diabetes mellitus (758793447) Type 2 diabetes mellitus with diabetic polyneuropathy (E11.42) Active confirmed Problem Plantar fasciitis (874705639) Plantar fasciitis (M72.2) Active confirmed Problem Bilateral osteoarthritis of ankles (239119519570776) Osteoarthritis of right ankle and foot (M19.071) Active confirmed Problem Bilateral osteoarthritis of ankles (037736139615893) Osteoarthritis of left ankle and foot (M19.072) Active confirmed Problem Acute rheumatic arthritis (51414044) Rheumatoid arthritis flare (M06.9) Active confirmed Problem 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 confirmed Vital Signs Blood pressure diastolic 70 mm Hg 10/29/2024 Height 5ft6in in 10/29/2024 Blood pressure systolic 118 mm Hg 10/29/2024 Weight 185 lbs 10/29/2024 BMI 29.86 kg/m2 10/29/2024 Procedures Procedure Date Ordered Date Performed Result Body Sit e 80713-Zrxe Destruction, -01/23/2024 N/A ,C7244-XDJ TENDON SHEATH/LIGAMENT 01/23/2024 N/A 01764-Yebx Destruction, -04/09/2024 N/A , Z6647-SLOKE/INJECT, JOINT/BURSA 04/09/2024 N/A ,Y9552-VRN TENDON SHEATH/LIGAMENT 05/18/2024 N/A 90084-ZOIS SKIN LESIONS, 2 TO 4 10/29/2024 N/A Z8173-BFEQIREV DYSTROPHIC NAILS ANY # 10/29/2024 N/A Encounters Encounter Location Date Provider Diagnosis [address] [address] 01/23/2024 Adreinne Black Right foot pain M79.671 ; Achilles tendinitis of right lower extremity M76.61 ; Pain of right heel M79.671 ; Short Achilles tendon (acquired), right ankle M67.01 ; Xerosis of skin L85.3 ; Type 2 diabetes mellitus with diabetic polyneuropathy E11.42 ; Peroneal tendinitis, right M76.71 and Verruca B07.[address] [address] 04/09/2024 Adrienne Black Right foot pain M79.671 ; Pain of right heel M79.671 ; Type 2 diabetes mellitus with diabetic polyneuropathy E11.42 ; Peroneal tendinitis, right M76.71 ; Verruca B07.9 and Arthralgia of right foot M25.[address] [address] 05/18/2024 Adrienne Black Right foot pain M79.671 ; Pain of right heel M79.671 ; Type 2 diabetes mellitus with diabetic polyneuropathy E11.42 and Plantar fasciitis M72.[address] [address] 10/29/2024 Adrienne Black Right foot pain M79.671 ; Pain of right heel M79.671 ; Type 2 diabetes mellitus with diabetic polyneuropathy E11.42 ; Plantar fasciitis M72.2 ; Xerosis of skin L85.3 ; Other hammer toe(s) (acquired), right foot M20.41 and Other hammer toe(s) (acquired), left foot M20.[address] [address] 04/07/[address] [address] 05/11/2024 Adriennezahida Post [address] [address] 05/15/2024 Adriennezahida Post [facility] [place] [address] 07/20/2024 Adriennezahida Post [facility] Encounter Date Diagnosis (ICD Code) Assessment [...] X ray : Foot, right 3V 10/02/2022 82374-AWVBQRB NAIL, 6 OR MORE 05/23/2016 07212-SHDYJJI NAIL, 6 OR MORE 11/19/2016 42351-MYZZYKP NAIL, 1-5 02/12/2019 14193-Fndi Destruction, 1-14 02/12/2019 41241-Vdgu Destruction, 1-14 08/21/2018 99376-Vdop Destruction, -14 01/13/2018 97703-Ugvq Destruction, -14 11/19/2016 90323-Caen Destruction, -14 05/30/2017 09568-Dojh Destruction, -14 01/23/2024 53916-Lakx Destruction, -14 04/09/2024 06442-Syju Destruction, -14 10/08/2019 99237-Kbqa Destruction, -14 06/16/2020 02442-Ekzz Destruction, -14 02/11/2020 69612- Debride <25 sq cm 05/15/2012 51348-QFRYHNY SKIN/TISSUE 05/23/2016 55724-KTYQFUQ SKIN/TISSUE 11/19/2016 04537-GJKT SKIN LESIONS, OVER 4 11/19/19 17 36087-PDBO SKIN LESIONS, OVER 4 05/30/20 17 63380-JCSD SKIN LESIONS, OVER 4 01/14/20 18 93028-HUUO SKIN LESIONS, OVER 4 08/21/20 18 03239-FPHZ SKIN LESIONS, OVER 4 05/23/20 16 42342-UBEK SKIN LESIONS, OVER 4 04/04/20 15 48405-UBCS SKIN LESIONS, OVER 4 10/03/19 16 32009-VLKC SKIN LESIONS, OVER 4 03/19/20 13 87015-ZZHP SKIN LESIONS, OVER 4 09/28/19 14 16112-QNAH SKIN LESIONS, OVER 4 03/29/20 14 40416-MSTC SKIN LESIONS, OVER 4 09/29/19 15 05213-OORY SKIN LESIONS, OVER 4 10/29/19 13 07884-XVQY SKIN LESIONS, OVER 4 04/21/20 12 44334-WOOX SKIN LESIONS, OVER 4 02/11/20 20 70596-ZQYG SKIN LESIONS, OVER 4 10/08/19 20 20095-ZSPV SKIN LESIONS, OVER 4 02/13/20 19 88345-PIDO SKIN LESIONS, OVER 4 06/16/20 20 87526-NAER SKIN LESIONS, OVER 4 08/05/20 23 84849-ZSYS SKIN LESIONS, 2 TO 4 10/29/19 25 59488, M3998-SHLCE/INJECT, JOINT/BURSA 0 04/09/2024 11114, S5179-IEHNO/INJECT, JOINT/BURSA 0 02/12/2019 17302-HYFC NAIL(S) 10/08/2019 06173-QBRA NAIL(S) 02/11/2020 88802-UVOF NAIL(S) 06/16/2020 28766-PYCY NAIL(S) 09/28/2013 69709-JCCG NAIL(S) 01/13/2018 17185-QPWV NAIL(S) 08/21/2018 64088-WSFF NAIL(S) 02/12/2019 24649-TWET NAIL(S) 05/30/2017 I3964-ZAPBNRDV DYSTROPHIC NAILS ANY # E2763-IHIYIYLW DYSTROPHIC NAILS ANY # K6541-NWPQVVBJ DYSTROPHIC NAILS ANY # G5082-MQAMLKQP DYSTROPHIC NAILS ANY # 20863- Removal of Foreign Body, Subcut 0 05/15/2012 38069- Removal of Foreign Body, Subcut 0 05/01/2012 62931,E1118-YHV TENDON SHEATH/LIGAMENT 0 06/11/2011 55784,A7287-AOM TENDON SHEATH/LIGAMENT 0 05/18/2024 03228,U1912-JWK TENDON SHEATH/LIGAMENT 0 01/23/2024 99835 - Shave Biopsy of Skin Lesion 04/24 16116 - Shave Biopsy of Skin Lesion 05/24 Next Appt Details Provider Name:Adrienne Post , 04/26/2025 10:15:00 AM, [address] [place] [address], [place], [address], Insurance Providers Payer Name Payer Address Payer Phone Subscriber Number Group Number Insured Name Patient Relationship to Insured Coverage Start Date Coverage End Date [facility] [employer] Claims [address] [facility] [facility] [phone] [id number] Romy Decker i Self - patient is [...]
== END 2024-12-07 10:37 | disposition home or self-care (01) ==
LOC: HO.HMCH 09:53
PROVIDERS: PCP Physician Assistant; Visit Provider Physician Assistant
DX: E11.65 Type 2 diabetes mellitus with hyperglycemia (principal); K74.60 Unspecified cirrhosis of liver; G61.81 Chronic inflammatory demyelinating polyneuritis; D69.6 Thrombocytopenia, unspecified; E78.2 Mixed hyperlipidemia; F41.1 Generalized anxiety disorder; E03.9 Hypothyroidism, unspecified

== ENCOUNTER → 2024-12-07 09:53 | Outpatient (BNVA) | payer OTHER, SELFPAY | PROVIDERS: PCP Physician Assistant; Visit Provider Physician Assistant | DX: E11.65 Type 2 diabetes mellitus with hyperglycemia (principal); E78.2 Mixed hyperlipidemia; E03.9 Hypothyroidism, unspecified; F41.1 Generalized anxiety disorder; K74.60 Unspecified cirrhosis of liver; D69.6 Thrombocytopenia, unspecified; G61.81 Chronic inflammatory demyelinating polyneuritis | CPT/HCPCS: 96127; 99212 ==

== ENCOUNTER → 2025-02-18 08:18 | Outpatient (REF) | payer OTHER, SELFPAY ==
--- OUTSIDE RECORDS SUMMARY | 2025-02-18 08:26 | XMS_ITS | Encounter Summary ---
Author Organization [facility] Address [address] [place] [address] Care Team Providers Care University Relations Recruiter Name Role Phone Adam Cadena Primary Care Provider [phone] Encounter Details Date Type Department Care Team (Late st Contact Info) Description 01/14/2025 myChart Message [facility] [address] [place] [phone] Glass Worker: Romy Farrar MD [address] [place] [address] Check incision Social History Tobacco Use Types Packs/Day Years Used Date Smoking Tobacco: Former Cigarettes Smokeless Tobacco: Former Comments Unknown Sex and Gender Information Value Date Recorded Sex Assigned at Female 01/07/2025 8:29 PM EDT Legal Sex Female 3:16 PM EDT Gender Identity Female 01/07/2025 8:29 PM EDT Sexual Orientation Straight 01/07/2025 8: 29 PM EDT documented as of this encounter Plan of Treatment Upcoming Encounters Date Type Department Care Team (Late st Contact Info) Description 02/19/2025 10:45 AM EDT Office Visit [facility] [address] [address] Glass Worker: Emerita Melendrez MD [address] [place] [address] documented as of this encounter Visit Diagnoses Not on filedocumented in this encounter Care Teams University Relations Recruiter Relationship Specialty Start Date End Date Adam Cadena PA [address] [place] [address] PCP - General 01/01/25 documented as of this encounter
== END ==
LOC: HO.CARD 08:18
PROVIDERS: PCP Physician Assistant; Visit Provider Physician Assistant
DX: R00.2 Palpitations (principal)
CPT/HCPCS: 93242

== ENCOUNTER → 2025-02-18 08:21 | Outpatient (BNV) | payer OTHER, SELFPAY | PROVIDERS: PCP Physician Assistant; Visit Provider Internal Medicine | DX: I47.10 Supraventricular tachycardia, unspecified (principal) | CPT/HCPCS: 93244 ==

== ENCOUNTER 2025-06-01 09:02 | Outpatient (REF) | payer OTHER, SELFPAY ==
--- OUTSIDE RECORDS SUMMARY | 2024-06-01 09:30 | XMS_ITS ---
Author Organization [facility] jennifer [place] Address [address] [place] [address] Care Team Providers Care Woodworking Machine Operator Name Role Phone Adam Cadena Primary Care Provider Unavailab Adrienne Banks [phone] Encounters Encounter Location Date Provider Diagnosis [facility] [address] [place] [address] 06/01/2024 Adrienne Post Plan Of Treatment Next Appt Details Provider Name:Adrienne Post , 10/25/2025 10:00:00 AM, [address] [place], [address], Progress Notes * Romy TOPETEDOB: 4 (60 yo F)Acc No.[id number]:06/01/2024 Progress Note Patient: Romy PARRA Provider: Khushbu Post DPM :1965 A ge:59 Y S ex:Female Date:06/01/2024 Address:[address] [place] [address] [place] [id number] Pcp:Adam Cadena Subjective: * Chief Complaints: * [...] DPM Date: 0 06/01/2024 Generated for Felisha heck/Syl/Nate on: 0 06/01/2025 10:21 AM EDT
--- OUTSIDE RECORDS SUMMARY | 2024-07-20 07:15 | XMS_ITS ---
Author Organization [facility] jennifer [facility] Address [address] [facility] [place] [address] Care Team Providers Care Mica Sizer Name Role Phone Adam Cadena Primary Care Provider Unavailab mark Adrienne Post Unavailable [phone] Allergies Allergen (clinical drug ingredient) Drug/Non Drug Allergy documented on EMR Reaction Allergy Type Onset Date Status azithromycin Azithromycin extreme hives Drug Allergy Active Flu Virus Vaccine Unknown Drug Allergy Active Medications Medication SIG (Take, Route, Frequency, Duration) Notes Start Date End Date Status Estradiol 0.025 MG/24HR 1 patch to skin Transdermal Two times a Week; Duration: 30 day(s) Not-Taking Ammonium Lactate 12 % APPLY TWICE A DAY FOR 30 DAYS; Duration: 30 Active Antibiotic For tooth Not-Takin g Reglan Not-Taking Keflex 500 MG 1 capsule Orally every 12 hrs; Duration: 10 day(s) 05/19/2020 Not-Taking Jardiance 25 MG 1 tablet Orally Once a day; Duration: 30 day(s) Active Victoza 1.2ml Active Night Splint AFO - L1930 1 wear when at rest; Duration: 30 days Active zzzCompression Stockings 20-30mm Hg . . .; Duration: . A ctive Extra Depth Orthopedic Shoes (1 Pair) with Customized Heat Molded Multidensity Innersoles (3 Pair) as directed Dx: NIDDM/Polyneuropathy (E11.42), Hammertoe Foot Deformity (M20.41,M20.42), Preulcerative Skin Lesion(s) (L85.1 11/08/2020 Active Glimepiride Active Valtrex Active Synthroid Active Purinethol Active Metformin & Diet Manage Prod Active Fiorinal/Codeine #3 Active Extra-Depth Diabetic Shoes with 3 Pair Custom heat-molded multi-density innersoles Active Zinc Active Imiquimod 5 % 1 application at bedtime, leave on for 8 hours then wash off Externally Three times a Week Active LORazepam Active Insulin Active Encounters Encounter Location Date Provider Diagnosis [facility] [address] [place] [address] 07/20/2024 Adrienne Post Plan Of Treatment Next Appt Details Provider Name:Adrienne Post , 10/25/2025 10:00:00 AM, [address] [place], [address], Progress Notes * Romy TOPETEDOB: 4 (60 yo F)Acc No.[id number]:07/20/2024 Progress Notes Patient: Romy PARRA Provider: Khushbu Post DPM :1965 A ge:59 Y S ex:Female Date:07/20/2024 Address:[address] [place] [address], [place], [place] Pcp:Adam Cadena Subjective: * Chief Complaints: * * Medical History: T ransfusions, Chicken pox, Broken bones, Warts(flat), Thyroid disorder, Reflux(gerd), Neuropathy(numbnes), nerve disease(RSD/CRPS), Lupus, Headaches/migraines, Glaucoma, Gall bladder problems, Diverticulitis, Diabetic, Crohns disease, Cholesterol(CAD), Back, hip, knee pain, Arthritis, Rheumatoid arthritis, Thrombocytopenia. * Medications: T aking Insulin , Taking Imiquimod 5 % Cream 1 application at bedtime, leave on for 8 hours then wash off Externally Three times a Week , Taking Zinc , Taking Extra- Depth Diabetic Shoes with 3 Pair Custom heat-molded multi-density innersoles , Taking Fiorinal/Codeine #3 , Taking LORazepam , Taking Metformin & Diet Manage Prod , Taking Purinethol , Taking Synthroid , Taking Valtrex , Taking Glimepiride , Taking Victoza 1.2ml , Taking Jardiance 25 MG Tablet 1 tablet Orally Once a day , Taking Extra Depth Orthopedic Shoes (1 Pair) with Customized Heat Molded Multidensity Innersoles (3 Pair) as directed Dx: NIDDM/Polyneuropathy (E11.42), Hammertoe Foot Deformity (M20.41,M20.42), Preulcerative Skin Lesion(s) (L85.1 , Taking zzzCompression Stockings 20-30mm Hg 1 pair closed toe- knee high . . . , Taking Night Splint AFO - L1930 1 wear when at rest , Taking Ammonium Lactate 12 % Cream APPLY TWICE A DAY FOR 30 DAYS , Not-Taking/PRN Antibiotic , Notes to Pharmacist: For tooth, Not- Taking/PRN Keflex 500 MG Capsule 1 capsule Orally every 12 hrs , Not-Taking/PRN Reglan , Not-Taking/PRN Estradiol 0.025 MG/24HR Patch Biweekly 1 patch to skin Transdermal Two times a Week * Allergies: F qamar Virus Vaccine, Azithromycin: extreme hives. Objective: * Vitals: Assessment: Plan: * Treatment: * Images: * The named appointment provid er may or may not be the originator of this progress note, and it is not deemed complete until electronically signed by the appointment provider. Sign off status: Pending * Provider: Khushbu Post DPM Date: 1 Generated for Felisha heck/Syl/Nate on: 0 06/01/2025 10:21 AM EDT
[2025-06-01 10:13] LABS: Hematocrit 36.9 % (37.0-47.0); Hemoglobin 12.6 g/dl (12.0-16.0); Mean Corpuscular HGB Conc 34.1 g/dl (31.0-35.0); Mean Corpuscular Hemoglobin 30.1 pg (27.0-33.0); Mean Corpuscular Volume 88.3 fL (80.0-98.0); NRBC Abs Auto 0.000 X10*3/uL (0.0-0.012); NRBC Pct Auto 0.0 /100WBC (0.0-0.2); Platelet Count 128 X10*3/uL (160-400); Red Blood Count 4.18 X10*6/uL (4.20-5.50); White Blood Count 4.0 X10*3/uL (4.8-10.8)
--- OUTSIDE RECORDS SUMMARY | 2025-06-01 10:21 | XMS_ITS | Clinical Summary ---
Author Organization [facility] Address [address] [place] [phone] Phone Care Team Providers Care Strategy Director Name Role Phone Adam Cadena Primary Care Provider + Allergies Active Allergy Reactions Criticality Noted Date Comments Ralph Inhibitors Anaphylaxis High 10/24/2023 Azithromycin Hives 05/17/2020 Flu Virus Vaccine Tv 2015-16 (18 Yr And Up),Recomb Unknown 10/24/2023 Immune Globulin,Gamma (Igg) Human Other (See Comments) 04/03/2023 Affects kidney Sqklzad-Wlw-Hhh Reductase Inhibitors 04/03/2023 Affect Liver Medications valACYclovir (VALTREX) 500 MG tablet Take 500 mg by mouth daily. Active MOTEGRITY 2 mg tablet Take 1 tablet by mouth every morning. 023 Active amLODIPine (NORVASC) 2.5 MG tablet Take 1 tablet by mouth every morning. 023 Active omeprazole (PRILOSEC) 40 MG capsule Take 1 capsule by mouth daily. 023 Active ZINC ORAL Take 50 mg by mouth daily. Active LORazepam (ATIVAN) 0.5 MG tablet Take 0.5 mg by mouth as needed for anxiety. Active ammonium lactate (AMLACTIN) 12 % cream Apply topically. Active cycloSPORINE (RESTASIS) 0.05 % suspension 1 drop 2 (two) times a day. 023 Active estradioL (ESTRACE) 0.01 % (0.1 mg/gram) vaginal cream INSERT 1 G PER VAGINA NIGHTLY FOR 2 WEEKS THEN 2 TIMES PER WEEK THEREAFTER 024 Active fluticasone propionate (FLONASE) 50 mcg/actuation nasal spray 2 SPRAY INTRANASALLY DAILY FOR 30 DAYS ADMINISTER INTO EACH NOSTRIL Active ketorolac (ACULAR) 0.5 % ophthalmic solution Place 2 drops into each eye as needed. Active docosahexaenoic acid/epa (FISH OIL ORAL) Take by mouth. Activ e BD EDIN 2ND GEN PEN NEEDLE 32 gauge x NdleIndications:T ype 2 diabetes mellitus with peripheral neuropathy Use to inject insulin & victoza - each 1x/day (2 needles/day total) 200 each 3 Active Additional Information Patient taking differently: Use to inject insulin- each 1x/day (2 needles/day total), Reported on 03/23/2025 ONETOUCH ULTRA TEST Strp stripsIndications :Type 2 diabetes mellitus with peripheral neuropathy DX E11.9 USE DIRECTED TO MONITOR GLUCOSE ONCE DAILY 90 DAYS 100 strip 3 Active blood-glucose sensor (FREESTYLE ESTEFANY 3 PLUS SENSOR) DeviIndications:T ype 2 diabetes mellitus with peripheral neuropathy Us as directed to monitor glucose, change every 15 days 6 each 3 024 Active carvedilol (COREG) 3.125 MG tablet Take 1 tablet by mouth 2 (two) times a day with meals. Active SYNTHROID 200 mcg tabletIndications :Postablative hypothyroidism 1 tablet, orally, six days/week, skip day, or as directed 78 tablet 3 025 Active Additional Information Patient taking differently: 1 tablet, orally, 5 days/week, 100 mcg on Wednesdays, skipping Sundays, or as directed, Reported on 03/23/2025 mercaptopurine (PURINETHOL) 50 mg tablet Take 1 tablet (50 mg total) by mouth daily. 90 tablet 1 025 Active cholecalciferol (VITAMIN D3) 2,000 unit tablet Take 50 mcg by mouth daily. Active docusate sodium (COLACE) 50 MG capsule Take 50 mg by mouth daily. Active meloxicam (MOBIC) 15 MG tablet Take 15 mg by mouth daily. Active SYNTHROID 150 mcg tabletIndications :Postablative hypothyroidism Take 1 tablet (150 mcg total) by mouth every morning. 90 tablet 1 025 Active tirzepatide (MOUNJARO) 10 mg/0.5 mL PnIj subcutaneous penIndications:Ty pe 2 diabetes mellitus with peripheral neuropathy Inject 0.5 mL (10 mg total) under the skin every 7 days. 2 mL 5 025 Active metFORMIN (GLUCOPHAGE-XR) 500 MG 24 hr tabletIndications :Type 2 diabetes mellitus with peripheral neuropathy TAKE 4 TABLETS BY MOUTH DAILY WITH BREAKFAST 360 tablet 3 025 Active insulin degludec U-100 (TRESIBA FLEXTOUCH U-100) injection penIndications:Ty pe 2 diabetes mellitus with peripheral neuropathy Inject 16 Units under the skin daily. 30 mL 3 025 Active insulin degludec U-100 (TRESIBA) injection penIndications:Ty pe 2 diabetes mellitus with peripheral neuropathy 16 units subcutaneously, once daily, or as directed, plus 2 units to prime needle with each dose 30 mL 3 025 2024 Discontinued Active Problems Problem Noted Date Diagnosed Date Tendonitis of wrist, right 01/03/2024 Assessment & Plan (01/03/2024 2:42 PM EDT): Tendinitis of the right wrist secondary to overuse. Injected the dorsum of the right wrist with triamcinolone. She She has no active synovitis in any other joints. Primary osteoarthritis of fi rst carpometacarpal joint of right hand 07/18/2023 Assessment & Plan (07/18/2023 11:03 AM EDT): Flare of osteoarthritis of the base of the right thumb overlying the first CMC. Injected the right first CMC joint with triamcinolone 40 mg. Left hip pain 05/16/2020 Anxiety 01/30/2019 Chronic headache 01/30/2019 History of diverticulitis of colon 01/30/2019 Overview (09/08/2024): 2012 s/p resection Restless leg syndrome 01/30/2019 Rheumatoid arthritis involvi ng multiple sites with positive rheumatoid factor Assessment & Plan (04/03/2024 12:42 PM EDT): Seropositive rheumatoid arthritis currently stable with no active synovitis. She can continue with mercaptopurine once daily as well as plasmapheresis every 4 weeks. We will retrieve labs done recently at [facility]. Assessment & Plan (11/19/2023 10:26 AM EST): Seropositive rheumatoid arthritis well-controlled on mercaptopurine 1 tablet daily and plasmapheresis, currently at every 3 weeks. She has no active synovitis or swelling. Sent her for some baseline labs today. Assessment & Plan (07/18/2023 11:02 AM EDT): Seropositive rheumatoid arthritis well-controlled on mercaptopurine 50 mg daily and plasmapheresis every 4 weeks. She has no active synovitis or swelling. Assessment & Plan (05/17/2023 10:59 AM EDT): Flare of seropositive rheumatoid arthritis with active synovitis in the hands and increase in fatigue. Continue with mercaptopurine and plasmapheresis as scheduled. Gave her an intramuscular injection of triamcinolone 60 mg in the left deltoid which should relieve her symptoms for at least 3 to 4 months. Assessment & Plan (04/03/2023 2:21 PM EDT): Positive rheumatoid arthritis well-controlled on mercaptopurine, however there is some mild synovitis in the hands. Gave her an IM injection of Depo-Medrol 40 mg to relieve her stiffness and pain. She has labs done regularly when she has a plasmapheresis and when she sees her PCP. Follow-up with me sometime in June. Primary osteoarthritis involving multiple joints Assessment & Plan (04/03/2024 12:43 PM EDT): Osteoarthritis in multiple areas with no current swelling. She should limit her intake of diclofenac given her recent diagnosis of liver cirrhosis. She instead should try Tylenol 650 mg as needed. Assessment & Plan (11/19/2023 10:25 AM EST): Degenerative osteoarthritis in multiple areas, most bothersome in the small joints of her hands. She also has left thigh and buttock pain from a possible tear of the gluteus medius. She is working with physical therapy currently. Continue with diclofenac 1 tablet daily. Assessment & Plan (07/18/2023 11:05 AM EDT): Osteoarthritis in multiple joints with no active swelling. She can safely take Tylenol as needed for pain control. She will be seeing Ortho next week to decide on whether or not she needs the gluteus medius minimus tendon repaired. She also will follow-up with podiatry regarding the fracture of the right fifth toe and the third proximal phalanx. Assessment & Plan (05/17/2023 11:00 AM EDT): Arthritis in multiple areas with no other swelling. She can continue with diclofenac once a day. I will see her in follow-up in June. Assessment & Plan (04/03/2023 2:19 PM EDT): OA in multiple joints stable on diclofenac 75 mg as needed. Chronic inflammatory demyelinating polyneuropath y Endometriosis Gastroesophageal reflux disease Gastroparesis Glaucoma Herpes simplex Postablative hypothyroidism Overview (10/25/2023): S/p MIDDLETON for Graves Assessment & Plan (03/23/2025 10:49 AM EDT): Euthyroid on current rx after dose decrease. Will shift to 150 mcg daily when runs out of current supply (current average daily dose 157). Will repeat labs prior to follow up. Call/message with symptoms concerning for thyroid levels being off (unexplained change in energy, weight, or bowels or feeling too cold or too warm) or more than 10-15 pound change in weight. Assessment & Plan (12/15/2024 11:01 AM EDT): Last TSH was low, adjusted dose from 200 mcg 6 days/week with 1/2 tablet on 7th day to 200 mcg six days/week, skip 7th day. Will repeat labs prior to follow up. Call/message with symptoms concerning for thyroid levels being off (unexplained change in energy, weight, or bowels or feeling too cold or too warm) or more than 10-15 pound change in weight. Assessment & Plan (09/08/2024 12:25 PM EST): Last TSH was low, will adjust dose from 200 mcg daily to 200 mcg 6 days/week with 1/2 tablet on 7th day & repeat labs prior to follow up. Call/message with symptoms concerning for thyroid levels being off (unexplained change in energy, weight, or bowels or feeling too cold or too warm) or more than 10-15 pound change in weight. Assessment & Plan (05/06/2024 4:27 PM EDT): Will check TFTs & adjust as appropriate. Assessment & Plan (03/04/2024 2:30 PM EDT): Labs done via PCP. Will call for recent. Would monitor q6-12 months, sooner prn symptoms of thyroid dysfunction, > 10-15# weight change, or as otherwise clinically indicated. Assessment & Plan (10/25/2023 12:31 PM EST): Euthyroid on recent labs. Would monitor q6-12 months, sooner prn symptoms of thyroid dysfunction, > 10-15# weight change, or as otherwise clinically indicated. Assessment & Plan (04/10/2023 1:54 PM EDT): Euthyroid on recent labs. Would monitor q6-12 months, sooner prn symptoms of thyroid dysfunction, > 10-15# weight change, or as otherwise clinically indicated. Low platelet count Type 2 diabetes mellitus with peripheral neuropa thy 2004 Overview (04/10/2023): GDM 1996, DM 2004, intolerant byetta Assessment & Plan (03/23/2025 10:48 AM EDT): Control excellent. No frequent or severe hypoglycemia. Will try increasing mounjaro to see if we can maintain control and lower weight. Will lower dose of tresiba to 16 units when starts the increased dose. Continue to work on eating healthy & keeping active. To call or send in BG with problems with glycemic control. Up to date with ophtho. Umalb/creat up to date, normal. BP under reasonable control. Assessment & Plan (12/15/2024 11:02 AM EDT): Control excellent. Some mild lows overnight, will lower basal insulin from 22 to 20 units & if persists lower to 18 units. Otherwise, will continue current rx. Continue to work on eating healthy & keeping active. To call or send in BG with problems with glycemic control. Up to date with ophtho. Umalb/creat up to date, normal. BP under reasonable control. Assessment & Plan (09/08/2024 12:27 PM EST): Control has improved significantly. Was having some hypoglycemia & we have adjusted rx accordingly w/ addition of insulin & Jardiance was held d/t UTIs (although urology felt related to stones, not medication). We shifted victoza to mounjaro & stopped glimepiride due to lows. Will continue current rx. Continue to work on eating healthy & keeping active. To call or send in BG with problems with glycemic control. Up to date with ophtho. Umalb/creat up to date, normal. BP under reasonable control. Assessment & Plan (05/06/2024 4:31 PM EDT): Control has been suboptimal, likely worse related to intercurrent illnesses & recent steroid injection. We have adjusted rx. We added insulin & Jardiance was held d/t UTIs, urology felt was due to stones, not medication & apparently has no stones currently. Will shift from victoza to mounjaro as apparently victoza will no longer be available & she did ok w/ mounjaro (after some initial abdominal pain) & availability is better currently. Reviewed normal insulin physiology, role of basal/bolus insulin. Discussed timing of insulin in relation to food. Discussed treatment of hypoglycemia. Discussed delay in CGM relative to fingerstick. Continue to work on eating healthy & keeping active. To call or send in BG with problems with glycemic control. Will hold off on resuming jardiance for now, but will readdress @ future visits. May try to wean off of glimepiride & just use insulin, GLP1 & potentially get her back on SGLT2i. Up to date with ophtho. Umalb/creat up to date, normal. BP under reasonable control. Assessment & Plan (05/06/2024 11:05 AM EDT): Patient brought in her freestyle estefany 3 CGM to be shown how to use it. She was shown how to set up and place the sensor. She demonstrated good understanding via teach back. She placed the sensor to the back of her arm without any issues. Showed her how to use the phone as the reader. She was able to activate the sensor with her phone without any issues. Reviewed all of the available menu options. Reviewed the alarms on the alejandra. She will call with any issues managing their glucose levels. Assessment & Plan (03/04/2024 2:33 PM EDT): Control has been suboptimal, likely worse related to intercurrent illnesses & holding medications d/t recent procedure. No frequent or severe hypoglycemia. Given recurrent UTI, I have advised she discontinue jardiance. Will get back onto victoza since it doesn't appear there is significant pancreatic pathology on imaging. Continue to work on eating healthy & keeping active. To call or send in BG with problems with glycemic control, particularly if #s do not improve over the next few weeks. Foot & nail care good. Up to date with ophtho. Umalb/creat up to date, normal. BP under reasonable control. Assessment & Plan (10/25/2023 12:33 PM EST): Control reasonable. No frequent or severe hypoglycemia. Has been gaining weight. Would like to try mounjaro to see if can improve DM control & weight c/w victoza. Will shift to 5 mg dose if covered/affordable & titrate up as needed/tolerated. Continue to work on eating healthy & keeping active. To call or send in BG with problems with glycemic control. Labs done via PCP w/ copy here. Up to date with ophtho. Umalb/creat up to date, normal. BP under reasonable control. Assessment & Plan (04/10/2023 1:53 PM EDT): Control reasonable. No frequent or severe hypoglycemia. Continue to work on eating healthy & keeping active. To call or send in BG with problems with glycemic control. Labs done via PCP w/ copy here. Up to date with ophtho. Foot & nail care good. Umalb/creat up to date, normal. BP under reasonable control. Vitamin D deficiency Episcleritis Hypertriglyceridemia Other cirrhosis of liver intermediate card tender current use of insulin intermediate card tender current use of oral hypoglycemic drug Long-term current use of inj ectable noninsulin antidiabetic medication Resolved Problems Problem Noted Date Diagnosed Date Resolved Date assisted current use of diluted insulin 09/08/2024 Encounters Date Type Department Care Team Description 05/05/2025 Refill [facility] [address] [place] [address] [place] [address] Reba Molina MD Medication Refill 04/17/2025 Refill [facility] [address] [place] [address] [place] [address] Reba Molina MD Medication Refill 03/23/2025 10:00 AM EDT Office Visit [facility] [place] [address] [place] [id number] Reba Molina MD Postablative hypothyroidism (Primary Dx); Type 2 diabetes mellitus with peripheral neuropathy; Long-term current use of injectable noninsulin antidiabetic medication; assisted current use of oral hypoglycemic drug; intermediate card tender current use of insulin 03/22/2025 2:30 PM EDT Office Visit [facility] Rheumat[facility] [address] [place] [address] [place] [address] Deon Bray MD Rheumatoid arthritis involving multiple sites with positive rheumatoid factor (Primary Dx); NSAID long-term use; Primary osteoarthritis involving multiple joints; High risk medications (not anticoagulants) long-term use; Immunosuppression due to drug therapy 03/22/2025 Telephone [facility] [address] [place] [address] [place] [address] Deon Bray MD Appointment 03/18/2025 9:23 AM EDT - 03/18/2025 11:59 PM EDT Hospital Encounter [facility] [address] [place] [address] Reba Molina MD Discharge Disposition: Home or Self Care from Last 3 Months Family History Medical History Relation Comments Cancer Father lung Leukemia Father Peripheral vascular disease Father Diabetes Mother Lupus Mother Thyroid disease Mother Cancer Sister lymphoma Heart failure Sister Kidney disease Sister Lupus Sister Ulcerative colitis Sister Thyroid disease Son hashimotos Relation Status Comments Father Mother Sister Son Alive Social History Tobacco Use Types Packs/Day Years Used Date Smoking Tobacco: Former Cigarettes Q uit: 05/17/1990 Tobacco Cessation:Counseling Given: Not Answered Alcohol Use Standard Drinks/Week Comments Not Currently 0 (1 standard drink = 0.6 oz pur e alcohol) rarely Education Answer Date Recorded Are you interested in more education? Not on singh e 01/23/2023 Are you concerned about learning? Not on file 01/23/2023 No 01/23/2023 No 01/23/2023 Digital Access Answer Date Recorded No 02/17/2023 No 02/17/2023 Reliable internet access at home? Not on file 02/17/2023 Device with a working camera? Not on file Comments Unknown Sex and Gender Information Value Date Recorded Sex Assigned at Not on file Legal Sex Female 5:26 PM EST Gender Identity Not on file Sexual Orientation Not on file Last Filed Vital Signs Vital Sign Reading Time Taken Comments Blood Pressure 92/64 03/23/2025 9:47 AM EDT Pulse 86 03/23/2025 9:47 AM EDT Temperature 36.1 C (97 F) 03/23/2025 9:47 AM EDT Respiratory Rate 18 12/15/2024 9:55 AM EDT Oxygen Saturation 96% 03/23/2025 9:47 AM EDT Inhaled Oxygen Concentration - - Weight 83 kg (183 lb) 03/23/2025 9:47 AM EDT Height 170.1 cm (5' 6.97 ) 03/23/2025 9:47 AM ED T Body Mass Index 28.69 03/23/2025 9:47 AM EDT Plan of Treatment Upcoming Encounters Date Type Department Care Team (Late st Contact Info) Description 07/19/2025 10:20 AM EDT Office Visit [facility] [address] [place] [address] Reba Molina MD [address] [address] [email or web address] 11/02/2025 10:00 AM EST Office Visit [facility] Endocrinology [address] [phone] Reba Molina MD [address] [place] [phone] [email or web address] Health Maintenance Due Date Last Done Comments Adult Td,Tdap Booster 1964 DEPRESSION SCREENING 1976 HEPATITIS C SCREENING 02/03/1982 HIV ONE-TIME SCREENING (18-65 YEARS) 02/03/1982 HEPATITIS A VACCINES (1 of 2 - Risk 2-dose series) 02/03/1983 PNEUMOCOCCAL VACCINES (50+ years) (1 of 2 - PCV) 02/03/1983 PAP SMEAR 02/03/1985 MAMMOGRAM 2004 COLOGUARD 02/03/2009 COLONOSCOPY 02/03/2009 COLORECTAL CANCER SCREENING 02/03/2009 FIT TEST 02/03/2009 FOBT 02/03/2009 SIGMOIDOSCOPY 02/03/2009 VIRTUAL COLONOSCOPY 02/03/2009 ZOSTER VACCINES (1 of 2) 02/03/2014 DIABETIC EYE EXAM 04/10/2023 RSV VACCINE (1 - Risk 60-74 years 1-dose series) 2024 LIPID PANEL 10/01/2024 10/01/2023, 05/2024, 10/01/2023 INFLUENZA VACCINE (#1) 2025 COVID-19 VACCINE ( season) 2025 08/24/2021, 08/02/2021, 10/23/2020, Additional history exists HEMOGLOBIN A1C 09/17/2025 03/18/2025, 11/22, 05/06/2024, Additional history exists BLOOD PRESSURE 09/23/2025 03/23/2025 URINE MICROALBUMIN/CREATININE RATIO 12/11/2025 12/11/2024, 10/01/2023 CREATININE LEVEL 03/18/2026 03/18/2025, , 11/10/2024, Additional history exists TSH LEVEL 03/18/2026 03/18/2025, 05/0 02/2025, 12/11/2024, Additional history exists SMOKING Hx and SMOKELESS TOBACCO SCREENING 03/23/2026 03/23/2025 HIB VACCINES Aged Out No longer eligi ble based on patient's age to complete this topic MENINGOCOCCAL VACCINES (ACWY) Aged Out No longer eligible based on patient's age to complete this topic MENINGOCOCCAL VACCINES (B) Aged Out N o longer eligible based on patient's age to complete this topic Medical Devices Not on file Procedures Procedure Name Priority Date/Time Associated Diagnosis Comments COMPREHENSIVE METABOLIC PANEL Routine 03/18/2025 9:23 AM EDT Rheumatoid arthritis involving multiple sites with positive rheumatoid factor NSAID long-term use C-REACTIVE PROTEIN Routine 03/18/2025 9: 23 AM EDT Rheumatoid arthritis involving multiple sites with positive rheumatoid factor NSAID long-term use SEDIMENTATION RATE (ESR) Routine 03/18/2025 9:23 AM EDT Rheumatoid arthritis involving multiple sites with positive rheumatoid factor NSAID long-term use CBC AND DIFFERENTIAL Routine 03/18/2025 9:23 AM EDT Rheumatoid arthritis involving multiple sites with positive rheumatoid factor NSAID long-term use HEMOGLOBIN A1C Routine 03/18/2025 9:23 AM EDT Type 2 diabetes mellitus with peripheral neuropathy TSH WITH REFLEX Routine 03/18/2025 9:23 AM EDT Postablative hypothyroidism MICROALBUMIN/CREATINI NE RATIO, RANDOM URINE Routine 12/11/2024 10:39 AM EDT Type 2 diabetes mellitus with peripheral neuropathy OUTSIDE HDL Routine 10/01/2023 from Last 3 Months or Most Recently Relevant to Health Maintenance Results * (ABNORMAL) Comprehensive metabolic panel (03/18/2025 9:23 AM EDT) [facility] SODIUM 138 133 - 146 mmol/L [facility] POTASSIUM 4.3 3.3 - 5.1 mmol/L [facility] CHLORIDE 102 96 - 108 mmol/L [facility] CO2 25 21 - 35 mmol/L [facility] BUN 17 6 - 19 mg/dL [facility] CREATININE 0.90 0.5 - 1.5 mg/dL [facility] GLUCOSE 183(H) 70 - 99 mg/dL [facility] ALBUMIN 4.6 3.9 - 4.8 g/dL [facility] TOTAL PROTEIN 7.8 6.5 - 8.0 g/dL [facility] CALCIUM 10.0 8.4 - 10.3 mg/dL [facility] ALKALINE PHOSPHATASE 93 39 - 117 U/L [facility] TOTAL BILIRUBIN 0.3 0.0 - 1.2 mg/dL [facility] AST 29 0 - 37 U/L [facility] ALT 30 0 - 40 U/L [facility] GLOBULIN 3.2 1 - 4.8 g/dL [facility] EGFR 73 >59 mL/min/1.7 3m2 [facility] Comment:Estimated glomerular filtration rate calculated using the CKD-EPI refit equation. ANION GAP 15 10 - 20 mmol/L [facility] Blood 03/18/2025 9:23 AM EDT 03/18/2025 9:25 AM EDT us Grisel West MD LAB BLOOD ORDERABLES Fin al Result Performing Organization Address City/[facility]/ZIP Co de Phone Number [address] [address] * TSH with reflex (03/18/2025 9:23 AM EDT) TSH 0.81 0.27 - 4.20 uIU/mL [facility] Blood 03/18/2025 9:23 AM EDT 03/18/2025 9:25 AM EDT us Reba Molina MD LAB BLOOD ORDERABLES F inal Result [address] [id number] * Sedimentation rate (ESR) (03/18/2025 9:23 AM EDT) Pathologist [facility] ESR 11 0 - 30 mm/h [facility] Blood 03/18/2025 9:23 AM EDT 03/18/2025 9:25 AM EDT us Grisel West MD LAB BLOOD ORDERABLES Fin al Result [address] [address] * (ABNORMAL) CBC and differential (03/18/2025 9:23 AM EDT) WBC 4.35 4.00 - 11.00 K/uL [facility] RBC 4.16 4.00 - 5.20 M/uL [facility] HGB 12.7 12.0 - 16.0 g/dL [facility] HCT 37.8 36.0 - 46.0 % [facility] PLT 132(L) 150 - 450 K/uL [facility] MCV 90.9 80.0 - 100.0 fL [facility] MCH 30.5 27.0 - 31.0 pg [facility] MCHC 33.6 32.0 - 36.0 g/dL [facility] RDW 14.2 11.5 - 14.5 % [facility] MPV 10.8 8.4 - 12.0 fL [facility] NRBC 0.00 0.00 /100 WBCs [facility] ABSOLUTE NRBC 0.00 0.00 K/uL [facility] DIFF METHOD Auto [facility] NEUTS 69.0 48.0 - 76.0 % [facility] LYMPHS 22.5 18.0 - 41.0 % [facility] MONOS 6.7 4.0 - 11.0 % [facility] EOS 0.9 0.0 - 5.0 % [facility] BASOS 0.7 0.0 - 1.5 % [facility] Granulocytes, immature (%) 0.2 0.0 - 0.9 % [facility] ABSOLUTE NEUTS 3.00 1.92 - 7.60 K/uL [facility] ABSOLUTE LYMPHS 0.98 0.72 - 4.10 K/uL [facility] ABSOLUTE MONOS 0.29 0.16 - 1.10 K/uL [facility] ABSOLUTE EOS 0.04 0.00 - 0.50 K/uL [facility] ABSOLUTE BASOS 0.03 0.00 - 0.15 K/uL [facility] Granulocytes, immature 0.01 0.00 - 0.09 K/uL [facility] Blood 03/18/2025 9:23 AM EDT 03/18/2025 9:25 AM EDT us Grisel West MD LAB BLOOD ORDERABLES Fin al Result Performing Organization Address [facility] de Phone Number [address] [address] * C-Reactive Protein (03/18/2025 9:23 AM EDT) C REACTIVE PROTEIN <3.0 0.0 - 4.0 mg/L [facility] Blood 03/18/2025 9:23 AM EDT 03/18/2025 9:25 AM EDT Grisel West MD LAB BLOOD ORDERABLES Fin al Result Performing Organization Address [facility]/ZIP Co de Phone Number [address] [address] * (ABNORMAL) Hemoglobin A1c (03/18/2025 9:23 AM EDT) HEMOGLOBIN A1C 6.2(H) 4.3 - 5.8 % [facility] Blood 03/18/2025 9:23 AM EDT 03/18/2025 9:25 AM EDT Reba Molina MD LAB BLOOD ORDERABLES F inal Result Performing Organization Address City/[facility]/ZIP Co de Phone Number [address] [address] * Microalbumin/creatinine ratio, random urine (12/11/2024 10:39 AM EDT) URINE MICROALBUMIN <1.2 0 - 2.3 mg/dL [facility] URINE CREATININE 88 mg/dL [employer] [facility] MICROALB/CRE RATIO NOT CALCULATED 0 - 20 mg/g Cre [facility] Comment:due to Microalbumin <1.2 Urine (Urine) 12/11/2024 10: 39 AM EDT 12/11/2024 10:41 AM EDT us Reba Molina MD URINE ORDERABLES Final Result Performing Organization Address [facility] Co de Phone Number [address] [address] * (ABNORMAL) Outside HDL (10/01/2023) HDL - External 33(A) 40 - 80 mg/dL us Historical Provider LAB BLOOD ORDERABLES Kita l Result from Last 3 Months or Most Recently Relevant to Health Maintenance Insurance MEDICARE PART A & B [facility] ONE CARE MEDICARE REPLACEMENT MEDICARE PART A & B ONE [facility] MEDICARE REPLACEMENT MEDICARE PART A & B Member Subscriber Plan / Payer (Ef fective 2002-Present) Name:Romy Topete Member ID:[id number] Relation to Subscriber:Self Name:Romy Topete Subscriber ID:[id number] Payer ID:[id number] Group ID:Not on file Type:Medicare Address: [employer] [address] [place] [phone] MEDICARE PART A & B MEDICARE PART A & B ONE CARE MEDICARE REPLACEMENT [place] [id number] MEDICARE PART A & B ONE CARE MEDICARE REPLACEMENT Member Subscriber Plan / Payer (Ef fective 2021-Present) Name:Romy Topete Relation to Subscriber:Self Name:Romy Topete Payer ID:[id number] (NAIC) Group ID:[id number] Type:Medicare [address] [facility] MEDICARE PART A & B CARE MEDICARE REPLACEMENT [place] [id number] MEDICARE PART A & B MEDICARE PART A & B ONE CARE MEDICARE REPLACEMENT Care Teams Strategy Director Relationship Specialty Start Date End Date Adam Cadena PA [facility] [place] [address] PCP - General 08/20/22 Additional Source Comments The information contained in this document represents components of the legal health record. It is not the complete legal health record.[facility]
--- OUTSIDE RECORDS SUMMARY | 2025-06-01 10:21 | XMS_ITS | Patient Health Record ---
Author Organization [facility] jennifer AugustineCayce Address [address] [facility] [place] [address] Care Team Providers Care Hospice Music Therapist Name Role Phone Adam Cadena Primary Care Provider Unavailab mark Adrienne Post Unavailable [phone] Allergies Allergen (clinical drug ingredient) Drug/Non Drug Allergy documented on EMR Reaction Allergy Type Onset Date Status azithromycin Azithromycin extreme hives Drug Allergy Active Flu Virus Vaccine Unknown Drug Allergy Active Results Component Value Reference Range Notes HEMOGLOBIN A1C (GLYCOHEMOGLO BIN) Reviewed date:10/29/2024 09:09:42 AM Interpretation: Performing Lab: Notes/Report: HEMOGLOBIN A1C % (HH) 5.8 HEMOGLOBIN A1C (GLYCOHEMOGLO BIN) Reviewed date:04/26/2025 10:24:42 AM Interpretation: Performing Lab: Notes/Report: HEMOGLOBIN A1C % (HH) 6.1 Reason For Referral No Information Medications Medication SIG (Take, Route, Frequency, Duration) Notes Start Date End Date Status Fish Oil Active Reglan Not-Taking Vitamin D Active Estradiol 0.025 MG/24HR 1 patch to skin Transdermal Two times a Week; Duration: 30 day(s) Not-Taking Antibiotic For tooth Not-Takin g Keflex 500 MG 1 capsule Orally every 12 hrs; Duration: 10 day(s) 05/19/2020 Not-Taking Insulin Active Imiquimod 5 % 1 application at bedtime, leave on for 8 hours then wash off Externally Three times a Week Active amLODIPine Besylate 2.5 MG 1 tablet Orally Once a day Active Tresiba 100 UNIT/ML as directed Subcutaneous Active Jardiance 25 MG 1 tablet Orally Once a day; Duration: 30 day(s) Not-Taking Victoza 1.2ml Not-Ta caprice Glimepiride Not-Taki ng Valtrex Active zzzCompression Stockings 20-30mm Hg . . .; Duration: . A ctive Carvedilol 3.125 MG 1 tablet with food Orally Twice a day Active Meloxicam 15 MG 1 tablet Orally Once a day Active Synthroid Active Ammonium Lactate 12 % APPLY TWICE A DAY FOR 30 DAYS; Duration: 30 Active Mounjaro 10 MG/0.5ML Subcutaneous; Duration: 28 Days Active Night Splint AFO - L1930 1 wear when at rest; Duration: 30 days Active Extra Depth Orthopedic Shoes (1 Pair) with Customized Heat Molded Multidensity Innersoles (3 Pair) as directed Dx: NIDDM/Polyneuropathy (E11.42), Hammertoe Foot Deformity (M20.41,M20.42), Preulcerative Skin Lesion(s) (L85.1 10/29/2024 Active LORazepam Active Purinethol Active Zinc Active Fiorinal/Codeine #3 Active Immunizations Vaccine Route Administration Date Status Comme nts Influenza Unknown 11/19/2016 Refused Influenza Unknown 08/21/2018 Refused Influenza Unknown 02/12/2019 Refused Influenza Unknown 05/18/2024 Refused COVID-19 Pfizer BioNTech Vaccine Unknown 07/23/2021 Administered First Dose: 10/23/2020 Second Dose: 12/21/2020 Social History Tobacco Use: Social History Observation [...] (Standard) Question Answer Notes Tobacco use: Nonsmoker AUDIT-C (Standard) Question Answer Notes Did you have a drink containing alcohol in the p ast year? No Points 0 Interpretation Negative Problems Problem Type SNOMED Code ICD Code Onset Dates Problem Status W/U Status Risk Notes Problem Polyneuropathy due to type 2 diabetes mellitus (434660983) Type 2 diabetes mellitus with diabetic polyneuropathy (E11.42) Active confirmed Problem Plantar fasciitis (005139333) Plantar fasciitis (M72.2) Active confirmed Vital Signs Blood pressure diastolic 72 mm Hg 04/26/2025 Height 5ft6in in 04/26/2025 Blood pressure systolic 118 mm Hg 04/26/2025 Weight 183 lbs 04/26/2025 BMI 29.53 kg/m2 04/26/2025 Procedures Procedure Date Ordered Date Performed Result Body Sit e 12803-MYCD SKIN LESIONS, 2 TO 4 10/29/2024 N/A N1386-CVBPZLHD DYSTROPHIC NAILS ANY # 10/29/2024 N/A 16833-JXMJ SKIN LESIONS, OVER 4 04/26/2025 N/A Encounters Encounter Location Date Provider Diagnosis [address] [address] 10/29/2024 Adrienne Black Right foot pain M79.671 ; Pain of right heel M79.671 ; Type 2 diabetes mellitus with diabetic polyneuropathy E11.42 ; Plantar fasciitis M72.2 ; Xerosis of skin L85.3 ; Other hammer toe(s) (acquired), right foot M20.41 and Other hammer toe(s) (acquired), left foot M20.[address] [address] 04/26/2025 Adrienne Black Pain of right heel M79.671 ; Type 2 diabetes mellitus with diabetic polyneuropathy E11.42 ; Plantar fasciitis M72.2 and Xerosis of skin L85.[address] [address] 07/20/2024 Adrienne Black Assessments Encounter Date Diagnosis (ICD Code) Assessment Notes Treatment Notes Treatment Clinical Notes Section Notes 10/29/2024 Right foot pain (ICD-10 - M79.671) 04/26/2025 Type 2 diabetes mellitus with diabetic polyneuropathy (ICD-10 - E11.42) 04/26/2025 Pain of right heel (ICD-10 - M79.671) 10/29/2024 Pain of right heel (ICD-10 - M79.671) 04/26/2025 Plantar fasciitis (ICD-10 - M72.2) 10/29/2024 Type 2 diabetes mellitus with diabetic polyneuropathy (ICD-10 - E11.42) 04/26/2025 Xerosis of skin (ICD-10 - L85.3) 10/29/2024 Plantar fasciitis (ICD-10 - M72.2) 10/29/2024 Xerosis of skin (ICD-10 - L85.3) 10/29/2024 Other hammer toe(s) (acquired), right foot (ICD-10 - M20.41) Patient Educated with: DIABETIC FOOT CARE INSTRUCTIONS. pdf (DIABETIC FOOT CARE INSTRUCTIONS. pdf) 10/29/2024 Other hammer toe(s) (acquired), left foot (ICD-10 - M20.42) 04/26/2025 Other Plan Of Treatment Pending Test Test Name [...] X ray : Foot, right 3V 10/02/2022 06149-MZAOGCN NAIL, 6 OR MORE 05/23/2016 46989-QYXXZFZ NAIL, 6 OR MORE 11/19/2016 62700-LKWFXMT NAIL, 1-5 02/12/2019 51100-Ctui Destruction, 1-14 02/12/2019 42668-Xdwj Destruction, 1-14 08/21/2018 37107-Wvmf Destruction, -14 01/13/2018 93109-Qinh Destruction, -14 11/19/2016 88686-Wzmb Destruction, -14 05/30/2017 38641-Cyui Destruction, -14 01/23/2024 58483-Vexl Destruction, -14 04/09/2024 34255-Xcxq Destruction, -14 10/08/2019 55079-Qawc Destruction, -14 06/16/2020 32962-Mqvp Destruction, -14 02/11/2020 31607- Debride <25 sq cm 05/15/2012 32670-ZPTYNCA SKIN/TISSUE 05/23/2016 63143-YDSUSNX SKIN/TISSUE 11/19/2016 08965-UMOI SKIN LESIONS, OVER 4 11/19/19 17 07423-YGQC SKIN LESIONS, OVER 4 05/30/20 17 84239-BZKM SKIN LESIONS, OVER 4 01/14/20 18 46429-SWTG SKIN LESIONS, OVER 4 08/21/20 18 56221-RANN SKIN LESIONS, OVER 4 05/23/20 16 32061-HUSS SKIN LESIONS, OVER 4 04/04/20 15 76816-ELQZ SKIN LESIONS, OVER 4 10/03/19 16 74942-EGQM SKIN LESIONS, OVER 4 03/19/20 13 78347-MXGB SKIN LESIONS, OVER 4 09/28/19 14 03268-EXJA SKIN LESIONS, OVER 4 03/29/20 14 87170-KJMG SKIN LESIONS, OVER 4 09/29/19 15 06927-IFUL SKIN LESIONS, OVER 4 10/29/19 13 75131-GCOA SKIN LESIONS, OVER 4 04/21/20 12 54425-DSRR SKIN LESIONS, OVER 4 02/11/20 20 19923-WKCF SKIN LESIONS, OVER 4 10/08/19 20 85073-GAJY SKIN LESIONS, OVER 4 02/13/20 19 16154-UXTZ SKIN LESIONS, OVER 4 04/26/20 25 45025-TRKC SKIN LESIONS, OVER 4 06/16/20 20 25281-IJSQ SKIN LESIONS, OVER 4 08/05/20 23 49857-PUMW SKIN LESIONS, 2 TO 4 10/29/19 25 22390, Q2168-MFDOP/INJECT, JOINT/BURSA 0 04/09/2024 98005, I8663-QBFRQ/INJECT, JOINT/BURSA 0 02/12/2019 58646-WCIK NAIL(S) 10/08/2019 79901-CXHS NAIL(S) 02/11/2020 65738-QLVC NAIL(S) 06/16/2020 52922-TJUX NAIL(S) 09/28/2013 26681-WOQB NAIL(S) 01/13/2018 34954-BYBK NAIL(S) 08/21/2018 19068-ZKDW NAIL(S) 02/12/2019 09908-TZEF NAIL(S) 05/30/2017 G1342-JJGYHVIU DYSTROPHIC NAILS ANY # P0544-ROYMTHLQ DYSTROPHIC NAILS ANY # N5604-ORQTWZQU DYSTROPHIC NAILS ANY # G1353-MGWRHEUM DYSTROPHIC NAILS ANY # 18706- Removal of Foreign Body, Subcut 0 05/15/2012 45754- Removal of Foreign Body, Subcut 0 05/01/2012 54463,R7439-CRD TENDON SHEATH/LIGAMENT 0 06/11/2011 18646,O0752-PUM TENDON SHEATH/LIGAMENT 0 05/18/2024 95420,V5193-JSF TENDON SHEATH/LIGAMENT 0 01/23/2024 91863 - Shave Biopsy of Skin Lesion 04/24 94344 - Shave Biopsy of Skin Lesion 05/24 Next Appt Details Provider Name:Adrienne Post , 10/25/2025 10:00:00 AM, [address] [facility], [place], [address], Insurance Providers Payer Name Payer Address Payer Phone Subscriber Number Group Number Insured Name Patient Relationship to Insured Coverage Start Date Coverage End Date [facility] SCO Claims [address] [facility] TUSHAR [facility] [id number] Jeronimo morrell Romy Self - patient is the insured Medical (General) History Medical History History ICD Code transfusions chicken pox broken bones warts(flat) thyroid disorder reflux(gerd) neuropathy(numbnes) nerve disease(RSD/CRPS) lupus headaches/migraines glaucoma gall bladder problems diverticulitis diabetic crohns disease Cholesterol(CAD) back, hip, knee pain Arthritis rheumatoid arthritis Thrombocytopenia Rheumatoid arthritis flare M06.9 Plantar wart B07.0 Osteoarthritis of left ankle and foot M1 9.072 Osteoarthritis of right ankle and foot M 19.071 Other hammer toe(s) (acquired), right fo ot M20.41 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
--- OUTSIDE RECORDS SUMMARY | 2025-06-01 10:21 | XMS_ITS | Clinical Summary ---
Author Organization [facility] Address [address] [place] [address] Care Team Providers Care Supervisor Abattoir Name Role Phone Adam Cadena Primary Care Provider [phone] Allergies Active Allergy Reactions Criticality Noted Date Comments Ralph Inhibitors Anaphylaxis,Other (see comments) High 10/24/2023 Cannot take with plasmaforesis Azithromycin Hives 05/17/2020 Flu Virus Vaccine Tv 2015-16 (18 Yr And Up),Recomb Unknown 10/24/2023 Immune Globulin,Gamma (Igg) Human Other (see comments) 04/03/2023 Other Reaction(s): affects kidneys- told to avoid Affects kidney Affects kidney Oqshhed-Iqc-Bay Reductase Inhibitors Other (see comments),Unknown Medium 01/30/2019 Other Reaction(s): elev lfts Affect Liver Affect Liver Medications acetaminophen (TYLENOL) 500 mg tablet Take 500 mg by mouth. Active meloxicam (MOBIC) 15 mg tablet SMARTSI Tablet(s) By Mouth Daily Active insulin degludec (TRESIBA FLEXTOUCH) 100 unit/mL (3 mL) insulin pen Inject 30 Units under the skin. 5 Active metFORMIN ER (GLUCOPHAGE XR) 500 mg tablet Take 2,000 mg by mouth. 4 Active Mounjaro 7.5 mg/0.5 mL pen injector SMARTSI.5 Milligram(s) SUB-Q Once a Week Active mercaptopurine (PURINETHOL) 50 mg tablet Take 50 mg by mouth daily. 5 Active valACYclovir (VALTREX) 500 mg tablet Take 500 mg by mouth daily. Active amLODIPine (NORVASC) 2.5 mg tablet SMARTSI Tablet(s) By Mouth Daily Active carvediloL (COREG) 3.125 mg tablet Take 1 tablet by mouth 2 times daily. [address] Ultra test strips DX E11.9 USE DIRECTED TO MONITOR GLUCOSE ONCE DAILY 90 DAYS 4 Active cycloSPORINE (RESTASIS) 0.05% ophthalmic emulsion SMARTSI Drop(s) In Eye(s) Twice Daily 5 Active fluticasone propionate (FLONASE) 50 mcg/actuation nasal spray SPRAY 2 SPRAYS INTO EACH NOSTRIL DAILY FOR 30 DAYS Active ketorolac (ACULAR) 0.5% ophthalmic solution 1 drop. 4 Active prednisoLONE acetate (PRED FORTE) 1% ophthalmic suspension INSTILL 1 DROP INTO THE LASERED EYE THREE TIMES A DAY FOR 5 DAYS FOLLOWING LASER SURGERY 5 Active docusate sodium (COLACE) 50 mg capsule Take 50 mg by mouth 2 times daily. Active omeprazole (PriLOSEC) 40 mg capsule Take 40 mg by mouth 2 times daily. 5 Active ondansetron (ZOFRAN) 4 mg tablet SMARTSI Tablet(s) By Mouth Every 8 Hours PRN 4 Active estradioL (ESTRACE) 0.01 % (0.1 mg/gram) vaginal cream SMARTSI Gram(s) Vaginal Twice a Week 5 Active FreeStyle Tonya 3 Sensor device USE TO MONITOR GLUCOSE. CHANGE SENSOR EVERY 14 DAYS 4 Active BD Sayra 2nd Gen Pen Needle 4 mm x 32 g Use to inject insulin & victoza - each 1x/day (2 needles/day total) 4 Active LORazepam (ATIVAN) 0.5 mg tablet Take 0.5 mg by mouth once daily as needed. Active cholecalciferol (VITAMIN D3) 2,000 unit capsule SMARTSI Capsule(s) By Mouth Daily Active tamsulosin (FLOMAX) 0.4 mg capsule SMARTSI Capsule(s) By Mouth Daily 4 Active Synthroid 200 mcg tablet 1 tablet, orally, six days/week, skip 7th day, or as directed 4 Active imiquimod (ALDARA) 5 % cream 1 application at bedtime, leave on for 8 hours then wash off Externally Three times a Week Active ammonium lactate (AMLACTIN) 12 % cream 1 Application every 12 (twelve) hours. Active fish oil 340-1,000 mg capsule Take 1,000 mg by mouth once a day. Active oxybutynin (DITROPAN) 5 mg tablet 4 Active neomycin-polymy teresa B-dexamethasone (MAXITROL) 3.5 mg/g-10,000 unit/g-0.1 % ointment SMARTSIG:In Eye(s) Every Night 5 Active prucalopride (MOTEGRITY) 2 mg tablet SMARTSI Tablet(s) By Mouth Daily 5 Active FreeStyle Tonya 3 Plus Sensor device SMARTSIG:As Directed 5 Active Active Problems No known active problems Encounters Date Type Department Care Team Description 05/21/2025 10:30 AM EDT Office Visit [facility] [address] [place] [phone] Cab Worker: Emerita Melendrez MD Basal cell carcinoma (BCC) of left forehead (Primary Dx) 03/12/2025 myChart Message [facility] [address] [place] [phone] Cab Worker: Emerita Melendrez MD Wound check from Last 3 Months Social History Tobacco Use Types Packs/Day Years Used Date Smoking Tobacco: Former Cigarettes Smokeless Tobacco: Former Tobacco Cessation:Counseling Given: Not Answered Comments Unknown Sex and Gender Information Value Date Recorded Sex Assigned at Female 01/07/2025 8:29 PM EDT Legal Sex Female 3:16 PM EDT Gender Identity Female 01/07/2025 8:29 PM EDT Sexual Orientation Straight 01/07/2025 8: 29 PM EDT Last Filed Vital Signs Vital Sign Reading Time Taken Comments Blood Pressure 116/77 01/08/2025 7:43 AM EDT Pulse 88 01/08/2025 7:43 AM EDT Temperature - - Respiratory Rate - - Oxygen Saturation - - Inhaled Oxygen Concentration - - Weight - - Height - - Body Mass Index - - Plan of Treatment Health Maintenance Due Date Last Done Comments Cervical Cancer Screening 1964 Cologuard 1964 FOBT / Fit Test 1964 HIV Screening 1965 HPV and Pap Smear 1964 Hepatitis C Screening 1964 Pap Smear 1964 Sigmoidoscopy 1964 DTaP,Tdap,and Td Vaccines (1 - Tdap) 02/03/1986 CT Lung Cancer Screening (Baseline) 02/03/2014 Pneumococcal Vaccine: 50+ Ye ars (1 of 1 - PCV) 02/03/2014 Zoster Vaccines (1 of 2) 02/03/2014 Mammogram 11/05/2018 11/05/2016, 10/24, 11/03/2014, Additional history exists Hepatitis B Vaccines (1 of 3 - Risk 3-dose series) 2024 RSV Vaccine (60+ years old a nd patients) (1 - Risk 60-74 years 1-dose series) 2024 Alcohol/Substance Use Screening 09/23/2024 Depression Screening and Follow-Up 09/23/2024 Social Drivers of Health Laura ual Screening 09/23/2024 COVID-19 Vaccine (5 - 2024-2 6 season) 2025 08/24/2021, 08/02/2021, 10/23/2020, Additional history exists Influenza Vaccine (#1) 2025 Colon Cancer Screening 11/11/2025 Colonoscopy 11/11/2025 11/11/2015 Insurance [facility] [employer] Care Teams Supervisor Abattoir Relationship Specialty Start Date End Date Adam Cadena PA [address] [place] [id number] PCP - General 01/01/25
--- OUTSIDE RECORDS SUMMARY | 2025-06-01 10:22 | XMS_ITS | Clinical Summary ---
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 05/07/20 24 Active docosahexaenoic acid-epa 120-180 mg capsule Take 1 tablet by mouth 1 (one) time each day. Active butalbital-acet aminophen-caffe ine-codeine (Fioricet with Codeine) 91-845-24-30 mg capsule Take 1 capsule by mouth [...] carvediloL (COREG) 3.125 mg tabletIndicatio ns:Portal hypertension ([facility] V24, [facility] V28) Take 1 tablet (3.125 mg total) by mouth 2 (two) times a day with meals. 180 each 3 10/16/19 25 026 Active omeprazole (PriLOSEC) [address] capsuleIndicati ons:Gastroesoph ageal reflux disease without esophagitis TAKE 1 CAPSULE BY MOUTH TWICE A DAY 180 capsule 4 11/10/19 25 Active linaCLOtide (LINZESS) 145 mcg capsuleIndicati ons:Constipatio n, unspecified constipation type Take 1 capsule (145 mcg total) by mouth 1 (one) time each day. 30 capsule 05/20/20 25 Active Motegrity 2 mg tabletIndicatio ns:Constipation , unspecified constipation type Take 1 tablet by mouth 1 (one) time each day. 90 tablet 1 10/30/19 25 025 Discontinued prucalopride 2 mg tabletIndicatio ns:Constipation , unspecified constipation type TAKE 1 TABLET BY MOUTH 1 TIME EACH DAY. 90 tablet 1 05/10/20 25 025 Discontinued Active Problems Problem Noted Date Diagnosed Date Anxiety 01/30/2019 Chronic headache 01/30/2019 Chronic inflammatory demyeli nating polyneuritis ([facility] V24, [facility] V28) 01/30/2019 Overview (08/28/2024): Plasmapheresis q 4wks; Dr. Fisher GERD (gastroesophageal reflux disease) 9 Hyperlipidemia 01/30/2019 Hypothyroidism 01/30/2019 Restless leg syndrome 01/30/2019 Rheumatoid arthritis, adult ([facility] V24, [facility]/ [facility] V28) 01/30/2019 Type 2 diabetes mellitus wit hout complication ([facility] V24, [facility] V28) 01/30/2019 Cough 01/26/2019 Dyspnea on exertion 01/26/2019 Encounters Date Type Department Care Team Description 04/28/2025 10:28 AM EDT - 04/28/2025 11:59 PM EDT Hospital Encounter [facility] Ultrasound [address] [place] [phone] Cirrhosis, nonalcoholic ([facility] V24, [facility] V28) Discharge Disposition: Home or Self Care 04/07/2025 10:00 AM EDT Lab Draw Station - [address] [facility] [place] [phone] Cirrhosis, nonalcoholic ([facility] V24, [facility] V28) 04/07/2025 Telephone Gastroenterology - [address] [facility] [address] [facility] [address] [place] [phone] Kriss Ballesteros MA from Last 3 Months Surgical History Surgery Date Site/Laterality Comments HAND SURGERY 09/2014 Right PROCEDURE: HISTORICAL HAND SURGERY; COMMENT: thumb; several hand surgeries ELBOW SURGERY Left PROCEDURE: HISTORICAL ELBOW SURGERY OTHER SURGICAL HISTORY Left PROCEDURE: HISTORY OTHER; COMMENT: hip, IT band cut ; [facility] KNEE SURGERY Right PROCEDURE: HISTORICAL KNEE SURGERY [...] Hypothyroidism 01/30/2019 DX:Hypothyroidis m Rheumatoid arthritis, adult ([facility] V24, [facility] V28) 01/30/2019 DX:Rheumatoid arthritis, wayne lt ([facility]) Anxiety 01/30/2019 DX:Anxiety GERD (gastroesophageal reflux disease) 01/30/2019 DX:GERD (gastroesophageal reflux disease) Hyperlipidemia 01/30/2019 DX:Hyperlipidemi a Restless leg syndrome 01/30/2019 DX:Restles s leg syndrome Chronic headache 01/30/2019 DX:Chronic head ache History of diverticulitis of colon 01/30/2019 DX:History of diverticulitis of colon; COMMENT: 2012 s/p resection Type 2 diabetes mellitus wit hout complication ([facility] V24, [facility] V28) 01/30/2019 DX:Type 2 diabetes mellitus without complication ([facility]) Chronic inflammatory demyeli nating polyneuritis ([facility] V24, [facility] V28) 01/30/2019 DX:Chronic inflammatory demy elinating polyneuritis ([facility]); COMMENT: Plasmapheresis q 4wks; Dr. Fisher IBS [...] 82 08/13/2024 11:31 AM EST Temperature 36.8 C (98.2 F) 08/13/2024 11:17 AM EST Respiratory Rate 18 08/13/2024 11:31 AM EST Oxygen Saturation 98% 08/13/2024 11:31 AM EST Inhaled Oxygen Concentration - - Weight 83.9 kg (185 lb) 02/23/2025 1:29 PM EDT Height 170.2 cm (5' 7 ) 02/23/2025 1:29 PM EDT Body Mass Index 28.98 02/23/2025 1:29 PM EDT Plan of Treatment Upcoming Encounters Date Type Department Care Team (Late st Contact Info) Description 09/03/2025 10:40 AM EST Office Visit Gastroenterology - [address] [place] [address] Libra Finney MD [address] [place] [phone] Health Maintenance Due Date Last Done Comments Breast Cancer Screening 1965 Diabetes: Annual Foot Exam 02/03/1974 Diabetes: Annual Retina Eye Exam 02/03/1974 DTaP,Tdap,and Td Vaccines (1 - Tdap) 02/03/1983 Hepatitis A Vaccines (1 of 2 - Risk 2-dose series) 02/03/1983 Pneumococcal Vaccine: 50+ Years (1 of 2 - PCV) 02/03/1983 Cervical Cancer Screening: Pap Smear 02/03/1985 Zoster Vaccines (1 of 2) 02/03/2014 Cholesterol Screening (Lipid Panel) 08/27/2022 HIV Screening 08/27/2022 Hepatitis C Screening 08/27/2022 Medicare Annual Wellness Visit 08/27/2022 Social Influencers of Health Screening 08/27/2022 Diabetes: Blood Sugar Control Test (HGBA1C) 08/30/2022 Hepatitis B Vaccines (1 of 3 - Risk 3-dose series) 2024 RSV Immunization Adult Patients (1 - Risk 60-74 years 1-dose series) 2024 Depression Screening 09/23/2024 COVID-19 Vaccine ( season) 2025 08/24/2021, 08/02/2021, 10/23/2020, Additional history exists Influenza Vaccine (#1) 2025 Diabetes: Annual Urine Albumin-Creatinine Ratio (uACR) 12/11/2025 12/11/2024 Diabetes: Annual GFR (Glomerular Filtration Rate) 04/07/2026 04/07/2025, 03/18/2025, 11/10/2024, Additional history exists Colorectal Cancer Screening: Colonoscopy 10/16/2034 10/16/2024, 08/28/2024 [...] age to complete this topic Meningococcal B Vaccine Aged Out No l onger eligible based on patient's age to complete this topic RSV Immunization Patients Under 20 months Aged Out No longer eligible based on patient's age to complete this topic Varicella Vaccines Aged Out No longer eligible based on patient's age to complete this topic Procedures Procedure Name Priority Date/Time Associated Diagnosis Comments US ABDOMEN LIMITED Routine 04/28/2025 10 :43 AM EDT Cirrhosis, nonalcoholic (CMS/HCC V24, CMS/HCC V28) CBC WITH AUTO DIFFERENTIAL Routine 04/07/2025 9:59 AM EDT Cirrhosis, nonalcoholic (CMS/HCC V24, CMS/HCC V28) PROTHROMBIN TIME WITH INR Routine 04/07/2025 9:59 AM EDT Cirrhosis, nonalcoholic (CMS/HCC V24, CMS/HCC V28) COMPREHENSIVE METABOLIC PANEL Routine 04/07/2025 9:59 AM EDT Cirrhosis, nonalcoholic (CMS/HCC V24, CMS/HCC V28) CBC AND DIFFERENTIAL Routine 04/07/2025 9:59 AM EDT Cirrhosis, nonalcoholic (CMS/HCC V24, CMS/HCC V28) ALPHA FETOPROTEIN TUMOR MARKER Routine 04/07/2025 9:59 AM EDT Cirrhosis, nonalcoholic (CMS/HCC V24, CMS/HCC V28) COLONOSCOPY Routine 10/16/2024 9:55 AM EST from Last 3 Months or Most Recently Relevant to Health Maintenance Results * US Abdomen Limited (04/28/2025 10:43 AM EDT) Anatomical Region Laterality Modality Body Ultrasound 04/28/2025 11:0 2 AM EDT Impressions 04/28/2025 11:06 AM EDT Impression: 1. No hepatic masses. 2. Patent, hepatopedal portal vein. 3. Status post cholecystectomy. Mildly distended common duct, similar to the 2019 CT, most likely representing the postcholecystectomy state. 4. Top normal spleen size, [place] ([id number]) -------- FINAL REPORT -------- Dictated By: Terra Braun Dictated Date: 04/28/2025 11:02 ET Assigned Physician: Terra Braun Reviewed and Electronically Signed By: Terra Braun Signed Date: 04/28/2025 11:06 ET Workstation ID: [id number] Transcribed By: Self Edit Transcribed Date: 04/28/2025 11:02 ET Narrative 04/28/2025 11:06 AM EDT History: Cirrhosis. Hepatoma screening. Comparison: 11/04/24, CT abdomen/pelvis 01/13/20 Findings: Real-time imaging of the abdomen, limited to the right upper quadrant, was performed. The hepatic echotexture is coarse and the echogenicity is mildly increased, consistent with known chronic hepatocellular disease. No masses are identified. The portal vein remains patent, with normal, hepatopedal flow. The gallbladder is surgically absent. The common duct measures 7 mm in diameter at the level of the hepatic artery and portal vein, increased from 6 mm on 11/04/24 when measured similarly but similar to the 2019 CT, most likely representing the patient's postcholecystectomy state. No dilatation of the intrahepatic biliary tree is seen. The distal duct is obscured by bowel gas shadowing. No ascites is seen in the right upper quadrant. A survey view of the right kidney is unremarkable. The spleen is top normal in size, measuring 13.3 cm in length. Procedure Note Terra Braun MD - 04/28/2025 History: Cirrhosis. Hepatoma screening. Comparison: 11/04/24, CT abdomen/pelvis 01/13/20 Findings: Real-time imaging of the abdomen, limited to the right upper quadrant, wasperformed. The hepatic echotexture is coarse and the echogenicity is mildlyincreased, consistent with known chronic hepatocellular disease. No massesare identified. The portal vein remains patent, with normal, hepatopedalflow. The gallbladder is surgically absent. The common duct measures 7 mm indiameter at the level of the hepatic artery and portal vein, increasedfrom 6 mm on 11/04/24 when measured similarly but similar to the 2019 CT,most likely representing the patient's postcholecystectomy state. Nodilatation of the intrahepatic biliary tree is seen. The distal duct isobscured by bowel gas shadowing. No ascites is seen in the right upper quadrant. A survey view of the rightkidney is unremarkable. The spleen is top normal in size, measuring 13.3 cm in length. IMPRESSION: Impression: 1. No hepatic masses. 2. Patent, hepatopedal portal vein. 3. Status post cholecystectomy. Mildly distended common duct, similar tothe 2019 CT, most likely representing the postcholecystectomy state. 4. Top normal spleen size, similar to previous. [place] ([id number]) -------- FINAL REPORT -------- Dictated By: Terra Braun Dictated Date: 04/28/2025 11:02 ET Assigned Physician: Terra Braun Reviewed and Electronically Signed By: Terra Braun Signed Date: 04/28/2025 11:06 ET Workstation ID: [id number] Transcribed By: Self Edit Transcribed Date: 04/28/2025 11:02 ET us Libra Finney MD [facility] US PROCEDURES Final Result * (ABNORMAL) CBC auto differential (04/07/2025 9:59 AM EDT) WBC 4.4(L) 4.8 - 10.8 K/[facility] LAB HEMETOLOGY METHOD 04/07/2025 11:37 AM EDT [facility] ([facility]) [facility] RBC 4.10 3.80 - 4.80 M/mcL LAB HEMETOLOGY METHOD 04/07/2025 11:37 AM [facility] Hemoglobin 12.6 11.5 - 16.0 g/dL LAB HEMETOLOGY METHOD 04/07/2025 11:37 AM [facility] Hematocrit 37.3 35.0 - 47.0 % LAB HEMETOLOGY METHOD 04/07/2025 11:37 AM [facility] MCV 90.5 79.0 - 98.0 FL LAB HEMETOLOGY METHOD 04/07/2025 11:37 AM [facility] MCH 30.6 27.0 - 32.0 pcg LAB HEMETOLOGY METHOD 04/07/2025 11:37 AM [facility] MCHC 33.8 32.0 - 37.0 g/dL LAB HEMETOLOGY METHOD 04/07/2025 11:37 AM [facility] RDW 14.3 11.0 - 15.0 % LAB HEMETOLOGY METHOD 04/07/2025 11:37 AM [facility] Platelets 137 130 - 400 K/mcL LAB HEMETOLOGY METHOD 04/07/2025 11:37 AM [facility] MPV 10.2 7.0 - 11.0 FL LAB HEMETOLOGY METHOD 04/07/2025 11:37 AM [facility] NRBC 0.0 <1.0 % LAB HEMETOLOGY METHOD 04/07/2025 11:37 AM [facility] NRBC Absolute 0.00 <0.10 K/mcL LAB HEMETOLOGY METHOD 04/07/2025 11:37 AM [facility] Neutrophils Relative 63.4 % LAB HEMETOLOGY METHOD 04/07/2025 11:37 AM [facility] Lymphocytes Relative 25.7 % LAB HEMETOLOGY METHOD 04/07/2025 11:37 AM [facility] Monocytes Relative 8.4 % LAB HEMETOLOGY METHOD 04/07/2025 11:[address] [facility] Eosinophils Relative 1.1 % LAB HEMETOLOGY METHOD 04/07/2025 11:[address] [facility] Basophils Relative 0.7 % LAB HEMETOLOGY METHOD 04/07/2025 11:[address] [facility] Immature Granulocytes Relative 0.7 % LAB HEMETOLOGY METHOD 04/07/2025 11:[address] [facility] Neutrophils Absolute 2.78 1.50 - 7.00 K/mcL LAB HEMETOLOGY METHOD 04/07/2025 11:[address] [facility] Lymphocytes Absolute 1.13 1.00 - 5.00 K/mcL LAB HEMETOLOGY METHOD 04/07[facility]2025 [facility] Monocytes Absolute 0.37 0.20 - 1.00 K/mcL LAB HEMETOLOGY METHOD 04/07/2025 11:[address] [facility] Eosinophils Absolute 0.05 0.00 - 0.50 K/mcL LAB HEMETOLOGY METHOD 04/07/2025 11:[address] [facility] Basophils Absolute 0.03 0.00 - 0.20 K/mcL LAB HEMETOLOGY METHOD 04/07/2025 11:[address] [facility] Immature Granulocytes Absolute 0.03 0.00 - 0.03 K/mcL LAB HEMETOLOGY METHOD 04/07/2025 11:[address] [facility] Blood Venous blood specimen / Unknown Venipuncture / Unknown 04/07/2025 9:59 AM EDT 04/07/2025 11:11 AM EDT us Libra Finney MD LAB BLOOD ORDERABLES Final Res ult [facility] [address] [place] [address], [place] [phone] * Alpha fetoprotein tumor marker (04/07/2025 9:59 AM EDT) [facility] AFP <2.5 0.0 - 8.0 ng/mL LAB CHEMISTRY METHOD 04/07/2025 1:[address] [facility] Blood Venous blood specimen / Unknown Venipuncture / Unknown 04/07/2025 9:59 AM EDT 04/07/2025 11:[address] [facility] - 04/07/2025 1:49 PM EDT The Siemens Advia Leap Motionaur Chemiluminescent Immunoassay is used. Results obtained with different assay methods or kits cannot be used interchangeably. Results cannot be interpreted as absolute evidence of the presence or absence of malignant disease. us Libra Finney MD LAB BLOOD ORDERABLES Final Res ult Performing Organization Address City/[facility]/ZIP Co de Phone Number [facility] [address] [place] [address], [place] [phone] * Prothrombin time with INR (04/07/2025 9:59 AM EDT) [facility] Protime 11.9 10.6 - 13.9 sec LAB COAGULATION METHOD 04/07/2025 11:[address] [facility] INR 0.9 LAB COAGULATION METHOD 04/07/2025 11:[address] [facility] Blood Venous blood specimen / Unknown Venipuncture / Unknown 04/07/2025 9:59 AM EDT 04/07/2025 11:09 AM EDT us Libra Finney MD LAB BLOOD ORDERABLES Final Res ult [facility] [address] [place] [address], [place] [phone] * (ABNORMAL) Comprehensive metabolic panel (04/07/2025 9:59 AM EDT) Sodium 138 133 - 145 mmol/L LAB CHEMISTRY METHOD 04/07/2025 12:41 PM [facility] Potassium 3.9 3.5 - 5.5 mmol/L LAB CHEMISTRY METHOD 04/07/2025 12:41 PM [facility] Chloride 105 96 - 110 mmol/L LAB CHEMISTRY METHOD 04/07/2025 12:41 PM [facility] CO2 25 21 - 32 mmol/L LAB CHEMISTRY METHOD 04/07/2025 12:41 PM [facility] Anion Gap 8 3 - 11 LAB CHEMISTRY METHOD 04/07/2025 12:41 PM [facility] Glucose 133(H) 70 - 100 mg/dL LAB CHEMISTRY METHOD 04/07/2025 12:41 PM [facility] BUN 12 5 - 25 mg/dL LAB CHEMISTRY METHOD 04/07/2025 12:41 PM [facility] Creatinine 0.86 0.50 - 1.10 mg/dL LAB CHEMISTRY METHOD 04/07/2025 12:41 PM [facility] eGFR 77 >=60 mL/min/1. 73m2 LAB CHEMISTRY METHOD 04/07/2025 12:41 PM [facility] Comment:Calculation based on the Chronic Kidney Disease Epidemiology Collaboration (CKD-EPI) equation refit without adjustment for race. BUN/Creatinine Ratio 14.0 LAB CHEMISTRY METHOD 04/07/2025 12:41 PM [facility] Calcium 9.0 8.5 - 10.5 mg/dL LAB CHEMISTRY METHOD 04/07/2025 12:41 PM [facility] AST (SGOT) 33 10 - 42 unit/L LAB CHEMISTRY METHOD 04/07/2025 12:41 PM [facility] ALT (SGPT) 48 10 - 60 unit/L LAB CHEMISTRY METHOD 04/07/2025 12:[address] [facility] Alkaline Phosphatase 86 42 - 121 unit/L LAB CHEMISTRY METHOD 04/07/2025 12:[address] [facility] Total Protein 7.4 6.0 - 8.0 g/dL LAB CHEMISTRY METHOD 04/07/2025 12:[address] [facility] Albumin 4.5 3.2 - 5.0 g/dL LAB CHEMISTRY METHOD 04/07/2025 12:[address] [facility] Total Bilirubin 0.4 0.0 - 1.4 mg/dL LAB CHEMISTRY METHOD 04/07/2025 12:[address] [facility] Blood Venous blood specimen / Unknown Venipuncture / Unknown 04/07/2025 9:59 AM EDT 04/07/2025 11:10 AM EDT Libra Finney MD LAB BLOOD ORDERABLES Final Res ult [facility] [address] [place] [address], * COLONOSCOPY (10/16/2024 9:55 AM EST) Anatomical Region Laterality Modality Endoscopy Historical Provider GI~PROCEDURE ORDERABLES F inal Result from Last 3 Months or Most Recently Relevant to Health Maintenance Insurance [facility] MEDICARE Member Subscriber Plan / Payer (Ef fective 2021-Present) Name:KRISTIN CISNEROS Relation to Subscriber:Self Name:YoselynKristin Payer ID:[id number] Group ID:[id number] Type:Not on file Address: [place] [address] [address] [address] Care Teams Tank Truck Driver Relationship Specialty Start Date End Date Adam Cadena PA [address] [place] [phone] PCP - General Physician Spanish Interpreter/Translator 08/13/24
[2025-06-01 10:38] LABS: Alanine Aminotransferase 43 U/L (0-31); Albumin Level 4.8 g/dL (3.5-5.0); Alkaline Phosphatase 77 U/L (39-117); Anion Gap 12 (12-20); Aspartate Amino Transferase 44 U/L (5-31); Blood Urea Nitrogen 12 mg/dL (9-16); Calcium 9.7 mg/dL (8.4-10.2); Carbon Dioxide 26 mmol/L (22-29); Chloride 107 mmol/L (96-108); Cholesterol 214 mg/dL (<200); Estimated Glomerular Filt Rate > 60; HDL Cholesterol 47 mg/dL (>40); Potassium 4.0 mmol/L (3.3-5.1); Sodium 141 mmol/L (135-145); Total Protein 7.2 g/dL (6.5-8.0); Triglycerides 314 mg/dL (<150)
== END 2025-06-01 09:03 | disposition home or self-care (01) ==
LOC: HO.HMGCLDS 09:02
PROVIDERS: PCP Physician Assistant; Visit Provider Physician Assistant
DX: E11.65 Type 2 diabetes mellitus with hyperglycemia (principal); E78.1 Pure hyperglyceridemia; D69.6 Thrombocytopenia, unspecified; E03.9 Hypothyroidism, unspecified
CPT/HCPCS: 36415; 80053; 80061; 84443; 85027

== ENCOUNTER 2025-06-09 10:00 | Outpatient (AMB) | payer OTHER, SELFPAY ==
--- OUTSIDE RECORDS SUMMARY | 2024-06-01 09:30 | XMS_ITS ---
Author Organization [facility] Address [address] [place] [address] Care Team Providers Care Slate Handler Name Role Phone Adam Cadena Primary Care Provider Unavailab mark Post Adrienne Browne [phone] Encounters Encounter Location Date Provider Diagnosis [facility] [address] [place] [address] 06/01/2024 Adrienne Post Plan Of Treatment Next Appt Details Provider Name:Adrienne Post , 10/25/2025 10:00:00 AM, [address] [place], [address], Progress Notes * Romy TOPETEDOB: 4 (60 yo F)Acc No.[id number]:06/01/2024 Progress Note Patient: Romy PARRA Provider: Khushbu Post DPM :1965 A ge:59 Y S ex:Female Date:06/01/2024 Address:[address] [place] [address] [place] [id number] Pcp:Adam Cadena Subjective: * Chief Complaints: * * Medical History: Objective: * Vitals: Assessment: Plan: * Treatment: * Images: * The named appointment provid er may or may not be the originator of this progress note, and it is not deemed complete until electronically signed by the appointment provider. Sign off status: Pending * Provider: Khushbu Post DPM Date: 0 06/01/2024 Generated for Felisha heck/Syl/Naet on: 0 06/09/2025 12:05 PM EDT
--- OUTSIDE RECORDS SUMMARY | 2024-07-20 07:15 | XMS_ITS ---
Author Organization [facility] jennifer [facility] Address [address] [place] [address] Care Team Providers Care Patient Relations Director Name Role Phone Adam Cadena Primary Care Provider Unavailab mark Adrienne Post Unavailable [phone] Allergies Allergen (clinical drug ingredient) Drug/Non Drug [...] Active Encounters Encounter Location Date Provider Diagnosis [facility] [place] [address] [place] [address] 07/20/2024 Adrienne Post Plan Of Treatment Next Appt Details Provider Name:Adrienne Post , 10/25/2025 10:00:00 AM, [address] [place], [address], Progress Notes * Romy TOPETEDOB: 4 (60 yo F)Acc No.[id number]:07/20/2024 Progress Notes Patient: Romy PARRA Provider: Khushbu Post DPM :1965 A ge:59 Y S ex:Female Date:07/20/2024 Address:[address] [place] [address], [place], [place]-[address] Pcp:Adam Cadena Subjective: * Chief Complaints: [...] 1 Generated for Felisha heck/Syl/Nate on: 0 06/09/2025 12:04 PM EDT
--- NOTE | 2025-06-09 10:12 | MHC.PC.OV ---
Vital Signs 06/09/25 10:13 Height 5 ft 7 in Weight 178 lb 2 oz BMI 27.9 BP 110/74 Blood Pressure Location Lt brachial Position Sitting Pulse 83 Pulse Source Pulse Oximeter Temp 97.3 F Temp Source Temporal Artery Scan Pulse Oximetry (%) 97 Oxygen Delivery Method Room Air Intake Visit Reasons: ANNUAL- A1C needed. Intake Note: Patient is here today for a physical. Per pt last A1C 6.2 on 03/2025. Ball Thread Machine Tender Required: No Quality Control Technician: Not Required per policy Accompanied by: Self / Same As Patient Allergies RACHELLE Inhibitors Allergy (Severe, Verified 06/09/25 10:39) Anaphylaxis azithromycin Allergy (Severe, Verified 06/09/25 10:39) HIVES TO ZPACK, anaphylaxis Uumapos-ZUJ-XiZ Reductase Inhibitor (Gzcnfam-Egs-Ail Reductase Inhibitor) Allergy (Severe, Verified 06/09/25 10:39) Anaphylaxis amitriptyline Adverse Reaction (Intermediate, Verified 06/09/25 10:39) Headache hydrochlorothiazide Adverse Reaction (Intermediate, Verified 06/09/25 10:39) leg cramps IVIG Allergy (Unknown, Uncoded 06/09/25 10:39) told to avoid Medication List - Last Reconciled 06/09/25 by Adam Cadena PA-C amlodipine 2.5 mg PO DAILY carvedilol 3.125 mg PO BID cholecalciferol (vitamin D3) 50 mcg PO DAILY 90 days yftxpnj-zhjkgyhkcj-RUW-caff [id number] mg 1 cap PO Q6H PRN 7 days estradiol 0.01%(0.1mg/gram) (Estrace) 1 g vaginal 3XW fluticasone propionate 50 mcg/actuation (Flonase Allergy Relief) 1 spray intranasal Q12H PRN 30 days insulin degludec (Tresiba FlexTouch U-100 insulin) units subcut levothyroxine 200 mcg PO DAILY lorazepam 1 mg PO DAILY PRN 30 days meloxicam 15 mg PO DAILY 30 days mercaptopurine 1 tab PO DAILY metformin ER 1,000 mg PO BID omeprazole 40 mg PO BID prucalopride (Motegrity) 2 mg PO DAILY tirzepatide (Mounjaro) 7.5 mg subcut QWEEK Tobacco use date assessed: 06/09/25 Dental Screening Dental Screen Date: 12/07/24 HPI ANNUAL- A1C needed. HPI Details Patient is a 60 year female here today for routine annual physical. Patient has a complex past medical history type 2 diabetes, hypothyroidism, chronic inflammatory demyelinating polyneuritis. Concern--> reports having right flank pain and some frequency of urination. Has an upcoming appointment with the urologist today to evaluate for UTI versus nephrolithiasis. Also--> The patient has a history of anxiety, which has been exacerbated by ongoing medical issues and family stressors. She experiences heart palpitations, which have been evaluated with a Holter monitor, revealing isolated supraventricular ectopy. CHRONIC MEDICAL CONDITIONS--> ISAURA: Has care with a mental health therapist to help further treat her anxiety. Does use lorazepam on an daily/p.r.n. basis. ... ? .. ? DMII:? Patient followed by endocrinology, Does check blood sugars at home, report 120- 160s.? Recently had adjustment to her diabetic medication. Now on insulin therapy (22U tresiba) . Last A1c done in March was 6.2, will have her A1c checked with her product applications scientist .. HLD:? Most recent lipid panel much showing borderline cholesterol. She believes her cholesterol waxes and wane depending on how close her labs were taken to electrophoresis treatments. ? Patient has been using fish oil which seems to be working well for her.. ? Unable to take statin therapy due to side effect.? Have been locked into start fibrates due to elevations in liver enzymes. .. Liver cirrhosis: Has been noted to have liver cirrhosis recently due to a combination of things. She continues on carvedilol 3.1 b.i.d.. She is followed by gastroenterology at [facility] .. Thrombocytopenia:? Most recent platelet count stable.? Has follow-up up with Hematology and has gotten bone pair mildly see which was normal.? Otherwise no epistaxis or bowel or bladder bleeding. .. HTN:? Blood pressures have been much better with amlodipine 2.5 mg.? Will continue on his dose of amlodipine. Otherwise denies any chest pain, palpitations, shortness of breath or headaches.? .. ? 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 Has been having right-sided lower extremity weakness and facial weakness related to her neurological disease. 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 Also did have MRI of brain did show benign appearing cyst at is undergoing surveillance at this time. ?Also having migraines and reports she has gotten botox injection over he scalp which has helped.? Now only taking Fiorinal on a very limited p.r.n. basis.? .. ? Hypothyroidism: Patient continues to take levothyroxine to 100 mcg 6 days a week, her most recent TSH low at 0.09. She will talk to her product applications scientist about reducing weekly dose of levothyroxine. Colon cancer screening:UTD with Colonoscopy Vaccines: Up-to-date with COVID vaccine Mammogram: UTD Proj Engineer: See [facility] Medical History Splenomegaly HTN (hypertension) Hypothyroid GERD (gastroesophageal reflux disease) Diabetes Anxiety Sciatica Obese Allergic rhinitis Herpes simplex Chronic inflammatory demyelinating neuropathy Surgical History History of colonoscopy History of surgery History of rectal surgery History of bladder surgery History of inguinal hernia repair History of hysterectomy History of tonsillectomy and adenoidectomy History of ankle surgery History of right knee surgery History of elbow surgery History of hand surgery History of thumb surgery History of shoulder surgery History of hip surgery Family History Father Leukemia Lung cancer PVD (peripheral vascular disease) Mother Diabetes Heart disease Asthma Substance use disorder Brother Thyroid disease CIDP (chronic inflammatory demyelinating polyneuropathy) Son Kelley's disease Sister Lymphoma Social History Housing: House Alcohol intake: current Alcohol intake frequency: a few times a month Patient Tobacco Use Status: Former Tobacco user Tobacco use type: Cigarette e-Cigarette/Vaping Use: Never Used Second Hand Smoke Exposure: Yes service: No Current occupational status: disabled Cognitive needs: No Hearing needs: No Vision needs: Yes (GLASSES) Questionnaire PHQ-9 Over the last 2 weeks, how often have you been bothered by any of the following problems? 1. Little interest or pleasure in doing things: not at all 2. Feeling down, depressed, or hopeless: not at all 3. Trouble falling or staying asleep, or sleeping too much: not at all 4. Feeling tired or having little energy: not at all 5. Poor appetite or overeating: not at all 6. Feeling bad about yourself - or that you are a failure or have let yourself or your family down: not at all 7. Trouble concentrating on things, such as reading the newspaper or watching television: not at all 8. Moving or speaking so slowly that other people could have noticed. Or the opposite - being so fidgety or restless that you have been moving around a lot more than usual: not at all 9. Thoughts that you would be better off or of hurting yourself in some way: not at all Total score: 0 Depression Screening Interpretation: Negative Depression Screening Done: Yes 91974 - PHQ-9 Billing: Yes Source: Developed by Drs. Delfino Schwab, Christine Albrecht, Cesar Anthony and colleagues, with an educational margaret from [employer]. Thrive Questionnaire Date Thrive assessed: 06/02/25 I am a: Patient What is your living situation today?: I have a steady place to live Within the past 12 months, did the food you bought not last and you didn't have the money to get more?: Never true Within the past 12 months, did you worry whether your food would run out before you got money to buy more?: Never true Do you have trouble paying for medicines?: No Do you have trouble getting transportation to medical appointments?: No Do you have trouble paying your heating and electricity bill?: No Do you have trouble taking care of your child, family member or friend?: No Do you have trouble with day-to-day activities such as bathing, preparing meals, shopping, managing finances, etc.?: No Are you currently unemployed and looking for a job?: No Are you interested in more education?: No Please select the resources that you would like help with: None Currently or been in a relationship where the following occur: No concerns reported THRIVE Score: 0 AUDIT C Alcohol Use Questionnaire (AUDIT-C) 1. How often do you have a drink containing alcohol?: Never 3. How often do you have six or more drinks on one occasion?: Never Total Score: 0 ISAURA-7 AMB Questionnaire ISAURA-7 Date ISAURA - 7 assessed: 12/07/24 Feeling nervous, anxious, or on edge: 1 = Several days Not being able to stop or control worryin = Not at all Worrying too much about different things: 0 = Not at all Trouble relaxin = Not at all Being so restless that it is hard to sit still: 0 = Not at all Becoming easily annoyed or irritable: 0 = Not at all Feeling afraid as if something awful might happen: 0 = Not at all Total ISAURA-7 score (0-4 normal; 5-9 mild; 10-14 moderate; 15-21 severe): 1 Source: Developed by Drs. Delfino Schwab, Christine Albrecht, Cesar Anthony and colleagues, with an educational margaret from [employer]. ISAURA-7 Assessment Billing ISAURA-7 Assessment Tool: ISAURA-7 Assessment 46464 Review of Systems Const Denies body aches, Denies chills, Denies excessive sweating, Denies fatigue, Denies fever(s) and Denies headache(s) Eyes Denies blurry vision ENT Denies dysphagia, Denies vertigo, Denies dizziness, Denies headache(s), Denies hearing loss and Denies tinnitus Card Denies chest pain, Denies chest pain with activity, Denies syncope, Denies irregular heart rhythm and Denies dyspnea Resp Denies chest congestion, Denies cough, Denies hemoptysis, Denies dyspnea and Denies wheezing GI Denies abdominal pain, Denies melena, Denies hematochezia, Denies coffee ground emesis, Denies dysphagia, Denies diarrhea, Denies nausea and Denies vomiting Denies urinary frequency, Denies dysuria, Denies urinary hesitancy and Denies urinary urgency Musc Denies arthralgias, Denies limited range of motion, Denies muscle cramps and Denies muscle weakness Skin/Breast Denies rash and Denies skin ulcer Neuro Denies Abnormal speech present, Denies confusion, Denies vertigo, Denies dizziness, Denies syncope, Denies headache(s), Denies memory loss and Denies seizure-like activity Psych Denies anxiety, Denies confusion, Denies depression, Denies memory loss, Denies panic attacks and Denies paranoia Endo Denies excessive sweating, Denies fatigue, Denies flushing, Denies polydipsia and Denies polyuria Aller/Immun Denies wheezing Physical exam (Primary Care) Vital Signs: Last Vital Signs Temp 97.3 F 06/09/25 10:13 Pulse 83 06/09/25 10:13 BP 110/74 06/09/25 10:13 Pulse Ox 97 06/09/25 10:13 Oxygen Delivery Method Room Air 06/09/25 10:13 BMI result Body Mass Index 27.9 Tobacco/Smoking Status: Tobacco use Status Tobacco use date assessed 06/09/25 06/09/25 10:29 Patient Tobacco Use Status Former Tobacco user 06/09/25 10:29 Tobacco use type Cigarette 06/09/25 10:29 e-Cigarette/Vaping Use Never Used 06/09/25 10:29 PHQ-9: PHQ-9 Score PHQ-9: Total score 0 06/09/25 10:42 Depression Screening Interpretation: Negative Thrive Assessment: Date of Thrive Assessment Date Thrive assessed 06/02/25 06/09/25 10:29 Currently or been in a relationship where the following occur: No concerns reported Const General: cooperative, comfortable, no acute distress, alert and awake; No confusion Orientation/consciousness: oriented to person, oriented to place, patient oriented x3 and No confusion HENMT Head: Yes normocephalic Ears: external ears normal and TM's normal bilaterally Face and sinus: No sinus tenderness Mouth: Normal oral and palatal mucosa present and tongue normal Teeth and gingiva: dentition normal and gingiva normal Throat: Yes posterior oropharynx normal, Yes tonsils normal and Yes uvula midline Eyes Conjunctivae: conjunctivae normal Sclerae: sclerae normal Pupils: Equal, round and reactive pupils present EOM: EOMs intact bilaterally Direct Ophthalmoscopy: No no photophobia Neck Neck: Yes no lymphadenopathy, No tender and Yes no JVD Thyroid: Thyroid normal Carotids: no bruits Chest Chest palpation & inspection: no tenderness Resp Effort & Inspection: normal respiratory effort, no audible wheezes, not labored and no stridor Auscultation: no crackles, no rales, no rhonchi and no wheezes Cardio Jugular venous distension: no JVD Rate: regular rate, not bradycardic and not tachycardic Rhythm: regular rhythm Bruits: no carotid bruits Peripheral pulses: Peripheral pulses 2+ throughout GI Inspection: Yes normal to inspection, No abdominal wall ecchymosis and No visible herniation Palpation (GI): Soft to palpation, nontender, no guarding, not rigid and No hepatosplenomegaly present Auscultation: normoactive bowel sounds General: Yes no CVA tenderness Back/Spine/Pelvis Back: no CVA tenderness and No back tenderness Cervical Spine: cervical ROM normal Thoracic/Lumbar Spine: thoracic and lumbar spine normal to inspection, straight leg raise negative bilaterally, No thoraco-lumbar ROM limited and No lumbar spinal tenderness Skin Lesions: no lesions Rashes: no rashes Wounds: no wounds Neuro General: oriented to person, oriented to place, patient oriented x3, CN's II-XI intact bilaterally and No confusion Cranial nerves: Yes Equal, round and reactive pupils present and Yes Normal accommodation reflex present Cognition (Neuro): normal cognition Speech: No Abnormal speech present Gait exam (Neuro): Normal gait present Motor exam (neuro): 5/5 motor strength present throughout Extrem Right upper extremity: full ROM; no cyanosis Left upper extremity: full ROM; no cyanosis Right lower extremity: no edema Left lower extremity: no edema Psych Appearance: grossly normal Mental Status: mental status grossly normal Affect: normal affect Attitude: cooperative Thought process: Normal thought process present Coding Level of Care Code Est Pt Prev Care 40-64y(79211) Diagnoses Adult general medical exam Z00.00 Type 2 diabetes mellitus with hyperglycemia, without long-term current use of insulin E11.65 Diabetes mellitus half-way insulin use: without half-way use Diabetes mellitus complication status: with hyperglycemia Mixed hyperlipidemia E78.2 Hyperlipidemia type: mixed hyperlipidemia ISAURA (generalized anxiety disorder) F41.1 Hypothyroidism, unspecified type E03.9 Hypothyroidism type: unspecified Cirrhosis of liver without ascites, unspecified hepatic cirrhosis type K74.60 Hepatic cirrhosis type: unspecified hepatic cirrhosis Ascites presence: without ascites Chronic inflammatory demyelinating neuropathy G61.81 Thrombocytopenia D69.6 Additional Codes PHQ-9 - 29322 - PHQ-9 Billing: Yes ([id number]) ISAURA-7 Assessment Billing - ISAURA-7 Assessment Tool: ISAURA-7 Assessment [id number] ([id number]) Assessment & Plan Assessment & Plan (1) Adult general medical exam: Code(s): Z00.00 - Encounter for general adult medical examination without abnormal findings Category: Medical Plan: As per HPI (2) DMII (diabetes mellitus, type 2): Code(s): E11.9 - Type 2 diabetes mellitus without complications Category: Medical Qualifiers: Diabetes mellitus termite treater helper insulin use: without half-way use Diabetes mellitus complication status: with hyperglycemia Qualified Code(s): E11.65 - Type 2 diabetes mellitus with hyperglycemia Plan: Patient's type 2 diabetes now well controlled with current medication regime. Most recent A1c of 6.2. She continues on GLP 1, Tresiba 22 units and metformin. Goal A1c is to remain below 7.0 (3) HLD (hyperlipidemia): Code(s): E78.5 - Hyperlipidemia, unspecified Category: Medical Qualifiers: Hyperlipidemia type: mixed hyperlipidemia Qualified Code(s): E78.2 - Mixed hyperlipidemia Plan: Patient's most recent lipid panel showing improved total cholesterol, triglycerides and LDL. Has not been able to tolerate statin therapy. She has been taking fish oil which has been helpful. She will continue on lifestyle and dietary modifications. Goal LDL is to be below 100 (4) ISAURA (generalized anxiety disorder): Code(s): F41.1 - Generalized anxiety disorder Category: Medical Plan: Patient continues with p.r.n. use of lorazepam for anxiety. She has a lot of medical issues that cause her a lot of anxiety. (5) Hypothyroidism: Code(s): E03.9 - Hypothyroidism, unspecified Category: Medical Qualifiers: Hypothyroidism type: unspecified Qualified Code(s): E03.9 - Hypothyroidism, unspecified Plan: Patient continues to follow Endocrinology [facility]. She does use levothyroxine 6 days a week. Her most recent TSH low talk to her product applications scientist about reducing dose of levothyroxine. (6) Liver cirrhosis: Code(s): K74.60 - Unspecified cirrhosis of liver Category: Medical Qualifiers: Hepatic cirrhosis type: unspecified hepatic cirrhosis Ascites presence: without ascites Qualified Code(s): K74.60 - Unspecified cirrhosis of liver Plan: Continues to follow gastroenterology at [facility]. Most recent liver enzymes slightly elevated She continues on carvedilol for portal hypertension (7) Chronic inflammatory demyelinating neuropathy: Comment: Dx in 1998 Code(s): G61.81 - Chronic inflammatory demyelinating polyneuritis Category: Medical Plan: Continues to get plasmapheresis regularly. Most recent EMG of extremities did not show neuropathic disease. (8) Thrombocytopenia: Code(s): D69.6 - Thrombocytopenia, unspecified Category: Medical Plan: Patient's most recent platelet count stable. She denies any overt signs of bleeding, bruising. Continues to follow Hematology at [facility] Orders: Orders Lipid Panel Today E78.2 - Mixed hyperlipidemia Comprehensive [place]. Panel Fast Today E11.65 - Type 2 diabetes mellitus with hyperglycemia Complete Blood Count no Diff Today E11.65 - Type 2 diabetes mellitus with hyperglycemia Microalbumin, Random (w Creat) Today E11.65 - Type 2 diabetes mellitus with hyperglycemia
[2025-06-09 10:13] VITALS: BP 110/74; PULSE 83; TEMP 36.3; O2SAT 97; BMI 27.9
--- OUTSIDE RECORDS SUMMARY | 2025-06-09 12:04 | XMS_ITS | Clinical Summary ---
Author Organization [facility] Address [address] [place] [phone] Phone Care Team Providers Care Crm Campaign Manager Name Role Phone Adam Cadena Primary Care Provider + Allergies Active Allergy Reactions Criticality Noted Date Comments Ralph Inhibitors Anaphylaxis High 10/24/2023 Azithromycin Hives 05/17/2020 Flu Virus Vaccine Tv 2015-16 (18 Yr And Up),Recomb Unknown 10/24/2023 Immune Globulin,Gamma (Igg) Human Other (See Comments) 04/03/2023 Affects kidney Wwnvraf-Qqv-Tqx Reductase Inhibitors 04/03/2023 Affect Liver Medications valACYclovir (VALTREX) 500 MG tablet Take 500 mg by mouth daily. Active MOTEGRITY 2 mg tablet Take 1 tablet by mouth every morning. 03/11/20 23 Active amLODIPine (NORVASC) 2.5 MG tablet Take 1 tablet by mouth every morning. 02/20/20 23 Active omeprazole (PRILOSEC) 40 MG capsule Take 1 capsule by mouth daily. 02/09/20 23 Active ZINC ORAL Take 50 mg by mouth daily. Active LORazepam (ATIVAN) 0.5 MG tablet Take 0.5 mg by mouth as needed for anxiety. Active ammonium lactate (AMLACTIN) 12 % cream Apply topically. Act melani cycloSPORINE (RESTASIS) 0.05 % suspension 1 drop 2 (two) times a day. 09/21/20 23 Active estradioL (ESTRACE) 0.01 % (0.1 mg/gram) vaginal cream INSERT 1 G PER VAGINA NIGHTLY FOR 2 WEEKS THEN 2 TIMES PER WEEK THEREAFTER 10/17/19 24 Active fluticasone propionate (FLONASE) 50 mcg/actuation nasal spray 2 SPRAY INTRANASALLY DAILY FOR 30 DAYS ADMINISTER INTO EACH NOSTRIL 08/20/20 Active ketorolac (ACULAR) 0.5 % ophthalmic solution Place 2 drops into each eye as needed. 11/04/19 24 Active docosahexaenoic acid/epa (FISH OIL ORAL) Take by mouth. Activ e BD EDIN 2ND GEN PEN NEEDLE 32 gauge x 5/32 NdleIndications:Ty pe 2 diabetes mellitus with peripheral neuropathy Use to inject insulin & victoza - each 1x/day (2 needles/day total) 200 each 3 03/09/20 24 Active Additional Information Patient taking differently: Use to inject insulin- each 1x/day (2 needles/day total), Reported on 03/23/2025 ONETOUCH ULTRA TEST Strp stripsIndications: Type 2 diabetes mellitus with peripheral neuropathy DX E11.9 USE DIRECTED TO MONITOR GLUCOSE ONCE DAILY 90 DAYS 100 strip 3 04/15/20 24 Active blood-glucose sensor (FREESTYLE ESTEFANY 3 PLUS SENSOR) DeviIndications:Ty pe 2 diabetes mellitus with peripheral neuropathy Us as directed to monitor glucose, change every 15 days 6 each 3 07/27/20 24 Active carvedilol (COREG) 3.125 MG tablet Take 1 tablet by mouth 2 (two) times a day with meals. 09/07/20 24 Active SYNTHROID 200 mcg tabletIndications: Postablative hypothyroidism 1 tablet, orally, six days/week, skip day, or as directed 78 tablet 3 12/16/19 25 Active Additional Information Patient taking differently: 1 tablet, orally, 5 days/week, 100 mcg on Wednesdays, skipping Sundays, or as directed, Reported on 03/23/2025 mercaptopurine (PURINETHOL) 50 mg tablet Take 1 tablet (50 mg total) by mouth daily. 90 tablet 1 03/22/20 25 Active cholecalciferol (VITAMIN D3) 2,000 unit tablet Take 50 mcg by mouth daily. 06/23/20 24 Active docusate sodium (COLACE) 50 MG capsule Take 50 mg by mouth daily. Active meloxicam (MOBIC) 15 MG tablet Take 15 mg by mouth daily. Active SYNTHROID 150 mcg tabletIndications: Postablative hypothyroidism Take 1 tablet (150 mcg total) by mouth every morning. 90 tablet 1 03/23/20 25 Active tirzepatide (MOUNJARO) 10 mg/0.5 mL PnIj subcutaneous penIndications:Typ e 2 diabetes mellitus with peripheral neuropathy Inject 0.5 mL (10 mg total) under the skin every 7 days. 2 mL 5 03/23/20 25 Active metFORMIN (GLUCOPHAGE-XR) 500 MG 24 hr tabletIndications: Type 2 diabetes mellitus with peripheral neuropathy TAKE 4 TABLETS BY MOUTH DAILY WITH BREAKFAST 360 tablet 3 04/19/20 25 Active insulin degludec U-100 (TRESIBA FLEXTOUCH U-100) injection penIndications:Typ e 2 diabetes mellitus with peripheral neuropathy Inject 16 Units under the skin daily. 30 mL 3 05/06/20 25 Active Active Problems Problem Noted Date Diagnosed Date [...] We will retrieve labs done recently at [facility]. 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 Long-term current use of inj ectable noninsulin antidiabetic medication Resolved Problems Problem Noted Date Diagnosed Date Resolved Date jail current use of diluted insulin 09/08/2024 Encounters Date Type Department Care Team Description 05/05/2025 Refill [facility] [address] [place] [address] Reba Molina MD Medication Refill 04/17/2025 Refill [facility] [address] [place] [address] Reba Molina MD Medication Refill 03/23/2025 10:00 AM EDT Office Visit [facility] Endocrinology [place] [address] [place] [address] Reba Molina MD Postablative hypothyroidism (Primary Dx); Type 2 diabetes mellitus with peripheral neuropathy; Long-term current use of injectable noninsulin antidiabetic medication; 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; jail current use of insulin 03/22/2025 2:30 PM EDT Office Visit [facility] Rheumatology [address] [place] [address] [place] [address] Deon Bray MD Rheumatoid arthritis involving multiple sites with positive rheumatoid factor (Primary Dx); NSAID long-term use; Primary osteoarthritis involving multiple joints; High risk medications (not anticoagulants) long-term use; Immunosuppression due to drug therapy 03/22/2025 Telephone [facility] Rheumatology [address] [place] [address] [place] [address] Deon Bray MD Appointment 03/18/2025 9:23 AM EDT - 03/18/2025 11:59 PM EDT Hospital Encounter [facility] [address] [place] [address] Reba Molina MD Discharge Disposition: Home or [...] Description 07/19/2025 10:20 AM EDT Office Visit [facility] Endocrinology [address] [place] [address] Reba Molina MD [address] [place] [address] 09/20/2025 10:00 AM EST Office Visit [facility] Rheumatology [address] [place] [address] [place] [address] Carissa Albrecht DO [address] [facility], [address] [place] [address] [email or web address] 11/02/2025 10:00 AM EST Office Visit [facility] Endocrinology [address] [place] [address] Reba Molina MD [address] [place] [address] 3rd [place] [address] [email or web address] Health Maintenance Due Date Last Done Comments [...] 10/01/2023 INFLUENZA VACCINE (#1) 2025 COVID-19 VACCINE (2024- season) 2025 08/24/2021, 08/02/2021, 10/23/2020, Additional history exists HEMOGLOBIN A1C 09/17/2025 03/18/2025, 0309/2024, 05/06/2024, Additional history exists BLOOD PRESSURE 09/23/2025 [...] Comprehensive metabolic panel (03/18/2025 9:23 AM EDT) SODIUM 138 133 - 146 mmol/L [facility] POTASSIUM 4.3 3.3 - 5.1 mmol/L [facility] CHLORIDE 102 96 - 108 mmol/L [facility] CO2 25 21 - 35 mmol/L [facility] BUN 17 6 - 19 mg/dL [facility] CREATININE 0.90 0.5 - 1.5 mg/dL [facility] GLUCOSE 183(H) 70 - 99 mg/dL [facility] ALBUMIN 4.6 3.9 - 4.8 g/dL [facility] TOTAL PROTEIN 7.8 6.5 - 8.0 g/dL [facility] CALCIUM 10.0 8.4 - 10.3 mg/dL [facility] ALKALINE PHOSPHATASE 93 39 - 117 U/L [facility] TOTAL BILIRUBIN 0.3 0.0 - 1.2 mg/dL [facility] AST 29 0 - 37 U/L [facility] ALT 30 0 - 40 U/L [facility] GLOBULIN 3.2 1 - 4.8 g/dL [facility] EGFR 73 >59 mL/min/1.7 3m2 [facility] Comment:Estimated glomerular filtration rate calculated using the CKD-EPI refit equation. ANION GAP 15 10 - 20 mmol/L [facility] Blood 03/18/2025 9:23 AM EDT 03/18/2025 9:25 AM EDT us Grisel West MD LAB BLOOD ORDERABLES Fin al Result Performing Organization Address City/State/[facility] Co de Phone Number [address] [address] * TSH with reflex (03/18/2025 9:23 AM EDT) TSH 0.81 0.27 - 4.20 uIU/mL [facility] Blood 03/18/2025 9:23 AM EDT 03/18/2025 9:25 AM EDT us Reba Molina MD LAB BLOOD ORDERABLES F inal Result [address] [address] * Sedimentation rate (ESR) (03/18/2025 9:23 AM EDT) ESR 11 0 - 30 mm/h [facility] Blood 03/18/2025 9:23 AM EDT 03/18/2025 9:25 AM EDT Grisel West MD LAB BLOOD ORDERABLES Fin al Result Performing Organization Address [facility]/ZIP Co de Phone Number [address] [address] * (ABNORMAL) CBC and differential (03/18/2025 9:23 AM EDT) WBC 4.35 4.00 - 11.00 K/uL [facility] RBC 4.16 4.00 - 5.20 M/uL [facility] HGB 12.7 12.0 - 16.0 g/dL [facility] HCT 37.8 36.0 - 46.0 % [facility] PLT 132(L) 150 - 450 K/uL [facility] MCV 90.9 80.0 - 100.0 fL [facility] MCH 30.5 27.0 - 31.0 pg [facility] MCHC 33.6 32.0 - 36.0 g/dL [facility] RDW 14.2 11.5 - 14.5 % [facility] MPV 10.8 8.4 - 12.0 fL [facility] NRBC 0.00 0.00 /100 WBCs [facility] ABSOLUTE NRBC 0.00 0.00 K/uL [facility] DIFF METHOD Auto [facility] NEUTS 69.0 48.0 - 76.0 % [facility] LYMPHS 22.5 18.0 - 41.0 % [facility] MONOS 6.7 4.0 - 11.0 % [facility] EOS 0.9 0.0 - 5.0 % [facility] BASOS 0.7 0.0 - 1.5 % [facility] Granulocytes, immature (%) 0.2 0.0 - 0.9 % [facility] ABSOLUTE NEUTS 3.00 1.92 - 7.60 K/uL [facility] ABSOLUTE LYMPHS 0.98 0.72 - 4.10 K/uL [facility] ABSOLUTE MONOS 0.29 0.16 - 1.10 K/uL [facility] ABSOLUTE EOS 0.04 0.00 - 0.50 K/uL [facility] ABSOLUTE BASOS 0.03 0.00 - 0.15 K/uL [facility] Granulocytes, immature 0.01 0.00 - 0.09 K/uL [facility] Blood 03/18/2025 9:23 AM EDT 03/18/2025 9:25 AM EDT Grisel West MD LAB BLOOD ORDERABLES Fin al Result [address] [address] * C-Reactive Protein (03/18/2025 9:23 AM EDT) C REACTIVE PROTEIN <3.0 0.0 - 4.0 mg/L [facility] Blood 03/18/2025 9:23 AM EDT 03/18/2025 9:25 AM EDT Grisel West MD LAB BLOOD ORDERABLES Fin al Result [address] [address] * (ABNORMAL) Hemoglobin A1c (03/18/2025 9:23 AM EDT) HEMOGLOBIN A1C 6.2(H) 4.3 - 5.8 % [facility] Blood 03/18/2025 9:23 AM EDT 03/18/2025 9:25 AM EDT Reba Molina MD LAB BLOOD ORDERABLES F inal Result Performing Organization Address [facility] Co de Phone Number [address] [address] * Microalbumin/creatinine ratio, random urine (12/11/2024 10:39 AM EDT) URINE MICROALBUMIN <1.2 0 - 2.3 mg/dL [facility] URINE CREATININE 88 mg/dL [facility] MICROALB/CRE RATIO NOT CALCULATED 0 - 20 mg/g Cre [facility] Comment:due to Microalbumin <1.2 Urine (Urine) 12/11/2024 10: 39 AM EDT 12/11/2024 10:41 AM EDT Reba Molina MD URINE ORDERABLES Final Result Performing Organization Address [facility] Co de Phone Number [address] [address] * (ABNORMAL) Outside HDL (10/01/2023) HDL - External 33(A) 40 - 80 mg/dL David Mckeon MD LAB BLOOD ORDERABLES Kita l Result from Last 3 Months or Most Recently Relevant to Health Maintenance Insurance MEDICARE PART A & B [facility] ONE CARE MEDICARE REPLACEMENT MEDICARE PART A & B [facility] ONE CARE MEDICARE REPLACEMENT MEDICARE PART A & B MEDICARE PART A & B MEDICARE PART A & B ONE CARE MEDICARE REPLACEMENT [place] [id number] MEDICARE PART A & B Member Subscriber Plan / Payer (Ef fective 2002-Present) Name:Romy Topete Member ID:[id number] Relation to Subscriber:Self Name:Romy Topete Subscriber ID:[id number] Payer ID:[id number] Group ID:Not on file Type:Medicare Address: [employer] [address] ONE CARE MEDICARE REPLACEMENT [place] [id number] MEDICARE PART A & B CARE MEDICARE REPLACEMENT MEDICARE PART A & B MEDICARE PART A & B ONE CARE MEDICARE REPLACEMENT Care Teams Crm Campaign Manager Relationship Specialty Start Date End Date Adam Cadena PA [facility] [place] [address] PCP - General 08/20/22 Additional Source Comments The information contained in this document represents components of the legal health record. It is not the complete legal health record.[facility]
--- OUTSIDE RECORDS SUMMARY | 2025-06-09 12:04 | XMS_ITS | Clinical Summary ---
Author Organization [facility] Address [address] [place] [address] Care Team Providers Care Busboy Name Role Phone Adam Cadena Primary Care Provider [phone] Allergies Active Allergy Reactions Criticality Noted Date Comments Ralph Inhibitors Anaphylaxis,Other (see comments) High 10/24/2023 Cannot take with plasmaforesis Azithromycin Hives 05/17/2020 Flu Virus Vaccine Tv 2015-16 (18 Yr And Up),Recomb Unknown 10/24/2023 Immune Globulin,Gamma (Igg) Human Other (see comments) 04/03/2023 Other Reaction(s): affects kidneys- told to avoid Affects kidney Affects kidney Qbihjom-Trw-Lps Reductase Inhibitors Other (see comments),Unknown Medium 01/30/2019 [...] by mouth 2 times daily. 4 Active [employer] Ultra test strips DX E11.9 USE DIRECTED [...] Description 05/21/2025 10:30 AM EDT Office Visit [facility] [address] [place] [phone] Poultry Barn Manager: Emerita Melendrez MD Basal cell carcinoma (BCC) of left forehead (Primary Dx) 03/12/2025 myChart Message [facility] [address] [place] [phone] Poultry Barn Manager: Emerita Melendrez MD Wound check from Last [...] Screening 11/11/2025 Colonoscopy 11/11/2025 11/11/2015 Insurance [facility] [employer] Care Teams Busboy Relationship Specialty Start Date End Date Adam Cadena PA [address] [place] [address] PCP - General 01/01/25
--- OUTSIDE RECORDS SUMMARY | 2025-06-09 12:05 | XMS_ITS | Patient Health Record ---
Author Organization [facility] [place] Address [address] [facility] [place] [address] Care Team Providers Care Knifeman Name Role Phone Adam Cadena Primary Care Provider Unavailab mark Adrienne Post Unavailable [phone] Allergies Allergen (clinical drug ingredient) Drug/Non Drug [...] Polyneuropathy due to type 2 diabetes mellitus (946985695) Type 2 diabetes mellitus with diabetic polyneuropathy (E11.42) Active confirmed Problem Plantar fasciitis (090115435) Plantar fasciitis (M72.2) Active confirmed Vital Signs Blood pressure diastolic 72 mm Hg 04/26/2025 Height 5ft6in in 04/26/2025 Blood pressure systolic 118 mm Hg 04/26/2025 Weight 183 lbs 04/26/2025 BMI 29.53 kg/m2 04/26/2025 Procedures Procedure Date Ordered Date Performed Result Body Sit e 27689-STDB SKIN LESIONS, 2 TO 4 10/29/2024 N/A I6903-XBELZFNP DYSTROPHIC NAILS ANY # 10/29/2024 N/A 94330-VJXP SKIN LESIONS, OVER 4 04/26/2025 N/A Encounters Encounter Location Date Provider Diagnosis [address] [address] 10/29/2024 Adrienne Black Right foot pain M79.671 ; Pain of right heel M79.671 ; Type 2 diabetes mellitus with diabetic polyneuropathy E11.42 ; Plantar fasciitis M72.2 ; Xerosis of skin L85.3 ; Other hammer toe(s) (acquired), right foot M20.41 and Other hammer toe(s) (acquired), left foot M20.[address] [address] 04/26/2025 Adrienne Black Pain of right heel M79.671 ; Type 2 diabetes mellitus with diabetic polyneuropathy E11.42 ; Plantar fasciitis M72.2 and Xerosis of skin L85.[address] [address] 07/20/2024 Adrienne Black Assessments Encounter Date Diagnosis (ICD Code) Assessment Notes Treatment Notes Treatment Clinical Notes Section Notes 10/29/2024 Right foot pain (ICD-10 - M79.671) 04/26/2025 Type 2 diabetes mellitus with diabetic polyneuropathy (ICD-10 - E11.42) 04/26/2025 Pain of right heel (ICD-10 - M79.671) 04/26/2025 Plantar fasciitis (ICD-10 - M72.2) 10/29/2024 Pain of right heel (ICD-10 - [...] X ray : Foot, right 3V 10/02/2022 11054-JJGRRGO NAIL, 6 OR MORE 05/23/2016 33493-UZZSMPM NAIL, 6 OR MORE 11/19/2016 84319-COEVRUM NAIL, 1-5 02/12/2019 70871-Eiim Destruction, 1-14 02/12/2019 44954-Qyui Destruction, 1-14 08/21/2018 30254-Xhoj Destruction, -14 01/13/2018 02889-Feil Destruction, -14 11/19/2016 24112-Ahnn Destruction, -14 05/30/2017 85557-Fvjs Destruction, -14 01/23/2024 39314-Oost Destruction, -14 04/09/2024 46603-Dghd Destruction, -14 10/08/2019 66442-Gukz Destruction, -14 06/16/2020 97168-Gwmo Destruction, -14 02/11/2020 19735- Debride <25 sq cm 05/15/2012 13094-UDUFWPE SKIN/TISSUE 05/23/2016 35739-NNNYGUU SKIN/TISSUE 11/19/2016 72264-KTMG SKIN LESIONS, OVER 4 11/19/19 17 37275-CJRF SKIN LESIONS, OVER 4 05/30/20 17 04707-NMSI SKIN LESIONS, OVER 4 01/14/20 18 33242-LAHO SKIN LESIONS, OVER 4 08/21/20 18 70590-LYPQ SKIN LESIONS, OVER 4 05/23/20 16 13143-XKUR SKIN LESIONS, OVER 4 04/04/20 15 91233-TWZX SKIN LESIONS, OVER 4 10/03/19 16 41156-WMMZ SKIN LESIONS, OVER 4 03/19/20 13 64763-CLLM SKIN LESIONS, OVER 4 09/28/19 14 35672-OVZT SKIN LESIONS, OVER 4 03/29/20 14 83053-QZHP SKIN LESIONS, OVER 4 09/29/19 15 60228-FXKV SKIN LESIONS, OVER 4 10/29/19 13 91274-HDVM SKIN LESIONS, OVER 4 04/21/20 12 13369-XBGK SKIN LESIONS, OVER 4 02/11/20 20 42205-RNXU SKIN LESIONS, OVER 4 10/08/19 20 43121-ORJC SKIN LESIONS, OVER 4 02/13/20 19 05287-QGVI SKIN LESIONS, OVER 4 04/26/20 25 60669-DQLC SKIN LESIONS, OVER 4 06/16/20 20 00271-LDNN SKIN LESIONS, OVER 4 08/05/20 23 80028-HKJV SKIN LESIONS, 2 TO 4 10/29/19 25 13511, I6407-QUVGY/INJECT, JOINT/BURSA 0 04/09/2024 00927, S9881-SWPFV/INJECT, JOINT/BURSA 0 02/12/2019 08132-IGPT NAIL(S) 10/08/2019 35505-DZVB NAIL(S) 02/11/2020 11368-OGYX NAIL(S) 06/16/2020 49931-KXVR NAIL(S) 09/28/2013 46897-AOLQ NAIL(S) 01/13/2018 51422-ZZAX NAIL(S) 08/21/2018 76400-PEJE NAIL(S) 02/12/2019 59021-UQVJ NAIL(S) 05/30/2017 L6288-WEFPPFHR DYSTROPHIC NAILS ANY # E5792-EXAHWAGX DYSTROPHIC NAILS ANY # T7518-FBSBPTXN DYSTROPHIC NAILS ANY # B0469-QCHJXVYG DYSTROPHIC NAILS ANY # 20054- Removal of Foreign Body, Subcut 0 05/15/2012 30587- Removal of Foreign Body, Subcut 0 05/01/2012 48551,E9865-XCQ TENDON SHEATH/LIGAMENT 0 06/11/2011 21986,K5196-WQY TENDON SHEATH/LIGAMENT 0 05/18/2024 17296,A6418-URN TENDON SHEATH/LIGAMENT 0 01/23/2024 27895 - Shave Biopsy of Skin Lesion 04/24 94065 - Shave Biopsy of Skin Lesion 05/24 Next Appt Details Provider Name:Adrienne Post , 10/25/2025 10:00:00 AM, [address] [facility], [place], [address], Insurance Providers Payer Name Payer Address Payer Phone Subscriber Number Group Number Insured Name Patient Relationship to Insured Coverage Start Date Coverage End Date [facility] [employer] Claims [address] [facility] TUSHAR Redman [facility] [id number] Jeronimo morrell Romy Self - patient is [...]
--- OUTSIDE RECORDS SUMMARY | 2025-06-09 12:05 | XMS_ITS | Clinical Summary ---
Author Organization [facility] Address [address] [place] [address] Phone Care Team Providers Care Product Operations Associate Name Role Phone Adam Cadena Primary Care Provider Allergies Active Allergy Reactions Criticality Noted Date Comments Ralph Inhibitors Other 08/13/2024 Cannot take with plasmaforesis Azithromycin Hives 08/13/2024 Flu Virus Vaccine Tv 2014- (18 Yr And Up),Recomb Unknown 10/24/2023 Immune Globulin,Gamma (Igg) Human Other 04/03/2023 Other Reaction(s): affects kidneys- told to avoid Affects kidney Fxfcung-Bqh-Rsa Reductase Inhibitors Unknown Medium 01/30/2019 Other Reaction(s): elev lfts Affect Liver Medications cycloSPORINE 0.05 % drops Administer 1 drop into both eyes 1 (one) time each day. 05/07/20 24 Active docosahexaenoic acid-epa 120-180 mg capsule Take 1 tablet by mouth 1 (one) time each day. Active butalbital-acet aminophen-caffe ine-codeine (Fioricet with Codeine) 68-760-32-30 mg capsule Take 1 capsule by mouth [...] carvediloL (COREG) 3.125 mg tabletIndicatio ns:Portal hypertension ([facility] [place], [facility] V28) Take 1 tablet (3.125 mg total) [...] each day. 30 capsule 05/20/20 25 Active prucalopride 2 mg tabletIndicatio ns:Constipation , unspecified constipation type TAKE 1 TABLET BY MOUTH 1 TIME EACH DAY. 90 tablet 1 05/10/20 25 025 Discontinued Active Problems Problem Noted Date Diagnosed Date Anxiety 01/30/2019 Chronic headache 01/30/2019 Chronic inflammatory demyeli nating polyneuritis ([facility] [place], [facility] V[facility]) 01/30/2019 Overview (08/28/2024): Plasmapheresis q 4wks; Dr. Fisher GERD (gastroesophageal reflux disease) 9 Hyperlipidemia 01/30/2019 Hypothyroidism 01/30/2019 Restless leg syndrome 01/30/2019 Rheumatoid arthritis, adult ([facility] V24, [facility]/ C V28) 01/30/2019 Type 2 diabetes mellitus wit hout complication ([facility] [place], [facility] V28) 01/30/2019 Cough 01/26/2019 Dyspnea on exertion 01/26/2019 Encounters Date Type Department Care Team Description 04/28/2025 10:28 AM EDT - 04/28/2025 11:59 PM EDT Hospital Encounter [facility] Ultrasound [address] [place] [phone] Cirrhosis, nonalcoholic ([facility] V24, [facility] V28) Discharge Disposition: Home or Self Care 04/07/2025 10:00 AM EDT Lab Draw Station - [address] [facility] [address] [facility] [place] [phone] Cirrhosis, nonalcoholic ([facility] V24, [facility] V28) 04/07/2025 Telephone Gastroenterology - [address] [facility] [address] [facility] [address] [place] [phone] Kriss Ballesteros MA from Last 3 Months Surgical History Surgery Date Site/Laterality Comments HAND SURGERY 09/2014 Right PROCEDURE: HISTORICAL HAND SURGERY; COMMENT: thumb; several hand surgeries ELBOW SURGERY Left PROCEDURE: HISTORICAL ELBOW SURGERY OTHER SURGICAL HISTORY Left PROCEDURE: HISTORY OTHER; COMMENT: hip, IT band cut ; [facility] KNEE SURGERY Right PROCEDURE: HISTORICAL KNEE [...] SHOULDER SURGERY; COMMENT: bone spur & RTC; Ihsaner ESOPHAGOGASTRODUODENOSCOPY 08/28/2024 grade 1 gastric varices ESOPHAGOGASTRODUODENOSCOPY 04/08/2012 retained food, otherwise nl COLONOSCOPY 11/11/2015 surgical changes, tics, hemorrhoids- 10 yr recall COLONOSCOPY 06/23/2009 tics, hemorrhoids, ESOPHAGOGASTRODUODENOSCOPY 06/09/2019 all nl bx Medical History Medical History Date Comments Hypothyroidism 01/30/2019 DX:Hypothyroidis m Rheumatoid arthritis, adult ([facility] V24, [facility] V28) 01/30/2019 DX:Rheumatoid arthritis, wayne lt ([facility]) Anxiety 01/30/2019 DX:Anxiety GERD (gastroesophageal reflux disease) 01/30/2019 DX:GERD (gastroesophageal reflux disease) Hyperlipidemia 01/30/2019 DX:Hyperlipidemi a Restless leg syndrome 01/30/2019 DX:Restles s leg syndrome Chronic headache 01/30/2019 DX:Chronic head ache History of diverticulitis of colon 01/30/2019 DX:History of diverticulitis of colon; COMMENT: 2011 s/p resection Type 2 diabetes mellitus wit hout complication ([facility] V24, [facility] V28) 01/30/2019 DX:Type 2 diabetes mellitus without complication (HCC) Chronic inflammatory demyeli nating polyneuritis ([facility] V24, [facility] V28) 01/30/2019 DX:Chronic inflammatory demy elinating polyneuritis (HCC); [...] Office Visit Gastroenterology - [address] [facility] [address] [place] [phone] Libra Finney MD [address] [facility] [address] [place] [address] Health Maintenance Due Date Last Done Comments [...] Mildly distended common duct, similar to the 2020 CT, most likely representing the postcholecystectomy state. 4. Top normal spleen size, similar to previous. Telemacrina FINLEY ([id number]) -------- FINAL REPORT -------- Dictated By: Terra Braun Dictated Date: 04/28/2025 11:02 ET Assigned Physician: Terra Braun Reviewed and Electronically Signed By: Terra Braun Signed Date: 04/28/2025 11:06 ET Workstation ID: [id number] Transcribed By: Self Edit Transcribed Date: 04/28/2025 [...] cholecystectomy. Mildly distended common duct, similar tothe 2020 CT, most likely representing the postcholecystectomy state. 4. Top normal spleen size, [place] ([id number]) -------- FINAL REPORT -------- Dictated By: Terra Braun Dictated Date: 04/28/2025 11:02 ET Assigned Physician: Terra Braun Reviewed and Electronically Signed By: Terra Braun Signed Date: 04/28/2025 11:06 ET Workstation ID: [id number] Transcribed By: Self Edit Transcribed Date: 04/28/2025 11:02 ET Libra Finney MD [facility] US PROCEDURES Final Result * (ABNORMAL) CBC auto differential (04/07/2025 9:59 AM EDT) WBC 4.4(L) 4.8 - 10.8 K/mcL LAB HEMETOLOGY METHOD 04/07/2025 11:37 AM EDT [facility] RBC 4.10 3.80 - 4.80 M/mcL LAB HEMETOLOGY METHOD 04/07/2025 11:37 AM EDT [facility] Hemoglobin 12.6 11.5 - 16.0 g/dL LAB HEMETOLOGY METHOD 04/07/2025 11:37 AM EDT [facility] Hematocrit 37.3 35.0 - 47.0 % LAB HEMETOLOGY METHOD 04/07/2025 11:37 AM [facility] MCV 90.5 79.0 - 98.0 FL LAB HEMETOLOGY METHOD 04/07/2025 11:37 AM [facility] MCH 30.6 27.0 - 32.0 pcg LAB HEMETOLOGY METHOD 04/07/2025 11:37 AM [facility] MCHC 33.8 32.0 - 37.0 g/dL LAB HEMETOLOGY METHOD 04/07/2025 11:37 AM [facility] RDW 14.3 11.0 - 15.0 % LAB HEMETOLOGY METHOD 04/07/2025 11:37 AM [facility] Platelets 137 130 - 400 K/mcL LAB HEMETOLOGY METHOD 04/07/2025 11:37 AM [facility] MPV 10.2 7.0 - 11.0 FL LAB HEMETOLOGY METHOD 04/07/2025 11:37 AM [facility] NRBC 0.0 <1.0 % LAB HEMETOLOGY METHOD 04/07/2025 11:37 AM [facility] NRBC Absolute 0.00 <0.10 K/mcL LAB HEMETOLOGY METHOD 04/07/2025 11:37 AM [facility] Neutrophils Relative 63.4 % LAB HEMETOLOGY METHOD 04/07/2025 11:37 AM [facility] Lymphocytes Relative 25.7 % LAB HEMETOLOGY METHOD 04/07/2025 11:37 AM [facility] Monocytes Relative 8.4 % LAB HEMETOLOGY METHOD 04/07/2025 11:37 AM [facility] Eosinophils Relative 1.1 % LAB HEMETOLOGY METHOD 04/07/2025 11:37 AM EDT [facility] Basophils Relative 0.7 % LAB HEMETOLOGY METHOD 04/07/2025 11:37 AM EDT [facility] Immature Granulocytes Relative 0.7 % LAB HEMETOLOGY METHOD 04/07/2025 11:37 AM EDT [facility] Neutrophils Absolute 2.78 1.50 - 7.00 K/mcL LAB HEMETOLOGY METHOD 04/07/2025 11:37 AM EDT [facility] Lymphocytes Absolute 1.13 1.00 - 5.00 K/mcL LAB HEMETOLOGY METHOD 04/07/2025 11:37 AM EDT [facility] Monocytes Absolute 0.37 0.20 - 1.00 K/mcL LAB HEMETOLOGY METHOD 04/07/2025 11:37 AM EDT [facility] Eosinophils Absolute 0.05 0.00 - 0.50 K/mcL LAB HEMETOLOGY METHOD 04/07/2025 11:37 AM EDT [facility] Basophils Absolute 0.03 0.00 - 0.20 K/mcL LAB HEMETOLOGY METHOD 04/07/2025 11:37 AM EDT [facility] Immature Granulocytes Absolute 0.03 0.00 - 0.03 K/mcL LAB HEMETOLOGY METHOD 04/07/2025 11:37 AM EDT [facility] Blood Venous blood specimen / Unknown Venipuncture / Unknown 04/07/2025 9:59 AM EDT 04/07/2025 11:11 AM EDT us Libra Finney MD LAB BLOOD ORDERABLES Final Res ult [facility] [address] [place] [address], * Alpha fetoprotein tumor marker (04/07/2025 9:59 AM EDT) AFP <2.5 0.0 - 8.0 ng/mL LAB CHEMISTRY METHOD 04/07/2025 1:49 PM EDT [facility] Blood Venous blood specimen / Unknown Venipuncture / Unknown 04/07/2025 9:59 AM EDT 04/07/2025 11:10 AM EDT Narrative [facility] - 04/07/2025 1:49 PM EDT The Siemens Advia Centaur Chemiluminescent Immunoassay is used. Results obtained with different assay methods or kits cannot be used interchangeably. Results cannot be interpreted as absolute evidence of the presence or absence of malignant disease. us Libra Finney MD LAB BLOOD ORDERABLES Final Res ult Performing Organization Address [facility] [employer] de Phone Number [facility] [address] [place] [address], [place] [phone] * Prothrombin time with INR (04/07/2025 9:59 AM EDT) [facility] Protime 11.9 10.6 - 13.9 sec LAB COAGULATION METHOD 04/07/2025 11:31 AM EDT [facility] INR 0.9 LAB COAGULATION METHOD 04/07/2025 11:31 AM EDT [facility] Blood Venous blood specimen / Unknown Venipuncture / Unknown 04/07/2025 9:59 AM EDT 04/07/2025 11:09 AM EDT us Libra Finney MD LAB BLOOD ORDERABLES Final Res ult [facility] [address] [place] [address], [place] [phone] * (ABNORMAL) Comprehensive metabolic panel (04/07/2025 9:59 AM EDT) [facility] Sodium 138 133 - 145 mmol/L LAB CHEMISTRY METHOD 04/07/2025 12:41 PM EDT [facility] Potassium 3.9 3.5 - 5.5 mmol/L LAB CHEMISTRY METHOD 04/07/2025 12:41 PM [facility] Chloride 105 96 - 110 mmol/L LAB CHEMISTRY METHOD 04/07/2025 12:41 PM [facility] CO2 25 21 - 32 mmol/L LAB CHEMISTRY METHOD 04/07/2025 12:41 PM [facility] Anion Gap 8 3 - 11 LAB CHEMISTRY METHOD 04/07/2025 12:41 PM [facility] Glucose 133(H) 70 - 100 mg/dL LAB CHEMISTRY METHOD 04/07/2025 12:41 PM [facility] BUN 12 5 - 25 mg/dL LAB CHEMISTRY METHOD 04/07/2025 12:41 PM [facility] Creatinine 0.86 0.50 - 1.10 mg/dL LAB CHEMISTRY METHOD 04/07/2025 12:41 PM [facility] eGFR 77 >=60 mL/min/1. 73m2 LAB CHEMISTRY METHOD 04/07/2025 12:41 PM [facility] Comment:Calculation based on the Chronic Kidney Disease Epidemiology Collaboration (CKD-EPI) equation refit without adjustment for race. BUN/Creatinine Ratio 14.0 LAB CHEMISTRY METHOD 04/07/2025 12:41 PM [facility] Calcium 9.0 8.5 - 10.5 mg/dL LAB CHEMISTRY METHOD 04/07/2025 12:41 PM [facility] AST (SGOT) 33 10 - 42 unit/L LAB CHEMISTRY METHOD 04/07/2025 12:41 PM [facility] ALT (SGPT) 48 10 - 60 unit/L LAB CHEMISTRY METHOD 04/07/2025 12:41 PM [facility] Alkaline Phosphatase 86 42 - 121 unit/L LAB CHEMISTRY METHOD 04/07/2025 12:41 PM [facility] Total Protein 7.4 6.0 - 8.0 g/dL LAB CHEMISTRY METHOD 04/07/2025 12:41 PM EDT [facility] Albumin 4.5 3.2 - 5.0 g/dL LAB CHEMISTRY METHOD 04/07/2025 12:41 PM EDT [facility] Total Bilirubin 0.4 0.0 - 1.4 mg/dL LAB CHEMISTRY METHOD 04/07/2025 12:41 PM EDT [facility] Blood Venous blood specimen / Unknown Venipuncture / Unknown 04/07/2025 9:59 AM EDT 04/07/2025 11:10 AM EDT Libra Finney MD LAB BLOOD ORDERABLES Final Res ult [facility] [address] [place] [address], * COLONOSCOPY (10/16/2024 9:55 AM EST) Anatomical Region Laterality Modality Endoscopy Historical Provider GI~PROCEDURE ORDERABLES F inal Result from Last 3 Months or Most Recently Relevant to Health Maintenance Insurance [facility]IC[facility] Member Subscriber Plan / Payer (Ef fective 2021-Present) Name:KRISTIN CISNEROS Relation to Subscriber:Self Name:Kristin Cisneros Payer ID:[id number] Group ID:[id number] Type:Not on file Address: [place] [address] [address] [phone] Care Teams Product Operations Associate Relationship Specialty Start Date End Date Adam Cadena PA [address] [place] [address] PCP - General Physician [employer] 08/13/24
== END 2025-06-09 10:52 | disposition home or self-care (01) ==
LOC: HO.HMCH 10:01
PROVIDERS: PCP Physician Assistant; Visit Provider Physician Assistant
DX: Z00.00 Encounter for general adult medical examination without abnormal findings (principal); E11.65 Type 2 diabetes mellitus with hyperglycemia; G61.81 Chronic inflammatory demyelinating polyneuritis; K74.60 Unspecified cirrhosis of liver; E78.2 Mixed hyperlipidemia; F41.1 Generalized anxiety disorder; E03.9 Hypothyroidism, unspecified; D69.6 Thrombocytopenia, unspecified

== ENCOUNTER → 2025-06-09 10:00 | Outpatient (BNVA) | payer OTHER, SELFPAY | PROVIDERS: PCP Physician Assistant; Visit Provider Physician Assistant | DX: Z00.00 Encounter for general adult medical examination without abnormal findings (principal); E11.65 Type 2 diabetes mellitus with hyperglycemia; E03.9 Hypothyroidism, unspecified; F41.1 Generalized anxiety disorder; E78.5 Hyperlipidemia, unspecified; K74.60 Unspecified cirrhosis of liver; I10 Essential (primary) hypertension; E78.2 Mixed hyperlipidemia; G61.81 Chronic inflammatory demyelinating polyneuritis; D69.6 Thrombocytopenia, unspecified | CPT/HCPCS: 96127; 99396 ==